=== PATIENT | female | born 1985 | race Two or more races ===

== ENCOUNTER → 2020-08-04 12:45 | Outpatient (BNVA) | payer OTHER, SELFPAY | PROVIDERS: PCP Hospitalist; Referring Provider Hospitalist; Visit Provider Nurse Practitioner | DX: K21.9 Gastro-esophageal reflux disease without esophagitis (principal); R06.81 Apnea, not elsewhere classified; K59.04 Chronic idiopathic constipation; Z79.899 Other long term (current) drug therapy | CPT/HCPCS: 99212 ==

== ENCOUNTER 2020-08-06 10:33 | Outpatient (REF) | payer OTHER, SELFPAY ==
--- NOTE | 2020-08-06 | US_ITS ---
EXAMINATION: US PELVIS COMPLETE CLINICAL INFORMATION: Transabdominal pelvic pain. Previous hysterectomy and right oophorectomy. COMPARISON: None TECHNIQUE: Transabdominal and transvaginal imaging of pelvis is performed. FINDINGS: The uterus is surgically absent. The right ovary is not visualized likely from previous oophorectomy. The left ovary measures 3.2 x 1.6 x 1.5 cm and volume 4.0 mL. There are 2 anechoic cysts in the left ovary. They measure 0.90 x 0.84 x 0.90 cm and 0.85 x 0.60 x 0.83 cm. There is no free fluid in the cul-de-sac. US/US transvaginal IMPRESSION: 1. Two simple cysts left ovary. 2. The right ovary and uterus have been surgically removed.
--- NOTE | 2020-08-06 | US_ITS ---
EXAMINATION: US PELVIS COMPLETE CLINICAL INFORMATION: Transabdominal pelvic pain. Previous hysterectomy and right oophorectomy. COMPARISON: None TECHNIQUE: Transabdominal and transvaginal imaging of pelvis is performed. FINDINGS: The uterus is surgically absent. The right ovary is not visualized likely from previous oophorectomy. The left ovary measures 3.2 x 1.6 x 1.5 cm and volume 4.0 mL. There are 2 anechoic cysts in the left ovary. They measure 0.90 x 0.84 x 0.90 cm and 0.85 x 0.60 x 0.83 cm. There is no free fluid in the cul-de-sac. US/US pelvic complete IMPRESSION: 1. Two simple cysts left ovary. 2. The right ovary and uterus have been surgically removed.
== END 2020-08-06 10:34 | disposition home or self-care (01) ==
LOC: HO.US 10:33
PROVIDERS: Visit Provider Obstetrics & Gynecology
DX: R10.2 Pelvic and perineal pain (principal); N83.292 Other ovarian cyst, left side; D49.59 Neoplasm of unspecified behavior of other genitourinary organ
CPT/HCPCS: 76830; 76856

== ENCOUNTER 2020-08-16 13:44 | Emergency (ER) | payer OTHER, SELFPAY ==
[2020-08-16 14:56] VITALS: BP 126/79; PULSE 75; RESP 18; TEMP 36.9; O2SAT 100; BMI 23.3
--- NOTE | 2020-08-16 15:13 | ED.URI ---
HPI - URI/Sore Throat General Chief Complaint: Upper Respiratory Symptoms Stated Complaint: FLU SYMPTONS Time Seen by Provider: 08/16/20 15:11 Source: patient Mode of arrival: ambulatory Limitations: no limitations History of Present Illness HPI Narrative: States she has had runny nose and congestion for 1 day her boyfriend tested positive for COVID-19 she is anxious regarding this. Denies any chest pain shortness of breath no fever. Here for COVID-19 testing. MD elicited complaint: rhinorrhea Severity: mild Treatments prior to arrival: none Related Data Home Medications Medication Instructions Recorded Confirmed bisacodyl 5 mg tablet,delayed 10 mg PO BEDTIME 08/01/20 08/01/20 release linaclotide 290 mcg capsule 290 mcg PO QAM 08/01/20 08/01/20 omeprazole 40 mg capsule,delayed 40 mg PO DAILY 08/01/20 08/01/20 release Allergies Allergy/AdvReac Type Severity Reaction Status Date / Time No Known Allergies Allergy Verified 08/04/20 12:46 [No Known Allergies*] Review of Systems Review of Systems: Constitutional: No Weight loss, No Fever, No Chills, No Night Sweats, No Fatigue, No Malaise ENT/Mouth: No Hearing loss, No Ear Pain, + Nasal Congestion, No Sinus Pain, No Hoarseness, No sore throat, + Rhinorrhea, No Swallowing Difficulty Eyes: No Eye Pain, No Swelling, No Redness, No Foreign Body, No Discharge, No Vision Changes Cardiovascular: No Chest Pain, No SOB, No Dyspnea on Exertion, No Orthopnea, No Edema, No Palpitations Respiratory: No Cough, No Sputum, No Wheezing, No Smoke Exposure, No Dyspnea Gastrointestinal: No Nausea, No Vomiting, No Diarrhea, No Constipation, No abdominal Pain Genitourinary: no irregular bleeding, No Dysuria, No Urinary Frequency, No Hematuria, No Urinary Incontinence, No Urgency, No Flank Pain, No Urinary Flow Changes, No Hesitancy Musculoskeletal: No joint pain, No Myalgias, No Joint Swelling Skin: No Skin Lesions, No rash Neuro: No Weakness, No Numbness, No Paresthesias, No Loss of Consciousness, No Dizziness, No Headache Psych: No Social Issues Heme/Lymph: No Bruising, No Bleeding,No Lymphadenopathy Endocrine: No Polyuria, No Polydipsia, No Temperature Intolerance Yes all other systems are reviewed and are negative PMFSH Past Medical History Attestation statement: The following information was validated with the patient. Surgical History H/O section H/O hernia repair H/O hysterectomy with oophorectomy Hx of esophagogastroduodenoscopy Family History Family History (Updated 08/04/20 @ 12:55 by RACHEL Villalba) Father Kidney disease Hypertension Mother CVD (cardiovascular disease) Paternal Grandmother Stomach cancer Social History Social History (Updated 08/04/20 @ 12:57 by RACHEL Villalba) Alcohol intake: current Alcohol intake frequency: does not drink Smoking Status: Current every day smoker Tobacco Type: Cigarette Cigarettes Per Day: 5 Advance Directives: No Advance Directives Information Provided: Yes Physical Exam Vital Signs: Vital Signs: Last Vital Signs Temp 98.4 F 08/16/20 14:56 Pulse 75 08/16/20 14:56 Resp 18 08/16/20 14:56 BP 126/79 08/16/20 14:56 Pulse Ox 100 08/16/20 14:56 Body Mass Index 23.3 Reviewed Const: General: cooperative and healthy appearing; No acute distress or intoxicated appearing Nutritional Appearance: average body habitus Orientation/consciousness: patient oriented x3 HENMT: Head: Yes normal to inspection Ears: hearing grossly normal bilaterally Eyes: General: appearance normal, both eyes and all related structures Visual Wilder: normal visual wilder by confrontation Neck: Neck: Yes normal visual inspection, No positive Brudzinski's sign, No positive Kernig's sign and No tender Thyroid: Thyroid normal Chest: Chest palpation & inspection: normal inspection of the chest Resp: Effort & Inspection: normal respiratory effort Cardio: Jugular venous distension: no JVD GI: Inspection: Yes normal to inspection Percussion: Yes normal to percussion Auscultation: normal bowel sounds : General: Yes no CVA tenderness Back/Spine/Pelvis: Back: no CVA tenderness Skin: General skin exam: no rashes or lesions noted Neuro: General: patient oriented x3 Extrem: General: Yes normal to inspection Discharge Plan Discharge Clinical Impression: Upper respiratory infection Patient Disposition: Home, Self-Care Instructions: Upper Respiratory Infection (ED) Additional Instructions: Based on your symptoms and history we have sent a COVID-19. Although your RESULT IS PENDING at this time. RESULTS should return within 72 hours. At this time you will be contacted with either NEGATIVE OR POSITIVE results. -Please wait until we contact you for your results. At this time you will be okay for discharge. Please plan for self quarantine for up to 14 days. Do not expose yourself to others. You may not go to work. If testing does come back negative you may return to activities as long as you are no longer having any symptoms for at least 3 days. Please continue to follow cold instructions and wash your hands frequently. You may take Tylenol as directed on the bottle for pain or fever. Patient seen in the emergency department on 03/28/2020 and should be excused from work until negative test results AND until 72 hours without any symptoms AND at least 10 days have passed since symptoms first appeared or since last exposure to COVID-19 positive patient CDC Guidelines for home isolation: - Stay away from others - WEAR A MASK if you are sick AND STAY HOME - Cover your mouth and nose with a tissue when you cough or sneeze. Dispose of tissues in a lined trash can and wash your hands immediately with soap and water for at least 20 seconds. If soap and water are not available, clean hands with alcohol-based hand weight yardage checker that contains at least 60% alcohol. - Clean your hands often with soap and water for at least 20 seconds - Avoid touching your eyes, nose and mouth with unwashed hands - Do not share dishes, drinking glasses, cups, eating utensils, towels, or bedding with other people in your home. After using these items, wash them thoroughly with soap and water or put in the editorial specialist. - Clean high-touch surfaces in your isolation area ( sick room and bathroom) every day; let a caregiver clean and disinfect high-touch surfaces in other areas of the home. Clean the area or item with soap and water or another detergent if it is dirty. Then, use a household disinfectant. - Limit contact with pets and animals: If you must care for a pet, wash your hands before and after interacting with them Prescriptions: No Action bisacodyl [Dulcolax (bisacodyl)] 5 mg tablet,delayed release (DR/EC) 10 mg PO BEDTIME RF: 0 Linzess 290 mcg capsule 290 mcg PO QAM RF: 0 omeprazole 40 mg capsule,delayed release(DR/EC) 40 mg PO DAILY RF: 0 Referrals: Nazia Newton MD [Primary Care Provider] - 1 week (Phone visit)
== END 2020-08-16 15:52 | disposition home or self-care (01) ==
PROVIDERS: Nurse Practitioner Primary Care; Emergency Provider Emergency Medicine; PCP Internal Medicine
DX: J06.9 Acute upper respiratory infection, unspecified (principal); Z20.828 Contact with and (suspected) exposure to other viral communicable diseases; F17.210 Nicotine dependence, cigarettes, uncomplicated; Z71.6 Tobacco abuse counseling
CPT/HCPCS: 99283; U0003

== ENCOUNTER → 2020-08-19 09:12 | Outpatient (BNVA) | payer OTHER, SELFPAY | PROVIDERS: PCP Internal Medicine; Referring Provider Internal Medicine; Visit Provider Advanced Practice Midwife | DX: Z76.89 Persons encountering health services in other specified circumstances (principal) ==

== ENCOUNTER 2020-08-30 10:24 | Emergency (ER) | payer OTHER, SELFPAY ==
--- NOTE | 2020-08-30 10:32 | ED.DENTAL ---
HPI - Dental/Oral General Chief complaint: Dental/Oral Stated complaint: FACIAL PAIN Time Seen by Provider: 08/30/20 10:32 Source: patient Mode of arrival: ambulatory Limitations: no limitations History of Present Illness HPI Narrative: 35 y/o female with history of dental caries and hx abscess in the past who is presenting with acute onset of left lower dental pain and facial swelling that started yesterday. She states she recently had a cleaning and has a known cracked tooth in that area. She denies fevers, difficulty breathing or difficulty swallowing. Related Data Home Medications Medication Instructions Recorded Confirmed bisacodyl 5 mg tablet,delayed 10 mg PO BEDTIME 08/01/20 08/01/20 release linaclotide 290 mcg capsule 290 mcg PO QAM 08/01/20 08/01/20 omeprazole 40 mg capsule,delayed 40 mg PO DAILY 08/01/20 08/01/20 release Previous Rx's Medication Instructions Recorded clindamycin HCl 300 mg PO Q6H #28 cap 08/30/20 hydrocodone-acetaminophen [[place]] 1 tab PO Q4-6H PRN #12 tab 08/30/20 ibuprofen 600 mg PO Q8H PRN #20 tab 08/30/20 Allergies Allergy/AdvReac Type Severity Reaction Status Date / Time No Known Allergies Allergy Verified 08/19/20 09:05 [No Known Allergies*] Review of Systems Review of Systems: Constitutional: No Fever, No Chills ENT/Mouth: No sore throat, No Rhinorrhea, No Swallowing Difficulty, +dental pain, +facial swelling Cardiovascular: No Chest Pain, No SOB Respiratory: No Cough, No Sputu Gastrointestinal: No Nausea, No Vomiting, No Diarrhea, No abdominal Pain Musculoskeletal: No joint pain, No Myalgias Neuro: + Headache Psych: + Anxiety/Panic, No Depression Heme/Lymph: + Lymphadenopathy PMFSH Past Medical History Medical History Anxiety Asthma Atopic dermatitis Bipolar 1 disorder Depression GERD (gastroesophageal reflux disease) Surgical History H/O section H/O hernia repair H/O hysterectomy with oophorectomy Hx of esophagogastroduodenoscopy Family History Family History Father Kidney disease Hypertension Mother CVD (cardiovascular disease) Paternal Grandmother Stomach cancer Social History Social History (Updated 08/19/20 @ 09:16 by Citlali Alas) Alcohol intake: current Alcohol intake frequency: does not drink Smoking Status: Current every day smoker Tobacco Type: Cigarette Cigarettes Per Day: 5 Advance Directives: No Advance Directives Information Provided: No Gender identity: female Physical Exam Vital Signs: Vital Signs: Last Vital Signs Temp 97.3 F 08/30/20 10:38 Pulse 86 08/30/20 10:38 Resp 17 08/30/20 10:38 BP 130/86 08/30/20 10:38 Pulse Ox 99 08/30/20 10:38 Body Mass Index 26.4 Appearance: Alert. Oriented X3. Apppears to be in pain, holding left side of her jaw HEENT: moderate left sided facial swelling, palpable dental abscess at 2nd molar position, tooth #18 with gingival tenderness, no pus able to be expressed, #18 tooth is cracked with brown discoloration. uvula midline, handling own secretions, tongue nomral. submandibular LAD, moderate. CVS: Normal heart rate and rhythm. Pulses normal. Respiratory: No respiratory distress. Lungs CTAB. Skin: Skin warm and dry. Normal skin color. Normal skin turgor. No rashes. Course Course Course Narrative: 35 y/o female with left lower dental pain since yesterday after recent cleaning - exam consistent with abscess. Dr. Cisneros attempted to perform dental block and offered drainage however patient did not tolerate due to pain. She would like to be treated with antibiotics and pain medications until she can be seen by her dentist on Tuesday. Her airway is intact, low suspicion for Oliverio's angina at this time. She was given pain meds and oral abx here with plan to prescribe both to cover her for the weekend. She was instructed to come back to the ER if her symptoms worsen. MDM - Dental/Oral Differential Diagnosis Differential diagnosis: Likely gingival abscess, dental caries, toothache, dental abscess and fracture of tooth Critical Care Time Critical Care Time Critical Care Time: No Discharge Plan Discharge Clinical Impression: Dental abscess Patient Disposition: Home, Self-Care Instructions: Dental Abscess (ED) Additional Instructions: Your exam is concerning for dental abscess. Unfortunately you did not tolerate an attempt at drainage while in the ER today. Take the prescribed antibiotics to treat the infection. Follow up with your dentist PARVIZ, 1st thing Tuesday morning. If you develop increased swelling, pain, difficulty breathing or swallowing call 911 or come back to the ER for further evalution. Prescriptions: New ibuprofen 600 mg tablet 600 mg PO Q8H PRN (Reason: pain) Qty: 20 RF: 0 hydrocodone-acetaminophen [[place]] 5-325 mg tablet 1 tab PO Q4-6H PRN (Reason: pain) Qty: 12 RF: 0 clindamycin HCl 300 mg capsule 300 mg PO Q6H Qty: 28 RF: 0 No Action bisacodyl [Dulcolax (bisacodyl)] 5 mg tablet,delayed release (DR/EC) 10 mg PO BEDTIME RF: 0 Linzess 290 mcg capsule 290 mcg PO QAM RF: 0 omeprazole 40 mg capsule,delayed release(DR/EC) 40 mg PO DAILY RF: 0 Discharge Date/Time: 08/30/20 11:47 Print Language: Sinhala
[2020-08-30 10:38] VITALS: BP 130/86; PULSE 86; RESP 17; TEMP 36.3; O2SAT 99; BMI 26.4
[2020-08-30] MEDS: Lidocaine HCl 2 % MPF 5 ML VIAL INFILTRATI (11:05)
[2020-08-30] MEDS: oxyCODONE HCl Immed Release 5 MG TABLET PO (11:06)
[2020-08-30] MEDS: Acetaminophen 325 MG TABLET 975 MG PO (11:06)
[2020-08-30] MEDS: Ibuprofen 600 MG TABLET PO (11:06)
[2020-08-30] MEDS: Penicillin V Potassium 250 MG TABLET 500 MG PO (11:07)
== END 2020-08-30 11:47 | disposition home or self-care (01) ==
LOC: HO.ED 10:54
PROVIDERS: Emergency Provider Internal Medicine; PCP Internal Medicine
DX: K04.7 Periapical abscess without sinus (principal)
CPT/HCPCS: 99283

== ENCOUNTER 2020-11-07 11:35 | Outpatient (REF) | payer OTHER, SELFPAY | END 2020-11-07 11:36 | disposition home or self-care (01) | LOC: HO.LAB 11:35 | PROVIDERS: PCP Internal Medicine; Visit Provider Advanced Practice Midwife | DX: N30.90 Cystitis, unspecified without hematuria (principal); N83.202 Unspecified ovarian cyst, left side; Z90.710 Acquired absence of both cervix and uterus | CPT/HCPCS: 81003; 87086; 87088; 87186; 99212 ==

== ENCOUNTER 2020-11-08 07:56 | Outpatient (REF) | payer OTHER, SELFPAY ==
[2020-11-08 08:43] LABS: MANUAL DIFF FLAG NO
[2020-11-08 08:47] LABS: Basophils Percent Auto 0.4 % (0-2); Eosinophils Absolute Auto 0.1 X10*3/uL (0.0-0.4); Hematocrit 45.6 % (37-47); Hemoglobin 14.7 g/dl (12.0-16.0); Imm Gran Abs Auto 0.03 X10*3/uL (0.00-0.03); Imm Gran Pct Auto 0.4 % (0.0-0.4); Lymphocytes Absolute Auto 2.8 X10*3/uL (1.2-4.9); Lymphocytes Percent Auto 39.6 % (20-40); Mean Corpuscular HGB Conc 32.2 g/dl (31.0-35.0); Mean Corpuscular Hemoglobin 28.6 pg (27.0-33.0); Mean Corpuscular Volume 88.7 fL (80-98); Mean Platelet Volume 11.2 fL (9.4-12.3); Monocytes Absolute Auto 0.4 X10*3/uL (0.1-1.2); Neutrophils Absolute Auto 3.7 X10*3/uL (2.0-8.3); Neutrophils Percent Auto 52.6 % (45-73); Platelet Count 291 X10*3/uL (160-400); Red Blood Count 5.14 X10*6/uL (4.20-5.50); Red Cell Distribution Width 14.1 % (11.0-16.0); White Blood Count 7.1 X10*3/uL (4.8-10.8)
[2020-11-08 09:04] LABS: Anion Gap 11 (12-20); Blood Urea Nitrogen 17 mg/dL (9-16); Calcium 9.6 mg/dL (8.4-10.2); Carbon Dioxide 28 mmol/L (22-29); Chloride 103 mmol/L (96-108); Cholesterol 190 mg/dL; Estimated Glomerular Filt Rate > 60; Glucose Fasting 105 mg/dL (60-99); HDL Cholesterol 31 mg/dL; LDL Cholesterol Calculated 111 mg/dl; Potassium 4.6 mmol/L (3.3-5.1); Sodium 137 mmol/L (135-145); Triglycerides 240 mg/dL
== END 2020-11-08 07:57 | disposition home or self-care (01) ==
LOC: HO.LAB 07:56
PROVIDERS: PCP Internal Medicine; Visit Provider Nurse Practitioner Family
DX: K58.9 Irritable bowel syndrome, unspecified (principal)
CPT/HCPCS: 36415; 80048; 80061; 85025

== ENCOUNTER 2020-11-09 13:37 | Emergency (ER) | payer OTHER, SELFPAY ==
[2020-11-09 13:39] VITALS: BP 134/93; PULSE 73; RESP 18; TEMP 36.7; O2SAT 98; BMI 30.9
[2020-11-09 16:54] LABS: MANUAL DIFF FLAG NO
[2020-11-09 16:57] LABS: Basophils Percent Auto 0.3 % (0-2); Eosinophils Absolute Auto 0.1 X10*3/uL (0.0-0.4); Eosinophils Percent Auto 1.7 % (0-4); Imm Gran Abs Auto 0.02 X10*3/uL (0.00-0.03); Imm Gran Pct Auto 0.3 % (0.0-0.4); Lymphocytes Absolute Auto 2.7 X10*3/uL (1.2-4.9); Lymphocytes Percent Auto 34.6 % (20-40); Mean Corpuscular HGB Conc 31.8 g/dl (31.0-35.0); Mean Corpuscular Hemoglobin 28.1 pg (27.0-33.0); Mean Corpuscular Volume 88.4 fL (80-98); Mean Platelet Volume 11.2 fL (9.4-12.3); Monocytes Absolute Auto 0.4 X10*3/uL (0.1-1.2); Neutrophils Absolute Auto 4.5 X10*3/uL (2.0-8.3); Neutrophils Percent Auto 58.1 % (45-73); Platelet Count 281 X10*3/uL (160-400); Red Blood Count 4.98 X10*6/uL (4.20-5.50); Red Cell Distribution Width 14.1 % (11.0-16.0); White Blood Count 7.7 X10*3/uL (4.8-10.8)
--- NOTE | 2020-11-09 16:58 | ED.DIZZY ---
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 Mode of arrival: ambulatory Related Data Home Medications Medication Instructions Recorded Confirmed bisacodyl 5 mg tablet,delayed 10 mg PO BEDTIME 08/01/20 11/07/20 release linaclotide 290 mcg capsule 290 mcg PO QAM 08/01/20 11/07/20 omeprazole 40 mg capsule,delayed 40 mg PO DAILY 08/01/20 11/07/20 release Previous Rx's Medication Instructions Recorded clindamycin HCl 300 mg PO Q6H #28 cap 08/30/20 hydrocodone-acetaminophen [[place]] 1 tab PO Q4-6H PRN #12 tab 08/30/20 ibuprofen 600 mg PO Q8H PRN #20 tab 08/30/20 dicyclomine 20 mg tablet 20 mg PO BID 10 Days #20 tab 11/06/20 rifaximin 200 mg tablet 200 mg PO TID 7 Days #21 tab 11/06/20 nitrofurantoin 100 mg PO BID 7 Days #14 cap 11/07/20 monohydrate/macrocrystals 100 mg capsule Allergies Allergy/AdvReac Type Severity Reaction Status Date / Time No Known Allergies Allergy Verified 11/07/20 11:49 [No Known Allergies*] [facility] Past Medical History Medical History Anxiety Asthma Atopic dermatitis Bipolar 1 disorder Depression GERD (gastroesophageal reflux disease) IBS (irritable bowel syndrome) Surgical History (Updated 11/07/20 @ 11:57 by Marianela Cash) H/O section H/O hernia repair H/O hysterectomy with oophorectomy Hx of esophagogastroduodenoscopy Family History Family History Father Kidney disease Hypertension Mother CVD (cardiovascular disease) Paternal Grandmother Stomach cancer Social History Social History Alcohol intake: current Alcohol intake frequency: does not drink Smoking Status: Current every day smoker Tobacco Type: Cigarette Cigarettes Per Day: 5 Advance Directives: No Advance Directives Information Provided: No Gender identity: female Physical Exam Vital Signs: Vital Signs: Last Vital Signs Temp 98.1 F 11/09/20 13:39 Pulse 73 11/09/20 13:39 Resp 18 11/09/20 13:39 BP 134/93 H 11/09/20 13:39 Pulse Ox 98 11/09/20 13:39 Body Mass Index 30.9 MDM - Dizziness Lab Data Result diagrams: 11/09/20 16:33 11/09/20 16:33 Labs: Lab Results 11/09/20 11/09/20 Range/Units 16:33 16:33 WBC 7.7 (4.8-10.8) X10*3/uL RBC 4.98 (4.20-5.50) X10*6/uL Hgb 14.0 (12.0-16.0) g/dl Hct 44.0 (37-47) % MCV 88.4 (80-98) fL MCH 28.1 (27.0-33.0) pg MCHC 31.8 (31.0-35.0) g/dl RDW 14.1 (11.0-16.0) % Plt Count 281 (160-400) X10*3/uL MPV 11.2 (9.4-12.3) fL Immature Gran % (Auto) 0.3 (0.0-0.4) % Neut % (Auto) 58.1 (45-73) % Lymph % (Auto) 34.6 (20-40) % [place] % (Auto) 5.0 (2-11) % Eos % (Auto) 1.7 (0-4) % Baso % (Auto) 0.3 (0-2) % Lymph # (Auto) 2.7 (1.2-4.9) X10*3/uL [place] # (Auto) 0.4 (0.1-1.2) X10*3/uL Eos # (Auto) 0.1 (0.0-0.4) X10*3/uL Baso # (Auto) 0.0 (0.0-0.2) X10*3/uL Abs Immat Gran (auto) 0.02 (0.00-0.03) X10*3/uL Absolute Neuts (auto) 4.5 (2.0-8.3) X10*3/uL Absolute Nucleated RBC 0.000 (0.0-0.012) X10*3/uL Nucleated RBC % (auto) 0.0 (0.0-0.2) /100WBC Hold Blue Top SEE NOTE Discharge Plan Discharge Prescriptions: No Action ibuprofen 600 mg tablet 600 mg PO Q8H PRN (Reason: pain) Qty: 20 RF: 0 hydrocodone-acetaminophen [[place]] 5-325 mg tablet 1 tab PO Q4-6H PRN (Reason: pain) Qty: 12 RF: 0 clindamycin HCl 300 mg capsule 300 mg PO Q6H Qty: 28 RF: 0 rifaximin 200 mg tablet 200 mg PO TID 7 Days Qty: 21 RF: 0 dicyclomine 20 mg tablet 20 mg PO BID 10 Days Qty: 20 RF: 0 bisacodyl [Dulcolax (bisacodyl)] 5 mg tablet,delayed release (DR/EC) 10 mg PO BEDTIME RF: 0 Linzess 290 mcg capsule 290 mcg PO QAM RF: 0 omeprazole 40 mg capsule,delayed release(DR/EC) 40 mg PO DAILY RF: 0 nitrofurantoin monohyd/m-cryst [Macrobid] 100 mg capsule 100 mg PO BID 7 Days Qty: 14 RF: 0
--- NOTE | 2020-11-09 17:10 | ED_ITS ---
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 Patient been complaining of diffuse pain nausea, vomiting 1 or 2 times a day. No fever no chills no significant flank pain no relation of pain with food last temp patient saw pediatrician was in 07/22 when she was prescribed with Manuelito HATFIELD elicited complaint: abdominal pain Pertinent past history: gastritis Onset (ago): day(s) (5) Pain Consistency: intermittent Location: diffuse Severity: mild Quality: cramping Related Data Home Medications Medication Instructions Recorded Confirmed bisacodyl 5 mg tablet,delayed 10 mg PO BEDTIME 08/01/20 11/07/20 release linaclotide 290 mcg capsule 290 mcg PO QAM 08/01/20 11/07/20 omeprazole 40 mg capsule,delayed 40 mg PO DAILY 08/01/20 11/07/20 release Previous Rx's Medication Instructions Recorded clindamycin HCl 300 mg PO Q6H #28 cap 08/30/20 hydrocodone-acetaminophen [[place]] 1 tab PO Q4-6H PRN #12 tab 08/30/20 ibuprofen 600 mg PO Q8H PRN #20 tab 08/30/20 dicyclomine 20 mg tablet 20 mg PO BID 10 Days #20 tab 11/06/20 rifaximin 200 mg tablet 200 mg PO TID 7 Days #21 tab 11/06/20 nitrofurantoin 100 mg PO BID 7 Days #14 cap 11/07/20 monohydrate/macrocrystals 100 mg capsule levofloxacin 500 mg PO DAILY 5 Days #5 tab 11/09/20 ondansetron 4 mg PO Q6-8H PRN #7 tab 11/09/20 Allergies Allergy/AdvReac Type Severity Reaction Status Date / Time No Known Allergies Allergy Verified 11/07/20 11:49 [No Known Allergies*] Review of Systems Review of Systems Constitutional : No Weight loss, No Fever, No Chills ENT/Mouth : No sore throat, No Rhinorrhea Eyes: No Eye Pain, No Swelling Cardiovascular : No Chest Pain, no palpitations Respiratory : No Cough, No Sputum, no shortness of breath Gastrointestinal : + Nausea, + Vomiting, No Diarrhea, + abdominal Pain, no black stools Genitourinary : No Dysuria, No Urinary Frequency Musculoskeletal : No joint pain, No Myalgias, No Joint Swelling Skin : No Skin Lesions, No rash Neuro : No Weakness, No Numbness, No Dizziness, No Headache Psych : No Anxiety/Panic, No Depression Heme/Lymph: No Bruising, No Lymphadenopathy Endocrine : No Polyuria, No Polydipsia All other systems reviewed and are negative Physical Exam Vital Signs: Vital Signs: Last Vital Signs Temp 98.6 F 11/09/20 17:20 Pulse 63 11/09/20 17:20 Resp 18 11/09/20 17:20 BP 128/80 11/09/20 17:20 Pulse Ox 100 11/09/20 17:20 Body Mass Index 30.9 Const: General: healthy appearing, comfortable and no acute distress Orientation/consciousness: patient oriented x3 HENMT: Head: Yes normocephalic Eyes: General: appearance normal, both eyes and all related structures Neck: Neck: Yes normal visual inspection Chest: Chest palpation & inspection: normal inspection of the chest Resp: Effort & Inspection: normal respiratory effort Cardio: Palpation: normal PMI Rate: regular rate Rhythm: regular rhythm Heart sounds: S1 normal heart sound present and S2 normal heart sound present GI: Inspection: Yes normal to inspection Palpation (GI): Soft to palpation and nontender : General: Yes no CVA tenderness Back/Spine/Pelvis: Back: no CVA tenderness Thoracic/Lumbar Spine: thoracic and lumbar spine normal to inspection Skin: General skin exam: no rashes or lesions noted Neuro: General: patient oriented x3 and no focal motor deficits Extrem: General: Yes normal to inspection, Yes no calf tenderness and No pedal edema MDM - Abdominal Pain MDM Narrative Medical decision making narrative: Patient IBS with chronic abdominal pain with recent UTI urine culture showed E coli which was intermediate sensitive to Macrobid will change to Levaquin advised to follow with pediatrician Differential Diagnosis Differential diagnosis: Likely abdominal pain Medical Records Attestation: I reviewed the patient's medical records. Lab Data Attestation: I reviewed the patient's lab results. Result diagrams: 11/09/20 16:33 11/09/20 16:33 Labs: Lab Results 11/09/20 11/09/20 11/09/20 Range/Units 16:33 16:33 16:33 WBC 7.7 (4.8-10.8) X10*3/uL RBC 4.98 (4.20-5.50) X10*6/uL Hgb 14.0 (12.0-16.0) g/dl Hct 44.0 (37-47) % MCV 88.4 (80-98) fL MCH 28.1 (27.0-33.0) pg MCHC 31.8 (31.0-35.0) g/dl RDW 14.1 (11.0-16.0) % Plt Count 281 (160-400) X10*3/uL MPV 11.2 (9.4-12.3) fL Immature Gran % (Auto) 0.3 (0.0-0.4) % Neut % (Auto) 58.1 (45-73) % Lymph % (Auto) 34.6 (20-40) % [place] % (Auto) 5.0 (2-11) % Eos % (Auto) 1.7 (0-4) % Baso % (Auto) 0.3 (0-2) % Lymph # (Auto) 2.7 (1.2-4.9) X10*3/uL [place] # (Auto) 0.4 (0.1-1.2) X10*3/uL Eos # (Auto) 0.1 (0.0-0.4) X10*3/uL Baso # (Auto) 0.0 (0.0-0.2) X10*3/uL Abs Immat Gran (auto) 0.02 (0.00-0.03) X10*3/uL Absolute Neuts (auto) 4.5 (2.0-8.3) X10*3/uL Absolute Nucleated RBC 0.000 (0.0-0.012) X10*3/uL Nucleated RBC % (auto) 0.0 (0.0-0.2) /100WBC Hold Blue Top SEE NOTE Sodium 140 (135-145) mmol/L Potassium 4.1 (3.3-5.1) mmol/L Chloride 107 (96-108) mmol/L Carbon Dioxide 23 (22-29) mmol/L Anion Gap 14 (12-20) BUN 18 H (9-16) mg/dL Creatinine 0.80 (0.5-1.4) mg/dL Estim Creat Clear Calc 103.4 Estimated GFR > 60 Random Glucose 102 (60-115) mg/dL Calcium 9.2 (8.4-10.2) mg/dL Total Bilirubin 0.3 (0.0-1.0) mg/dL Direct Bilirubin 0.2 (0.0-0.5) mg/dL AST 19 (5-31) U/L ALT 19 (0-31) U/L Alkaline Phosphatase 42 (39-117) U/L Total Protein 6.9 (6.5-8.0) g/dL Albumin 4.1 (3.5-5.0) g/dL Lipase 17 (8-78) U/L Discharge Plan Discharge Clinical Impression: UTI (urinary tract infection) IBS (irritable bowel syndrome) Qualifiers: Irritable bowel syndrome type: without diarrhea Qualified Code(s): K58.9 - Irritable bowel syndrome without diarrhea Patient Disposition: Home, Self-Care Instructions: Irritable Bowel Syndrome (ED), Urinary Tract Infection in Women (ED) Additional Instructions: Drink plenty of fluids take medication as prescribed. Follow-up with your PCP/pediatrician Stop Macrobid which was prescribed by your PCP Audra muchos l?quidos y tome los medicamentos seg?n lo prescrito. Seguimiento con silva PCP / gastroenter?logo top Macrobid que fue recetado por silva PCP Prescriptions: New levofloxacin 500 mg tablet 500 mg PO DAILY 5 Days Qty: 5 RF: 0 ondansetron 4 mg tablet,disintegrating 4 mg PO Q6-8H PRN (Reason: nausea and vomiting) Qty: 7 RF: 0 No Action ibuprofen 600 mg tablet 600 mg PO Q8H PRN (Reason: pain) Qty: 20 RF: 0 hydrocodone-acetaminophen [[place]] 5-325 mg tablet 1 tab PO Q4-6H PRN (Reason: pain) Qty: 12 RF: 0 clindamycin HCl 300 mg capsule 300 mg PO Q6H Qty: 28 RF: 0 rifaximin 200 mg tablet 200 mg PO TID 7 Days Qty: 21 RF: 0 dicyclomine 20 mg tablet 20 mg PO BID 10 Days Qty: 20 RF: 0 bisacodyl [Dulcolax (bisacodyl)] 5 mg tablet,delayed release (DR/EC) 10 mg PO BEDTIME RF: 0 Linzess 290 mcg capsule 290 mcg PO QAM RF: 0 omeprazole 40 mg capsule,delayed release(DR/EC) 40 mg PO DAILY RF: 0 nitrofurantoin monohyd/m-cryst [Macrobid] 100 mg capsule 100 mg PO BID 7 Days Qty: 14 RF: 0 Interventions: ED Discharge Assessment Last Done: 11/09/20 17:41 Discharge Date/Time: 11/09/20 17:42 [facility] Past Medical History Medical History Anxiety Asthma Atopic dermatitis Bipolar 1 disorder Depression GERD (gastroesophageal reflux disease) IBS (irritable bowel syndrome) Surgical History H/O section H/O hernia repair H/O hysterectomy with oophorectomy Hx of esophagogastroduodenoscopy Family History Family History Father Kidney disease Hypertension Mother CVD (cardiovascular disease) Paternal Grandmother Stomach cancer Social History Social History Alcohol intake: former Smoking Status: Current every day smoker Tobacco Type: Cigarette Cigarettes Per Day: 5 Smoked in Last 30 Days: Yes Use of substances other than those prescribed or required for medical reasons: Yes Substance Use Type: Marijuana Substance Use Frequency: Socially Last Used Substance: Days (ago) Advance Directives: No Advance Directives Information Provided: No Gender identity: female
[2020-11-09 17:19] LABS: Alanine Aminotransferase 19 U/L (0-31); Albumin Level 4.1 g/dL (3.5-5.0); Alkaline Phosphatase 42 U/L (39-117); Anion Gap 14 (12-20); Aspartate Amino Transferase 19 U/L (5-31); Bilirubin Direct 0.2 mg/dL (0.0-0.5); Bilirubin Total 0.3 mg/dL (0.0-1.0); Blood Urea Nitrogen 18 mg/dL (9-16); Calcium 9.2 mg/dL (8.4-10.2); Carbon Dioxide 23 mmol/L (22-29); Chloride 107 mmol/L (96-108); Creatinine Clr Calc Pharmacy 103.4; Estimated Glomerular Filt Rate > 60; Glucose Random 102 mg/dL (60-115); Lipase 17 U/L (8-78); Potassium 4.1 mmol/L (3.3-5.1); Sodium 140 mmol/L (135-145); Total Protein 6.9 g/dL (6.5-8.0)
[2020-11-09 17:20] VITALS: BP 128/80; PULSE 63; RESP 18; TEMP 37; O2SAT 100
[2020-11-09] MEDS: Dicyclomine HCl 10 MG CAPSULE 20 MG PO (17:32)
[2020-11-09] MEDS: levoFLOXacin 500 MG TABLET PO (17:33)
--- NOTE | 2020-11-09 17:42 | MHC.HEMONC ---
Patient discharged, Interpeter used. Patient stated she understood instrucitons.
== END 2020-11-09 17:42 | disposition home or self-care (01) ==
PROVIDERS: Emergency Provider Internal Medicine; PCP Internal Medicine
DX: N39.0 Urinary tract infection, site not specified (principal); K58.0 Irritable bowel syndrome with diarrhea; F17.210 Nicotine dependence, cigarettes, uncomplicated
CPT/HCPCS: 36415; 80048; 80076; 83690; 85025; 99283; 99284

== ENCOUNTER → 2020-11-13 13:26 | Outpatient (BNVA) | payer OTHER, SELFPAY | PROVIDERS: PCP Internal Medicine; Visit Provider Nurse Practitioner ==

== ENCOUNTER 2020-11-17 13:27 | Outpatient (REF) | payer OTHER, SELFPAY | END 2020-11-17 13:28 | disposition home or self-care (01) | LOC: HO.LAB 13:27 | PROVIDERS: Visit Provider Internal Medicine | DX: Z20.822 Contact with and (suspected) exposure to COVID-19 (principal) | CPT/HCPCS: 36415; C9803; U0003; U0005 ==

== ENCOUNTER 2020-11-23 10:27 | Emergency (ER) | payer OTHER, SELFPAY ==
--- NOTE | ~2020-11-23 | US_ITS ---
EXAMINATION: US PELVIS COMPLETE WITH DOPPLER CLINICAL INFORMATION: Left-sided pain COMPARISON: CT abdomen pelvis 11/23/2020; pelvic ultrasound 08/06/2020 TECHNIQUE: Transabdominal imaging was performed. Additional endovaginal study performed to further evaluate the left ovary. Study performed with grayscale, color and spectral Doppler. FINDINGS: PELVIC ULTRASOUND WITH DOPPLER Status post hysterectomy and right oophorectomy. The left ovary measures 4.2 x 2.9 x 3.0 cm, 19.1 mL (prior 3.2 x 1.6 x 1.5 cm, 4.0 mL). A simple left ovarian follicle measures 1.6 x 1.4 x 1.5 cm. A complex avascular and heterogeneous, presumed hemorrhagic cyst measures 2.6 x 1.9 x 2.3 cm. Trace fluid is seen adjacent to the left ovary. No significant free fluid is seen. PELVIC DOPPLER: Normal color and spectral Doppler flow is demonstrated in the left ovary with arterial and venous waveforms identified. US/US pelvic ovarian doppler IMPRESSION: 1. Hysterectomy and right oophorectomy. 2. The left ovary is enlarged compared to prior and contains a simple follicle as well as a presumed hemorrhagic cyst. Color and spectral Doppler flow is seen in the left ovary without sonographic signs of torsion at this time.
--- NOTE | ~2020-11-23 | US_ITS ---
EXAMINATION: US PELVIS COMPLETE WITH DOPPLER CLINICAL INFORMATION: Left-sided pain COMPARISON: CT abdomen pelvis 11/23/2020; pelvic ultrasound 08/06/2020 TECHNIQUE: Transabdominal imaging was performed. Additional endovaginal study performed to further evaluate the left ovary. Study performed with grayscale, color and spectral Doppler. FINDINGS: PELVIC ULTRASOUND WITH DOPPLER Status post hysterectomy and right oophorectomy. The left ovary measures 4.2 x 2.9 x 3.0 cm, 19.1 mL (prior 3.2 x 1.6 x 1.5 cm, 4.0 mL). A simple left ovarian follicle measures 1.6 x 1.4 x 1.5 cm. A complex avascular and heterogeneous, presumed hemorrhagic cyst measures 2.6 x 1.9 x 2.3 cm. Trace fluid is seen adjacent to the left ovary. No significant free fluid is seen. PELVIC DOPPLER: Normal color and spectral Doppler flow is demonstrated in the left ovary with arterial and venous waveforms identified. US/US pelvic complete IMPRESSION: 1. Hysterectomy and right oophorectomy. 2. The left ovary is enlarged compared to prior and contains a simple follicle as well as a presumed hemorrhagic cyst. Color and spectral Doppler flow is seen in the left ovary without sonographic signs of torsion at this time.
--- NOTE | ~2020-11-23 | CT_ITS ---
EXAMINATION: CT ABDOMEN AND PELVIS WITHOUT CONTRAST CLINICAL INFORMATION: Left lower quadrant pain. History of irritable bowel syndrome. COMPARISON: Previous CT of the abdomen and pelvis April 2020 and pelvic ultrasound August 2020 TECHNIQUE: Multidetector volumetric imaging was performed from the superior aspect of the liver through the pubic symphysis. Sagittal and coronal reformatted images were obtained on the technologist's workstation. This CT examination was performed using dose optimization techniques as appropriate, variously including the following: *Automated exposure control *Adjustment of mA and/or kV according to patient size (this includes techniques or standardized protocols for targeted exams where dose is matched to indication/reason for exam; i.e. extremities or head) *Use of iterative reconstruction technique DLP: 592 mGy-cm FINDINGS: LUNG BASES: The visualized lung bases are unremarkable. LIVER, GALLBLADDER, AND BILIARY TREE: The liver is normal in size, shape, and attenuation. No focal hepatic lesion or biliary ductal dilatation is present. The gallbladder is unremarkable with no evidence of radiopaque gallstones, gallbladder wall thickening, or obvious pericholecystic inflammatory changes. PANCREAS: Unremarkable. SPLEEN: Unremarkable. ADRENAL GLANDS: Unremarkable. KIDNEYS AND URETERS: The kidneys are normal in size, shape, and attenuation. No hydronephrosis, hydroureter, or calculi seen. No perinephric stranding. BLADDER: Unremarkable. GASTROINTESTINAL TRACT: The small and large bowel are unremarkable. The appendix is unremarkable. ABDOMINAL WALL: No significant hernia is appreciated. LYMPH NODES: Normal. VASCULAR: Unremarkable. PELVIC VISCERA: The uterus has been removed. There is a 2.7 x 3.2 x 4 cm left ovarian cyst. This is new from previous exams. OSSEOUS STRUCTURES: Unremarkable. CT/CT abdomen pelvis wo con IMPRESSION: 2.7 x 3 x 4 cm left ovarian cyst from previous exams. Otherwise unremarkable exam.
--- NOTE | ~2020-11-23 | US_ITS ---
EXAMINATION: US PELVIS COMPLETE WITH DOPPLER CLINICAL INFORMATION: Left-sided pain COMPARISON: CT abdomen pelvis 11/23/2020; pelvic ultrasound 08/06/2020 TECHNIQUE: Transabdominal imaging was performed. Additional endovaginal study performed to further evaluate the left ovary. Study performed with grayscale, color and spectral Doppler. FINDINGS: PELVIC ULTRASOUND WITH DOPPLER Status post hysterectomy and right oophorectomy. The left ovary measures 4.2 x 2.9 x 3.0 cm, 19.1 mL (prior 3.2 x 1.6 x 1.5 cm, 4.0 mL). A simple left ovarian follicle measures 1.6 x 1.4 x 1.5 cm. A complex avascular and heterogeneous, presumed hemorrhagic cyst measures 2.6 x 1.9 x 2.3 cm. Trace fluid is seen adjacent to the left ovary. No significant free fluid is seen. PELVIC DOPPLER: Normal color and spectral Doppler flow is demonstrated in the left ovary with arterial and venous waveforms identified. US/US transvaginal IMPRESSION: 1. Hysterectomy and right oophorectomy. 2. The left ovary is enlarged compared to prior and contains a simple follicle as well as a presumed hemorrhagic cyst. Color and spectral Doppler flow is seen in the left ovary without sonographic signs of torsion at this time.
[2020-11-23 10:41] VITALS: BP 144/90; BP 148/88; PULSE 98; RESP 20; TEMP 36.8; O2SAT 100; O2SAT 98; BMI 26.4
--- NOTE | 2020-11-23 13:13 | ED.ABDPAIN ---
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 Mode of arrival: ambulatory Limitations: no limitations History of Present Illness HPI narrative: 35 yo female with hx of ovarian cyst, IBS - here with LLQ pain x 3 days seen yesterday in the ED dx with IBS MD elicited complaint: abdominal pain Pertinent past history: other (IBS and ovarian cysts) Onset (ago): day(s) (3) Pain Consistency: constant Location: LLQ Severity: moderate Quality: stabbing Radiation: none Migration to: no migration Exacerbating factors: movement Relieving factors: nothing Context: history of similar episodes Associated symptoms: nausea Related Data Home Medications Medication Instructions Recorded Confirmed omeprazole 40 mg capsule,delayed 40 mg PO DAILY 08/01/20 11/17/20 release Previous Rx's Medication Instructions Recorded hydrocodone-acetaminophen [[place]] 1 tab PO Q4-6H PRN #12 tab 08/30/20 ibuprofen 600 mg PO Q8H PRN #20 tab 08/30/20 dicyclomine 20 mg tablet 20 mg PO BID 10 Days #20 tab 11/06/20 nitrofurantoin 100 mg PO BID 7 Days #14 cap 11/07/20 monohydrate/macrocrystals 100 mg capsule ondansetron 4 mg PO Q6-8H PRN #7 tab 11/09/20 bisacodyl 5 mg tablet,delayed 10 mg PO BEDTIME 30 Days #60 tab 11/13/20 release linaclotide 290 mcg capsule 290 mcg PO QAM 30 Days #30 cap 11/13/20 cyclobenzaprine 10 mg PO TID PRN #14 tab 11/23/20 ondansetron 4 mg PO Q8H PRN #20 tab 11/23/20 oxycodone 5 mg PO Q6H PRN #14 tab 11/23/20 Allergies Allergy/AdvReac Type Severity Reaction Status Date / Time No Known Allergies Allergy Verified 11/13/20 13:26 [No Known Allergies*] Review of Systems Review of Systems Constitutional : No Weight loss, No Fever, No Chills ENT/Mouth : No sore throat, No Rhinorrhea Eyes: No Swelling, No Redness Cardiovascular : No Chest Pain, No SOB, NoEdema Respiratory : No Cough, No Sputum, No Wheezing Gastrointestinal : Positive Nausea, no Vomiting, no Diarrhea, positive abdominal Pain, No Hematochezia, No Melena Genitourinary : No Dysuria, No Urinary Frequency, No Hematuria, No Urgency Musculoskeletal : No joint pain, No Myalgias, No Joint Swelling Skin : No Skin Lesions, No rash Neuro : No Weakness, No Numbness, No Dizziness, No Headache Psych : No Anxiety/Panic, No Depression Heme/Lymph: No Bruising, No Lymphadenopathy Endocrine : No Polyuria, No Polydipsia All other systems reviewed and are negative. Physical Exam Vital Signs: Vital Signs: Last Vital Signs Temp 98.5 F 11/23/20 14:24 Pulse 73 11/23/20 14:24 Resp 16 11/23/20 14:24 BP 123/78 11/23/20 14:24 Pulse Ox 100 11/23/20 14:24 Body Mass Index 26.4 Appearance: Alert. Oriented X3. No acute distress. was eating food in waiting room Eyes: Pupils equal, round and reactive to light. ENT: Pharynx normal. Neck: Normal inspection. Neck supple. CVS: Normal heart rate and rhythm. Pulses normal. Respiratory: No respiratory distress. Breath sounds normal. Abdomen: Soft and moderate ttp in LLQ no rebound or guarding Skin: Skin warm and dry. Normal skin color. Normal skin turgor. Extremities: No lower extremity edema. No calf ttp Neuro: Oriented X 3. No motor deficit. No sensory deficit. Course Course Course Narrative: no torsion, still c/o pain, no tachycardia VS stable will give dose of IM morphine prior to DC for pain control, trace fluid present MDM - Abdominal Pain MDM Narrative Medical decision making narrative: 35 yo female with hx of IBS and ovarian cysts - here with LLQ on CT scan found to have ovarian cyst - at this time PO pain medications ordered, UA and pelvic US to r/o torsion, dispo per rseults and findings, was eating in waiting room - she can tolerate PO Discharge Plan Discharge Clinical Impression: Left ovarian cyst Patient Disposition: Home, Self-Care Instructions: Ovarian Cyst (ED) Additional Instructions: return to ED for any worsening symptoms or concerns OGBYN 2 WEEKS REPEAT ULTRASOUND Prescriptions: New ondansetron 4 mg tablet,disintegrating 4 mg PO Q8H PRN (Reason: nausea and vomiting) Qty: 20 RF: 0 oxycodone 5 mg tablet 5 mg PO Q6H PRN (Reason: pain) Qty: 14 RF: 0 cyclobenzaprine 10 mg tablet 10 mg PO TID PRN (Reason: muscle spasm) Qty: 14 RF: 0 No Action ibuprofen 600 mg tablet 600 mg PO Q8H PRN (Reason: pain) Qty: 20 RF: 0 hydrocodone-acetaminophen [[place]] 5-325 mg tablet 1 tab PO Q4-6H PRN (Reason: pain) Qty: 12 RF: 0 ondansetron 4 mg tablet,disintegrating 4 mg PO Q6-8H PRN (Reason: nausea and vomiting) Qty: 7 RF: 0 dicyclomine 20 mg tablet 20 mg PO BID 10 Days Qty: 20 RF: 0 omeprazole 40 mg capsule,delayed release(DR/EC) 40 mg PO DAILY RF: 0 nitrofurantoin monohyd/m-cryst [Macrobid] 100 mg capsule 100 mg PO BID 7 Days Qty: 14 RF: 0 Linzess 290 mcg capsule 290 mcg PO QAM 30 Days Qty: 30 RF: 3 bisacodyl [Dulcolax (bisacodyl)] 5 mg tablet,delayed release (DR/EC) 10 mg PO BEDTIME 30 Days Qty: 60 RF: 3 Print Language: [place]olan [facility] Past Medical History Attestation statement: The following information was validated with the patient. Medical History Anxiety Asthma Atopic dermatitis Bipolar 1 disorder Depression GERD (gastroesophageal reflux disease) IBS (irritable bowel syndrome) Surgical History H/O section H/O hernia repair H/O hysterectomy with oophorectomy Hx of esophagogastroduodenoscopy Family History Family History Father Kidney disease Hypertension Mother CVD (cardiovascular disease) Paternal Grandmother Stomach cancer Social History Social History Alcohol intake: never Smoking Status: Current some day smoker Tobacco Type: Cigarette Cigarettes Per Day: 5 Use of substances other than those prescribed or required for medical reasons: No Substance Use Type: Marijuana Advance Directives: Yes Advance Directives Information Provided: Yes Advance Directives on File: No Gender identity: female
--- NOTE | 2020-11-23 13:15 | PC.NURSE ---
PT EATING DORITOS IN THE WR WITH NO VOMITING NOTED
[2020-11-23 14:24] VITALS: BP 123/78; PULSE 73; RESP 16; TEMP 36.9; O2SAT 100
[2020-11-23] MEDS: HYDROcodone Bit/Acetam 5/325 TABLET 1 TAB PO (14:32)
[2020-11-23 15:00] LABS: Glucose Urine UA NEG (NEG); Leukocyte Esterase Urine NEG (NEG); Nitrite Urine NEG (NEG); Specific Gravity - Urine >= 1.030 (1.005-1.025); Urine Blood NEG (NEG); Urine Ketones NEG (NEG); Urine Protein NEG (NEG-TRACE)
[2020-11-23 15:01] LABS: Color Urine YELLOW
[2020-11-23 15:02] LABS: Appearance Urine HAZY
[2020-11-23 15:24] VITALS: RESP 16
[2020-11-23] MEDS: Morphine Sulfate 4 MG/ML CARTRIDGE 6 MG IM (15:24)
== END 2020-11-23 15:31 | disposition home or self-care (01) ==
PROVIDERS: Emergency Provider Emergency Medicine
DX: N83.202 Unspecified ovarian cyst, left side (principal); R10.32 Left lower quadrant pain; F17.210 Nicotine dependence, cigarettes, uncomplicated; F12.90 Cannabis use, unspecified, uncomplicated; Z71.6 Tobacco abuse counseling
CPT/HCPCS: 74176; 76830; 76856; 81003; 93975; 96372; 99284; J2270

== ENCOUNTER 2020-12-01 11:58 | Outpatient (REF) | payer OTHER, SELFPAY ==
--- NOTE | ~2020-12-01 | US_ITS ---
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 COMPARISON: Targeted right breast ultrasound 05/26/2020, 11/26/2019. TECHNIQUE: Ultrasound right breast is targeted to the subareolar breast. Grayscale imaging and color Doppler are performed without and with harmonics. FINDINGS: The suspected fibroadenoma 6:00 position 2 cm from nipple is increased in size, currently measuring 1.6 x 1.3 x 1.0 cm. Initial dimensions are 1.0 x 0.8 x 0.6 cm on ultrasound 11/26/2019. No other findings. Results are discussed with the patient at time of visit using an scientific software developer. Patient agrees the palpable nodule right breast also feels larger. Ultrasound-guided core sampling is therefore recommended. US/US breast RT limited IMPRESSION: The probable fibroadenoma retroareolar right breast is decreased in size. Current measurement 1.6 cm compared with initial measurement 1.0 cm. ASSESSMENT: BI-RADS 4A: Low suspicion for malignancy RECOMMENDATION: Ultrasound-guided core biopsy right breast mass. This patient's information was entered into a reminder system with a target due date for their next mammogram.
== END 2020-12-01 11:59 | disposition home or self-care (01) ==
LOC: HO.MAMMO 11:58
PROVIDERS: PCP Internal Medicine; Visit Provider Internal Medicine
DX: D24.1 Benign neoplasm of right breast (principal)
CPT/HCPCS: 76642

== ENCOUNTER → 2020-12-02 13:00 | Outpatient (BNVA) | payer OTHER, SELFPAY | PROVIDERS: Visit Provider Obstetrics & Gynecology | DX: N83.299 Other ovarian cyst, unspecified side (principal) | CPT/HCPCS: 99212 ==

== ENCOUNTER → 2020-12-03 08:34 | Outpatient (BNVA) | payer OTHER, SELFPAY | PROVIDERS: PCP Internal Medicine; Visit Provider Surgery | DX: N63.10 Unspecified lump in the right breast, unspecified quadrant (principal) | CPT/HCPCS: 99202 ==

== ENCOUNTER → 2020-12-09 09:50 | Outpatient (BNVA) | payer OTHER, SELFPAY | PROVIDERS: Visit Provider Advanced Practice Midwife ==

== ENCOUNTER 2020-12-10 10:22 | Outpatient (REF) | payer OTHER, SELFPAY ==
--- NOTE | ~2020-12-10 | MM_ITS ---
EXAMINATION: MM DIAGNOSTIC DIGITAL MAMMOGRAPHY, RIGHT CLINICAL INFORMATION: Status post ultrasound-guided core biopsy right breast lesion. DIGITAL POST-PROCEDURE MAMMOGRAPHY: Breast density: The tissue is heterogeneously dense which may obscure small masses. BI-RADS version 5, category C. Full-field imaging of the right breast in craniocaudal and 90 degree mediolateral views performed. There are no new mammographic findings demonstrated. The postprocedure 2-view direct digital mammogram reveals satisfactory positioning of the biopsy clip. The patient tolerated the procedure well and, after assuring adequate hemostasis, was discharged in good condition after reviewing postbiopsy breast care instructions. Final pathology results are pending. MM/MM diagnostic mammo unilat RT IMPRESSION: 1. No immediate complication from ultrasound-guided percutaneous biopsy right breast. 2. Ultrasound was used to localize and guide marker clip placement. 3. The 2-view direct digital postprocedure mammogram reveals satisfactory positioning of the biopsy clip. 4. Final pathology results are pending. A separate report with final recommendations will be issued once these results are made available.
--- NOTE | ~2020-12-10 | US_ITS ---
PROCEDURE: US GUIDED BREAST BIOPSY, RIGHT CLINICAL INFORMATION: Solid retroareolar mass COMPARISON: December 01, 2020 and May 26, 2020 and November 26, 2019 PROCEDURAL DETAILS: The details of the procedure, as well as the risks, benefits, and alternatives to the procedure were explained to the patient in detail and all of her questions were answered, after which written informed consent was obtained. Site and side were confirmed. Prior to the procedure, sonography revealed a hypoechoic mass retroareolar region. A time-out was performed, the lesion intended for biopsy was targeted, and the skin of the right breast was then prepped and draped in the usual sterile fashion. Using sonographic guidance, sterile technique, and 1% lidocaine without epinephrine for local anesthesia, multiple automated core biopsies were obtained through the targeted area with a 14G spring loaded Achieve core biopsy device. There was real-time confirmation of appropriate needle passage. Sampling was documented. At the completion of tissue sampling, a single butterfly-shaped metallic clip was deposited at the biopsy site. There was no evidence of immediate complication. SPECIMEN: An appropriate sample was obtained. DIGITAL POST-PROCEDURE MAMMOGRAPHY: Breast density: The tissue is heterogeneously dense which may obscure small masses. BI-RADS version 5, category C. There are no new mammographic findings demonstrated. The postprocedure 2-view direct digital mammogram reveals satisfactory positioning of the biopsy clip. The patient tolerated the procedure well and, after assuring adequate hemostasis, was discharged in good condition after reviewing postbiopsy breast care instructions. Final pathology results are pending. US/US breast ndl core biopsy RT IMPRESSION: 1. No immediate complication from ultrasound-guided percutaneous biopsy right breast. 2. Ultrasound was used to localize and guide marker clip placement. 3. The 2-view direct digital postprocedure mammogram reveals satisfactory positioning of the biopsy clip. 4. Final pathology results are pending. A separate report with final recommendations will be issued once these results are made available.
== END 2020-12-10 10:23 | disposition home or self-care (01) ==
LOC: HO.MAMMO 10:22
PROVIDERS: Visit Provider Surgery
DX: N63.15 Unspecified lump in the right breast, overlapping quadrants (principal)
CPT/HCPCS: 19083; 77065; 88305

== ENCOUNTER → 2020-12-15 10:28 | Outpatient (BNVA) | payer OTHER, SELFPAY | PROVIDERS: Visit Provider Surgery | DX: N63.10 Unspecified lump in the right breast, unspecified quadrant (principal) | CPT/HCPCS: 99212 ==

== ENCOUNTER 2020-12-19 08:35 | Outpatient (REF) | payer OTHER, SELFPAY ==
--- NOTE | ~2020-12-19 | XR_ITS ---
EXAMINATION: LUMBAR SPINE X-RAY AND ABDOMEN X-RAY CLINICAL INFORMATION: Back pain. History of chronic constipation. COMPARISON: Previous lumbar spine x-ray June 2020 TECHNIQUE: 3 views of the lumbar spine and supine and upright views of the abdomen and pelvis FINDINGS: Lumbar spine: Bone alignment is normal. No fracture or dislocation is seen. Disc spaces are normal. Abdomen x-ray: There is stool throughout the colon. There are no dilated loops of bowel to suggest obstruction. There is no evidence of free air. No calcifications are seen. Bony structures are unremarkable. XR/XR lumbar spine 2-3V IMPRESSION: Lumbar spine: Unremarkable exam ABDOMEN: Stool throughout the colon. No evidence of obstruction.
--- NOTE | ~2020-12-19 | XR_ITS ---
EXAMINATION: LUMBAR SPINE X-RAY AND ABDOMEN X-RAY CLINICAL INFORMATION: Back pain. History of chronic constipation. COMPARISON: Previous lumbar spine x-ray June 2020 TECHNIQUE: 3 views of the lumbar spine and supine and upright views of the abdomen and pelvis FINDINGS: Lumbar spine: Bone alignment is normal. No fracture or dislocation is seen. Disc spaces are normal. Abdomen x-ray: There is stool throughout the colon. There are no dilated loops of bowel to suggest obstruction. There is no evidence of free air. No calcifications are seen. Bony structures are unremarkable. XR/XR abdomen w decubitus IMPRESSION: Lumbar spine: Unremarkable exam ABDOMEN: Stool throughout the colon. No evidence of obstruction.
[2020-12-19 09:10] LABS: MANUAL DIFF FLAG NO
[2020-12-19 09:15] LABS: Basophils Percent Auto 0.3 % (0-2); Eosinophils Absolute Auto 0.1 X10*3/uL (0.0-0.4); Eosinophils Percent Auto 1.2 % (0-4); Hematocrit 44.1 % (37-47); Imm Gran Abs Auto 0.04 X10*3/uL (0.00-0.03); Imm Gran Pct Auto 0.5 % (0.0-0.4); Lymphocytes Absolute Auto 2.9 X10*3/uL (1.2-4.9); Lymphocytes Percent Auto 37.4 % (20-40); Mean Corpuscular HGB Conc 31.7 g/dl (31.0-35.0); Mean Corpuscular Hemoglobin 27.6 pg (27.0-33.0); Mean Platelet Volume 10.5 fL (9.4-12.3); Monocytes Absolute Auto 0.4 X10*3/uL (0.1-1.2); Monocytes Percent Auto 5.4 % (2-11); Neutrophils Absolute Auto 4.2 X10*3/uL (2.0-8.3); Neutrophils Percent Auto 55.2 % (45-73); Platelet Count 302 X10*3/uL (160-400); Red Blood Count 5.07 X10*6/uL (4.20-5.50); Red Cell Distribution Width 14.2 % (11.0-16.0); White Blood Count 7.6 X10*3/uL (4.8-10.8)
[2020-12-19 09:47] LABS: Alanine Aminotransferase 29 U/L (0-31); Albumin Level 4.2 g/dL (3.5-5.0); Alkaline Phosphatase 50 U/L (39-117); Anion Gap 10 (12-20); Aspartate Amino Transferase 17 U/L (5-31); Bilirubin Total 0.7 mg/dL (0.0-1.0); Blood Urea Nitrogen 18 mg/dL (9-16); Calcium 9.4 mg/dL (8.4-10.2); Carbon Dioxide 28 mmol/L (22-29); Chloride 105 mmol/L (96-108); Cholesterol 214 mg/dL; Estimated Glomerular Filt Rate > 60; Glucose Fasting 97 mg/dL (60-99); HDL Cholesterol 40 mg/dL; LDL Cholesterol Calculated 136 mg/dl; Potassium 4.4 mmol/L (3.3-5.1); Sodium 139 mmol/L (135-145); Total Protein 7.1 g/dL (6.5-8.0); Triglycerides 193 mg/dL
== END 2020-12-19 08:36 | disposition home or self-care (01) ==
LOC: HO.LAB 08:35
PROVIDERS: Absent Provider Nurse Practitioner; PCP Internal Medicine; Visit Provider Nurse Practitioner Family
DX: M54.5 Low back pain (principal); K59.04 Chronic idiopathic constipation
CPT/HCPCS: 36415; 72100; 74021; 80053; 80061; 85025

== ENCOUNTER 2020-12-22 11:17 | Outpatient (REF) | payer OTHER, SELFPAY | END 2020-12-22 11:18 | disposition home or self-care (01) | LOC: HO.LNP 11:17 | PROVIDERS: Visit Provider Nurse Practitioner | DX: R10.13 Epigastric pain (principal); K59.04 Chronic idiopathic constipation; K21.9 Gastro-esophageal reflux disease without esophagitis; R06.81 Apnea, not elsewhere classified | CPT/HCPCS: 87338 ==

== ENCOUNTER 2021-01-29 18:12 | Emergency (ER) | payer OTHER, SELFPAY ==
[2021-01-29 19:10] VITALS: BP 132/95; PULSE 75; RESP 18; O2SAT 96; BMI 28.6
[2021-01-29 19:24] VITALS: TEMP 36.9
[2021-01-29 20:00] VITALS: BP 132/95; PULSE 75; RESP 18; TEMP 36.9; O2SAT 96
--- NOTE | 2021-01-29 20:51 | ED_ITS ---
HPI - General Adult General Chief complaint: General Medical Stated complaint: headache/neck pain Time Seen by Provider: 01/29/21 20:51 Source: patient Mode of arrival: ambulatory Limitations: no limitations History of Present Illness HPI narrative: Patient history of IBS complaining of pain in upper back for last 5 days got worse in last 2 days no history of trauma no injuries no cough no shortness of breath no nausea no vomiting feels anxious with multiple complaints Onset (ago): day(s) (5) Related Data Previous Rx's Medication Instructions Recorded cyclobenzaprine 10 mg tablet 10 mg PO TID PRN 30 Days #30 tab 12/01/20 ibuprofen 600 mg tablet 600 mg PO Q8H PRN 30 Days #90 tab 12/16/20 linaclotide 145 mcg capsule 145 mcg PO QAM 30 Days #30 cap 01/02/21 cyclobenzaprine 10 mg PO Q8H #20 tab 01/29/21 tramadol 50 mg PO Q6H PRN #20 tab 01/29/21 Allergies Allergy/AdvReac Type Severity Reaction Status Date / Time No Known Allergies Allergy Verified 01/29/21 19:17 [No Known Allergies*] Review of Systems Review of Systems: Constitutional : No Weight loss, No Fever, No Chills ENT/Mouth : No sore throat, No Rhinorrhea Eyes: No Eye Pain, No Swelling Cardiovascular : No Chest Pain, no palpitations Respiratory : No Cough, No Sputum, no shortness of breath Gastrointestinal : no Nausea, No Vomiting, No Diarrhea, No abdominal Pain, no black stools Genitourinary : No Dysuria, No Urinary Frequency Musculoskeletal : No joint pain, No Myalgias, No Joint Swelling Skin : No Skin Lesions, No rash Neuro : No Weakness, No Numbness, No Dizziness, No Headache Psych : No Anxiety/Panic, No Depression Heme/Lymph: No Bruising, No Lymphadenopathy Endocrine : No Polyuria, No Polydipsia All other systems reviewed and are negative [facility] Past Medical History Medical History Anxiety Asthma Atopic dermatitis Bipolar 1 disorder Breast mass, right Depression GERD (gastroesophageal reflux disease) IBS (irritable bowel syndrome) Left ovarian cyst Lumbar pain Surgical History H/O section H/O hernia repair H/O hysterectomy with oophorectomy Hx of esophagogastroduodenoscopy Family History Family History Father Kidney disease Hypertension Family history of breast cancer Mother CVD (cardiovascular disease) Paternal Grandmother Stomach cancer Social History Social History Alcohol intake: never Smoking Status: Never smoker Tobacco Type: Cigarette Cigarettes Per Day: 5 Use of substances other than those prescribed or required for medical reasons: No Substance Use Type: Marijuana Advance Directives: No Advance Directives Information Provided: Yes Gender identity: female Physical Exam Vital Signs: Vital Signs: Last Vital Signs Temp 98.5 F 01/29/21 20:00 Pulse 75 01/29/21 20:00 Resp 18 01/29/21 20:00 BP 132/95 H 01/29/21 20:00 Pulse Ox 96 01/29/21 20:00 Body Mass Index 28.6 Appearance: Alert. Oriented X3. No acute distress. Eyes: PERRLA, No Nystagmus ENT: Pharynx normal. Oral Mucosa moist Neck: Normal inspection. Neck supple. Diffuse muscular tenderness in her upper back area CVS: Normal heart rate and rhythm. Pulses normal. Respiratory: No respiratory distress. Equal air entry bilateral, no wheezing/rales/rhonchi Abdomen: Soft and nontender. Bowel sounds are present, no mass palpable, Skin: Skin warm and dry. Normal skin color. Normal skin turgor. Extremities: No lower extremity edema. No calf tenderness Neuro: Oriented X 3. No motor deficit. No sensory deficit.No cerebellar signs , cranial nerves II-XII intact Back/Spine/Pelvis: Back/spine/pelvis image: 1. Diffuse muscular tenderness Medical Decision Making MDM Narrative Medical decision making narrative: Patient's symptoms likely from fibromyalgia will discharge patient home on tramadol and Flexeril Discharge Plan Discharge Clinical Impression: Fibromyalgia Patient Disposition: Home, Self-Care Instructions: Fibromyalgia (ED) Additional Instructions: Take medication as prescribed and follow with PCP if not better Prescriptions: New cyclobenzaprine 10 mg tablet 10 mg PO Q8H Qty: 20 RF: 0 tramadol 50 mg tablet 50 mg PO Q6H PRN (Reason: pain) Qty: 20 RF: 0 No Action Linzess 145 mcg capsule 145 mcg PO QAM 30 Days Qty: 30 RF: 3 ibuprofen 600 mg tablet 600 mg PO Q8H PRN (Reason: pain) 30 Days Qty: 90 RF: 2 cyclobenzaprine 10 mg tablet 10 mg PO TID PRN (Reason: muscle spasm) 30 Days Qty: 30 RF: 0 Interventions: ED Discharge Assessment Last Done: 01/29/21 21:34 Discharge Date/Time: 01/29/21 21:35
[2021-01-29] MEDS: traMADoL HCL 50 MG TABLET PO (21:16)
[2021-01-29] MEDS: Cyclobenzaprine HCl 10 MG TABLET PO (21:16)
== END 2021-01-29 21:35 | disposition home or self-care (01) ==
PROVIDERS: Emergency Provider Internal Medicine; PCP Internal Medicine
DX: M79.7 Fibromyalgia (principal); F17.210 Nicotine dependence, cigarettes, uncomplicated
CPT/HCPCS: 99283; 99284

== ENCOUNTER → 2021-02-17 13:41 | Outpatient (BNVA) | payer OTHER, SELFPAY | PROVIDERS: PCP Internal Medicine; Referring Provider Internal Medicine; Visit Provider Nurse Practitioner | DX: N83.299 Other ovarian cyst, unspecified side (principal); N39.0 Urinary tract infection, site not specified; K59.04 Chronic idiopathic constipation; K21.9 Gastro-esophageal reflux disease without esophagitis; R06.81 Apnea, not elsewhere classified | CPT/HCPCS: 99212 ==

== ENCOUNTER 2021-03-23 14:21 | Outpatient (REF) | payer OTHER, SELFPAY ==
--- NOTE | ~2021-03-23 | US_ITS ---
EXAMINATION: PELVIC ULTRASOUND CLINICAL INFORMATION: Follow-up ovarian cyst. The uterus and right ovary is within removed. COMPARISON: Previous pelvic ultrasound and CT of the abdomen and pelvis November 2020 TECHNIQUE: Transabdominal and transvaginal pelvic ultrasound was performed. Transvaginal exam was performed for better visualization of the left ovary. FINDINGS: The left ovary is normal in size and measures 3 x 2.2 x 1.9 cm. There is a 1.4 x 0.7 x 1 cm slightly complex cyst with slightly thickened wall and internal echoes. It is uncertain whether this represents a new small complex cyst or represents involution of the previously identified 2.6 x 1.9 x 2.3 cm complex cyst seen November 2020 There are several small left ovarian simple cysts or follicles. There is no fluid in the pelvis. US/US pelvic complete IMPRESSION: Normal size left ovary. Small 1.4 x 0.7 x 1 cm slightly complex left ovarian cyst and additional simple cysts or follicles. The 2.6 x 1.9 x 2.3 cm complex left ovarian cyst on November 2020 exam is no longer seen.
--- NOTE | ~2021-03-23 | US_ITS ---
EXAMINATION: PELVIC ULTRASOUND CLINICAL INFORMATION: Follow-up ovarian cyst. The uterus and right ovary is within removed. COMPARISON: Previous pelvic ultrasound and CT of the abdomen and pelvis November 2020 TECHNIQUE: Transabdominal and transvaginal pelvic ultrasound was performed. Transvaginal exam was performed for better visualization of the left ovary. FINDINGS: The left ovary is normal in size and measures 3 x 2.2 x 1.9 cm. There is a 1.4 x 0.7 x 1 cm slightly complex cyst with slightly thickened wall and internal echoes. It is uncertain whether this represents a new small complex cyst or represents involution of the previously identified 2.6 x 1.9 x 2.3 cm complex cyst seen November 2020 There are several small left ovarian simple cysts or follicles. There is no fluid in the pelvis. US/US transvaginal IMPRESSION: Normal size left ovary. Small 1.4 x 0.7 x 1 cm slightly complex left ovarian cyst and additional simple cysts or follicles. The 2.6 x 1.9 x 2.3 cm complex left ovarian cyst on November 2020 exam is no longer seen.
== END 2021-03-23 14:22 | disposition home or self-care (01) ==
LOC: HO.US 14:21
PROVIDERS: Visit Provider Obstetrics & Gynecology
DX: N83.299 Other ovarian cyst, unspecified side (principal)
CPT/HCPCS: 76830; 76856

== ENCOUNTER → 2021-03-30 14:02 | Outpatient (BNVA) | payer OTHER, SELFPAY | PROVIDERS: Visit Provider Obstetrics & Gynecology ==

== ENCOUNTER 2021-04-23 18:13 | Emergency (ER) | payer OTHER, SELFPAY ==
--- NOTE | ~2021-04-23 | XR_ITS ---
EXAMINATION: XR CHEST CLINICAL INFORMATION: Chest pain COMPARISON: Chest radiograph 08/07/2015 TECHNIQUE: Frontal view of the chest was obtained. FINDINGS: No significant abnormality is noted involving the heart, lungs, mediastinum, bony thorax or soft tissues. XR/XR chest 1V IMPRESSION: Unremarkable examination.
[2021-04-23 18:20] VITALS: BP 142/88; PULSE 81; O2SAT 99
--- NOTE | 2021-04-23 18:21 | PC.NURSE ---
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
[2021-04-23 18:26] VITALS: BP 142/88; PULSE 69; RESP 18; TEMP 36.3; O2SAT 100; BMI 29.0
--- NOTE | 2021-04-23 18:31 | ECG_ITS ---
Test Reason : CHEST PAIN Blood Pressure : / mmHG Vent. Rate : 067 BPM Atrial Rate : 067 BPM P-R Int : 136 ms QRS Dur : 084 ms QT Int : 404 ms P-R-T Axes : 034 048 033 degrees QTc Int : 426 ms Normal sinus rhythm Normal ECG No previous ECGs available Referred By: Generic ED Physician Electronically Signed By:SERGE VELOZ MD
[2021-04-23 19:01] LABS: Basophils Percent Auto 0.1 % (0-2); Eosinophils Absolute Auto 0.1 X10*3/uL (0.0-0.4); Eosinophils Percent Auto 0.8 % (0-4); Hematocrit 42.1 % (37-47); Hemoglobin 14.1 g/dl (12.0-16.0); Imm Gran Abs Auto 0.01 X10*3/uL (0.00-0.03); Imm Gran Pct Auto 0.1 % (0.0-0.4); Lymphocytes Absolute Auto 2.7 X10*3/uL (1.2-4.9); Lymphocytes Percent Auto 34.3 % (20-40); MANUAL DIFF FLAG NO; Mean Corpuscular HGB Conc 33.5 g/dl (31.0-35.0); Mean Corpuscular Hemoglobin 28.5 pg (27.0-33.0); Mean Corpuscular Volume 85.2 fL (80-98); Mean Platelet Volume 10.6 fL (9.4-12.3); Monocytes Absolute Auto 0.4 X10*3/uL (0.1-1.2); Monocytes Percent Auto 4.7 % (2-11); Neutrophils Absolute Auto 4.7 X10*3/uL (2.0-8.3); Platelet Count 278 X10*3/uL (160-400); Red Blood Count 4.94 X10*6/uL (4.20-5.50); Red Cell Distribution Width 14.1 % (11.0-16.0); White Blood Count 7.8 X10*3/uL (4.8-10.8)
[2021-04-23 19:24] LABS: Anion Gap 13 (12-20); Blood Urea Nitrogen 13 mg/dL (9-16); Calcium 9.3 mg/dL (8.4-10.2); Carbon Dioxide 22 mmol/L (22-29); Chloride 106 mmol/L (96-108); Creatinine Clr Calc Pharmacy 100.6; Estimated Glomerular Filt Rate > 60; Glucose Random 91 mg/dL (60-115); Potassium 4.2 mmol/L (3.3-5.1); Sodium 137 mmol/L (135-145)
[2021-04-23 19:32] LABS: Troponin-I High Sensitivity < 3.5 ng/L (<3.5-17.0)
[2021-04-23 22:00] VITALS: BP 120/79; PULSE 76; RESP 18; O2SAT 99
--- NOTE | 2021-04-23 22:15 | ED.CHESTPAIN ---
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 Mode of arrival: ambulatory Limitations: no limitations History of Present Illness MD complaint: chest pain (palpitations due to back spasms) Onset (ago): hour(s) (started around 3pm) Prior episodes: Yes Onset: during rest Pain location: substernal Pain radiation: none Severity: mild Quality: tightness Relieving factors: nothing Exacerbating factors: other (back spasms) Context: other (felt the pain when her back was having spasms) Associated symptoms: palpitations Treatment prior to arrival: other (tried motrin for pain) Related Data Previous Rx's Medication Instructions Recorded bisacodyl 5 mg tablet,delayed 10 mg PO BEDTIME 30 Days #60 tab 02/17/21 release linaclotide 145 mcg capsule 145 mcg PO QAM 30 Days #30 cap 02/17/21 omeprazole 20 mg capsule,delayed 20 mg PO BID 30 Days #60 cap 02/17/21 release cyclobenzaprine 10 mg tablet 10 mg PO BEDTIME PRN 90 Days #90 02/18/21 tab cyclobenzaprine 10 mg PO TID PRN #14 tab 04/23/21 ibuprofen 600 mg tablet 600 mg PO Q8H PRN 30 Days #90 tab 04/23/21 lidocaine 1 patch TOPICAL DAILY PRN #10 ea 04/23/21 Allergies Allergy/AdvReac Type Severity Reaction Status Date / Time No Known Allergies Allergy Verified 04/23/21 18:26 [No Known Allergies*] Review of Systems Review of Systems: Constitutional : No Weight loss, No Fever, No Chills, ENT/Mouth : No Hearing loss, No Ear Pain, No Nasal Congestion, No Sinus Pain, No Hoarseness, No sore throat, No Rhinorrhea, No Swallowing Difficulty Cardiovascular : pos Chest Pain, No SOB, pos palpitations Respiratory : No Cough, No Dyspnea Gastrointestinal : No Nausea, No Vomiting, No Diarrhea, No abdominal Pain, No Hematochezia, No Melena Genitourinary : No Dysuria, No Urinary Frequency, No Hematuria, No Urinary Incontinence, Musculoskeletal : positive back pain Skin : No Skin Lesions, No rash Neuro : No Weakness, No Numbness, No Paresthesias, no loss of bowel or bladder incontinence, no saddle anesthesia All other systems reviewed and are negative PMFSH Past Medical History Attestation statement: The following information was validated with the patient. Medical History Anxiety Asthma Atopic dermatitis Bipolar 1 disorder Breast mass, right Depression GERD (gastroesophageal reflux disease) IBS (irritable bowel syndrome) Left ovarian cyst Lumbar pain Surgical History H/O section H/O hernia repair H/O hysterectomy with oophorectomy Hx of esophagogastroduodenoscopy Family History Family History Father Kidney disease Hypertension Family history of breast cancer Mother CVD (cardiovascular disease) Paternal Grandmother Stomach cancer Social History Social History Alcohol intake: never Cigarettes Per Day: 20 Substance Use Type: Marijuana Advance Directives: No Advance Directives Information Provided: No Patient : No Gender identity: female Physical Exam Vital Signs: Vital Signs: Last Vital Signs Temp 97.4 F 04/23/21 18:26 Pulse 76 04/23/21 22:00 Resp 18 04/23/21 22:00 BP 120/79 04/23/21 22:00 Pulse Ox 99 04/23/21 22:00 Oxygen Flow Rate 2 04/23/21 18:26 Body Mass Index 29.0 Appearance: Alert. Oriented X3. No acute distress. Eyes: Pupils equal, round and reactive to light. ENT: Pharynx normal. Neck: Normal inspection. Neck supple. CVS: Normal heart rate and rhythm. Pulses normal. Respiratory: No respiratory distress. Breath sounds normal. Abdomen: Soft and non-tender. Back: left lower lumbar ttp no CVA ttp Skin: Skin warm and dry. Normal skin color. Normal skin turgor. Extremities: No lower extremity edema. No calf ttp Neuro: Oriented X 3. No motor deficit. No sensory deficit. MDM - Chest Pain MDM Narrative Medical decision making narrative: 36 yo female with hx of IBS, GERD, chronic back pain here with back spasms since 3pm at rest that caused palpitations and some chest tightness seems atypical in nature had negative trop at 4 hour jack she is PERC negative negative workup with neg troponin and nonischemic EKG - has low back pain no urinary symptoms no b/b incontinence, no saddle anesthesia typical for her chronic back pain - start on MRs and lidocaine patches Lab Data Result diagrams: 04/23/21 18:51 04/23/21 18:51 Labs: Lab Results 04/23/21 04/23/21 04/23/21 Range/Units 18:51 18:51 18:51 WBC 7.8 (4.8-10.8) X10*3/uL RBC 4.94 (4.20-5.50) X10*6/uL Hgb 14.1 (12.0-16.0) g/dl Hct 42.1 (37-47) % MCV 85.2 (80-98) fL MCH 28.5 (27.0-33.0) pg MCHC 33.5 (31.0-35.0) g/dl RDW 14.1 (11.0-16.0) % Plt Count 278 (160-400) X10*3/uL MPV 10.6 (9.4-12.3) fL Immature Gran % (Auto) 0.1 (0.0-0.4) % Neut % (Auto) 60.0 (45-73) % Lymph % (Auto) 34.3 (20-40) % Villalba % (Auto) 4.7 (2-11) % Eos % (Auto) 0.8 (0-4) % Baso % (Auto) 0.1 (0-2) % Lymph # (Auto) 2.7 (1.2-4.9) X10*3/uL Villalba # (Auto) 0.4 (0.1-1.2) X10*3/uL Eos # (Auto) 0.1 (0.0-0.4) X10*3/uL Baso # (Auto) 0.0 (0.0-0.2) X10*3/uL Abs Immat Gran (auto) 0.01 (0.00-0.03) X10*3/uL Absolute Neuts (auto) 4.7 (2.0-8.3) X10*3/uL Absolute Nucleated RBC 0.000 (0.0-0.012) X10*3/uL Nucleated RBC % (auto) 0.0 (0.0-0.2) /100WBC Sodium 137 (135-145) mmol/L Potassium 4.2 (3.3-5.1) mmol/L Chloride 106 (96-108) mmol/L Carbon Dioxide 22 (22-29) mmol/L Anion Gap 13 (12-20) BUN 13 (9-16) mg/dL Creatinine 0.79 (0.5-1.4) mg/dL Estim Creat Clear Calc 100.6 Estimated GFR > 60 Random Glucose 91 (60-115) mg/dL Calcium 9.3 (8.4-10.2) mg/dL Troponin I High Sens < 3.5 (<3.5-17.0) ng/L ECG Data ECG #1: Attestation: I personally reviewed and interpreted this ECG as follows: ECG interpretation date: 04/23/21 ECG interpretation time: 22:15 Interpretation: Rate: 67 Rhythm: NSR [place]: normal Normal P waves. Normal MANISH. Normal QRS complex. ST T wave : normal no MARCELO qTC: normal prior studies: no acute ischemia The study has been interpreted contemporaneously by me. . Discharge Plan Discharge Clinical Impression: Atypical chest pain Low back pain Qualifiers: Chronicity: acute Back pain laterality: left Sciatica presence: without sciatica Qualified Code(s): M54.5 - Low back pain Patient Disposition: Home, Self-Care Instructions: Chest Pain (ED), Acute Low Back Pain (ED) Additional Instructions: return to ED for any worsening symptoms or concerns Prescriptions: New cyclobenzaprine 10 mg tablet 10 mg PO TID PRN (Reason: muscle spasm) Qty: 14 RF: 0 lidocaine 4 % adhesive patch,medicated 1 patch topical DAILY PRN (Reason: pain) Qty: 10 RF: 0 No Action ibuprofen 600 mg tablet 600 mg PO Q8H PRN (Reason: pain) 30 Days Qty: 90 RF: 2 cyclobenzaprine 10 mg tablet 10 mg PO BEDTIME PRN (Reason: muscle spasm) 90 Days Qty: 90 RF: 0 bisacodyl [Dulcolax (bisacodyl)] 5 mg tablet,delayed release (DR/EC) 10 mg PO BEDTIME 30 Days Qty: 60 RF: 6 Linzess 145 mcg capsule 145 mcg PO QAM 30 Days Qty: 30 RF: 3 omeprazole 20 mg capsule,delayed release(DR/EC) 20 mg PO BID 30 Days Qty: 60 RF: 6 Referrals: Physician,Unknown [Primary Care Provider] - 2 days Print Language: Pashto
[2021-04-23] MEDS: diazePAM 5 MG TABLET PO (22:43)
[2021-04-23] MEDS: Lidocaine 4 % Patch ADH..PATCH 1 PATCH TRANSDERMA (22:43)
[2021-04-23 23:23] LABS: Glucose Urine UA NEG (NEG); Leukocyte Esterase Urine NEG (NEG); Nitrite Urine NEG (NEG); Urine Blood NEG (NEG); Urine Ketones NEG (NEG); Urine Protein NEG (NEG-TRACE)
[2021-04-23 23:26] LABS: Appearance Urine CLEAR; Color Urine YELLOW
== END 2021-04-23 23:26 | disposition home or self-care (01) ==
PROVIDERS: Emergency Provider Emergency Medicine
DX: R07.89 Other chest pain (principal); M54.5 Low back pain; F17.210 Nicotine dependence, cigarettes, uncomplicated; F12.90 Cannabis use, unspecified, uncomplicated
CPT/HCPCS: 36415; 71045; 80048; 81003; 84484; 85025; 93005; 99284

== ENCOUNTER 2021-07-24 15:27 | Outpatient (REF) | payer OTHER, SELFPAY ==
--- NOTE | ~2021-07-24 | US_ITS ---
EXAMINATION: US PELVIS CLINICAL INFORMATION: Ovarian cyst for follow-up. COMPARISON: Pelvic ultrasound done on 03/23/2021. TECHNIQUE: Ultrasound of the pelvis is performed using transabdominal transducer along with Doppler. FINDINGS: Uterus: Surgically absent. Adnexa: The right ovary is also surgically absent. Left ovary measures 3.6 x 2.4 x 2.9 cm. Volume of 7.9). Previously measured 3.0 x 2.2 x 1.9 cm on the study dated 03/23/2021. Superimposed enlarged follicle/cyst is identified within the left ovary measuring 2.6 x 1.9 x 2.7 cm, new since prior study dated 03/23/2021. Previously documented 1.4 x 0.7 x 1.0 cm presumed hemorrhagic follicle is no longer visualized. No evidence of any free fluid. US/US pelvic and transvaginal IMPRESSION: 1. Surgically absent uterus and right ovary. 2. Compared to prior study dated 03/23/2021, interval development of a simple-appearing cyst/enlarged follicle is noted within the left ovary currently measures 2.7 cm at its maximum dimension. Previously documented 1.4 cm maximum dimension presumed hemorrhagic follicle is no longer reproduced.
== END 2021-07-24 15:28 | disposition home or self-care (01) ==
LOC: HO.US 15:27
PROVIDERS: PCP Internal Medicine; Visit Provider Obstetrics & Gynecology
DX: N83.299 Other ovarian cyst, unspecified side (principal)
CPT/HCPCS: 76830; 76856

== ENCOUNTER → 2021-08-06 13:41 | Outpatient (BNVA) | payer OTHER, SELFPAY | PROVIDERS: PCP Internal Medicine; Visit Provider Obstetrics & Gynecology ==

== ENCOUNTER 2021-08-20 10:13 | Emergency (ER) | payer OTHER, SELFPAY ==
[2021-08-20 10:27] VITALS: BP 125/80; PULSE 86; RESP 18; TEMP 36.6; O2SAT 100; BMI 26.6
[2021-08-20 12:15] LABS: MANUAL DIFF FLAG NO
[2021-08-20 12:18] LABS: Basophils Percent Auto 0.3 % (0-2); Eosinophils Absolute Auto 0.1 X10*3/uL (0.0-0.4); Eosinophils Percent Auto 0.6 % (0-4); Hematocrit 47.1 % (37.0-47.0); Hemoglobin 15.1 g/dl (12.0-16.0); Imm Gran Abs Auto 0.03 X10*3/uL (0.00-0.03); Imm Gran Pct Auto 0.3 % (0.0-0.4); Lymphocytes Absolute Auto 2.8 X10*3/uL (1.2-4.9); Lymphocytes Percent Auto 29.2 % (20-40); Mean Corpuscular HGB Conc 32.1 g/dl (31.0-35.0); Mean Corpuscular Hemoglobin 28.3 pg (27.0-33.0); Mean Corpuscular Volume 88.2 fL (80.0-98.0); Mean Platelet Volume 10.9 fL (9.4-12.3); Monocytes Absolute Auto 0.4 X10*3/uL (0.1-1.2); Monocytes Percent Auto 4.4 % (2-11); Neutrophils Absolute Auto 6.3 x10*3/uL (2.0-8.3); Neutrophils Percent Auto 65.2 % (45-73); Platelet Count 308 X10*3/uL (160-400); Red Blood Count 5.34 X10*6/uL (4.20-5.50); Red Cell Distribution Width 14.7 % (11.0-16.0); White Blood Count 9.6 X10*3/uL (4.8-10.8)
--- NOTE | 2021-08-20 12:32 | ED.ABDPAIN ---
HPI - Abdominal Pain General Chief Complaint: Abdominal Pain Stated Complaint: ABD PAIN Time Seen by Provider: 08/20/21 12:32 Source: patient Mode of arrival: ambulatory Limitations: no limitations History of Present Illness HPI narrative: 36-year-old female with past medical history of bipolar disorder, left ovarian cyst, lumbar pain, IBS,CIC, GERD is here today for complaining of left lower quadrant pain. Patient reports that the pain started 2 days ago. She has been followed by Gastroenterology and her last appointment was in January. Patient has not follow up since. She has been using Linzess to help her move her bowels as well as omeprazole. Patient ran out of both of the medications. Reports to have a bowel movement this morning. Patient reports that the pain is intermittent. With no radiation. , patient does complain of left lower lumbar pain that is also nonradiating. Patient denies any nausea or vomiting denies any diarrhea, melena, hematochezia, unintentional weight loss or ribbon like stools. Patient reports that when she does take Linzess and omeprazole she is doing well. Patient recently has been seen by doctors early for improved left ovarian cyst that was shown on ultrasound end of July. Patient denies any other GI concerning symptoms. Patient denies any cardiac or respiratory symptoms. MD elicited complaint: abdominal pain Pertinent past history: constipation and other (GERD) Onset (ago): day(s) Pain Consistency: intermittent Location: LLQ Severity: mild Quality: cramping Radiation: none Migration to: no migration Exacerbating factors: bowel movement Related Data Previous Rx's Medication Instructions Recorded linaclotide 145 mcg capsule 145 mcg PO QAM 30 Days #30 cap 02/17/21 (Linzess) omeprazole 20 mg capsule,delayed 20 mg PO BID 30 Days #60 cap 02/17/21 release tramadol 50 mg tablet 50 mg PO DAILY PRN 30 Days #30 tab 07/10/21 linaclotide 145 mcg capsule 145 mcg PO DAILY #30 cap 08/20/21 (Linzess) omeprazole 20 mg capsule,delayed 20 mg PO DAILY #30 cap 08/20/21 release Allergies Allergy/AdvReac Type Severity Reaction Status Date / Time No Known Allergies Allergy Verified 08/20/21 10:27 [No Known Allergies*] Review of Systems Review of Systems Constitutional : No Weight loss, No Fever, No Chills, No Night Sweats, No Fatigue, No Malaise ENT/Mouth : No Hearing loss, No Ear Pain, No Nasal Congestion, No Sinus Pain, No Hoarseness, No sore throat, No Rhinorrhea, No Swallowing Difficulty Eyes: No Eye Pain, No Swelling, No Redness, No Foreign Body, No Discharge, No Vision Changes Cardiovascular : No Chest Pain, No SOB, No Dyspnea on Exertion, No Orthopnea, No Edema, No Palpitations Respiratory : No Cough, No Sputum, No Wheezing, No Smoke Exposure, No Dyspnea Gastrointestinal : No Nausea, No Vomiting, No Diarrhea, Constipation, left lower quadrant abdominal Pain, No Hematochezia, No Melena Genitourinary : no irregular bleeding, No Dysuria, No Urinary Frequency, No Hematuria, No Urinary Incontinence, No Urgency, No Flank Pain, No Urinary Flow Changes, No Hesitancy Musculoskeletal : No joint pain, Myalgias, left lumbar paraspinal muscle pain, No Joint Swelling Skin : No Skin Lesions, No rash Neuro : No Weakness, No Numbness, No Paresthesias, No Loss of Consciousness, No Dizziness, No Headache Psych : No Anxiety/Panic, No Depression, No SI/HI/AH/VH, No Social Issues, Yes all other systems are reviewed and are negative Physical Exam Vital Signs: Vital Signs: Last Vital Signs Temp 97.9 F 08/20/21 10:27 Pulse 86 08/20/21 10:27 Resp 18 08/20/21 10:27 BP 125/80 08/20/21 10:27 Pulse Ox 100 08/20/21 10:27 Body Mass Index 26.6 Const: General: healthy appearing, no acute distress and well developed Nutritional Appearance: well nourished Orientation/consciousness: patient oriented x3 HENMT: Head: Yes normal to inspection, Yes normocephalic and Yes atraumatic Face and sinus: Yes normal facial exam Mouth: Normal oral and palatal mucosa present Throat: Yes posterior oropharynx normal, Yes tonsils normal and Yes uvula midline Eyes: General: appearance normal, both eyes and all related structures Neck: Neck: Yes normal visual inspection, Yes full ROM and Yes trachea midline Thyroid: Thyroid normal Resp: Effort & Inspection: normal respiratory effort, able to speak in complete sentences, no tracheal deviation and symmetric chest movement Auscultation: clear to auscultation bilaterally Cardio: Jugular venous distension: no JVD Rate: regular rate Rhythm: regular rhythm Heart sounds: S1 normal heart sound present, S2 normal heart sound present, no gallops and no murmurs GI: Inspection: Yes normal to inspection and No distended Palpation (GI): Soft to palpation, not firm, nontender and No hepatosplenomegaly present Auscultation: normal bowel sounds : General: Yes no CVA tenderness Back/Spine/Pelvis: Back: no CVA tenderness Skin: General skin exam: elasticity normal, turgor normal and dry skin Neuro: General: patient oriented x3 Psych: Appearance: grossly normal Mental Status: mental status grossly normal Speech and movement: Normal speech and movement present Affect: normal affect Attitude: cooperative Thought process: Normal thought process present Thought content: Normal thought content present Insight: Good insight present (Psych) Judgement: Good judgement present (Psych) Course Course Course Narrative: 36-year-old female with past medical history of bipolar, left ovarian cyst, lumbar pain, UTI, IBS,CIC, GERD is here today for complaining of left lower quadrant pain. Patient reports that the pain started 2 days ago and is intermittent. Patient denies any nausea or vomiting. Seen 2 weeks ago by OBGYN for reassessment of her left ovarian cysts that improved as noted by her last ultrasound. Patient has been followed by Gastroenterology for chronic idiopathic constipation, IBS and GERD. Patient has ran out of her medications couple months ago. She is on Linzess and omeprazole. Most likely her pain is related to constipation, gas trapping or bowel spasms. Pain is intermittent and does not radiate. Patient also reports of left lumbar paraspinal muscle pain that does not radiate. Patient denies any urinary symptoms. Denies any cardiac or respiratory symptoms. Patient will be given omeprazole. Blood work include CBC, CMP. Will check her urine to make sure she does not have a UTI. Patient does have a history of UTIs in the past. Reevaluation(s) Reevaluation #1: All blood work is back and is negative for any acute findings. Patient received omeprazole. I will send her home with script for Linzess and omeprazole and she can follow-up with her wire twister. MDM - Abdominal Pain Lab Data Result diagrams: 08/20/21 11:59 08/20/21 11:59 Labs: Lab Results 11/18/21 11/18/21 11/18/21 Range/Units 11:59 11:59 12:30 WBC 9.6 (4.8-10.8) X10*3/uL RBC 5.34 (4.20-5.50) X10*6/uL Hgb 15.1 (12.0-16.0) g/dl Hct 47.1 H (37.0-47.0) % MCV 88.2 (80.0-98.0) fL MCH 28.3 (27.0-33.0) pg MCHC 32.1 (31.0-35.0) g/dl RDW 14.7 (11.0-16.0) % Plt Count 308 (160-400) X10*3/uL MPV 10.9 (9.4-12.3) fL Immature Gran % (Auto) 0.3 (0.0-0.4) % Neut % (Auto) 65.2 (45-73) % Lymph % (Auto) 29.2 (20-40) % [place] % (Auto) 4.4 (2-11) % Eos % (Auto) 0.6 (0-4) % Baso % (Auto) 0.3 (0-2) % Lymph # (Auto) 2.8 (1.2-4.9) X10*3/uL [place] # (Auto) 0.4 (0.1-1.2) X10*3/uL Eos # (Auto) 0.1 (0.0-0.4) X10*3/uL Baso # (Auto) 0.0 (0.0-0.2) X10*3/uL Abs Immat Gran (auto) 0.03 (0.00-0.03) X10*3/uL Absolute Neuts (auto) 6.3 (2.0-8.3) x10*3/uL Absolute Nucleated RBC 0.000 (0.0-0.012) X10*3/uL Nucleated RBC % (auto) 0.0 (0.0-0.2) /100WBC Sodium 143 (135-145) mmol/L Potassium 4.0 (3.3-5.1) mmol/L Chloride 108 (96-108) mmol/L Carbon Dioxide 25 (22-29) mmol/L Anion Gap 14 (12-20) BUN 18 H (9-16) mg/dL Creatinine 0.85 (0.5-1.4) mg/dL Estim Creat Clear Calc 89.8 Estimated GFR > 60 Random Glucose 78 (60-115) mg/dL Calcium 9.9 D (8.4-10.2) mg/dL Total Bilirubin 0.6 (0.0-1.0) mg/dL AST 15 (5-31) U/L ALT 14 (0-31) U/L Alkaline Phosphatase 50 (39-117) U/L Total Protein 7.8 (6.5-8.0) g/dL Albumin 4.6 (3.5-5.0) g/dL Urine Color YELLOW Urine Appearance HAZY Urine pH 6.0 (5.0-8.0) Ur Specific [place] >= 1.030 H (1.005-1.025) Urine Protein NEG (NEG-TRACE) MG/DL Urine Glucose (UA) NEG (NEG) MG/DL Urine Ketones NEG (NEG) MG/DL Urine Blood TRACE (NEG) Urine Nitrite NEG (NEG) Ur Leukocyte Esterase NEG (NEG) Urine RBC 0-2 (0) /HPF Urine WBC 0-2 (0-4) /HPF Ur Squamous Epith Cells 2+ /LPF Urine Bacteria TRACE /LPF Urine Mucus 2+ /LPF Discharge Plan Discharge Clinical Impression: Chronic idiopathic constipation, Lumbar pain Patient Disposition: Home, Self-Care Instructions: Irritable Bowel Syndrome (ED), Gastroesophageal Reflux Disease (ED) Additional Instructions: You were seen here today for left lower quadrant pain. You have not taking Linzess or omeprazole for couple of months. Please follow-up with your wire twister as soon as you can get appointment with them. You will be given script for Linzess and omeprazole for 30 days supply. Prescriptions: New Linzess 145 mcg capsule 145 mcg PO DAILY Qty: 30 RF: 0 omeprazole 20 mg capsule,delayed release(DR/EC) 20 mg PO DAILY Qty: 30 RF: 0 No Action tramadol 50 mg tablet 50 mg PO DAILY PRN (Reason: pain) 30 Days Qty: 30 RF: 0 Linzess 145 mcg capsule 145 mcg PO QAM 30 Days Qty: 30 RF: 3 omeprazole 20 mg capsule,delayed release(DR/EC) 20 mg PO BID 30 Days Qty: 60 RF: 6 Referrals: Rhonda Shaikh ANP-C [Nurse Practitioner] - None Nazia Newton MD [Primary Care Provider] - 1 week Stand Alone Forms: Work/School Release Interventions: ED Discharge Assessment Last Done: 08/20/21 14:11 Discharge Date/Time: 08/20/21 14:29 [facility] Past Medical History Medical History Anxiety Asthma Atopic dermatitis Bipolar 1 disorder Breast mass, right Depression GERD (gastroesophageal reflux disease) IBS (irritable bowel syndrome) Left ovarian cyst Lumbar pain Surgical History H/O section H/O hernia repair H/O hysterectomy with oophorectomy Hx of esophagogastroduodenoscopy Family History Family History Father Kidney disease Hypertension Family history of breast cancer Mother CVD (cardiovascular disease) Paternal Grandmother Stomach cancer Social History Social History Housing: Apartment Alcohol intake: never Patient Tobacco Use Status: Current everyday Tobacco user Tobacco use type: Cigarette Cigarettes Per Day: 20 e-Cigarette/Vaping Use: Never Used Second Hand Smoke Exposure: No Substance Use Type: Marijuana Advance Directives: No Advance Directives Information Provided: No service: No Current occupational status: employed Gender identity: Female
[2021-08-20 12:40] LABS: Appearance Urine HAZY; Color Urine YELLOW; Glucose Urine UA NEG (NEG); Leukocyte Esterase Urine NEG (NEG); Nitrite Urine NEG (NEG); Specific Gravity - Urine >= 1.030 (1.005-1.025); UACC Culture Trigger NO; Urine Blood TRACE (NEG); Urine Ketones NEG (NEG); Urine Protein NEG (NEG-TRACE)
[2021-08-20 12:57] LABS: Alanine Aminotransferase 14 U/L (0-31); Albumin Level 4.6 g/dL (3.5-5.0); Alkaline Phosphatase 50 U/L (39-117); Anion Gap 14 (12-20); Aspartate Amino Transferase 15 U/L (5-31); Bilirubin Total 0.6 mg/dL (0.0-1.0); Blood Urea Nitrogen 18 mg/dL (9-16); Calcium 9.9 mg/dL (8.4-10.2); Carbon Dioxide 25 mmol/L (22-29); Chloride 108 mmol/L (96-108); Creatinine Clr Calc Pharmacy 89.8; Estimated Glomerular Filt Rate > 60; Glucose Random 78 mg/dL (60-115); Sodium 143 mmol/L (135-145); Total Protein 7.8 g/dL (6.5-8.0)
[2021-08-20] MEDS: Omeprazole 20 MG CAPSULE.DR PO (13:44)
[2021-08-20 13:47] LABS: Bacteria Urine TRACE /LPF; Mucus Urine 2+ /LPF; RBC Urine 0-2 /HPF (0); Squamous Epithelial Cell Urine 2+ /LPF; WBC Urine 0-2 /HPF (0-4)
== END 2021-08-20 14:29 | disposition home or self-care (01) ==
PROVIDERS: Emergency Provider Emergency Medicine Emergency Medical Services; PCP Internal Medicine
DX: K59.04 Chronic idiopathic constipation (principal); M54.50 Low back pain, unspecified; Z87.440 Personal history of urinary (tract) infections
CPT/HCPCS: 36415; 80053; 81001; 85025; 99283

== ENCOUNTER 2021-12-02 11:09 | Emergency (ER) | payer OTHER, SELFPAY ==
--- NOTE | ~2021-12-02 | XR_ITS ---
EXAMINATION: XR HAND, RIGHT CLINICAL INFORMATION: Head injury COMPARISON: None TECHNIQUE: PA, lateral, and oblique views of the right hand. FINDINGS: There is no visible acute fracture, dislocation or subluxation seen. An old ulnar side process fracture is noted. There is minimal increased distance between the scaphoid lunate bone. Rest the visualized hand is unremarkable. There is mild dorsal soft tissue swelling along the metacarpophalangeal joints. XR/XR hand RT 2V IMPRESSION: No acute fracture seen. There is old ulnar side process fracture. There is moderate dorsal hand soft tissue swelling along the metacarpophalangeal joints. No visible acute fracture at the metacarpophalangeal joints.
--- NOTE | ~2021-12-02 | US_ITS ---
EXAMINATION: US VENOUS WITH DOPPLER UPPER EXTREMITY, RIGHT CLINICAL INFORMATION: Right arm and hand swelling COMPARISON: None TECHNIQUE: Ultrasound of the upper extremity is performed using compression sonography and color and pulse Doppler flow with assessment of augmentation of flow. There is also imaging and Doppler assessment of the jugular and subclavian veins. Spectral analysis with color-flow imaging is performed. FINDINGS: Respiratory variation, normal compression, and augmented flow are noted throughout the upper extremity including the axillary, brachial, cubital, and radial and ulnar veins. There is normal flow in the internal jugular and subclavian veins. There is no visible deep or superficial thrombophlebitis. US/US venous duplex UE RT IMPRESSION: No acute DVT demonstrated in the right upper extremity.
[2021-12-02 11:56] VITALS: BP 133/85; PULSE 110; RESP 16; TEMP 35.8; O2SAT 98; BMI 27.3
[2021-12-02] MEDS: Ibuprofen 800 MG TABLET PO (13:15)
[2021-12-02] MEDS: oxyCODONE HCl Immed Release 5 MG TABLET PO (13:16)
[2021-12-02 14:00] VITALS: BP 148/89; PULSE 78; RESP 18; TEMP 36.7; O2SAT 100
--- NOTE | 2021-12-02 14:31 | ED_ITS ---
HPI - Extremity Injury (Upper) General Chief Complaint: Extremity Injury, Upper Stated Complaint: Hand Inj Time Seen by Provider: 12/02/21 12:41 Source: patient Mode of arrival: ambulatory Limitations: language barrier (Cuban-speaking) History of Present Illness HPI narrative: 36-year-old female with a past medical history of bipolar 1 disorder, IBS, GERD with apnea who is Cuban-speaking presenting to the ED with complaints of right finger/hand/wrist pain and swelling with limited range of motion after she sustained an injury while at work yesterday around 1 in the afternoon. 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 She reports she last went and bought a wrist Velcro sprint and placed it on her wrist although it did not provide any symptomatic relief and since then she has been having worsening pain and swelling. She denies any fevers, chills, paresthesias, chest pain or shortness of breath, recent travel or sick contacts, history of IV drug use or any other symptoms complaints or concerns at this time. MD complaint: injury to: right, wrist, hand and finger Onset (ago): day(s) (Since yesterday) Other Extremity Injury: right: fingers, hand and wrist Other injuries: none Place: work Severity: severe Severity scale (1-10): >10 Relieving factors: none Exacerbating factors: movement of extremity and other (And palpation or trying to close the fist) Context: other (See above) Associated symptoms: heard/felt popping sensation Treatments prior to arrival: splint Related Data Previous Rx's Medication Instructions Recorded linaclotide 145 mcg capsule 145 mcg PO QAM 30 Days #30 cap 02/17/21 (Linzess) omeprazole 20 mg capsule,delayed 20 mg PO BID 30 Days #60 cap 02/17/21 release tramadol 50 mg tablet 50 mg PO DAILY PRN 30 Days #30 tab 07/10/21 linaclotide 145 mcg capsule 145 mcg PO DAILY #30 cap 08/20/21 (Linzess) omeprazole 20 mg capsule,delayed 20 mg PO DAILY #30 cap 08/20/21 release ibuprofen 600 mg tablet 600 mg PO Q8H PRN 30 Days #90 tab 10/26/21 acetaminophen 500 mg tablet 1,000 mg PO QID PRN #14 tab 12/02/21 (Tylenol Extra Strength) cyclobenzaprine 10 mg tablet 10 mg PO Q8H PRN #14 tab 12/02/21 ibuprofen 800 mg tablet 800 mg PO Q8H PRN #14 tab 12/02/21 Allergies Allergy/AdvReac Type Severity Reaction Status Date / Time No Known Allergies Allergy Verified 08/20/21 10:27 [No Known Allergies*] Review of Systems Review of Systems: Constitutional : No Weight loss, No Fever, No Chills, No Night Sweats, No Fatigue, No Malaise ENT/Mouth : No Hearing loss, No Ear Pain, No Nasal Congestion, No Sinus Pain, No Hoarseness, No sore throat, No Rhinorrhea, No Swallowing Difficulty Eyes: No Eye Pain, No Swelling, No Redness, No Foreign Body, No Discharge, No Vision Changes Cardiovascular : No Chest Pain, No SOB, No Dyspnea on Exertion, No Orthopnea, No Edema, No Palpitations Respiratory : No Cough, No Sputum, No Wheezing, No Smoke Exposure, No Dyspnea Gastrointestinal : No Nausea, No Vomiting, No Diarrhea, No Constipation, No abdominal Pain, No Hematochezia, No Melena Genitourinary : no irregular bleeding, No Dysuria, No Urinary Frequency, No Hematuria, No Urinary Incontinence, No Urgency, No Flank Pain, No Urinary Flow Changes, No Hesitancy Musculoskeletal : + right finger/hand/wrist joint pain/swelling, No Myalgias Skin : No Skin Lesions, No rash Neuro : No Weakness, No Numbness, No Paresthesias, No Loss of Consciousness, No Dizziness, No Headache Psych : No Anxiety/Panic, No Depression, No SI/HI/AH/VH, No Social Issues, Heme/Lymph: No Bruising, No Bleeding,No Lymphadenopathy Endocrine : No Polyuria, No Polydipsia, No Temperature Intolerance Yes all other systems are reviewed and are negative COUNT INCLUDES THE [facility] Past Medical History Attestation statement: The following information was validated with the patient. Medical History Anxiety Asthma Atopic dermatitis Bipolar 1 disorder Breast mass, right Depression GERD (gastroesophageal reflux disease) IBS (irritable bowel syndrome) Left ovarian cyst Lumbar pain Surgical History H/O section H/O hernia repair H/O hysterectomy with oophorectomy Hx of esophagogastroduodenoscopy Family History Family History Father Kidney disease Hypertension Family history of breast cancer Mother CVD (cardiovascular disease) Paternal Grandmother Stomach cancer Social History Social History Housing: Apartment Alcohol intake: never Patient Tobacco Use Status: Current everyday Tobacco user Tobacco use type: Cigarette Cigarettes Per Day: 20 e-Cigarette/Vaping Use: Never Used Second Hand Smoke Exposure: No Substance Use Type: Marijuana Advance Directives: No Advance Directives Information Provided: No service: No Current occupational status: employed Gender identity: Female Physical Exam Vital Signs: Vital Signs: Last Vital Signs Temp 96.5 F L 12/02/21 11:56 Pulse 110 H 12/02/21 11:56 Resp 16 12/02/21 11:56 BP 133/85 12/02/21 11:56 Pulse Ox 98 12/02/21 11:56 BMI result Body Mass Index 27.3 vital signs have been reviewed as normal and appeared to be correct. Blood pressure normal. Heart rate 110. Respiration rate normal. Temperature normal. Oxygen saturation normal. Appearance: Alert. Oriented X3. No acute distress. Head: Normal external exam. Normocephalic. Atraumatic. Eyes: PERRLA. EOMI. Conjunctiva and sclera normal. Eyelids normal. ENT: Pharynx normal. Uvula midline. Moist mucous membranes. Normal voice. No trismus noted. No drooling noted. No muffled voice noted. Neck: Normal inspection. Neck supple. FROM. No adenopathy. No meningeal signs. No neck mass noted. CVS: Normal heart rate and rhythm. Heart sound normal. Pulses normal throughout. No murmurs/rales/gallops. Respiratory: No respiratory distress. Painless inspiration. Breath sounds normal. No wheezes/rales/rhonchi noted. Chest nontender. No crepitus is noted. No signs of trauma noted. No accessory muscle usage noted or decreased air movement noted. No signs of trauma. Back: Full range of motion noted. Nontender. No signs of trauma. Patient neuro intact bilaterally and distally on all 4 extremities. Patient's reflexes intact bilaterally and distally on all 4 extremities. No rashes/lesion/induration/fluctuance or signs of infection noted. Skin: Skin warm and dry. Normal skin color. Normal skin turgor. No rashes/lesions/lacerations noted. Extremities: To the right finger/hand and wrist it is cooler than the other hand and the forearm. And she does have a delayed capillary refill although it is present. There is no cyanosis noted to the fingers. Although with passive range of motion patient has severe pain and she cannot completely close her hand and to make a fist. There are 2 superficial abrasions noted on the 2nd and 4th metacarpals although no obvious erythema/streaking/induration or fluctuance although she does have moderate soft tissue swelling. She is noted to have pulses. There is no obvious ligamentous or tendon injury noted although patient is in too much pain to completely examine. Otherwise all other Extremities exhibit normal range of motion and nontender. Neuro: Oriented X 3. No motor deficit. No sensory deficit. Reflexes normal. Normal steady gait. No focal neuro deficits noted. CN's II-XII intact bilaterally? Vascular: + radial pulses/+ 2 distal pedal pulses/+2 dorsalis pedis b/l. Normal cap refill. No cyanosis noted to upper extremity nails and lower extremity toes nails. Course Course Course Narrative: 13pm - 36-year-old female with a past medical history of bipolar 1 disorder, IBS, GE RD with apnea who is Cuban-speaking presenting to the ED with complaints of right finger/hand/wrist pain and swelling with limited range of motion after she sustained an injury while at work yesterday around 1 in the afternoon. 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 She reports she last went and bought a wrist Velcro sprint and placed it on her wrist although it did not provide any symptomatic relief and since then she has been having worsening pain and swelling. Plan: Xray of right hand and an ultrasound of right upper extremity to evaluate for possible DVT. Reevaluation(s) Reevaluation #1: - x-ray negative for any fractures or any other acute processes an ultrasound for DVT negative. - therefore I consulted with Dr. Nam and he recommended getting a Vascular Consult although vascular did not believe that it was an arterial occlusion and they recommended a hand surgeon - therefore Dr. Miguel the orthopedic hand surgeon came and evaluated the patient and she was able to perform active range of motion on her own and she has some mild intermittent paresthesias although Dr. Miguel reports that she does not believe she needs any surgery and she does not need any additional labs or imaging and she does not believe this is compartment syndrome due to the compartments are very soft and she does not believe this is tenosynovitis therefore at this time will DC home with symptomatic treatment instructions return if any new or worsening symptoms to follow up with primary care provider and work connection. Patient understands agrees with this plan. Time: 16:31 [facility] - Extremity Injury (Upper) Medical Records Attestation: I reviewed the patient's medical records. Imaging Data Right hand x-ray: Attestation: I personally reviewed and interpreted this imaging study as follows: Radiologist's impression: FINDINGS: There is no visible acute fracture, dislocation or subluxation seen. An old ulnar side process fracture is noted. There is minimal increased distance between the scaphoid lunate bone. Rest the visualized hand is unremarkable. There is mild dorsal soft tissue swelling along the metacarpophalangeal joints. XR/XR hand RT 2V IMPRESSION: No acute fracture seen. There is old ulnar side process fracture. ? There is moderate dorsal hand soft tissue swelling along the metacarpophalangeal joints. No visible acute fracture at the metacarpophalangeal joints. Duplex ultrasound of right upper extremity: Attestation: I personally reviewed and interpreted this imaging study as follows: Radiologist's impression: FINDINGS: Respiratory variation, normal compression, and augmented flow are noted throughout the upper extremity including the axillary, brachial, cubital, and radial and ulnar veins. There is normal flow in the internal jugular and subclavian veins. There is no visible deep or superficial thrombophlebitis. US/US venous duplex UE RT IMPRESSION: No acute DVT demonstrated in the right upper extremity. Critical Care Time Critical Care Time Critical Care Time: Yes Total Critical Care Time: 60 Attestation: I personally attest to this time spent taking care of the patient Discharge Plan Discharge Clinical Impression: Strain of hand, right, Work related injury Patient Disposition: Home, Self-Care Instructions: Wrist Injury (ED) Prescriptions: New ibuprofen 800 mg tablet 800 mg PO Q8H PRN (Reason: pain) Qty: 14 0RF acetaminophen [Tylenol Extra Strength] 500 mg tablet 1,000 mg PO QID PRN (Reason: fever or pain) Qty: 14 0RF cyclobenzaprine 10 mg tablet 10 mg PO Q8H PRN (Reason: Muscle spasm) Qty: 14 0RF No Action tramadol 50 mg tablet 50 mg PO DAILY PRN (Reason: pain) 30 Days Qty: 30 0RF ibuprofen 600 mg tablet 600 mg PO Q8H PRN (Reason: pain) 30 Days Qty: 90 0RF Linzess 145 mcg capsule 145 mcg PO DAILY Qty: 30 0RF omeprazole 20 mg capsule,delayed release(DR/EC) 20 mg PO DAILY Qty: 30 0RF Linzess 145 mcg capsule 145 mcg PO QAM 30 Days Qty: 30 3RF omeprazole 20 mg capsule,delayed release(DR/EC) 20 mg PO BID 30 Days Qty: 60 6RF Referrals: Nazia Newton MD [Primary Care Provider] - 2 days Stand Alone Forms: Work/School Release Print Language: Cuban
[2021-12-02] MEDS: ondansetron HCL 4 MG/2 ML VIAL IVPUSH (15:24)
[2021-12-02] MEDS: Morphine Sulfate 4 MG/ML CARTRIDGE IVPUSH (15:24)
[2021-12-02] MEDS: 0.9 % Sodium Chloride 1,000 ML 999 ML IVCONT (15:25)
--- NOTE | 2021-12-03 14:47 | P.CONOP_ITS ---
History of Present Illness HPI Consult date: 12/02/21 Chief complaint: Hand Inj Narrative: The patient is a 36-year-old woman who reportedly struck the dorsum of her hand at the metacarpal level. I was asked to come see the patient as she is in the emergency department and she is holding her hand in a position of MCP and PIP flexion unable to move her hand at all because of extreme pain. I was told that when they try to get her to move her fingers she screamed because of pain. FORMERLY [facility] Past Medical History Medical History Anxiety Asthma Atopic dermatitis Bipolar 1 disorder Breast mass, right Depression GERD (gastroesophageal reflux disease) IBS (irritable bowel syndrome) Left ovarian cyst Lumbar pain Family History Family History Father Kidney disease Hypertension Family history of breast cancer Mother CVD (cardiovascular disease) Paternal Grandmother Stomach cancer Surgical History Surgical History H/O section H/O hernia repair H/O hysterectomy with oophorectomy Hx of esophagogastroduodenoscopy Social History Social History Housing: Apartment Alcohol intake: never Patient Tobacco Use Status: Current everyday Tobacco user Tobacco use type: Cigarette Cigarettes Per Day: 20 e-Cigarette/Vaping Use: Never Used Second Hand Smoke Exposure: No Substance Use Type: Marijuana Advance Directives: No Advance Directives Information Provided: No service: No Current occupational status: employed Gender identity: Female Meds Allergies Allergy/AdvReac Type Severity Reaction Status Date / Time No Known Allergies Allergy Verified 08/20/21 10:27 [No Known Allergies*] Physical Exam Vital Signs: Vital Signs: Last Vital Signs Temp 98.1 F 12/02/21 14:00 Pulse 78 12/02/21 14:00 Resp 18 12/02/21 14:00 BP 148/89 H 12/02/21 14:00 Pulse Ox 100 12/02/21 14:00 BMI result Body Mass Index 27.3 Const: General: cooperative and healthy appearing Orientation/consciousness: oriented to person and oriented to place HENMT: Head: Yes normocephalic and Yes atraumatic Eyes: EOM: EOMs intact bilaterally Resp: Effort & Inspection: normal respiratory effort and able to speak in complete sentences Cardio: Jugular venous distension: no JVD Skin: General skin exam: turgor normal Rashes: no rashes Neuro: General: oriented to person and oriented to place Extrem: Other: Evaluation of right Upper Extremity: Neuro: She reported numbness initially to the middle ring and small fingers, and later to the index finger. Vascular: All fingers were pink, and she had good cap refill brisk to all digits. The fingers of the right hand were perhaps a little cooler than the fingers of the left hand. ROM: Initially she was holding her hand with her thumb in adduction, her MCP joints flexed to about 70 degrees in her PIP joints flexed to about 30 degrees. She was saying that she could not move her hand. Skin: No lacerations or deep abrasions. General: No eccymosis. No erythema or evidence of infection. With encouragement I was able to get her to fully and actively extend all of her digits. At this point I can see that there was not significant swelling the palmar aspect of the hand or the fingers. The Palm was soft, and not particularly tender. Certainly no evidence of deep space infection of the hand. The volar aspect of the fingers did not appear to be tender to palpation. There was no pain with passive or active extension of all of the digits. Then with encouragement I had her bring all of her fingers close to a fist. I then had her repeat full active extension of all digits and then bring it back to a fist several times. She was able to do this without significant difficulty. She was somewhat tender to palpation over the dorsal aspect of of the metacarpals 2 through 5. Mild swelling. No lacerations. No palmar ecchymosis, or other ecchymosis Radiographs: Three views of the right hand were reviewed by me and did not appear to show any fractures or dislocations other than an old ulnar styloid fracture. There are no foreign bodies. Psych: Appearance: grossly normal Attitude: cooperative Results Labs Labs: All other labs normal. Assessment and Plan (1) Right hand pain: Status: Acute Plan Assessment and plan: 1. Right hand pain Likely secondary to contusion of the dorsal aspect of the right hand at the metacarpal level. No evidence of fracture. I do not know why the patient was holding her hand in a fixed position as noted above, or why she screamed with extreme pain when others tried to get her to move her fingers. She does not have evidence of a deep space hand infection She does not have evidence of compartment syndrome She does not have evidence of flexor tenosynovitis of any digit She does not have evidence of ischemia of any digits No fractures seen on radiographs and no palmar or other ecchymosis Again, with encouragement, I was able to get her to demonstrate full active extension and flexion of her digits and she was able to do so repeatedly without significant discomfort I do not see any operative indications. At the time she was seen by me I did not feel that she needed any kind of arterial studies. I recommended not giving her narcotics for pain. This was all related to the PA and physician caring for this patient. Procedures Date of Service Date of Service: 12/02/21
== END 2021-12-02 17:10 | disposition home or self-care (01) ==
PROVIDERS: Physician Assistant Medical; Emergency Provider Emergency Medicine; PCP Internal Medicine
DX: S66.911A Strain of unspecified muscle, fascia and tendon at wrist and hand level, right hand, initial encounter (principal); X50.1XXA Overexertion from prolonged static or awkward postures, initial encounter; M79.641 Pain in right hand; Y93.89 Activity, other specified; Y92.59 Other trade areas as the place of occurrence of the external cause; Y99.0 Civilian activity done for income or pay
CPT/HCPCS: 73120; 93971; 96361; 96374; 96375; 99283; 99291; J2270; J2405

== ENCOUNTER 2021-12-23 09:46 | Outpatient (REF) | payer OTHER, SELFPAY ==
--- NOTE | ~2021-12-23 | MM_ITS ---
EXAMINATION: MM DIAGNOSTIC DIGITAL BREAST TOMOSYNTHESIS, BILATERAL TARGETED BREAST ULTRASOUND, RIGHT CLINICAL INFORMATION: Right breast pain and palpable lump. The lifetime risk of breast cancer based on the Tyrer-Cuzick Model is 11.4%. COMPARISON: Mammography: 12/10/2020 and studies dating back to 2015. TECHNIQUE: Digital breast tomosynthesis is performed in both the craniocaudal and mediolateral oblique views along with computer-aided detection (CAD). Synthesized 2D images are generated from the tomosynthesis. Targeted right breast ultrasound. FINDINGS: The breasts are heterogeneously dense, which may obscure small masses (ACR BI-RADS breast composition Category c). There are no new significant masses, abnormal calcifications, or other abnormalities. There is again noted to be a stable approximately 1.7 x 1.5 cm circumscribed density anterior aspect of the right breast which has been biopsied previously with benign pathology. Targeted right breast ultrasound in region of patient's pain at the 7 to 2 o'clock position did not demonstrate any abnormal cystic or solid masses. No region of abnormal distal sound shadowing appreciated. Within the retroareolar region there is again noted to be a 1.9 x 2.1 x 1.0 cm well-circumscribed heterogeneous and hypoechoic mass with internal vascularity which is wider than it is tall. A metallic clip is seen directly adjacent to the wall of the lesion from previous biopsy. Results are discussed with the patient at time of visit. MM/MM tomosynthesis diagnostic BI IMPRESSION: There are no significant changes from prior study. Benign retroareolar right breast lesion. ASSESSMENT: BI-RADS 2: Benign. RECOMMENDATION: Clinical followup.
--- NOTE | ~2021-12-23 | US_ITS ---
EXAMINATION: US DIAGNOSTIC ULTRASOUND BREAST, RIGHT CLINICAL INFORMATION: Right breast pain. COMPARISON: Mammography of same day as well as studies dating back to September 14, 2016. TECHNIQUE: Ultrasound of the breast is performed with real-time ching scale imaging and color Doppler. FINDINGS: Targeted right breast ultrasound in region of patient's pain at the 7 to 2:00 position did not demonstrate any abnormal cystic or solid masses. No region of abnormal distal sound shadowing appreciated. Within the retroareolar region there is again noted to be a 1.9 x 2.1 x 1.0 cm well-circumscribed heterogeneous and hypoechoic mass with internal vascularity which is wider than it is tall. A metallic clip is seen directly adjacent to the wall of the lesion from previous biopsy. Results are discussed with the patient at time of visit. US/US breast RT limited IMPRESSION: There are no significant changes from prior study. Benign Retroareolar right breast lesion. ASSESSMENT: BI-RADS 2: Benign RECOMMENDATION: Clinical follow-up
== END 2021-12-23 09:47 | disposition home or self-care (01) ==
LOC: HO.MAMMO 09:46
PROVIDERS: PCP Internal Medicine; Visit Provider Internal Medicine
DX: D24.9 Benign neoplasm of unspecified breast (principal)
CPT/HCPCS: 76642; 77062; 77066

== ENCOUNTER 2022-01-04 08:45 | Outpatient (REF) | payer OTHER, SELFPAY ==
[2022-01-04 09:13] LABS: MANUAL DIFF FLAG NO
[2022-01-04 09:29] LABS: Basophils Percent Auto 0.3 % (0-2); Eosinophils Absolute Auto 0.1 X10*3/uL (0.0-0.4); Eosinophils Percent Auto 0.7 % (0-4); Hematocrit 42.9 % (37.0-47.0); Hemoglobin 13.9 g/dl (12.0-16.0); Imm Gran Abs Auto 0.04 X10*3/uL (0.00-0.03); Imm Gran Pct Auto 0.6 % (0.0-0.4); Lymphocytes Percent Auto 28.6 % (20-40); Mean Corpuscular HGB Conc 32.4 g/dl (31.0-35.0); Mean Corpuscular Hemoglobin 28.5 pg (27.0-33.0); Mean Corpuscular Volume 88.1 fL (80.0-98.0); Mean Platelet Volume 10.6 fL (9.4-12.3); Monocytes Absolute Auto 0.4 X10*3/uL (0.1-1.2); Monocytes Percent Auto 5.8 % (2-11); Neutrophils Absolute Auto 4.6 x10*3/uL (2.0-8.3); Platelet Count 278 X10*3/uL (160-400); Red Blood Count 4.87 X10*6/uL (4.20-5.50); Red Cell Distribution Width 14.8 % (11.0-16.0); White Blood Count 7.1 X10*3/uL (4.8-10.8)
[2022-01-04 09:54] LABS: Alanine Aminotransferase 27 U/L (0-31); Albumin Level 4.1 g/dL (3.5-5.0); Alkaline Phosphatase 45 U/L (39-117); Anion Gap 10 (12-20); Aspartate Amino Transferase 21 U/L (5-31); Bilirubin Total 0.5 mg/dL (0.0-1.0); Blood Urea Nitrogen 16 mg/dL (9-16); Calcium 9.8 mg/dL (8.4-10.2); Carbon Dioxide 25 mmol/L (22-29); Chloride 105 mmol/L (96-108); Cholesterol 204 mg/dL; Estimated Glomerular Filt Rate > 60; Glucose Fasting 95 mg/dL (60-99); HDL Cholesterol 41 mg/dL; LDL Cholesterol Calculated 136 mg/dl; Potassium 4.8 mmol/L (3.3-5.1); Sodium 135 mmol/L (135-145); Triglycerides 138 mg/dL
[2022-01-04 10:16] LABS: Thyroid Stimulating Hormone 1.67 uIU/mL (0.32-4.0); Vitamin D 25-OH Total 14.8 ng/mL (>30)
== END 2022-01-04 08:46 | disposition home or self-care (01) ==
LOC: HO.LAB 08:45
PROVIDERS: PCP Internal Medicine; Visit Provider Internal Medicine
DX: D24.1 Benign neoplasm of right breast (principal); Z00.00 Encounter for general adult medical examination without abnormal findings; D64.9 Anemia, unspecified; E66.3 Overweight; E55.9 Vitamin D deficiency, unspecified
CPT/HCPCS: 36415; 80053; 80061; 82306; 84443; 85025; 99212

== ENCOUNTER 2022-02-16 09:06 | Day surgery (SDC) | payer OTHER, SELFPAY ==
--- NOTE | 2022-02-15 11:35 | HO.ANESPROP2 ---
Documented by User: Charito Rivers NP 02/15/22 11:37 HPI - Anesthesia Eval Consult details Narrative: 37yo F for Right Breast Fibroadenoma Mass Excision PMFSH Active Problems Active Problems: All Active Problems (Updated 02/10/22 @ 12:48 by Paulina Lua, RN) GERD with apnea (Acute) Chronic idiopathic constipation (Acute) Left ovarian cyst (Acute) Urinary tract infection (Acute) Epigastric abdominal pain (Acute) Complex ovarian cyst (Acute) Blood in urine (Acute) Right hand pain (Acute) Physical exam (Acute) Breast pain, right (Acute) Fibroadenoma (Acute) Bipolar 1 disorder (Acute) Left ovarian cyst (Acute) Breast mass, right (Acute) Lumbar pain (Acute) IBS (irritable bowel syndrome) (Acute) Past Medical History Medical History (Updated 02/10/22 @ 12:48 by Paulina Lua, RN) Anxiety Asthma Atopic dermatitis Bipolar 1 disorder Breast mass, right Breast pain, right Depression Fibroadenoma GERD (gastroesophageal reflux disease) IBS (irritable bowel syndrome) Left ovarian cyst Lumbar pain PONV (postoperative nausea and vomiting) Family History Family History Father Kidney disease Hypertension Family history of breast cancer Mother CVD (cardiovascular disease) Paternal Grandmother Stomach cancer Surgical History Surgical History (Updated 02/10/22 @ 12:48 by Paulina Lua, RN) H/O section H/O hysterectomy with oophorectomy History of umbilical hernia repair Hx of esophagogastroduodenoscopy Social History Social History Housing: Apartment Alcohol intake: never Patient Tobacco Use Status: Current everyday Tobacco user Tobacco use type: Cigarette Cigarettes Per Day: 20 e-Cigarette/Vaping Use: Never Used Second Hand Smoke Exposure: No Substance Use Type: Marijuana Are you DNR?: No Advance Directives: No Advance Directives Information Provided: Yes Recently lost weight without trying: No Nutrition Risks: No Nutritional Risk Patient : No service: No Current occupational status: employed Gender identity: Female Meds Allergies Allergy/AdvReac Type Severity Reaction Status Date / Time No Known Allergies Allergy Verified 02/10/22 12:49 [No Known Allergies*] Exam Exam Date and Time: February 15, 2022 1135 Pertinent Lab Results Pertinent Lab Results: Laboratory Tests 01/04/22 01/04/22 09:11 09:11 WBC 7.1 Hgb 13.9 Hct 42.9 Plt Count 278 Sodium 135 Potassium 4.8 Chloride 105 Carbon Dioxide 25 BUN 16 Creatinine 0.72 Narrative Narrative: EKG 04/2021 Vent. Rate : 067 BPM ? ? Atrial Rate : 067 BPM ?? P-R Int : 136 ms? QRS Dur : 084 ms ? ? QT Int : 404 ms ? ? ? P-R-T Axes : 034 048 033 degrees ?? QTc Int : 426 ms ? Normal sinus rhythm Normal ECG No previous ECGs available Assessment and Plan Assessment Anesthesia Assessment: Chart Reviewed Documented by User: Layton Ha MD 02/16/22 12:16 [facility] Past Medical History Medical History (Updated 02/10/22 @ 12:48 by Paulina Lua, RN) Anxiety Asthma Atopic dermatitis Bipolar 1 disorder Breast mass, right Breast pain, right Depression Fibroadenoma GERD (gastroesophageal reflux disease) IBS (irritable bowel syndrome) Left ovarian cyst Lumbar pain PONV (postoperative nausea and vomiting) Family History Family History Father Kidney disease Hypertension Family history of breast cancer Mother CVD (cardiovascular disease) Paternal Grandmother Stomach cancer Family history of problems with anesthesia: No Surgical History Surgical History (Updated 02/10/22 @ 12:48 by Paulina Lua, RN) H/O section H/O hysterectomy with oophorectomy History of umbilical hernia repair Hx of esophagogastroduodenoscopy History of Problems with Anesthesia: No Social History Social History Housing: Apartment Alcohol intake: never Patient Tobacco Use Status: Current everyday Tobacco user Tobacco use type: Cigarette Cigarettes Per Day: 20 e-Cigarette/Vaping Use: Never Used Second Hand Smoke Exposure: No Substance Use Type: Marijuana Are you DNR?: No Advance Directives: No Advance Directives Information Provided: Yes Recently lost weight without trying: No Nutrition Risks: No Nutritional Risk Patient : No service: No Current occupational status: employed Gender identity: Female Meds Allergies Allergy/AdvReac Type Severity Reaction Status Date / Time No Known Allergies Allergy Verified 02/10/22 12:49 [No Known Allergies*] Exam Airway Mallampati Class: II TM Dist: >3cm Neck ROM: Full Loose/Missing/Broken Teeth: Yes (many missing, cracked, crroked, poor dentition, none loose as per patient) Heart: [id number] Lungs: cta b/l Assessment and Plan Assessment Anesthesia Assessment: Anesthesia Plan Discussed Final Anesthetic Review Family History of Problems with Anesthesia: No History of Problems with Anesthesia: No NPO: Yes ASA Class: II Final Preanesthetic Review: No Changes in Pt Med Stat, Meds/Allgs Chart Reviewed, Consent Obtained/Reviewed and Anes Risks/Benef Reviewed Patient Risk: Intermediate Procedure Risk: Intermediate Assessment/Block/Sedation in SS: Assess/Block/Sedation-SS Anesthetic Plan Anesthetic Plan: GA and Agree w/ Assess. and Plan Disposition: Standard PACU
[2022-02-16] VITALS (9 sets, daily range): BP systolic 125–145; BP diastolic 79–94; PULSE 60–87; RESP 16–18; TEMP 36.6–36.8; O2SAT 96–100; BMI 27.8
[2022-02-16] MEDS: Lactated Ringers 1,000 ML 100 ML IVCONT (10:15)
[2022-02-16] MEDS: Scopolamine 1.5 MG PATCH.TD.3 TRANSDERMA (10:15)
--- NOTE | 2022-02-16 12:26 | P.HPSUR_ITS ---
Pre-Procedural Eval Section A Date of Service: 02/16/22 Section B Chief Complaint: neoplasm of breast Details of Present Illness: vague mass , right breast, retroareolar; US biopsy shows fibroadenoma Relevant Family History (Specify if Yes): No Relevant Social History: None Present Medications: see Short Stay Collaborative assessment Medical History: Significant History (GERD, IBS) History of Previous Operations: No relevant previous surgery Allergies: Allergies Allergy/AdvReac Type Severity Reaction Status Date / Time No Known Allergies Allergy Verified 02/10/22 12:49 [No Known Allergies*] Review of Systems Sugical H&P ROS: Negative: Constitution, Cardiovascular, Respiratory, Neurological, Psychiatric, Hem-Onc, Allergic/Immunologic, Gastrointestinal, Genitourinary, Musculoskeletal, Integumentary, Endocrine and Eyes/E ars/Nose/Throat Exam Surgical H&P Exam: Normal: HEENT, Normal: Heart, Normal: Lungs, Normal: Extremities, Normal: Abdomen, Normal: Skin and Normal: Neurological Exam Comment: right breast, vague retroareolar mass Plan I have reviewed the history and physical and performed a pertinent physical examination on my patient. No changes have occurred unless specified.
--- NOTE | 2022-02-16 13:03 | W.PM.OPN ---
Documented by User: Rodrick Hassan MD 02/16/22 13:10 Operative Note Operative Note Date of Service: 02/16/22 Narrative: Preop diagnosis: fibroadenoma, right breast Postop diagnosis: Fibroadenoma right breast Procedure: Excision of fibroadenoma, right breast Surgeon: Rodrick Hassan MD city carrier assistant: JENNIFER Vasquez The patient is a 37 year female with a fibroadenoma in the right breast. This had been biopsied before. She complained of pain on this breast around the area of the fibroadenoma and wanted this excised. Understood the technique of excision under anesthesia. She was aware of the risks, benefits, and alternatives She was brought to the operating room. She was placed supine under general anesthesia via laryngeal mask airway. The right breast was prepped and draped in the usual sterile fashion. a surgical time-out was done. The patient received cefazolin 2 g IV preoperatively The fibroadenoma seemed to be palpable as a vague mass in the retroareolar area a little inferiorly. This corresponded to the images on the mammogram studies. I made a perianal or incision inferiorly using a blade 15 after infiltration lidocaine 1%. this was carried down with electrocautery through the full-thickness of the skin and subcutaneous fat. I then proceeded to use the curved Adams to dissect sharply around the palpable mass. I used an Allis clamp to retract this vague mass. I continued to circumferentially dissect around the mass posteriorly until were able to completed delivered this. This was sent as a specimen. I palpated the cavity and there were no other palpable masses I then used electrocautery for hemostasis. I irrigated the excision site. Once hemostasis was ensured, I reapposed the divided breast tissue with Dexon 3-0 interrupted sutures. Skin closure was achieved with Dexon 4-0 subcuticular running stitch. The area was infiltrated with Marcaine 0.5% for postop analgesia. Dressings were applied. The procedure was completed. The patient tolerated the procedure well. There were no complication noted. Initial and final counts of sponges and instruments were correct. Estimated blood loss was about 25 cc. The patient was extubated without difficulty transferred to the recovery room with stable vital signs.
--- NOTE | 2022-02-16 13:49 | HO.POSTANES ---
Post Anesthesia Evaluation Post Anesthesia Evaluation Vital Signs: Vital Signs Temp Pulse Resp BP Pulse Ox 02/16/22 13:15 97.8 F 87 16 125/79 100 02/16/22 09:44 98.2 F 83 18 145/94 H 96 Anesthesia: General Mental Status: Awake Pain Control: Satisfactory Nausea/Vomiting: None Hydration: Adequate Anesthesia-Related Issues: No Anes. Related Issues
[2022-02-16] MEDS: oxyCODONE HCl Immed Release 5 MG TABLET 10 MG PO (14:30)
== END 2022-02-16 15:12 | disposition home or self-care (01) ==
PROVIDERS: PCP Internal Medicine; Visit Provider Surgery
PROC: (CPT 19120; principal; 2022-02-16 11:50)
DX: D24.1 Benign neoplasm of right breast (principal); N64.4 Mastodynia; L20.9 Atopic dermatitis, unspecified; F31.9 Bipolar disorder, unspecified; F41.1 Generalized anxiety disorder; J45.909 Unspecified asthma, uncomplicated; K21.9 Gastro-esophageal reflux disease without esophagitis; Z79.1 Long term (current) use of non-steroidal anti-inflammatories (NSAID); Z79.899 Other long term (current) drug therapy; Z98.890 Other specified postprocedural states; F17.210 Nicotine dependence, cigarettes, uncomplicated
CPT/HCPCS: 19120; 88305; J0690; J1100; J1885; J2250; J2405; J3010

== ENCOUNTER → 2022-02-24 11:00 | Outpatient (BNVA) | payer OTHER, SELFPAY | PROVIDERS: PCP Internal Medicine; Referring Provider Internal Medicine; Visit Provider Surgery | DX: D24.9 Benign neoplasm of unspecified breast (principal) | CPT/HCPCS: 99212 ==

== ENCOUNTER → 2022-06-11 10:45 | Outpatient (BNVA) | payer OTHER, SELFPAY | PROVIDERS: PCP Internal Medicine; Visit Provider Nurse Practitioner | DX: K21.9 Gastro-esophageal reflux disease without esophagitis (principal); R06.81 Apnea, not elsewhere classified; K59.04 Chronic idiopathic constipation; R10.13 Epigastric pain | CPT/HCPCS: 99212 ==

== ENCOUNTER 2022-08-21 10:43 | Emergency (ER) | payer OTHER, SELFPAY ==
--- NOTE | ~2022-08-21 | XR_ITS ---
EXAMINATION: XR CHEST CLINICAL INFORMATION: Chest pain, shortness of breath, anxiety. COMPARISON: 04/23/2021 chest radiograph. TECHNIQUE: 2 views of the chest were obtained. FINDINGS: No significant abnormality is noted involving the heart, lungs, mediastinum, bony thorax or soft tissues. XR/XR chest 2V IMPRESSION: No acute cardiopulmonary process.
[2022-08-21 10:48] VITALS: BP 170/90; PULSE 134; O2SAT 100
[2022-08-21 10:55] VITALS: BP 148/89; PULSE 134; RESP 24; O2SAT 100; BMI 30.4
--- NOTE | 2022-08-21 11:01 | ECG_ITS ---
Test Reason : HI HEART RATE Blood Pressure : / mmHG Vent. Rate : 129 BPM Atrial Rate : 129 BPM P-R Int : 136 ms QRS Dur : 086 ms QT Int : 386 ms P-R-T Axes : 054 034 046 degrees QTc Int : 565 ms Sinus tachycardia Nonspecific T wave abnormality Anterior leads Inferior leads Abnormal ECG When compared with ECG of 23-APR-2021 18:39, Vent. rate has increased BY 62 BPM T wave amplitude has decreased in Anterior leads Referred By: Generic ED Physician Electronically Signed By:NOHELIA PARRISH MD
[2022-08-21 11:32] VITALS: BP 136/85; PULSE 126; RESP 24; O2SAT 100
[2022-08-21] MEDS: LORazepam 1 MG TABLET 2 MG PO (11:40)
--- NOTE | 2022-08-21 11:45 | PC.NURSE ---
pt is hyperventilating, educated on how to control her breaking but pt's keeps saying she can't do it. pt states that her boyfriend left the house on Tuesday and has not contacted or come back to the house.
[2022-08-21 11:50] LABS: MANUAL DIFF FLAG NO
[2022-08-21 12:09] LABS: Basophils Percent Auto 0.2 % (0-2); Eosinophils Absolute Auto 0.1 X10*3/uL (0.0-0.4); Eosinophils Percent Auto 0.4 % (0-4); Hematocrit 44.8 % (37.0-47.0); Hemoglobin 14.8 g/dl (12.0-16.0); Imm Gran Pct Auto 0.6 % (0.0-0.4); Lymphocytes Absolute Auto 1.8 X10*3/uL (1.2-4.9); Lymphocytes Percent Auto 10.7 % (20-40); Mean Corpuscular Hemoglobin 27.3 pg (27.0-33.0); Mean Corpuscular Volume 82.7 fL (80.0-98.0); Mean Platelet Volume 10.6 fL (9.4-12.3); Monocytes Absolute Auto 0.7 X10*3/uL (0.1-1.2); Monocytes Percent Auto 4.3 % (2-11); Neutrophils Absolute Auto 14.2 x10*3/uL (2.0-8.3); Neutrophils Percent Auto 83.8 % (45-73); Platelet Count 390 X10*3/uL (160-400); Red Blood Count 5.42 X10*6/uL (4.20-5.50); Red Cell Distribution Width 14.3 % (11.0-16.0); White Blood Count 16.9 X10*3/uL (4.8-10.8)
[2022-08-21 12:15] VITALS: PULSE 100
[2022-08-21 12:17] LABS: Alanine Aminotransferase 14 U/L (0-31); Alkaline Phosphatase 56 U/L (39-117); Aspartate Amino Transferase 15 U/L (5-31); Bilirubin Total 1.1 mg/dL (0.0-1.0); Blood Urea Nitrogen 9 mg/dL (9-16); Calcium 10.7 mg/dL (8.4-10.2); Creatinine Clr Calc Pharmacy 95.8; Estimated Glomerular Filt Rate > 60; Glucose Random 106 mg/dL (60-115); Magnesium 1.7 mg/dL (1.6-2.6); Total Protein 8.4 g/dL (6.5-8.0)
[2022-08-21 12:19] LABS: HCG Quantitative < 2 mIU/mL; Troponin-I High Sensitivity < 3.5 ng/L (<3.5-17.0)
[2022-08-21 12:26] LABS: Anion Gap 24 (12-20); Carbon Dioxide 13 mmol/L (22-29); Chloride 105 mmol/L (96-108); Potassium 3.6 mmol/L (3.3-5.1); Sodium 138 mmol/L (135-145)
--- NOTE | 2022-08-21 13:35 | ED_ITS ---
HPI - Anxiety General Chief Complaint: Dyspnea Stated Complaint: anxiety Time Seen by Provider: 08/21/22 11:07 Source: patient and EMS Mode of arrival: EMS Limitations: language barrier (Northern Irish-speaking) History of Present Illness HPI narrative: 37yoF c PMHx of bipolar 1 disorder, IBS, GERD with apnea who is Northern Irish-speaking presenting to the ED c c/o increased anxiety/panic attack that started prior to arrival. She reports that she was at home and all of a sudden she developed chest pain/shortness of breath and tingling and pain to her entire body and felt like she cannot move her body. She did report that her boyfriend while she was at work left the apartment on Tuesday and she has not heard from him. She reports she did not argue with him. She reports that this is not related to the break-up. She denies any fevers, dizziness, change in vision, nausea or vomiting, dyspnea on exertion, orthopnea, palpitations, abdominal pain, back pain, coughing, lower extremity edema, calf tenderness, dysuria, hematuria, abnormal vaginal discharge, black or bloody stools, recent travel or sick contacts or any other symptoms complaints or concerns at this time. 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) Symptoms: dyspnea, chest pain, extremity numbness/tingling, sense of impending doom and muscle cramps Severity: severe Quality: constant and worsening Place: home History of similar episodes: Yes Provoking factors: other (see above ) Relieving factors: nothing Exacerbating factors: nothing Associated symptoms: chest pain, shortness of breath and headaches Related Data Previous Rx's Medication Instructions Recorded tramadol 50 mg tablet 50 mg PO DAILY PRN pain 30 days 12/21/21 #30 tabs cholecalciferol (vitamin D3) 50 50 mcg PO DAILY 90 days #90 caps 01/12/22 mcg (2,000 unit) capsule ibuprofen 800 mg tablet 800 mg PO Q8H PRN pain 30 days #90 02/13/22 tabs famotidine 40 mg tablet (Pepcid) 40 mg PO BEDTIME #90 tabs 06/11/22 linaclotide 145 mcg capsule 145 mcg PO QAM #90 caps 06/11/22 (Linzess) omeprazole 40 mg capsule,delayed 40 mg PO DAILY 30 days #90 caps 06/11/22 release hydroxyzine HCl 50 mg tablet 50 mg PO Q8H PRN anxiety/panic 08/21/22 attacks #20 tabs Allergies Allergy/AdvReac Type Severity Reaction Status Date / Time No Known Allergies Allergy Verified 06/11/22 10:58 [No Known Allergies*] Review of Systems Review of Systems: Constitutional : No Weight loss, No Fever, No Chills, No Night Sweats, No Fatigue, No Malaise ENT/Mouth : No Hearing loss, No Ear Pain, No Nasal Congestion, No Sinus Pain, No Hoarseness, No sore throat, No Rhinorrhea, No Swallowing Difficulty Eyes: No Eye Pain, No Swelling, No Redness, No Foreign Body, No Discharge, No Vision Changes Cardiovascular : + Chest Pain, + SOB, No Dyspnea on Exertion, No Orthopnea, No Edema, No Palpitations Respiratory : No Cough, No Sputum, No Wheezing, No Smoke Exposure, No Dyspnea Gastrointestinal : No Nausea, No Vomiting, No Diarrhea, No Constipation, No abdominal Pain, No Hematochezia, No Melena Genitourinary : no irregular bleeding, No Dysuria, No Urinary Frequency, No Hematuria, No Urinary Incontinence, No Urgency, No Flank Pain, No Urinary Flow Changes, No Hesitancy Musculoskeletal : No joint pain, No Myalgias, No Joint Swelling Skin : No Skin Lesions, No rash Neuro : No Weakness, No Numbness, No Paresthesias, No Loss of Consciousness, No Dizziness, + Headache Psych : + Anxiety/Panic, No Depression, No SI/HI/AH/VH, No Social Issues, Heme/Lymph: No Bruising, No Bleeding,No Lymphadenopathy Endocrine : No Polyuria, No Polydipsia, No Temperature Intolerance Yes all other systems are reviewed and are negative [facility] Past Medical History Attestation statement: The following information was validated with the patient. Source: old records reviewed and nursing notes reviewed Medical History Anxiety Asthma Atopic dermatitis Bipolar 1 disorder Breast mass, right Breast pain, right Depression Fibroadenoma GERD (gastroesophageal reflux disease) IBS (irritable bowel syndrome) Left ovarian cyst Lumbar pain PONV (postoperative nausea and vomiting) Surgical History H/O section H/O hysterectomy with oophorectomy History of excision of mass History of umbilical hernia repair Hx of esophagogastroduodenoscopy Family History Family History Father Kidney disease Hypertension Family history of breast cancer Mother CVD (cardiovascular disease) Paternal Grandmother Stomach cancer Social History Social History Housing: Apartment Alcohol intake: never Patient Tobacco Use Status: Current everyday Tobacco user Tobacco use type: Cigarette Cigarettes Per Day: 20 Smoked in Last 30 Days: Yes e-Cigarette/Vaping Use: Never Used Second Hand Smoke Exposure: No Use of substances other than those prescribed or required for medical reasons: No Substance Use Type: Marijuana Advance Directives: No service: No Current occupational status: employed Gender identity: Female Physical Exam Vital Signs: Vital Signs: Last Vital Signs Temp 98.3 F 08/21/22 14:00 Pulse 104 H 08/21/22 14:00 Resp 18 08/21/22 14:00 BP 138/82 08/21/22 14:00 Pulse Ox 99 08/21/22 14:00 O2 Del Method 08/21/22 11:32 BMI result Body Mass Index 30.4 vital signs have been reviewed as normal and appeared to be correct. Blood pressure 148/89. Heart rate 134. Respiration rate 24l. Temperature normal. O xygen saturation normal. Appearance: Alert. Oriented X3. Patient very anxious hyperventilating and crying on exam. Otherwise no other acute distress. Head: Normal external exam. Normocephalic. Atraumatic. No Lord signs noted. No raccoon eyes noted Eyes: PERRLA. EOMI. Conjunctiva and sclera normal. Eyelids normal. ENT: EAC normal. TM's Normal. Pharynx normal. Uvula midline. Moist mucous membranes. No trismus noted. No drooling noted. No muffled voice noted. Neck: Normal inspection. Neck supple. FROM. No adenopathy. Thyroid Normal. No meningeal signs. No neck mass noted. CVS: Normal heart rate and rhythm. Heart sound normal. No murmurs noted. Pulses normal throughout. Respiratory: No respiratory distress. Painless inspiration. Breath sounds normal. No wheezes/rales/rhonchi noted. Chest nontender. No accessory muscle usage noted or decreased air movement noted. Abdomen: Soft and nontender. Bowel sounds normal in all 4 quadrants. No distention noted. No organomegaly noted. No visible injury noted. Back: No CVA tenderness. Full range of motion noted. Skin: Skin warm and dry. Normal skin color. Normal skin turgor. No rashes/lesions/lacerations noted. Extremities: No lower extremity edema. Extremities exhibit normal range of motion. Extremities nontender. Neuro: Oriented X 3. No motor deficit. No sensory deficit. Reflexes normal. CN's II-XII intact bilaterally? Psych: Appearance grossly normal, well-kept, mental status normal, speech and movement normal, speech clear, patient appears very sad and anxious along with depressed. Is cooperative. Normal thought process. Normal thought content. Normal good insight. Judgment good. Course Course Course Narrative: 11:20am - 37yoF c PMHx of bipolar 1 disorder, IBS, GERD with apnea who is Northern Irish- speaking presenting to the ED c c/o increased anxiety/panic attack that started prior to arrival. She reports that she was at home and all of a sudden she developed chest pain/shortness of breath and tingling and pain to her entire body and felt like she cannot move her body. She did report that her boyfriend while she was at work left the apartment on Tuesday and she has not heard from him. She reports she did not argue with him. She reports that this is not related to the break-up. Patient denies any SI/HI/auditory visualizations thoughts of self-injury. Reports that she sees a therapist although is not on anxiety medication and wants to be on anxiety medication. Plan: Labs, EKG, chest x-ray provide 2 mg of p.o. Ativan and re-evaluate. Reevaluation(s) Reevaluation #1: Labs reviewed - leukocytosis of 16,000. - carbon dioxide 13 - calcium 10.7 - total bilirubin 1.1 - total protein 8.4. Otherwise all other labs are within normal limits - chest x-ray within normal limits no acute processes noted. - EKG is sinus tachycardia with ventricular rate of 129 with a normal [place] interval normal QRS duration and nonspecific ST abnormalities no acute ischemic change are noted. - therefore at this time patient is placed in Physician observation because the patient needs more time to be evaluated by crisis will continue to monitor at this time. Time: 13:51 Reevaluation #2: Patient was evaluate by the care team and she continues to deny any SI/HI/auditory visualizations thoughts of self-injury. Care team will refer the patient for RV CC to see if she can see a psych provider. Otherwise at this time will DC home with p.r.n. of anxiety/panic attacks and instructions return if any new or worsening symptoms follow up with primary care provider. Patient understands agrees with this plan. Time: 14:50 Medications Administered Discontinued Medications Generic Name Dose Route Start Last Admin Trade Name Freq PRN Reason Stop Dose Admin Cyclobenzaprine HCl 10 mg 08/21/22 13:48 08/21/22 13:58 Cyclobenzaprine Hcl 10 Mg Tablet PO 08/21/22 13:49 10 mg ONCE ONE Administration Ibuprofen 800 mg 08/21/22 13:48 08/21/22 13:58 Ibuprofen 800 Mg Tablet PO 08/21/22 13:49 800 mg ONCE ONE Administration Lorazepam 2 mg 08/21/22 11:30 08/21/22 11:40 Lorazepam 1 Mg Tablet PO 08/21/22 11:31 2 mg ONCE ONE Administration MDM - Anxiety Medical Records Attestation: I reviewed the patient's medical records. Lab Data Attestation: I reviewed the patient's lab results. Result diagrams: 08/21/22 11:46 08/21/22 11:46 Labs: Lab Results 08/21/22 08/21/22 08/21/22 Range/Units 11:46 11:46 11:46 WBC 16.9 H (4.8-10.8) X10*3/uL RBC 5.42 (4.20-5.50) X10*6/uL Hgb 14.8 (12.0-16.0) g/dl Hct 44.8 (37.0-47.0) % MCV 82.7 (80.0-98.0) fL MCH 27.3 (27.0-33.0) pg MCHC 33.0 (31.0-35.0) g/dl RDW 14.3 (11.0-16.0) % Plt Count 390 D (160-400) X10*3/uL MPV 10.6 (9.4-12.3) fL Immature Gran % (Auto) 0.6 H (0.0-0.4) % Neut % (Auto) 83.8 H (45-73) % Lymph % (Auto) 10.7 L (20-40) % [place] % (Auto) 4.3 (2-11) % Eos % (Auto) 0.4 (0-4) % Baso % (Auto) 0.2 (0-2) % Lymph # (Auto) 1.8 (1.2-4.9) X10*3/uL [place] # (Auto) 0.7 (0.1-1.2) X10*3/uL Eos # (Auto) 0.1 (0.0-0.4) X10*3/uL Baso # (Auto) 0.0 (0.0-0.2) X10*3/uL Abs Immat Gran (auto) 0.10 H (0.00-0.03) X10*3/uL Absolute Neuts (auto) 14.2 H (2.0-8.3) x10*3/uL Absolute Nucleated RBC 0.000 (0.0-0.012) X10*3/uL Nucleated RBC % (auto) 0.0 (0.0-0.2) /100WBC Sodium 138 (135-145) mmol/L Potassium 3.6 D (3.3-5.1) mmol/L Chloride 105 (96-108) mmol/L Carbon Dioxide 13 L (22-29) mmol/L Anion Gap 24 H (12-20) BUN 9 (9-16) mg/dL Creatinine 0.84 (0.5-1.4) mg/dL Estim Creat Clear Calc 95.8 Estimated GFR > 60 Random Glucose 106 (60-115) mg/dL Calcium 10.7 H D (8.4-10.2) mg/dL Magnesium 1.7 (1.6-2.6) mg/dL Total Bilirubin 1.1 H (0.0-1.0) mg/dL AST 15 (5-31) U/L ALT 14 (0-31) U/L Alkaline Phosphatase 56 (39-117) U/L Troponin I High Sens < 3.5 (<3.5-17.0) ng/L Total Protein 8.4 H (6.5-8.0) g/dL Albumin 5.0 (3.5-5.0) g/dL Beta HCG, Quant mIU/mL 08/21/22 Range/Units 11:46 WBC (4.8-10.8) X10*3/uL RBC (4.20-5.50) X10*6/uL Hgb (12.0-16.0) g/dl Hct (37.0-47.0) % MCV (80.0-98.0) fL MCH (27.0-33.0) pg MCHC (31.0-35.0) g/dl RDW (11.0-16.0) % Plt Count (160-400) X10*3/uL MPV (9.4-12.3) fL Immature Gran % (Auto) (0.0-0.4) % Neut % (Auto) (45-73) % Lymph % (Auto) (20-40) % [place] % (Auto) (2-11) % Eos % (Auto) (0-4) % Baso % (Auto) (0-2) % Lymph # (Auto) (1.2-4.9) X10*3/uL [place] # (Auto) (0.1-1.2) X10*3/uL Eos # (Auto) (0.0-0.4) X10*3/uL Baso # (Auto) (0.0-0.2) X10*3/uL Abs Immat Gran (auto) (0.00-0.03) X10*3/uL Absolute Neuts (auto) (2.0-8.3) x10*3/uL Absolute Nucleated RBC (0.0-0.012) X10*3/uL Nucleated RBC % (auto) (0.0-0.2) /100WBC Sodium (135-145) mmol/L Potassium (3.3-5.1) mmol/L Chloride (96-108) mmol/L Carbon Dioxide (22-29) mmol/L Anion Gap (12-20) BUN (9-16) mg/dL Creatinine (0.5-1.4) mg/dL Estim Creat Clear Calc Estimated GFR Random Glucose (60-115) mg/dL Calcium (8.4-10.2) mg/dL Magnesium (1.6-2.6) mg/dL Total Bilirubin (0.0-1.0) mg/dL AST (5-31) U/L ALT (0-31) U/L Alkaline Phosphatase (39-117) U/L Troponin I High Sens (<3.5-17.0) ng/L Total Protein (6.5-8.0) g/dL Albumin (3.5-5.0) g/dL Beta HCG, Quant < 2 mIU/mL Imaging Data Chest x-ray: Attestation: I personally reviewed and interpreted this imaging study as follows: Radiologist's impression: FINDINGS: No significant abnormality is noted involving the heart, lungs, mediastinum, bony thorax or soft tissues. XR/XR chest 2V IMPRESSION: No acute cardiopulmonary process. Discharge Plan Discharge Clinical Impression: Anxiety, Panic attack Patient Disposition: Home, Self-Care Instructions: Panic Disorder (ED), Anxiety (ED) Prescriptions: New hydroxyzine HCl 50 mg tablet 50 mg PO Q8H PRN (Reason: anxiety/panic attacks) Qty: 20 0RF No Action cholecalciferol (vitamin D3) 50 mcg (2,000 unit) capsule 50 mcg PO DAILY 90 Days Qty: 90 1RF ibuprofen 800 mg tablet 800 mg PO Q8H PRN (Reason: pain) 30 Days Qty: 90 1RF tramadol 50 mg tablet 50 mg PO DAILY PRN (Reason: pain) 30 Days Qty: 30 0RF omeprazole 40 mg capsule,delayed release(DR/EC) 40 mg PO DAILY 30 Days Qty: 90 1RF famotidine [Pepcid] 40 mg tablet 40 mg PO BEDTIME Qty: 90 1RF Linzess 145 mcg capsule 145 mcg PO QAM Qty: 90 1RF Referrals: Rufus Naidu MD [Primary Care Provider] - 1 day Stand Alone Forms: Work/School Release Print Language: [place] Irish
[2022-08-21] MEDS: Cyclobenzaprine HCl 10 MG TABLET PO (13:58)
[2022-08-21] MEDS: Ibuprofen 800 MG TABLET PO (13:58)
[2022-08-21 14:00] VITALS: BP 138/82; PULSE 104; RESP 18; TEMP 36.8; O2SAT 99
--- NOTE | 2022-08-21 14:02 | PC.NURSE ---
pt sleeping, woke to verbal stimulus, c/o neck pain 10/10, pt medicated for pain per order, vss, will continue to monitor
--- NOTE | 2022-08-21 14:41 | MHC.CARE ---
CARE Team met with Pt secondary to a consult placed for anxiety/depression. Pt reports experiencing anxiety attacks, that come out of nowhere. Pt reports she works with a therapist at [facility]. Pt states she feels like she needs medication to help mange the symptoms. Pt would like to meet with a psychiatrist at [facility]. Plan for Pt be discharged with a PRN medication for anxiety attacks. CARE Team will follow up with [facility] regarding being put on the list to see a psychiatrist.
== END 2022-08-21 15:14 | disposition home or self-care (01) ==
PROVIDERS: Physician Assistant Medical; Emergency Provider Emergency Medicine Emergency Medical Services; PCP Internal Medicine
DX: F41.0 Panic disorder [episodic paroxysmal anxiety] (principal); F41.9 Anxiety disorder, unspecified; F17.210 Nicotine dependence, cigarettes, uncomplicated; F12.90 Cannabis use, unspecified, uncomplicated; Z79.899 Other long term (current) drug therapy
CPT/HCPCS: 36415; 71046; 80053; 83735; 84484; 84702; 85025; 93005; 99284

== ENCOUNTER 2022-10-27 09:50 | Outpatient (REF) | payer OTHER, SELFPAY ==
[2022-10-27 09:59] LABS: MANUAL DIFF FLAG NO
[2022-10-27 10:34] LABS: Basophils Percent Auto 0.3 % (0-2); Eosinophils Absolute Auto 0.1 X10*3/uL (0.0-0.4); Eosinophils Percent Auto 0.9 % (0-4); Hematocrit 46.5 % (37.0-47.0); Hemoglobin 14.9 g/dl (12.0-16.0); Imm Gran Abs Auto 0.04 X10*3/uL (0.00-0.03); Imm Gran Pct Auto 0.5 % (0.0-0.4); Lymphocytes Absolute Auto 1.8 X10*3/uL (1.2-4.9); Lymphocytes Percent Auto 20.3 % (20-40); Mean Corpuscular Hemoglobin 27.8 pg (27.0-33.0); Mean Corpuscular Volume 86.8 fL (80.0-98.0); Mean Platelet Volume 10.8 fL (9.4-12.3); Monocytes Absolute Auto 0.6 X10*3/uL (0.1-1.2); Monocytes Percent Auto 7.2 % (2-11); Neutrophils Absolute Auto 6.2 x10*3/uL (2.0-8.3); Neutrophils Percent Auto 70.8 % (45-73); Platelet Count 294 X10*3/uL (160-400); Red Blood Count 5.36 X10*6/uL (4.20-5.50); Red Cell Distribution Width 14.3 % (11.0-16.0); White Blood Count 8.7 X10*3/uL (4.8-10.8)
[2022-10-27 11:27] LABS: Vitamin D 25-OH Total 12.3 ng/mL (>30)
[2022-10-27 11:32] LABS: Alanine Aminotransferase 15 U/L (0-31); Albumin Level 4.3 g/dL (3.5-5.0); Alkaline Phosphatase 51 U/L (39-117); Anion Gap 14 (12-20); Aspartate Amino Transferase 17 U/L (5-31); Blood Urea Nitrogen 17 mg/dL (9-16); Calcium 9.6 mg/dL (8.4-10.2); Carbon Dioxide 25 mmol/L (22-29); Chloride 106 mmol/L (96-108); Estimated Glomerular Filt Rate > 60; Potassium 4.1 mmol/L (3.3-5.1); Sodium 141 mmol/L (135-145); Total Protein 7.4 g/dL (6.5-8.0)
[2022-10-27 11:48] LABS: Glucose Random 58 mg/dL (60-115)
== END 2022-10-27 09:51 | disposition home or self-care (01) ==
LOC: HO.LAB 09:50
PROVIDERS: PCP Internal Medicine; Visit Provider Internal Medicine
DX: R10.13 Epigastric pain (principal); E55.9 Vitamin D deficiency, unspecified
CPT/HCPCS: 36415; 80053; 82306; 85025

== ENCOUNTER → 2022-10-28 12:56 | Outpatient (BNVA) | payer OTHER, SELFPAY | PROVIDERS: PCP Internal Medicine; Visit Provider Nurse Practitioner | DX: K21.9 Gastro-esophageal reflux disease without esophagitis (principal); K59.04 Chronic idiopathic constipation; R06.81 Apnea, not elsewhere classified; R11.2 Nausea with vomiting, unspecified | CPT/HCPCS: 99212 ==

== ENCOUNTER 2022-11-17 08:43 | Outpatient (REF) | payer OTHER, SELFPAY ==
--- NOTE | ~2022-11-17 | US_ITS ---
EXAMINATION: US ABDOMEN COMPLETE CLINICAL INFORMATION: Gastroesophageal reflux disease without esophagitis. COMPARISON: X-ray abdomen 12/19/2020. CT abdomen and pelvis 11/23/2020. Renal ultrasound 10/16/2014. Ultrasound abdomen 02/17/2013. TECHNIQUE: Real-time imaging of the abdominal viscera. FINDINGS: PANCREAS: Normal. ABDOMINAL AORTA: The proximal, mid, and distal segments are normal in caliber. INFERIOR VENA CAVA: Visualized portions are normal. LIVER: The liver is normal in size. The liver contour is normal. There is diffuse increased liver parenchymal echogenicity, consistent with hepatic steatosis. No focal hepatic lesion. There is no intrahepatic biliary duct dilatation seen. GALLBLADDER: The gallbladder is physiologically distended without evidence of stones, sludge, polyps, wall thickening or pericholecystic fluid. COMMON BILE DUCT: Normal in caliber measuring 0.2 cm in diameter. RIGHT KIDNEY: No hydronephrosis. No renal calculi or focal parenchymal lesions. The kidney measures 11.6 cm in maximum dimension. LEFT KIDNEY: No hydronephrosis. No renal calculi or focal parenchymal lesions. The kidney measures 10.4 cm in maximum dimension. SPLEEN: Normal. The spleen measures 6.9 cm in maximum dimension. FREE FLUID: None. US/US abdomen complete IMPRESSION: Hepatic steatosis.
== END 2022-11-17 08:44 | disposition home or self-care (01) ==
LOC: HO.US 08:43
PROVIDERS: PCP Internal Medicine; Visit Provider Nurse Practitioner
DX: K59.04 Chronic idiopathic constipation (principal); R11.2 Nausea with vomiting, unspecified; K21.9 Gastro-esophageal reflux disease without esophagitis; R06.81 Apnea, not elsewhere classified
CPT/HCPCS: 76700

== ENCOUNTER → 2022-12-15 08:40 | Outpatient (BNVA) | payer OTHER, SELFPAY | PROVIDERS: PCP Internal Medicine; Visit Provider Nurse Practitioner | DX: K59.04 Chronic idiopathic constipation (principal); K21.9 Gastro-esophageal reflux disease without esophagitis; R06.81 Apnea, not elsewhere classified; R11.2 Nausea with vomiting, unspecified | CPT/HCPCS: 99212 ==

== ENCOUNTER → 2023-02-04 14:36 | Outpatient (BNVA) | payer OTHER, SELFPAY | PROVIDERS: PCP Internal Medicine; Visit Provider Nurse Practitioner Family | DX: M54.16 Radiculopathy, lumbar region (principal); M47.816 Spondylosis without myelopathy or radiculopathy, lumbar region; M62.838 Other muscle spasm | CPT/HCPCS: 99202 ==

== ENCOUNTER 2023-05-12 12:15 | Outpatient (REF) | payer OTHER, SELFPAY ==
[2023-05-13 02:58] LABS: Syphilis Screen Nonreactive (Nonreactive)
[2023-05-13 03:19] LABS: HBsAGNum1 0.32 S/CO (0.00-0.99); HIV AB/AG Nonreactive (Nonreactive); HIV Num 1 0.05 S/CO (0.00-0.99); Hepatitis B Surface Antigen Negative (Negative); ~HepC Num1 0.05 S/CO (0.00-0.79); ~Hepatitis C Antibody Nonreactive (Nonreactive)
[2023-05-13 05:24] LABS: CT PCR NOT DETECTED (Not Detect.); NG PCR NOT DETECTED (Not Detect.)
[2023-05-13 11:47] LABS: BV Int Neg Control Negative (Negative); BV Int Pos Control Positive (Positive)
== END 2023-05-12 12:16 | disposition home or self-care (01) ==
LOC: HO.LAB 12:15
PROVIDERS: PCP Internal Medicine; Visit Provider Advanced Practice Midwife
DX: Z11.3 Encounter for screening for infections with a predominantly sexual mode of transmission (principal); Z11.4 Encounter for screening for human immunodeficiency virus [HIV]; R10.2 Pelvic and perineal pain; R30.0 Dysuria
CPT/HCPCS: 0353U; 36415; 81003; 86780; 86803; 87086; 87088; 87186; 87340; 87389; 87480; 87510; 87660; 99202

== ENCOUNTER 2023-05-12 12:15 | Outpatient (AMB) | payer OTHER, SELFPAY ==
[2023-05-12 12:46] VITALS: BP 118/89; BMI 29.3
--- NOTE | 2023-05-12 12:46 | MHC.OFFVIS ---
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 Intake Note: pain in remaining left ovary, urinating brownish color, would like STD check, bumps in vaginal area Bi Data Architect Required: Yes Bi Data Architect Language: Serbian Information Interpreted: non-clinical & clinical Java Web Architect: Java Web Architect Present (Joana) Allergies No Known Allergies [No Known Allergies*] Allergy (Verified 05/12/23 12:53) Medication List - Last Reconciled 05/12/23 by Sintia Nixon CNM bisacodyl (Dulcolax (bisacodyl)) 10 mg (2 x 5 mg) PO BEDTIME 30 days cholecalciferol (vitamin D3) 50 mcg PO DAILY 90 days clonazepam mg PO famotidine (Pepcid) 40 mg PO BEDTIME fluoxetine 10 mg PO DAILY hydroxyzine HCl 50 mg PO Q8H PRN linaclotide (Linzess) 72 mcg PO QAM methocarbamol 500 mg PO TID 30 days metoclopramide HCl (Reglan) 10 mg PO .tidac nabumetone 750 mg PO BID pantoprazole 40 mg PO DAILY 90 days tramadol 50 mg PO DAILY PRN 30 days Is last menstrual period known: No Post menopausal: No 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 She has been here before but it has been a while. She states she had her uterus and right ovary removed in [place] having to do with heavy bleeding but also there was a question about preventing cancer but she was 26 years old and had just had 3 babies as well. She has pain in her left side that she says is there all the time and does not come and go and she was seen in the past for a left ovarian cyst that resolved. She says she urinates brown and sometimes it hurts and she try to get an appointment with her PCC but the was an appointment till August. She is sexually active with her boyfriend and she would like full STI testing. She also had a a mass in her right breast that was removed last year but she says she does not know the follow-up and she was not given of an appointment for follow-up. She complains of pain in both breasts. [facility] Medical History Anxiety Asthma Atopic dermatitis Bipolar 1 disorder Breast mass, right Breast pain, right Depression Fibroadenoma GERD (gastroesophageal reflux disease) IBS (irritable bowel syndrome) Left ovarian cyst Lumbar pain PONV (postoperative nausea and vomiting) Surgical History H/O section H/O hysterectomy with oophorectomy History of excision of mass History of umbilical hernia repair Hx of esophagogastroduodenoscopy Family History (Updated 05/12/23 @ 12:55 by RACHEL Mike) Father Kidney disease Hypertension Family history of breast cancer Mother CVD (cardiovascular disease) Paternal Grandmother Stomach cancer Paternal Aunt Breast cancer Social History (Updated 05/12/23 @ 12:56 by RACHEL Mike) Housing: Apartment Alcohol intake: never Patient Tobacco Use Status: Current everyday Tobacco user Tobacco use type: Cigarette Cigarettes Per Day: 10 e-Cigarette/Vaping Use: Never Used Second Hand Smoke Exposure: No Substance Use Type: Marijuana service: No Current occupational status: employed Gender identity: Female Cognitive needs: No Hearing needs: No Vision needs: No Female Reproductive History Menstrual Age of Menarche: 15 control method: permanent sterilization Total pregnancies: 3 Full term: 3 Number of Living Children: 3 Ab spontaneous: 3 Date of Mammogram: 12/23/21 Physical Exam Vital Signs: Last Vital Signs BP 118/89 05/12/23 12:46 BMI result Body Mass Index 29.3 Const General: healthy appearing, comfortable, no acute distress, well developed and alert Nutritional Appearance: average body habitus Orientation/consciousness: patient oriented x3 Limitations: no limitations HEENT Head: Yes normocephalic Neck Neck: Yes normal visual inspection Thyroid: Thyroid normal Chest Other: Barely visible scar from excision of mass on right breast no masses felt on either breast. Chest palpation & inspection: normal inspection of the chest Breast/axilla inspection: normal inspection of the breasts and normal inspection of the axillae Breast/axilla palpation: normal palpation of the breasts and normal palpation of the axillae Resp Effort & Inspection: normal respiratory effort GI Inspection: Yes normal to inspection, No Abdominal wall edema and No distended Palpation (GI): Soft to palpation and nontender Other: Scar tissue from hysterectomy noted No cervix visible but vaginal cuff from hysterectomy seen. No abnormal discharge. Tone with Kegel unable to palpate any mass on left side.. External Female Exam: normal external appearance and normal appearance of the urethra Speculum Exam - Vagina: normal appearance of the vagina and normal vaginal discharge Bimanual Exam- Adnexa, other: normal adnexae, no masses, normal and No adnexal tenderness Neuro General: patient oriented x3 Results AMB Urinalysis, Automated UA Leukoctes 2 Luis Miguel/uL Last Edit by Frank Velarde [facility] on 05/12/23 13:14 UA Nitrite Negative Last Edit by Frank Velarde [facility] on 05/12/23 13:14 UA Urobilinogen 0 mg/dL Last Edit by Frank Velarde [facility] on 05/12/23 13:14 UA Protein 0 mg/dL Last Edit by Frank Velarde [facility] on 05/12/23 13:14 UA pH 5 Last Edit by Frank Velarde [facility] on 05/12/23 13:14 UA Blood 0.5 Parviz/uL Last Edit by rFank Velarde [facility] on 05/12/23 13:14 UA Specific [place] 1.030 Last Edit by Frank Velarde [facility] on 05/12/23 13:14 UA Ketone Negative Last Edit by Frank Velarde [facility] on 05/12/23 13:14 UA Bilirubin 0 mg/dL Last Edit by Frank Velarde [facility] on 05/12/23 13:14 UA Glucose 0 mg/dL Last Edit by Frank Velarde [facility] on 05/12/23 13:14 Assessment & Plan Assessment & Plan (1) Dysuria: Code(s): R30.0 - Dysuria (2) Screen for sexually transmitted diseases: Code(s): Z11.3 - Encounter for screening for infections with a predominantly sexual mode of transmission (3) Breast pain: Code(s): N64.4 - Mastodynia (4) Pelvic pain: Comment: Left. sided patient only has left ovary had a cyst there previously Code(s): R10.2 - Pelvic and perineal pain Plan -----Discussed in this visit the following: healthy balanced diet, regular and consistent exercise, getting recommended health screens, doing the best she can for her particular health concerns, kegel exercises, pap smear screening and followup recommendations, mammography screening and SBE, normal changes in cycles in her life stage--- . Since she is having the breast pain on both sides and she can not discern a pattern to it I am ordering a mammogram to check on that. As regards the pain on the left side I will order a pelvic ultrasound and we will have a follow-up visit after that. I did discuss with her that there is normal cycling that happens in a menstrual cycle and even if she only has 1 ovary occasionally she is ovulating and her body goes through cycles even if she can not perceive it with a period. For this reason it may be harder to discern when her breasts are tender and when she has post ovulatory discomfort. But we will rule out any pathology with an ultrasound. Pap smear was done is her history is very unclear as to whether not there was any suspicion of any cancerous finding when she had her hysterectomy. STI testing ordered as requested and we will see her after the ultrasound for follow-up. I did let her know that usually urinary concerns are dealt with by primary care providers but as she is here we will send the urinalysis for culture. Orders: Orders Bacterial Vaginosis Panel Today R10.2 - Pelvic and perineal pain, Z01.419 - Encounter for gynecological examination (general) (routine) without abnormal findings CT NG by PCR Today R10.2 - Pelvic and perineal pain, Z01.419 - Encounter for gynecological examination (general) (routine) without abnormal findings Urine Culture Today R30.0 - Dysuria Hepatitis B Surface Antigen Today R30.0 - Dysuria, Z11.3 - Encounter for screening for infections with a predominantly sexual mode of transmission Hepatitis C Antibody Today R30.0 - Dysuria, Z11.3 - Encounter for screening for infections with a predominantly sexual mode of transmission HIV Ab/Ag Today R30.0 - Dysuria, Z11.3 - Encounter for screening for infections with a predominantly sexual mode of transmission Syphilis Screen Today R30.0 - Dysuria, Z11.3 - Encounter for screening for infections with a predominantly sexual mode of transmission MM tomosynthesis diagnostic BI Today N64.4 - Mastodynia US pelvic and transvaginal Today R10.2 - Pelvic and perineal pain AMB Urinalysis Automated Today R10.32 - Left lower quadrant pain Pap Smear Today Z01.419 - Encounter for gynecological examination (general) (routine) without abnormal findings Quality Reporting (2019) Adult ([facility] 138/11/24/68) Smoking risk assessment performed?: Yes Patient Tobacco Use Status: Current everyday Tobacco user Coding Level of Care Code New Pt Prev Care 18-39yr(32860 Diagnoses Dysuria R30.0 Screen for sexually transmitted diseases Z11.3 Breast pain N64.4 Pelvic pain R10.2
== END 2023-05-12 13:51 | disposition home or self-care (01) ==
LOC: HO.HWS 12:15
PROVIDERS: PCP Internal Medicine; Visit Provider Advanced Practice Midwife
DX: Z01.411 Encounter for gynecological examination (general) (routine) with abnormal findings (principal); R30.0 Dysuria; Z11.3 Encounter for screening for infections with a predominantly sexual mode of transmission; N64.4 Mastodynia; R10.2 Pelvic and perineal pain; R10.32 Left lower quadrant pain
CPT/HCPCS: 99204; 99385

== ENCOUNTER 2023-05-12 13:31 | Outpatient (REF) | payer OTHER, SELFPAY ==
[2023-05-17 05:09] LABS: HPV mRNA E6/E7 rflx Not Detected (Not Detected)
== END 2023-05-12 13:32 | disposition home or self-care (01) ==
LOC: HO.LNP 13:31
PROVIDERS: Visit Provider Advanced Practice Midwife
DX: Z01.419 Encounter for gynecological examination (general) (routine) without abnormal findings (principal); Z11.51 Encounter for screening for human papillomavirus (HPV)
CPT/HCPCS: 87624; 88142

== ENCOUNTER 2023-07-07 11:14 | Outpatient (REF) | payer OTHER, SELFPAY | END 2023-07-07 11:15 | disposition home or self-care (01) | LOC: HO.MAMMO 11:14 | PROVIDERS: PCP Internal Medicine; Visit Provider Advanced Practice Midwife | DX: N64.4 Mastodynia (principal) | CPT/HCPCS: 76642; 77062; 77066 ==

== ENCOUNTER → 2023-07-07 11:30 | Outpatient (BNV) | payer OTHER, SELFPAY | PROVIDERS: PCP Internal Medicine; Visit Provider Radiology Diagnostic Radiology | DX: R92.333 Mammographic heterogeneous density, bilateral breasts (principal); R92.311 Mammographic fatty tissue density, right breast; R92.322 Mammographic fibroglandular density, left breast | CPT/HCPCS: 76642; 77062; 77066 ==

== ENCOUNTER 2023-08-16 16:49 | Emergency (ER) | payer OTHER, SELFPAY ==
--- NOTE | ~2023-08-16 | CT_ITS ---
EXAMINATION: CT ABDOMEN AND PELVIS WITHOUT CONTRAST CLINICAL INFORMATION: Left-sided flank pain COMPARISON: CT abdomen pelvis 11/23/2020 TECHNIQUE: Multidetector volumetric imaging was performed from the superior aspect of the liver through the pubic symphysis. Sagittal and coronal reformatted images were obtained on the technologist's workstation. This CT examination was performed using dose optimization techniques as appropriate, variously including the following: *Automated exposure control *Adjustment of mA and/or kV according to patient size (this includes techniques or standardized protocols for targeted exams where dose is matched to indication/reason for exam; i.e. extremities or head) *Use of iterative reconstruction technique DLP: 600 mGy-cm FINDINGS: LUNG BASES: The visualized lung bases are unremarkable. LIVER, GALLBLADDER, AND BILIARY TREE: The liver is normal in size, shape, and attenuation. No focal hepatic lesion or biliary ductal dilatation is present. The gallbladder is unremarkable with no evidence of radiopaque gallstones, gallbladder wall thickening, or obvious pericholecystic inflammatory changes. PANCREAS: Unremarkable. SPLEEN: Unremarkable. ADRENAL GLANDS: Unremarkable. KIDNEYS AND URETERS: The kidneys are normal in size, shape, and attenuation. No hydronephrosis, hydroureter, or calculi seen. No perinephric stranding. BLADDER: Unremarkable. GASTROINTESTINAL TRACT: The small and large bowel are unremarkable. The appendix is unremarkable. ABDOMINAL WALL: No significant hernia is appreciated. A tiny periumbilical hernia seen containing only fat. LYMPH NODES: No retroperitoneal lymphadenopathy VASCULAR: Unremarkable. PELVIC VISCERA: 2 cysts are present in the left ovary measuring 1.7 and 2.7 cm. In 2020, 2 cysts were present as well measuring 3.0 cm and 1.4 cm. No free intraperitoneal fluid is seen. The uterus is not present. OSSEOUS STRUCTURES: Unremarkable. CT/CT abdomen pelvis wo IV con IMPRESSION: 1. A cause for the patient's left-sided flank pain has not been found. 2. No renal calculi are seen. 3. There are 2 benign-appearing cysts present in the left ovary. No imaging follow-up is recommended 4. Other incidental findings as described. Fleischner guidelines were followed.
--- NOTE | 2023-08-16 17:28 | ED.GENADULT ---
HPI - General Adult General Chief complaint: Back Pain/Injury Stated complaint: Back pain/L leg pain Time Seen by Provider: 08/16/23 19:14 Related Data Home Medications ?Medication ?Instructions ?Recorded ?Confirmed amoxicillin 500 mg capsule 500 mg PO TID 01/24/24 Previous Rx's ?Medication ?Instructions ?Recorded bisacodyl 5 mg tablet,delayed 10 mg (2 x 5 mg) PO BEDTIME 30 01/24/24 release (Dulcolax (bisacodyl)) days #60 tabs cholecalciferol (vitamin D3) 50 50 mcg PO DAILY 90 days #90 caps 01/24/24 mcg (2,000 unit) capsule famotidine 40 mg tablet (Pepcid) 40 mg PO BEDTIME #90 tabs 01/24/24 fluoxetine 10 mg capsule 10 mg PO DAILY depressive disorder 01/24/24 90 days #90 caps hydrochlorothiazide 12.5 mg tablet 12.5 mg PO DAILY 90 days #90 tabs 01/24/24 ibuprofen 800 mg tablet 800 mg PO Q8H PRN pain 30 days #90 01/24/24 tabs linaclotide 72 mcg capsule 72 mcg PO QAM #30 caps 01/24/24 (Linzess) methocarbamol 500 mg tablet 500 mg PO TID muscle spasms 30 01/24/24 days #90 tabs pantoprazole 40 mg tablet,delayed 40 mg PO DAILY 90 days #90 tabs 01/24/24 release cefdinir 300 mg capsule 300 mg PO BID 7 days #14 caps 04/04/24 tramadol 50 mg tablet 50 mg PO DAILY PRN pain 30 days 04/05/24 #20 tabs Allergies Allergy/AdvReac Type Severity Reaction Status Date / Time No Known Allergies Allergy Verified 04/04/24 16:05 [No Known Allergies*] [facility] Past Medical History Medical History PONV (postoperative nausea and vomiting) Breast pain, right Fibroadenoma Left ovarian cyst Breast mass, right Lumbar pain IBS (irritable bowel syndrome) Atopic dermatitis Bipolar 1 disorder GERD (gastroesophageal reflux disease) Anxiety Depression Asthma Surgical History History of excision of mass History of umbilical hernia repair H/O hysterectomy with oophorectomy H/O section Hx of esophagogastroduodenoscopy Family History Family History Father Kidney disease Hypertension Family history of breast cancer Mother CVD (cardiovascular disease) Paternal Grandmother Stomach cancer Paternal Aunt Breast cancer Social History Social History Housing: Apartment Alcohol intake: former Comment: pt previously medicated with oxycodone Patient Tobacco Use Status: Current everyday Tobacco user Tobacco use type: Cigarette Cigarette Packs Per Day: 1 Cigarettes Per Day: 20 Smoked in Last 30 Days: Yes e-Cigarette/Vaping Use: Never Used Second Hand Smoke Exposure: No Use of substances other than those prescribed or required for medical reasons: Yes Substance Use Type: Marijuana Advance Directives: No Advance Directives Information Provided: No service: No Current occupational status: employed Gender identity: Female Cognitive needs: No Hearing needs: No Vision needs: No Physical Exam ED Vital Signs: BMI result Body Mass Index 27.5 Course Course Course Narrative: This is an RME: Additional HPI, ROS, PE not included below will be deferred to primary provider. 38 yo f presenting with low back pain radiating to the left leg x 5 days. Associated with n/v, dysuria, and fever/chills. Plan - UA Medications Administered Discontinued Medications Generic Name Dose Route Start Last Admin Trade Name Freq PRN Reason Stop Dose Admin Hydromorphone HCl 0.5 mg 08/17/23 00:04 08/17/23 00:21 Hydromorphone Hcl 0.5 Mg/0.5 Ml Syringe IVPUSH 08/17/23 00:05 0.5 mg ONCE ONE Administration Protocol Sodium Chloride 1,000 mls @ 999 mls/hr 08/16/23 20:30 08/16/23 22:43 Ns IV 08/16/23 21:30 Infused .Q1H1M DEE Infusion Ketorolac Tromethamine 15 mg 08/16/23 20:21 08/16/23 20:43 Ketorolac Tromethamine 15 Mg/Ml Vial IVPUSH 08/16/23 20:22 15 mg ONCE ONE Administration Ondansetron HCl 4 mg 08/16/23 20:26 08/16/23 20:43 Ondansetron Hcl 4 Mg/2 Ml Vial IVPUSH 08/16/23 20:27 4 mg ONCE ONE Administration Medical Decision Making Lab Data 08/16/23 20:53 08/16/23 20:53 Labs: Lab Results 08/16/23 08/16/23 Range/Units 19:01 20:53 WBC 8.9 (4.8-10.8) X10*3/uL RBC 4.52 (4.20-5.50) X10*6/uL Hgb 12.6 (12.0-16.0) g/dl Hct 38.8 (37.0-47.0) % MCV 85.8 (80.0-98.0) fL MCH 27.9 (27.0-33.0) pg MCHC 32.5 (31.0-35.0) g/dl RDW 14.2 (11.0-16.0) % Plt Count 280 (160-400) X10*3/uL MPV 10.2 (9.4-12.3) fL Immature Gran % (Auto) 0.2 (0.0-0.4) % Neut % (Auto) 49.7 (45-73) % Lymph % (Auto) 41.1 H (20-40) % [place] % (Auto) 6.4 (2-11) % Eos % (Auto) 2.1 (0-4) % Baso % (Auto) 0.5 (0-2) % Lymph # (Auto) 3.7 (1.2-4.9) X10*3/uL [place] # (Auto) 0.6 (0.1-1.2) X10*3/uL Eos # (Auto) 0.2 (0.0-0.4) X10*3/uL Baso # (Auto) 0.0 (0.0-0.2) X10*3/uL Abs Immat Gran (auto) 0.02 (0.00-0.03) X10*3/uL Absolute Neuts (auto) 4.4 (2.0-8.3) x10*3/uL Absolute Nucleated RBC 0.000 (0.0-0.012) X10*3/uL Nucleated RBC % (auto) 0.0 (0.0-0.2) /100WBC Sodium 141 (135-145) mmol/L Potassium 3.8 (3.3-5.1) mmol/L Chloride 110 H (96-108) mmol/L Carbon Dioxide 24 (22-29) mmol/L Anion Gap 11 L (12-20) BUN 17 H (9-16) mg/dL Creatinine 0.72 (0.5-1.4) mg/dL Estim Creat Clear Calc 105.4 Estimated GFR > 60 Random Glucose 93 (60-115) mg/dL Calcium 8.6 D (8.4-10.2) mg/dL Urine Color Yellow Urine Appearance Clear Urine pH 5.5 (5.0-9.0) Ur Specific [place] >= 1.030 H (1.005-1.025) Urine Protein Negative (Neg-Trace) mg/dL Urine Glucose (UA) Negative (Negative) mg/dL Urine Ketones Trace (Negative) mg/dL Urine Blood Negative (Negative) Urine Nitrite Negative (Negative) Ur Leukocyte Esterase Small (1+) H (Negative) Urine RBC 6-10 H (0-2) /HPF Urine WBC >50 H (0-5) /HPF Ur Squamous Epith Cells 3-5 (0-2) /HPF Urine Bacteria None Seen (None Seen) Hyaline Casts 0-2 (0-2) /LPF Urine Test NEGATIVE (NEGATIVE) Discharge Plan Discharge Clinical Impression: Sciatic leg pain, UTI (urinary tract infection) Patient Disposition: Home, Self-Care Instructions: Urinary Tract Infection in Women (DC), Sciatica (ED) Prescriptions: No Action tramadol 50 mg tablet 50 mg PO DAILY PRN (Reason: pain) 30 Days Qty: 20 0RF cefdinir 300 mg capsule 300 mg PO BID 7 Days Qty: 14 0RF amoxicillin 500 mg capsule 500 mg PO TID hydrochlorothiazide 12.5 mg tablet 12.5 mg PO DAILY 90 Days Qty: 90 1RF bisacodyl [Dulcolax (bisacodyl)] 5 mg tablet,delayed release (DR/EC) 10 mg PO BEDTIME 30 Days Qty: 60 3RF cholecalciferol (vitamin D3) 50 mcg (2,000 unit) capsule 50 mcg PO DAILY 90 Days Qty: 90 1RF famotidine [Pepcid] 40 mg tablet 40 mg PO BEDTIME Qty: 90 1RF fluoxetine 10 mg capsule 10 mg PO DAILY 90 Days Qty: 90 0RF ibuprofen 800 mg tablet 800 mg PO Q8H PRN (Reason: pain) 30 Days Qty: 90 1RF Linzess 72 mcg capsule 72 mcg PO QAM Qty: 30 3RF methocarbamol 500 mg tablet 500 mg PO TID 30 Days Qty: 90 0RF pantoprazole 40 mg tablet,delayed release (DR/EC) 40 mg PO DAILY 90 Days Qty: 90 1RF Referrals: Physician,Marybel J [Primary Care Provider] - 08/19/23 Interventions: ED Discharge Assessment Last Done: 08/17/23 00:38 Discharge Date/Time: 08/17/23 00:40 Print Language: Bulgarian
[2023-08-16 17:29] VITALS: BP 150/95; PULSE 79; RESP 20; TEMP 36.4; O2SAT 99; BMI 27.5
--- NOTE | 2023-08-16 18:44 | PC.NURSE ---
Pt states she has developed left lower back pain 3 days ago. Pt now c/o pain/burning with urination. Urine specimen collected. Orders to follow.
[2023-08-16 19:09] LABS: Appearance Urine Clear; Color Urine Yellow; Glucose Urine UA Negative (Negative); Leukocyte Esterase Urine Small (1+) (Negative); Nitrite Urine Negative (Negative); PH 5.5 (5.0-9.0); Specific Gravity - Urine >= 1.030 (1.005-1.025); UMIC TRIGGER UACC YES; Urine Blood Negative (Negative); Urine Ketones Trace mg/dL (Negative); Urine Protein Negative (Neg-Trace)
[2023-08-16 19:37] LABS: Bacteria Urine None Seen (None Seen); Hyaline Casts Urine 0-2 /LPF (0-2); UACC Culture Trigger YES; WBC Urine >50 /HPF (0-5)
[2023-08-16 20:28] LABS: UPreg QC Valid YES; Urine Pregnancy NEGATIVE (NEGATIVE)
--- NOTE | 2023-08-16 20:28 | ED_ITS ---
HPI - General Adult General Chief complaint: Back Pain/Injury Stated complaint: Back pain/L leg pain Time Seen by Provider: 08/16/23 19:14 History of Present Illness HPI narrative: patient is a 38-year-old female presents today with having left-sided back pain rating down to the legs. There is no bowel urinary incontinence. There is no fever no chills. Patient complaining of mild pain on urination. No coughing or congestion or upper respiratory symptoms. No diaphoresis. Patient is from home. No chest pain or shortness of breath. No nausea no vomiting. no bowel urinary incontinence. No focal weakness. Related Data Home Medications Medication Instructions Recorded Confirmed clonazepam 0.5 mg tablet mg PO 10/28/22 05/12/23 fluoxetine 10 mg capsule 10 mg PO DAILY depressive disorder 10/28/22 05/12/23 Previous Rx's Medication Instructions Recorded hydroxyzine HCl 50 mg tablet 50 mg PO Q8H PRN anxiety/panic 08/21/22 attacks #20 tabs cholecalciferol (vitamin D3) 50 50 mcg PO DAILY 90 days #90 caps 10/27/22 mcg (2,000 unit) capsule linaclotide 72 mcg capsule 72 mcg PO QAM #30 caps 10/28/22 (Linzess) bisacodyl 5 mg tablet,delayed 10 mg (2 x 5 mg) PO BEDTIME 30 12/15/22 release (Dulcolax (bisacodyl)) days #60 tabs famotidine 40 mg tablet (Pepcid) 40 mg PO BEDTIME #90 tabs 12/15/22 metoclopramide HCl 10 mg tablet 10 mg PO .tidac #90 tabs 12/15/22 (Reglan) pantoprazole 40 mg tablet,delayed 40 mg PO DAILY 90 days #90 tabs 12/15/22 release tramadol 50 mg tablet 50 mg PO DAILY PRN pain 30 days 01/18/23 #30 tabs methocarbamol 500 mg tablet 500 mg PO TID muscle spasms 30 02/04/23 days #90 tabs nabumetone 750 mg tablet 750 mg PO BID pain #60 tabs 02/04/23 sulfamethoxazole 800 1 tab PO Q12H #6 tabs 05/16/23 mg-trimethoprim 160 mg tablet cephalexin 500 mg capsule 500 mg PO TID 7 days #21 caps 08/17/23 cyclobenzaprine 10 mg tablet 10 mg PO TID PRN pain #14 tabs 08/17/23 Allergies Allergy/AdvReac Type Severity Reaction Status Date / Time No Known Allergies Allergy Verified 05/12/23 12:53 [No Known Allergies*] Review of Systems 2 Review of Systems: Positive back pain rating down to the leg Yes all other systems are reviewed and are negative PMFSH Past Medical History Attestation statement: The following information was validated with the patient. Medical History PONV (postoperative nausea and vomiting) Breast pain, right Fibroadenoma Left ovarian cyst Breast mass, right Lumbar pain IBS (irritable bowel syndrome) Atopic dermatitis Bipolar 1 disorder GERD (gastroesophageal reflux disease) Anxiety Depression Asthma Surgical History History of excision of mass History of umbilical hernia repair H/O hysterectomy with oophorectomy H/O section Hx of esophagogastroduodenoscopy Family History Family History Father Kidney disease Hypertension Family history of breast cancer Mother CVD (cardiovascular disease) Paternal Grandmother Stomach cancer Paternal Aunt Breast cancer Social History Social History Housing: Apartment Alcohol intake: former Patient Tobacco Use Status: Current everyday Tobacco user Tobacco use type: Cigarette Cigarettes Per Day: 10 Smoked in Last 30 Days: Yes e-Cigarette/Vaping Use: Never Used Second Hand Smoke Exposure: No Use of substances other than those prescribed or required for medical reasons: No Substance Use Type: Marijuana Advance Directives: No Advance Directives Information Provided: No Patient : No service: No Current occupational status: employed Gender identity: Female Cognitive needs: No Hearing needs: No Vision needs: No Physical Exam ED Vital Signs: Vital Signs - 24 hr 08/16/23 17:29 Temperature 97.6 F Pulse Rate 79 Respiratory Rate 20 Blood Pressure 150/95 H Pulse Oximetry 99 Oxygen Delivery Method Room Air BMI result Body Mass Index 27.5 Appearance: Alert. Oriented X3. No acute distress. Eyes: Pupils equal, round and reactive to light. ENT: Pharynx normal. Neck: Normal inspection. Neck supple. No lymph nodes noted. No crepitus CVS: Normal heart rate and rhythm. Pulses normal. Normal S1 and S2 Respiratory: No respiratory distress. Breath sounds normal. No Wheezing. No rales Abdomen: Soft and nontender. No rigidity. No distention. good BS x4 Skin: Skin warm and dry. Normal skin color. Normal skin turgor. Extremities: No lower extremity edema. Neurovascular intact to all extremities. No Lacerations. No Rash Neuro: Oriented X 3. No motor deficit. No sensory deficit. Moving all extermities. No slurred speech . Distal sensation intact. Ambulates with normal gait. Reflex 2+ at patella. Medications Administered Discontinued Medications Generic Name Dose Route Start Last Admin Trade Name Freq PRN Reason Stop Dose Admin Sodium Chloride 1,000 mls @ 999 mls/hr 08/16/23 20:30 08/16/23 22:43 Ns IV 08/16/23 21:30 Infused .Q1H1M DEE Infusion Ketorolac Tromethamine 15 mg 08/16/23 20:21 08/16/23 20:43 Ketorolac Tromethamine 15 Mg/Ml Vial IVPUSH 08/16/23 20:22 15 mg ONCE ONE Administration Ondansetron HCl 4 mg 08/16/23 20:26 08/16/23 20:43 Ondansetron Hcl 4 Mg/2 Ml Vial IVPUSH 08/16/23 20:27 4 mg ONCE ONE Administration Medical Decision Making Medical Decision Making [facility] Narrative: Patient white count is normal. Urine showed small amount of leukocyte Estrace with greater than 50 white cells. Question UTI. My interpretation of patient'sCT scan of the abdomen pelvis was negative for any acute evidence of obstruction abscess perforation stones. No abdominal aortic aneurysm. I reviewed radiology's reading. Pain more likely secondary to sciatica. There is no evidence for cauda equina syndrome. There is no bowel or urine incontinence. There is no focal weakness. Will discharge patient home on additional muscle relaxant. Will give patient a course of Keflex for UTI. In stable condition with discharge home Differential Diagnosis Differential Diagnoses: The differential diagnosis associated with the presentation includes UTI, sciatica, cauda Kye syndrome, abdominal pathology Admission/Observation Consideration of admission/observation: Escalation of care including admission/observation considered Lab Data [facility] Lab Attestation statement: I reviewed the patient's lab results. 08/16/23 20:53 08/16/23 20:53 Labs: Lab Results 08/16/23 08/16/23 Range/Units 19:01 20:53 WBC 8.9 (4.8-10.8) X10*3/uL RBC 4.52 (4.20-5.50) X10*6/uL Hgb 12.6 (12.0-16.0) g/dl Hct 38.8 (37.0-47.0) % MCV 85.8 (80.0-98.0) fL MCH 27.9 (27.0-33.0) pg MCHC 32.5 (31.0-35.0) g/dl RDW 14.2 (11.0-16.0) % Plt Count 280 (160-400) X10*3/uL MPV 10.2 (9.4-12.3) fL Immature Gran % (Auto) 0.2 (0.0-0.4) % Neut % (Auto) 49.7 (45-73) % Lymph % (Auto) 41.1 H (20-40) % Cochran % (Auto) 6.4 (2-11) % Eos % (Auto) 2.1 (0-4) % Baso % (Auto) 0.5 (0-2) % Lymph # (Auto) 3.7 (1.2-4.9) X10*3/uL Cochran # (Auto) 0.6 (0.1-1.2) X10*3/uL Eos # (Auto) 0.2 (0.0-0.4) X10*3/uL Baso # (Auto) 0.0 (0.0-0.2) X10*3/uL Abs Immat Gran (auto) 0.02 (0.00-0.03) X10*3/uL Absolute Neuts (auto) 4.4 (2.0-8.3) x10*3/uL Absolute Nucleated RBC 0.000 (0.0-0.012) X10*3/uL Nucleated RBC % (auto) 0.0 (0.0-0.2) /100WBC Sodium 141 (135-145) mmol/L Potassium 3.8 (3.3-5.1) mmol/L Chloride 110 H (96-108) mmol/L Carbon Dioxide 24 (22-29) mmol/L Anion Gap 11 L (12-20) BUN 17 H (9-16) mg/dL Creatinine 0.72 (0.5-1.4) mg/dL Estim Creat Clear Calc 105.4 Estimated GFR > 60 Random Glucose 93 (60-115) mg/dL Calcium 8.6 D (8.4-10.2) mg/dL Urine Color Yellow Urine Appearance Clear Urine pH 5.5 (5.0-9.0) Ur Specific [place] >= 1.030 H (1.005-1.025) Urine Protein Negative (Neg-Trace) mg/dL Urine Glucose (UA) Negative (Negative) mg/dL Urine Ketones Trace (Negative) mg/dL Urine Blood Negative (Negative) Urine Nitrite Negative (Negative) Ur Leukocyte Esterase Small (1+) H (Negative) Urine RBC 6-10 H (0-2) /HPF Urine WBC >50 H (0-5) /HPF Ur Squamous Epith Cells 3-5 (0-2) /HPF Urine Bacteria None Seen (None Seen) Hyaline Casts 0-2 (0-2) /LPF Urine Test NEGATIVE (NEGATIVE) Independent Interpretation I performed an independent interpretation of an: CT Scan Interpretation: grossly negative Radiology Impression Discussion of test interpretation with radiology: I have reviewed the radiologist's reading. Prescription Management I considered prescription management with: Antiviral no need for antiviral Chronic Conditions history of back pain Discharge Plan Discharge Clinical Impression: Sciatic leg pain, UTI (urinary tract infection) Patient Disposition: Home, Self-Care Instructions: Urinary Tract Infection in Women (DC), Sciatica (ED) Prescriptions: New cephalexin 500 mg capsule 500 mg PO TID 7 Days Qty: 21 0RF cyclobenzaprine 10 mg tablet 10 mg PO TID PRN (Reason: pain) Qty: 14 0RF No Action cholecalciferol (vitamin D3) 50 mcg (2,000 unit) capsule 50 mcg PO DAILY 90 Days Qty: 90 1RF sulfamethoxazole-trimethoprim 800-160 mg tablet 1 tab PO Q12H Qty: 6 0RF hydroxyzine HCl 50 mg tablet 50 mg PO Q8H PRN (Reason: anxiety/panic attacks) Qty: 20 0RF tramadol 50 mg tablet 50 mg PO DAILY PRN (Reason: pain) 30 Days Qty: 30 0RF fluoxetine 10 mg capsule 10 mg PO DAILY clonazepam 0.5 mg tablet PO Linzess 72 mcg capsule 72 mcg PO QAM Qty: 30 3RF bisacodyl [Dulcolax (bisacodyl)] 5 mg tablet,delayed release (DR/EC) 10 mg PO BEDTIME 30 Days Qty: 60 3RF pantoprazole 40 mg tablet,delayed release (DR/EC) 40 mg PO DAILY 90 Days Qty: 90 1RF famotidine [Pepcid] 40 mg tablet 40 mg PO BEDTIME Qty: 90 1RF metoclopramide HCl [Reglan] 10 mg tablet 10 mg PO .tidac Qty: 90 3RF nabumetone 750 mg tablet 750 mg PO BID Qty: 60 0RF Rx Instructions: Take it with food and full glass of water. methocarbamol 500 mg tablet 500 mg PO TID 30 Days Qty: 90 0RF Referrals: Physician,Marybel J [Primary Care Provider] - 08/19/23 Print Language: Sami
[2023-08-16] MEDS: Ketorolac Tromethamine 15 MG/ML VIAL IVPUSH (20:43)
[2023-08-16] MEDS: ondansetron HCL 4 MG/2 ML VIAL IVPUSH (20:43)
[2023-08-16] MEDS: 0.9 % Sodium Chloride 1,000 ML 999 ML IV (20:43)
[2023-08-16 20:58] LABS: MANUAL DIFF FLAG NO
[2023-08-16 20:59] LABS: Basophils Percent Auto 0.5 % (0-2); Eosinophils Absolute Auto 0.2 X10*3/uL (0.0-0.4); Eosinophils Percent Auto 2.1 % (0-4); Hematocrit 38.8 % (37.0-47.0); Hemoglobin 12.6 g/dl (12.0-16.0); Imm Gran Abs Auto 0.02 X10*3/uL (0.00-0.03); Imm Gran Pct Auto 0.2 % (0.0-0.4); Lymphocytes Absolute Auto 3.7 X10*3/uL (1.2-4.9); Lymphocytes Percent Auto 41.1 % (20-40); Mean Corpuscular HGB Conc 32.5 g/dl (31.0-35.0); Mean Corpuscular Hemoglobin 27.9 pg (27.0-33.0); Mean Corpuscular Volume 85.8 fL (80.0-98.0); Mean Platelet Volume 10.2 fL (9.4-12.3); Monocytes Absolute Auto 0.6 X10*3/uL (0.1-1.2); Monocytes Percent Auto 6.4 % (2-11); Neutrophils Absolute Auto 4.4 x10*3/uL (2.0-8.3); Neutrophils Percent Auto 49.7 % (45-73); Platelet Count 280 X10*3/uL (160-400); Red Blood Count 4.52 X10*6/uL (4.20-5.50); Red Cell Distribution Width 14.2 % (11.0-16.0); White Blood Count 8.9 X10*3/uL (4.8-10.8)
[2023-08-16 21:11] LABS: Anion Gap 11 (12-20); Blood Urea Nitrogen 17 mg/dL (9-16); Calcium 8.6 mg/dL (8.4-10.2); Carbon Dioxide 24 mmol/L (22-29); Chloride 110 mmol/L (96-108); Creatinine Clr Calc Pharmacy 105.4; Estimated Glomerular Filt Rate > 60; Glucose Random 93 mg/dL (60-115); Potassium 3.8 mmol/L (3.3-5.1); Sodium 141 mmol/L (135-145)
[2023-08-17] VITALS: BP 151/95; PULSE 80; RESP 16; O2SAT 100
[2023-08-17] MEDS: HYDROmorphone HCl 0.5 MG/0.5 ML SYRINGE IVPUSH (00:21)
--- NOTE | 2023-08-17 00:37 | PC.NURSE ---
medicated for pain management upon discharge, Reviewed discharge instruction with pt, pt verbalized understanding. No sob or chest pain, pt getting filler picker by , Notified LIBORIO Lee.
== END 2023-08-17 00:40 | disposition home or self-care (01) ==
PROVIDERS: Physician Assistant; Emergency Provider Emergency Medicine Emergency Medical Services
DX: M54.32 Sciatica, left side (principal); N39.0 Urinary tract infection, site not specified; R10.9 Unspecified abdominal pain; F17.210 Nicotine dependence, cigarettes, uncomplicated
CPT/HCPCS: 36415; 74176; 80048; 81001; 81025; 85025; 87086; 96361; 96374; 96375; 99284; J1170; J1885; J2405

== ENCOUNTER 2023-11-30 16:00 | Outpatient (REF) | payer OTHER, SELFPAY ==
--- NOTE | ~2023-11-30 | US_ITS ---
EXAMINATION: US PELVIS CLINICAL INFORMATION: Pelvic and perineal pain COMPARISON: Previous pelvic ultrasound July 2021 TECHNIQUE: Ultrasound of the pelvis is performed using both transabdominal and transvaginal transducers along with Doppler. Transvaginal imaging is performed due to inadequate visualization transabdominally. FINDINGS: The uterus and right ovary have been removed. The left ovary measures 4.7 x 3.5 x 2.8 cm. There is a 2.6 x 2.2 x 2.3 cm complex left ovarian cyst with internal septations and reticulation. No fluid in the pelvis. US/US pelvic and transvaginal IMPRESSION: 2.6 x 2.2 x 2.3 cm complex left ovarian cyst. Short-term follow-up pelvic ultrasound in 10-12 weeks following several menstrual cycles recommended.
== END 2023-11-30 16:01 | disposition home or self-care (01) ==
LOC: HO.US 16:00
PROVIDERS: Visit Provider Advanced Practice Midwife
DX: R10.2 Pelvic and perineal pain (principal)
CPT/HCPCS: 76830; 76856

== ENCOUNTER 2023-12-23 13:46 | Outpatient (AMB) | payer OTHER, SELFPAY ==
[2023-12-23 13:47] VITALS: BP 136/90; BMI 29.9
--- NOTE | 2023-12-23 13:47 | A.OFFVIS_ITS ---
Intake Vital Signs 12/23/23 13:47 Height 5 ft 4 in Weight 174 lb BMI 29.9 BP 136/90 H Intake Visit Reasons: US follow up Concrete Bucket Loader Required: Yes Concrete Bucket Loader Language: Manager Trainee Name: Gaviota RAMOS Information Interpreted: non-clinical & clinical Accompanied by: Self / Same As Patient Allergies No Known Allergies [No Known Allergies*] Allergy (Verified 12/23/23 13:51) Medication List - Last Reconciled 12/23/23 by Sintia Nixon CNM bisacodyl (Dulcolax (bisacodyl)) 10 mg (2 x 5 mg) PO BEDTIME 30 days cholecalciferol (vitamin D3) 50 mcg PO DAILY 90 days clonazepam mg PO cyclobenzaprine 10 mg PO TID PRN famotidine (Pepcid) 40 mg PO BEDTIME fluoxetine 10 mg PO DAILY hydroxyzine HCl 50 mg PO Q8H PRN linaclotide (Linzess) 72 mcg PO QAM methocarbamol 500 mg PO TID 30 days metoclopramide HCl (Reglan) 10 mg PO .tidac nabumetone 750 mg PO BID pantoprazole 40 mg PO DAILY 90 days tramadol 50 mg PO DAILY PRN 30 days HPI US follow up HPI Details Patient is here for follow-up visit to review her ultrasound she was seen at a visit last May 2023 and because she had some pain a follow-up ultrasound was ordered to assess she thought she was having pain in her single ovary that was left. She for got about it and did not get the ultrasound done until November and the results her in the results reviewed section of this note. I noted with her that she does have high blood pressure today and has had high blood pressure previous visits she says that she knows and she does get some headaches sometimes. She has not on any medication for it. She says her last appointment with Dr. Gibbs was about a year ago and she needs 1 but nobody is called her for an appointment I am asking her to check at the front end application developer to see if she can discuss getting a sooner appointment with Dr. Gibbs and discussed some things that can affect blood pressure such as salt intake or stress. She said she was given a referral for therapist but has not gotten an appointment for yet but she is going to call to schedule that because she does think she is under stress and has a lot of things on her mind. As far as the ultrasound it the radiologist recommended 6-12 weeks follow-up and so I am ordering an ultrasound in that time window and she and I will have a tele visit after or of in-person visit what ever suits her to review the results afterward if there are continued complex cyst then she will be referred to see Dr. Clark.. [facility] Medical History PONV (postoperative nausea and vomiting) Breast pain, right Fibroadenoma Left ovarian cyst Breast mass, right Lumbar pain IBS (irritable bowel syndrome) Atopic dermatitis Bipolar 1 disorder GERD (gastroesophageal reflux disease) Anxiety Depression Asthma Surgical History History of excision of mass History of umbilical hernia repair H/O hysterectomy with oophorectomy H/O section Hx of esophagogastroduodenoscopy Family History Father Kidney disease Hypertension Family history of breast cancer Mother CVD (cardiovascular disease) Paternal Grandmother Stomach cancer Paternal Aunt Breast cancer Social History Housing: Apartment Alcohol intake: former Comment: pt previously medicated with oxycodone Patient Tobacco Use Status: Current everyday Tobacco user Tobacco use type: Cigarette Cigarettes Per Day: 10 e-Cigarette/Vaping Use: Never Used Second Hand Smoke Exposure: No Substance Use Type: Marijuana service: No Current occupational status: employed Gender identity: Female Cognitive needs: No Hearing needs: No Vision needs: No Female Reproductive History Menstrual Age of Menarche: 15 Physical Exam Vital Signs: Last Vital Signs BP 136/90 H 12/23/23 13:47 BMI result Body Mass Index 29.9 Results Reviewed Results Reviewed: [address] [address] Ultrasound Report Signed Patient: Marianela Zhong MR#: [id number] : 1985 Acct:[id number] Age/Sex: 38 / F ADM Date: 11/30/23 Loc: . Attending Dr: Sintia Nixon CNM Ordering Physician: Sintia Nixon CNM Date of Service: 11/30/23 Procedure(s): US pelvic and transvaginal Accession Number(s): [id number] cc: Sintia Nixon CNM~ EXAMINATION: US PELVIS CLINICAL INFORMATION: Pelvic and perineal pain COMPARISON: Previous pelvic ultrasound July 2021 TECHNIQUE: Ultrasound of the pelvis is performed using both transabdominal and transvaginal transducers along with Doppler. Transvaginal imaging is performed due to inadequate visualization transabdominally. FINDINGS: The uterus and right ovary have been removed. The left ovary measures 4.7 x 3.5 x 2.8 cm. There is a 2.6 x 2.2 x 2.3 cm complex left ovarian cyst with internal septations and reticulation. No fluid in the pelvis. US/US pelvic and transvaginal IMPRESSION: 2.6 x 2.2 x 2.3 cm complex left ovarian cyst. Short-term follow-up pelvic ultrasound in 10-12 weeks following several menstrual cycles recommended. Dictated By: Dipika Andrade MD Signed By: <Electronically signed by Dipika Andrade MD in OV> 11/30/23 1702 DD/ 1622 TD/TT: Bag Tester: ERROL Assessment & Plan Assessment & Plan (1) Pelvic pain: Comment: Left. sided patient only has left ovary had a cyst there previously Code(s): R10.2 - Pelvic and perineal pain (2) Cervical cancer screening: Comment: 05/12/2023 Pap is negative with negative HPV. Code(s): Z12.4 - Encounter for screening for malignant neoplasm of cervix (3) Complex ovarian cyst: Code(s): N83.299 - Other ovarian cyst, unspecified side Plan Patient is here for follow-up visit to review her ultrasound she was seen at a visit last May 2023 and because she had some pain a follow-up ultrasound was ordered to assess she thought she was having pain in her single ovary that was left. She for got about it and did not get the ultrasound done until November and the results her in the results reviewed section of this note. I noted with her that she does have high blood pressure today and has had high blood pressure previous visits she says that she knows and she does get some headaches sometimes. She has not on any medication for it. She says her last appointment with Dr. Gibbs was about a year ago and she needs 1 but nobody is called her for an appointment I am asking her to check at the front end application developer to see if she can discuss getting a sooner appointment with Dr. Gibbs and discussed some things that can affect blood pressure such as salt intake or stress. She said she was given a referral for therapist but has not gotten an appointment for yet but she is going to call to schedule that because she does think she is under stress and has a lot of things on her mind. As far as the ultrasound it the radiologist recommended 6-12 weeks follow-up and so I am ordering an ultrasound in that time window and she and I will have a tele visit after or of in-person visit what ever suits her to review the results afterward if there are continued complex cyst then she will be referred to see Dr. Clark.. Quality Reporting (2019) Adult ([facility] 138/11/24/68) Smoking risk assessment performed?: Yes Patient Tobacco Use Status: Current everyday Tobacco user Coding Level of Care Code Est Pt Level 3 (62303) Diagnoses Pelvic pain R10.2 Cervical cancer screening Z12.4 Complex ovarian cyst N83.299
== END 2023-12-23 14:39 | disposition home or self-care (01) ==
LOC: HO.HWSM 13:46
PROVIDERS: Visit Provider Advanced Practice Midwife
DX: R10.2 Pelvic and perineal pain (principal); Z12.4 Encounter for screening for malignant neoplasm of cervix; N83.299 Other ovarian cyst, unspecified side
CPT/HCPCS: 99213

== ENCOUNTER → 2023-12-23 13:46 | Outpatient (BNVA) | payer OTHER, SELFPAY | PROVIDERS: Visit Provider Advanced Practice Midwife | DX: R10.2 Pelvic and perineal pain (principal); N83.299 Other ovarian cyst, unspecified side; Z12.4 Encounter for screening for malignant neoplasm of cervix | CPT/HCPCS: 99212 ==

== ENCOUNTER 2024-01-24 14:19 | Outpatient (AMB) | payer OTHER, SELFPAY ==
[2024-01-24 14:20] VITALS: BP 140/102; PULSE 71; O2SAT 99; BMI 30.6
--- NOTE | 2024-01-24 14:20 | MHC.PC.OV ---
Vital Signs 01/24/24 14:20 Height 5 ft 4 in Weight 178 lb BMI 30.6 BP 140/102 H Blood Pressure Location Lt brachial Position Sitting Pulse 71 Pulse Source Pulse Oximeter Pulse Oximetry (%) 99 Oxygen Delivery Method Room Air Intake Visit Reasons: pe Intake Note: Patient is here today for a physical. Utilization Coordinator Required: No Accompanied by: Self / Same As Patient Allergies No Known Allergies [No Known Allergies*] Allergy (Verified 01/24/24 14:20) Tobacco use date assessed: 01/24/24 Dental Screening Dental Screen Date: 01/24/24 Did you have a dental visit in the last 12 months?: Yes Did you have a dental problem in the last 6 months where you did not have access to dental care?: No Was dental information given to patient?: Patient has dentist HPI HPI Comments History of Present Illness Details This is a 39-year-old female with bipolar depression that comes for her physical exam. She ran out of fluoxetine and I will restart her. No suicidal thoughts. No need for Pap smear due to hysterectomy for benign reasons. Denies any chest pain or shortness of breath. Complains of chronic low back pain relieved by tramadol. No fever, bowel or bladder incontinence. [facility] Medical History (Updated 01/24/24 @ 17:53 by Nazia Antonio MD) PONV (postoperative nausea and vomiting) Breast pain, right Fibroadenoma Left ovarian cyst Breast mass, right Lumbar pain IBS (irritable bowel syndrome) Atopic dermatitis Bipolar 1 disorder GERD (gastroesophageal reflux disease) Anxiety Depression Asthma Surgical History History of excision of mass History of umbilical hernia repair H/O hysterectomy with oophorectomy H/O section Hx of esophagogastroduodenoscopy Family History Father Kidney disease Hypertension Family history of breast cancer Mother CVD (cardiovascular disease) Paternal Grandmother Stomach cancer Paternal Aunt Breast cancer Social History (Updated 01/24/24 @ 15:10 by Nazia Antonio MD) Housing: Apartment Alcohol intake: former Comment: pt previously medicated with oxycodone Patient Tobacco Use Status: Current everyday Tobacco user Tobacco use type: Cigarette Cigarette Packs Per Day: 1 Cigarettes Per Day: 20 e-Cigarette/Vaping Use: Never Used Second Hand Smoke Exposure: No Substance Use Type: Marijuana service: No Current occupational status: employed Gender identity: Female Cognitive needs: No Hearing needs: No Vision needs: No Female Reproductive History Menstrual Age of Menarche: 15 Questionnaire PHQ-9 Over the last 2 weeks, how often have you been bothered by any of the following problems? 1. Little interest or pleasure in doing things: nearly every day 2. Feeling down, depressed, or hopeless: nearly every day 3. Trouble falling or staying asleep, or sleeping too much: nearly every day 4. Feeling tired or having little energy: nearly every day 5. Poor appetite or overeating: nearly every day 6. Feeling bad about yourself - or that you are a failure or have let yourself or your family down: nearly every day 7. Trouble concentrating on things, such as reading the newspaper or watching television: nearly every day 8. Moving or speaking so slowly that other people could have noticed. Or the opposite - being so fidgety or restless that you have been moving around a lot more than usual: nearly every day 9. Thoughts that you would be better off or of hurting yourself in some way: not at all Total score: 24 Depression Screening Interpretation: Positive (no suicidal thoughts) Depression Screening Follow-up: Existing condition and New Medication prescribed Depression Screening Done: Yes 70636 - PHQ-9 Billing: Yes Source: Developed by Drs. Tico Scherer, Lesley Rizzo, Garcia Forman and colleagues, with an educational amena from [employer]. Thrive Questionnaire Date Thrive assessed: 01/24/24 I am a: Patient What is your living situation today?: I have a steady place to live Within the past 12 months, did the food you bought not last and you didn't have the money to get more?: Never true Within the past 12 months, did you worry whether your food would run out before you got money to buy more?: Never true Do you have trouble paying for medicines?: No Do you have trouble getting transportation to medical appointments?: No Do you have trouble paying your heating and electricity bill?: No Do you have trouble taking care of your child, family member or friend?: No Do you have trouble with day-to-day activities such as bathing, preparing meals, shopping, managing finances, etc.?: No Are you currently unemployed and looking for a job?: No Are you interested in more education?: No Please select the resources that you would like help with: None Currently or been in a relationship where the following occur: no concerns reported THRIVE Score: 0 AUDIT C Alcohol Use Questionnaire (AUDIT-C) 1. How often do you have a drink containing alcohol?: Never 3. How often do you have six or more drinks on one occasion?: Never Total Score: 0 Score Reviewed/Action Taken: No REIK-7 AMB Questionnaire ERIK-7 Date ERIK - 7 assessed: 01/24/24 Feeling nervous, anxious, or on edge: 3 = Nearly every day Not being able to stop or control worryin = Nearly every day Worrying too much about different things: 3 = Nearly every day Trouble relaxin = Nearly every day Being so restless that it is hard to sit still: 3 = Nearly every day Becoming easily annoyed or irritable: 0 = Not at all Feeling afraid as if something awful might happen: 0 = Not at all Total ERIK-7 score (0-4 normal; 5-9 mild; 10-14 moderate; 15-21 severe): 15 Source: Developed by Drs. Tico Scherer, Lesley Rizzo, Garcia Forman and colleagues, with an educational amena from [employer]. ERIK-7 Assessment Billing ERIK-7 Assessment Tool: ERIK-7 Assessment 53726 Review of Systems Const All systems reviewed & are unremarkable except as noted in HPI and below Eyes Reports no additional complaints, Denies change in vision and Denies other visual disturbances Card Denies chest pain at rest, Denies chest pain with activity, Denies edema, Denies irregular heart rhythm, Denies claudication, Denies dyspnea, Denies dyspnea on exertion, Denies orthopnea, Denies paroxysmal nocturnal dyspnea and Denies slow heart rate Resp Denies cough, Denies dyspnea and Denies dyspnea on exertion GI Denies abdominal pain, Denies change in bowel habits, Denies excessive flatus, Denies nausea and Denies vomiting Denies urinary incontinence, Denies urinary hesitancy and Denies urinary urgency Psych Reports abnormal sleep pattern, Reports anxiety and Reports depression Physical exam (Primary Care) Vital Signs: Last Vital Signs Pulse 71 01/24/24 14:20 BP 140/102 H 01/24/24 14:20 Pulse Ox 99 01/24/24 14:20 Oxygen Delivery Method Room Air 01/24/24 14:20 BMI result Body Mass Index 30.6 Tobacco/Smoking Status: Tobacco use Status Tobacco use date assessed 01/24/24 01/24/24 14:21 Patient Tobacco Use Status Current everyday Tobacco 01/24/24 15:10 Tobacco use type Cigarette 01/24/24 15:10 e-Cigarette/Vaping Use Never Used 01/24/24 15:10 PHQ-9: PHQ-9 Score PHQ-9: Total score 24 01/24/24 15:08 Depression Screening Interpretation: Positive (no suicidal thoughts) Depression Screening Follow-up: Existing condition and New Medication prescribed Thrive Assessment: Date of Thrive Assessment Date Thrive assessed 01/24/24 01/24/24 14:21 Currently or been in a relationship where the following occur: no concerns reported Const Orientation/consciousness: patient oriented x3 HENNM Head: Yes normal to inspection, Yes normocephalic and Yes atraumatic Ears: external ears normal Eyes General: appearance normal, both eyes and all related structures Eyelids: Yes eyelids normal Conjunctivae: conjunctivae normal Neck Neck: Yes normal visual inspection and Yes supple Resp Effort & Inspection: normal respiratory effort Auscultation: clear to auscultation bilaterally Cardio Jugular venous distension: no JVD Rate: regular rate Rhythm: regular rhythm Heart sounds: S1 normal heart sound present and S2 normal heart sound present GI Inspection: Yes normal to inspection Palpation (GI): Soft to palpation and nontender Auscultation: normal bowel sounds Skin General skin exam: no rashes or lesions noted Neuro General: patient oriented x3 and no focal motor deficits Extrem General: Yes full ROM Psych Appearance: grossly normal Assessment and Plan Assessment & Plan (1) Physical exam: Code(s): Z00.00 - Encounter for general adult medical examination without abnormal findings Plan: Repeat in a year. (2) Bipolar depression: Code(s): F31.9 - Bipolar disorder, unspecified Plan: Restart fluoxetine. Orders: Orders Vitamin D 25-OH Total Today E55.9 - Vitamin D deficiency, unspecified Lipid Panel Today Z00.00 - Encounter for general adult medical examination without abnormal findings Comprehensive [place]. Panel Fast Today Z00.00 - Encounter for general adult medical examination without abnormal findings Referrals Ophthalmology Referral H53.8 - Other visual disturbances Medications: New hydrochlorothiazide 12.5 mg PO DAILY 90 tabs 1RF 90 days I10 - Essential (primary) hypertension Changed From fluoxetine 10 mg PO DAILY depressive disorder To fluoxetine 10 mg PO DAILY 90 caps 0RF depressive disorder 90 days Refilled bisacodyl (Dulcolax (bisacodyl)) 10 mg (2 x 5 mg) PO BEDTIME 60 tabs 3RF 30 days K59.04 - Chronic idiopathic constipation ibuprofen 800 mg PO Q8H PRN 90 tabs 1RF pain 30 days methocarbamol 500 mg PO TID 90 tabs 0RF muscle spasms 30 days M47.816 - Spondylosis without myelopathy or radiculopathy, lumbar region, M54.16 - Radiculopathy, lumbar region, M62.838 - Other muscle spasm pantoprazole 40 mg PO DAILY 90 tabs 1RF 90 days cholecalciferol (vitamin D3) 50 mcg PO DAILY 90 caps 1RF 90 days famotidine (Pepcid) 40 mg PO BEDTIME 90 tabs 1RF linaclotide (Linzess) 72 mcg PO QAM 30 caps 3RF K59.04 - Chronic idiopathic constipation tramadol 50 mg PO DAILY PRN 20 tabs 0RF pain 30 days Discontinued hydroxyzine HCl Discontinued Reason: Patient Completed Course 50 mg PO Q8H PRN 20 tabs 0RF anxiety/panic attacks cyclobenzaprine Discontinued Reason: Patient Completed Course 10 mg PO TID PRN 14 tabs 0RF pain metoclopramide HCl (Reglan) Discontinued Reason: Patient Completed Course 10 mg PO .tidac 90 tabs 3RF K59.04 - Chronic idiopathic constipation, R11.2 - Nausea with vomiting, unspecified Coding Level of Care Code Est Pt Prev Care 18-39y(87894) Diagnoses Physical exam Z00.00 Bipolar depression F31.9 Additional Codes ERIK-7 Assessment Billing - ERIK-7 Assessment Tool: ERIK-7 Assessment 59755 ([id number]) Time Spent (min) 35
== END 2024-01-24 15:22 | disposition home or self-care (01) ==
PROVIDERS: Visit Provider Internal Medicine
DX: Z00.00 Encounter for general adult medical examination without abnormal findings (principal); F31.9 Bipolar disorder, unspecified; F17.210 Nicotine dependence, cigarettes, uncomplicated
CPT/HCPCS: 96127; 99395

== ENCOUNTER 2024-04-04 15:52 | Emergency (ER) | payer OTHER, SELFPAY ==
--- NOTE | ~2024-04-04 | CT_ITS ---
EXAMINATION: CT ABDOMEN AND PELVIS WITHOUT CONTRAST CLINICAL INFORMATION: Left lower quadrant abdominal pain COMPARISON: CT of 08/16/2023 and pelvic ultrasound of 11/30/2023 TECHNIQUE: Multidetector volumetric imaging was performed from the superior aspect of the liver through the pubic symphysis. Sagittal and coronal reformatted images were obtained on the technologist's workstation. This CT examination was performed using dose optimization techniques as appropriate, variously including the following: *Automated exposure control *Adjustment of mA and/or kV according to patient size (this includes techniques or standardized protocols for targeted exams where dose is matched to indication/reason for exam; i.e. extremities or head) *Use of iterative reconstruction technique DLP: 557 mGy-cm FINDINGS: LUNG BASES: The visualized lung bases are unremarkable. LIVER, GALLBLADDER, AND BILIARY TREE: The liver is normal in size, shape, and attenuation. No focal hepatic lesion or biliary ductal dilatation is present. The gallbladder is unremarkable with no evidence of radiopaque gallstones, gallbladder wall thickening, or obvious pericholecystic inflammatory changes. PANCREAS: Unremarkable. SPLEEN: Unremarkable. ADRENAL GLANDS: Unremarkable. KIDNEYS AND URETERS: The kidneys are normal in size, shape, and attenuation. No hydronephrosis, hydroureter, or calculi seen. No perinephric stranding. BLADDER: Unremarkable. GASTROINTESTINAL TRACT: The small and large bowel are unremarkable. The appendix is unremarkable. ABDOMINAL WALL: No significant hernia is appreciated. LYMPH NODES: Normal. VASCULAR: Unremarkable. PELVIC VISCERA: The uterus is surgically absent. There is thickening of the vaginal wall, up to 14 mm, and air is again evident within the thickened vagina. Infiltration of pelvic fat is noted at the superior aspect of the vagina, extending into the left pelvis adjacent to the left broad ligament and ovary. Perhaps related to prior hysterectomy. There is a bilobed left adnexal 3.7 x 3 cm cystic lesion, not significantly changed. OSSEOUS STRUCTURES: Unremarkable. CT/CT abdomen pelvis wo IV con IMPRESSION: 1. Prior hysterectomy with thickened air-containing vagina and infiltration adjacent to the vaginal apex extending into the left adnexa. Given the presence of air-filled thickened vagina, rectovaginal fistula is to be considered. Other processes including endometriosis, pelvic inflammatory disease should also be considered. Gynecologic follow-up and management are recommended Fleischner guidelines were followed.
[2024-04-04 16:03] VITALS: BP 133/87; PULSE 80; RESP 18; TEMP 36.7; O2SAT 100; BMI 31.0
--- NOTE | 2024-04-04 16:05 | ED.GENADULT ---
HPI - General Adult General Chief complaint: Abdominal Pain Stated complaint: L side abd pain + vomiting Time Seen by Provider: 04/04/24 17:07 History of Present Illness ED Provider: Dr. Dobson HPI narrative: 39 y/o F patient; PMH GERD, chronic idiopathic constipation, bipolar disorder, HTN; presents from home with report of LLQ abdominal pain associated with nausea without vomiting and diarrhea for the last 5 days. The patient states that she last had a small bowel movement this morning. Otherwise denies: fever or chills, chest pain, SOB, cough/congestion, known sick contacts. Patient took a laxative one yesterday and one the day before. Patient is followed by GI for GERD and chronic idiopathic constipation - last seen in office 12/15/2022. Related Data Home Medications ?Medication ?Instructions ?Recorded ?Confirmed amoxicillin 500 mg capsule 500 mg PO TID 01/24/24 Previous Rx's ?Medication ?Instructions ?Recorded bisacodyl 5 mg tablet,delayed 10 mg (2 x 5 mg) PO BEDTIME 30 01/24/24 release (Dulcolax (bisacodyl)) days #60 tabs cholecalciferol (vitamin D3) 50 50 mcg PO DAILY 90 days #90 caps 01/24/24 mcg (2,000 unit) capsule famotidine 40 mg tablet (Pepcid) 40 mg PO BEDTIME #90 tabs 01/24/24 fluoxetine 10 mg capsule 10 mg PO DAILY depressive disorder 01/24/24 90 days #90 caps hydrochlorothiazide 12.5 mg tablet 12.5 mg PO DAILY 90 days #90 tabs 01/24/24 ibuprofen 800 mg tablet 800 mg PO Q8H PRN pain 30 days #90 01/24/24 tabs linaclotide 72 mcg capsule 72 mcg PO QAM #30 caps 01/24/24 (Linzess) methocarbamol 500 mg tablet 500 mg PO TID muscle spasms 30 01/24/24 days #90 tabs pantoprazole 40 mg tablet,delayed 40 mg PO DAILY 90 days #90 tabs 01/24/24 release tramadol 50 mg tablet 50 mg PO DAILY PRN pain 30 days 01/24/24 #20 tabs cefdinir 300 mg capsule 300 mg PO BID 7 days #14 caps 04/04/24 Allergies Allergy/AdvReac Type Severity Reaction Status Date / Time No Known Allergies Allergy Verified 04/04/24 16:05 [No Known Allergies*] Review of Systems Review of Systems: Yes all other systems are reviewed and are negative Neurologic: Denies Sensory deficit (Neuro) [facility] Past Medical History Attestation statement: The following information was validated with the patient. Source: old records reviewed Medical History PONV (postoperative nausea and vomiting) Breast pain, right Fibroadenoma Left ovarian cyst Breast mass, right Lumbar pain IBS (irritable bowel syndrome) Atopic dermatitis Bipolar 1 disorder GERD (gastroesophageal reflux disease) Anxiety Depression Asthma Surgical History History of excision of mass History of umbilical hernia repair H/O hysterectomy with oophorectomy H/O section Hx of esophagogastroduodenoscopy Family History Family History Father Kidney disease Hypertension Family history of breast cancer Mother CVD (cardiovascular disease) Paternal Grandmother Stomach cancer Paternal Aunt Breast cancer Social History Social History Housing: Apartment Alcohol intake: former Comment: pt previously medicated with oxycodone Patient Tobacco Use Status: Current everyday Tobacco user Tobacco use type: Cigarette Cigarette Packs Per Day: 1 Cigarettes Per Day: 20 Smoked in Last 30 Days: Yes e-Cigarette/Vaping Use: Never Used Second Hand Smoke Exposure: No Use of substances other than those prescribed or required for medical reasons: Yes Substance Use Type: Marijuana Advance Directives: No Advance Directives Information Provided: No service: No Current occupational status: employed Gender identity: Female Cognitive needs: No Hearing needs: No Vision needs: No Physical Exam ED Vital Signs: Vital Signs - 24 hr 04/04/24 16:03 04/04/24 19:37 Temperature 98.0 F 98.1 F Pulse Rate 80 73 Respiratory Rate 18 14 Blood Pressure 133/87 142/81 H Pulse Oximetry 100 100 Oxygen Delivery Method Room Air Room Air BMI result Body Mass Index 31.0 Patient is afebrile and hemodynamically stable. Const General: cooperative Orientation/consciousness: patient oriented x3 HENMT Head: Yes normal to inspection and Yes atraumatic Eyes General: appearance normal, both eyes and all related structures Pupils: Equal, round and reactive pupils present EOM: EOMs intact bilaterally Neck Neck: Yes normal visual inspection, Yes full ROM, Yes supple and No tender Chest Chest palpation & inspection: normal inspection of the chest and normal palpation of entire chest wall Resp Effort & Inspection: normal respiratory effort, able to speak in complete sentences, no cough and no respiratory distress Auscultation: clear to auscultation bilaterally Cardio Rate: regular rate Rhythm: regular rhythm Peripheral pulses: Peripheral pulses 2+ throughout GI Other: LLQ tenderness to palpation Inspection: Yes normal to inspection, No Abdominal wall edema and No distended Palpation (GI): Soft to palpation, not firm, no guarding and not rigid General: Yes no CVA tenderness Back/Spine/Pelvis Back: no CVA tenderness Neuro General: patient oriented x3 Cranial nerves: Yes Equal, round and reactive pupils present Motor exam (neuro): 5/5 motor strength present throughout Sensory Exam: No Sensory deficit (Neuro) Course Course Course Narrative: This is an RME done by JENNIFER Espinal: Additional HPI, ROS, PE not included below will be deferred to primary provider. 39 yo f hx bipolar, htn, ovarian cyst, presents w/ llq abd pain x 4 days worsening. Reprots severe pain. Having a hard time keeping down food due to pain Reevaluation(s) Reevaluation #1: Patient is afebrile and hemodynamically stable. Reviewed triage orders including triage ordered CT Abdomen/Pelvis and abdominal labs. UA with evidence of infection. Patient does deny dysuria, hematuria, frequency, or burning. Provided Ceftriaxone 1g IV. Laboratory studies reviewed. No leukocytosis. Beta negative. Remainder of labs unremarkable. Provided toradol for pain control. Reevaluation #2: CT with thickened air containing vagina and infiltration adjacent to the vaginal apex extending into the left adnexa. Rectovaginal fistula to be considered likely. Discussed with gynecology at [facility] and patient was accepted for transfer by Dr. Rachel. Plan: Transfer to [facility] Condition: Stable Reevaluation #3: Patient initially agreeable to transfer but then elected to leave AMA. Will send rx for antibiotic. The following discussion was had with the patient: This patient has elected to leave against medical advice. In my opinion, the patient has capacity to leave AMA. The patient is clinically sober, free from distracting injury, appears to have intact insight and judgment and reason, and in my opinion has capacity to make decisions. I explained to the patient that her symptoms may represent active infection and the patient verbalized understanding of my concerns. I had a discussion with the patient about their workup and results, and that they may have a rectovaginal fistula. I informed the patient that the next step in diagnosis and treatment would be gynecology evaluation at [facility], and they verbalized understanding of this as well. I explained the risks of leaving without further workup or treatment, which included reasonably foreseeable complications such as , serious injury, permanent disability, and sepsis. I also offered alternatives to departing AMA such as assigning the patient a different provider or an alternate workup pathway. The patient is refusing any further care and is leaving against medical advice. I am unable to convince the patient to stay. I have asked them to return as soon as possible to complete their evaluation, and also explained that they were welcome to return to the ER for further evaluation whenever they choose. I have asked the patient to follow up with their primary doctor as soon as possible. I have answered all their questions. Plan: AMA discharge Condition: Stable Medications Administered Discontinued Medications Generic Name Dose Route Start Last Admin Trade Name Freq PRN Reason Stop Dose Admin Ketorolac Tromethamine 30 mg 04/04/24 19:27 04/04/24 19:43 Ketorolac Tromethamine 30 Mg/Ml Vial IM 04/04/24 19:28 30 mg ONCE ONE Administration Medical Decision Making Lab Data 04/04/24 16:43 04/04/24 16:43 Labs: Lab Results 04/04/24 Range/Units 16:43 WBC 9.4 (4.8-10.8) X10*3/uL RBC 4.98 (4.20-5.50) X10*6/uL Hgb 14.2 (12.0-16.0) g/dl Hct 43.6 (37.0-47.0) % MCV 87.6 (80.0-98.0) fL MCH 28.5 (27.0-33.0) pg MCHC 32.6 (31.0-35.0) g/dl RDW 14.6 (11.0-16.0) % Plt Count 310 (160-400) X10*3/uL MPV 10.5 (9.4-12.3) fL Immature Gran % (Auto) 0.2 (0.0-0.4) % Neut % (Auto) 56.5 (45-73) % Lymph % (Auto) 34.9 (20-40) % [place] % (Auto) 7.0 (2-11) % Eos % (Auto) 1.1 (0-4) % Baso % (Auto) 0.3 (0-2) % Lymph # (Auto) 3.3 (1.2-4.9) X10*3/uL [place] # (Auto) 0.7 (0.1-1.2) X10*3/uL Eos # (Auto) 0.1 (0.0-0.4) X10*3/uL Baso # (Auto) 0.0 (0.0-0.2) X10*3/uL Abs Immat Gran (auto) 0.02 (0.00-0.03) X10*3/uL Absolute Neuts (auto) 5.3 (2.0-8.3) x10*3/uL Absolute Nucleated RBC 0.000 (0.0-0.012) X10*3/uL Nucleated RBC % (auto) 0.0 (0.0-0.2) /100WBC Sodium 142 (135-145) mmol/L Potassium 4.4 (3.3-5.1) mmol/L Chloride 110 H (96-108) mmol/L Carbon Dioxide 26 (22-29) mmol/L Anion Gap 10 L (12-20) BUN 16 (9-16) mg/dL Creatinine 0.71 (0.5-1.4) mg/dL Estim Creat Clear Calc 112.3 Estimated GFR > 60 Random Glucose 89 (60-115) mg/dL Calcium 9.5 D (8.4-10.2) mg/dL Magnesium 2.2 (1.6-2.6) mg/dL Total Bilirubin 0.3 (0.0-1.0) mg/dL AST 16 (5-31) U/L ALT 19 (0-31) U/L Alkaline Phosphatase 50 (39-117) U/L Total Protein 6.9 (6.5-8.0) g/dL Albumin 3.9 (3.5-5.0) g/dL Lipase 44 (8-78) U/L Beta HCG, Quant < 2 mIU/mL Urine Color Yellow Urine Appearance Hazy Urine pH 6.0 (5.0-9.0) Ur Specific [place] 1.025 (1.005-1.025) Urine Protein Negative (Neg-Trace) mg/dL Urine Glucose (UA) Negative (Negative) mg/dL Urine Ketones Negative (Negative) mg/dL Urine Blood Trace (Negative) Urine Nitrite Positive H (Negative) Ur Leukocyte Esterase Small (1+) H (Negative) Urine RBC 3-5 H (0-2) /HPF Urine WBC 21-50 H (0-5) /HPF Ur Squamous Epith Cells 0-2 (0-2) /HPF Urine Bacteria 4+ (None Seen) Hyaline Casts 0-2 (0-2) /LPF Discharge Plan Discharge Clinical Impression: Left lower quadrant abdominal pain, Recto-vaginal fistula Patient Disposition: Left Against Medical Advice Instructions: Vesicovaginal Fistula Repair (DC) Additional Instructions: As we discussed, you were seen today for left sided abdominal pain. You were found to have concern for a recto-vaginal fistula. It was recommended that you transfer to [facility] to speak with a gynecology but you declined. You were also found to have a urinary tract infection - you should take the antibiotic which has been sent to your pharmacy twice a day for the next 7 days. Follow up with your PCP within the next 24 hours. Return to the emergency department at anytime. Prescriptions: New cefdinir 300 mg capsule 300 mg PO BID 7 Days Qty: 14 0RF No Action amoxicillin 500 mg capsule 500 mg PO TID hydrochlorothiazide 12.5 mg tablet 12.5 mg PO DAILY 90 Days Qty: 90 1RF bisacodyl [Dulcolax (bisacodyl)] 5 mg tablet,delayed release (DR/EC) 10 mg PO BEDTIME 30 Days Qty: 60 3RF cholecalciferol (vitamin D3) 50 mcg (2,000 unit) capsule 50 mcg PO DAILY 90 Days Qty: 90 1RF famotidine [Pepcid] 40 mg tablet 40 mg PO BEDTIME Qty: 90 1RF fluoxetine 10 mg capsule 10 mg PO DAILY 90 Days Qty: 90 0RF ibuprofen 800 mg tablet 800 mg PO Q8H PRN (Reason: pain) 30 Days Qty: 90 1RF Linzess 72 mcg capsule 72 mcg PO QAM Qty: 30 3RF methocarbamol 500 mg tablet 500 mg PO TID 30 Days Qty: 90 0RF pantoprazole 40 mg tablet,delayed release (DR/EC) 40 mg PO DAILY 90 Days Qty: 90 1RF tramadol 50 mg tablet 50 mg PO DAILY PRN (Reason: pain) 30 Days Qty: 20 0RF Print Language: French
[2024-04-04 16:48] LABS: MANUAL DIFF FLAG NO
[2024-04-04 16:50] LABS: Basophils Percent Auto 0.3 % (0-2); Eosinophils Absolute Auto 0.1 X10*3/uL (0.0-0.4); Eosinophils Percent Auto 1.1 % (0-4); Hematocrit 43.6 % (37.0-47.0); Hemoglobin 14.2 g/dl (12.0-16.0); Imm Gran Abs Auto 0.02 X10*3/uL (0.00-0.03); Imm Gran Pct Auto 0.2 % (0.0-0.4); Lymphocytes Absolute Auto 3.3 X10*3/uL (1.2-4.9); Lymphocytes Percent Auto 34.9 % (20-40); Mean Corpuscular HGB Conc 32.6 g/dl (31.0-35.0); Mean Corpuscular Hemoglobin 28.5 pg (27.0-33.0); Mean Corpuscular Volume 87.6 fL (80.0-98.0); Mean Platelet Volume 10.5 fL (9.4-12.3); Monocytes Absolute Auto 0.7 X10*3/uL (0.1-1.2); Neutrophils Absolute Auto 5.3 x10*3/uL (2.0-8.3); Neutrophils Percent Auto 56.5 % (45-73); Platelet Count 310 X10*3/uL (160-400); Red Blood Count 4.98 X10*6/uL (4.20-5.50); Red Cell Distribution Width 14.6 % (11.0-16.0); White Blood Count 9.4 X10*3/uL (4.8-10.8)
[2024-04-04 17:01] LABS: Appearance Urine Hazy; Color Urine Yellow; Glucose Urine UA Negative (Negative); Leukocyte Esterase Urine Small (1+) (Negative); Nitrite Urine Positive (Negative); Specific Gravity - Urine 1.025 (1.005-1.025); UMIC TRIGGER UACC YES; Urine Blood Trace (Negative); Urine Ketones Negative (Negative); Urine Protein Negative (Neg-Trace)
[2024-04-04 17:08] LABS: Bacteria Urine 4+ (None Seen); Hyaline Casts Urine 0-2 /LPF (0-2); Squamous Epithelial Cell Urine 0-2 /HPF (0-2); UACC Culture Trigger YES; WBC Urine 21-50 /HPF (0-5)
[2024-04-04 17:17] LABS: Alanine Aminotransferase 19 U/L (0-31); Albumin Level 3.9 g/dL (3.5-5.0); Alkaline Phosphatase 50 U/L (39-117); Anion Gap 10 (12-20); Aspartate Amino Transferase 16 U/L (5-31); Bilirubin Total 0.3 mg/dL (0.0-1.0); Blood Urea Nitrogen 16 mg/dL (9-16); Calcium 9.5 mg/dL (8.4-10.2); Carbon Dioxide 26 mmol/L (22-29); Chloride 110 mmol/L (96-108); Creatinine Clr Calc Pharmacy 112.3; Estimated Glomerular Filt Rate > 60; Glucose Random 89 mg/dL (60-115); HCG Quantitative < 2 mIU/mL; Lipase 44 U/L (8-78); Magnesium 2.2 mg/dL (1.6-2.6); Potassium 4.4 mmol/L (3.3-5.1); Sodium 142 mmol/L (135-145); Total Protein 6.9 g/dL (6.5-8.0)
[2024-04-04 19:37] VITALS: BP 142/81; PULSE 73; RESP 14; TEMP 36.7; O2SAT 100
[2024-04-04] MEDS: Ketorolac Tromethamine 30 MG/ML VIAL IM (19:43)
--- NOTE | 2024-04-04 19:55 | PC.NURSE ---
Assumed care of pt. Pt sitting on stretcher, no acute distress noted. Pt c/o LLQ abdominal pain, medicated per orders. Pending MD discussion with pt on CT findings for dispo.
[2024-04-04] MEDS: cefTRIAXone sodium 1 GM in 0.9 % Sodium Chloride 50 ML IV (20:51)
[2024-04-04 21:36] VITALS: BP 142/81; PULSE 73; RESP 14; TEMP 36.7; O2SAT 100
== END 2024-04-04 21:37 | disposition left against medical advice (07) ==
PROVIDERS: Physician Assistant; Emergency Provider Emergency Medicine; PCP Internal Medicine
DX: N82.3 Fistula of vagina to large intestine (principal); R10.32 Left lower quadrant pain; R11.0 Nausea; R19.7 Diarrhea, unspecified; Z53.29 Procedure and treatment not carried out because of patient's decision for other reasons
CPT/HCPCS: 36415; 74176; 80053; 81001; 81003; 83690; 83735; 84702; 85025; 87086; 87088; 87186; 96365; 96372; 99284; 99285; J0696; J1885

== ENCOUNTER 2024-04-17 10:50 | Outpatient (AMB) | payer OTHER, SELFPAY ==
--- NOTE | 2024-04-17 11:21 | A.OFFVIS_ITS ---
Vital Signs 04/17/24 11:22 Height 5 ft 4 in Weight 178 lb 9.191 oz BMI 30.6 BP 120/74 Intake Visit Reasons: ER follow up Laminating Press Operator Required: Yes Laminating Press Operator Language: Medical Insurance Clerk Services: Laminating Press Operator Present (in person) Laminating Press Operator Name: Gaviota RAMOS Information Interpreted: non-clinical & clinical Ranch Helper: Ranch Helper Present (Gaviota RAMOS) Accompanied by: Self / Same As Patient Allergies No Known Allergies [No Known Allergies*] Allergy (Verified 04/17/24 11:27) Is last menstrual period known: No (hysterectomy) HPI Comments Details: Presenting as a ER follow-up. The patient went to [facility] emergency room on 04/04 for left lower quadrant pain HCT scan showed the following: PELVIC VISCERA: The uterus is surgically absent. There is thickening of the vaginal wall, up to 14 mm, and air is again evident within the thickened vagina. Infiltration of pelvic fat is noted at the superior aspect of the vagina, extending into the left pelvis adjacent to the left broad ligament and ovary. Perhaps related to prior hysterectomy. There is a bilobed left adnexal 3.7 x 3 cm cystic lesion, not significantly changed. OSSEOUS STRUCTURES: Unremarkable. CT/CT abdomen pelvis wo IV con IMPRESSION: 1. Prior hysterectomy with thickened air-containing vagina and infiltration adjacent to the vaginal apex extending into the left adnexa. Given the presence of air-filled thickened vagina, rectovaginal fistula is to be considered. Other processes including endometriosis, pelvic inflammatory disease should also be considered. Gynecologic follow-up and management are recommended This was followed by [facility] emergency room visit on 04/06 where an ultrasound of the pelvis was done and showed left 2 complex cystic lesions replacing the left ovary the largest of 2 measuring 2.8 x 2.6 cm and contains solid and cystic component with microvascular flow in the lesion the smaller of the 2 lesions measuring 2.6 x 2.6 cm with multiloculated avascular cystic structure Pelvic ultrasound done in 11/26 showed the following: The uterus and right ovary have been removed. The left ovary measures 4.7 x 3.5 x 2.8 cm. There is a 2.6 x 2.2 x 2.3 cm complex left ovarian cyst with internal septations and reticulation. No fluid in the pelvis. [facility] Medical History PONV (postoperative nausea and vomiting) Breast pain, right Fibroadenoma Left ovarian cyst Breast mass, right Lumbar pain IBS (irritable bowel syndrome) Atopic dermatitis Bipolar 1 disorder GERD (gastroesophageal reflux disease) Anxiety Depression Asthma Surgical History History of excision of mass History of umbilical hernia repair H/O hysterectomy with oophorectomy H/O section Hx of esophagogastroduodenoscopy Family History Father Kidney disease Hypertension Family history of breast cancer Mother CVD (cardiovascular disease) Paternal Grandmother Stomach cancer Paternal Aunt Breast cancer Social History Housing: Apartment Alcohol intake: former Comment: pt previously medicated with oxycodone Patient Tobacco Use Status: Current everyday Tobacco user Tobacco use type: Cigarette Cigarette Packs Per Day: 1 Cigarettes Per Day: 20 e-Cigarette/Vaping Use: Never Used Second Hand Smoke Exposure: No Substance Use Type: Marijuana service: No Current occupational status: employed Gender identity: Female Cognitive needs: No Hearing needs: No Vision needs: No Female Reproductive History Menstrual Age of Menarche: 15 Review of Systems Const All systems reviewed & are unremarkable except as noted in HPI and below Card Reports as per HPI and Reports no additional complaints Resp Reports as per HPI and Reports no additional complaints GI Reports as per HPI and Reports no additional complaints Reports as per HPI Physical Exam Vital Signs: Last Vital Signs BP 120/74 04/17/24 11:22 BMI result Body Mass Index 30.6 Const General: cooperative, healthy appearing and comfortable General: Yes bladder normal to palpation External Female Exam: No lesion Speculum Exam - Vagina: normal appearance of the vagina, normal vaginal discharge and not erythematous Speculum Exam - Cervix: Cervix absent Bimanual exam- vagina & uterus: bladder normal to palpation and uterus absent Bimanual Exam- Adnexa, other: Other (No masses detected) Quality Reporting (2019) Adult ([facility] 138/2/) Smoking risk assessment performed?: Yes Patient Tobacco Use Status: Current everyday Tobacco user Assessment & Plan Assessment & Plan (1) Complex cyst of left ovary: Comment: Persistent since 11/26 and with solid areas Code(s): N83.292 - Other ovarian cyst, left side Category: Medical Plan: Discussed with the patient the persistent complex ovarian cyst solid component by Ultrasound. The differential diagnosis discussed with the patient includes the following but not limited to: benign and malignant gynecological and non- gynecological. Will order CA 125, CEA, inhibin, LDH , AFP and CA 19-9 and refer to [facility] for further manage The patient verbalized understanding and agreed with the plan. Instructed the patient to call our office back in case a referral appointment is not scheduled, missed or canceled so that we will assist on rescheduling another appointment, the patient verbalized understanding agreed with the plan. Appointment scheduled at [facility] with Dr. Villalobos on 04/23, the patient is OA (2) Abnormal CT scan: Comment: Of the vagina with possible rectovaginal fistula Code(s): R93.89 - Abnormal findings on diagnostic imaging of other specified body structures Category: Medical Plan: Discussed with the patient the finding on CT scan showing gas in the vaginal wall, possible rectovaginal fistula endometriosis . Will defer management to Gyne Onc Orders: Orders Lactate Dehydrogenase Today N83.292 - Other ovarian cyst, left side, N83.299 - Other ovarian cyst, unspecified side Inhibin B Today N83.292 - Other ovarian cyst, left side Alpha Fetoprotein Today N83.292 - Other ovarian cyst, left side, N83.299 - Other ovarian cyst, unspecified side Inhibin A Today N83.292 - Other ovarian cyst, left side Referrals Gynecologic Oncology Referral N83.292 - Other ovarian cyst, left side, R93.89 - Abnormal findings on diagnostic imaging of other specified body structures Coding Level of Care Code Est Pt Level 3 (17442) Diagnoses Complex cyst of left ovary N83.[address] scan R93.89
[2024-04-17 11:22] VITALS: BP 120/74; BMI 30.6
== END 2024-04-17 15:38 | disposition home or self-care (01) ==
PROVIDERS: PCP Internal Medicine; Visit Provider Obstetrics & Gynecology
DX: N83.292 Other ovarian cyst, left side (principal); R93.89 Abnormal findings on diagnostic imaging of other specified body structures
CPT/HCPCS: 99213

== ENCOUNTER → 2024-04-17 10:50 | Outpatient (BNVA) | payer OTHER, SELFPAY | PROVIDERS: PCP Internal Medicine; Visit Provider Obstetrics & Gynecology | DX: N83.292 Other ovarian cyst, left side (principal); R93.89 Abnormal findings on diagnostic imaging of other specified body structures | CPT/HCPCS: 99212 ==

== ENCOUNTER 2024-04-18 09:11 | Outpatient (REF) | payer OTHER, SELFPAY ==
[2024-04-18 11:09] LABS: Alanine Aminotransferase 17 U/L (0-31); Albumin Level 4.1 g/dL (3.5-5.0); Alkaline Phosphatase 47 U/L (39-117); Anion Gap 11 (12-20); Aspartate Amino Transferase 14 U/L (5-31); Bilirubin Total 0.3 mg/dL (0.0-1.0); Blood Urea Nitrogen 17 mg/dL (9-16); Calcium 9.7 mg/dL (8.4-10.2); Carbon Dioxide 25 mmol/L (22-29); Chloride 107 mmol/L (96-108); Cholesterol 175 mg/dL (<200); Estimated Glomerular Filt Rate > 60; Glucose Fasting 94 mg/dL (60-99); HDL Cholesterol 35 mg/dL (>40); LDL Cholesterol Calculated 97 mg/dL (<100); Lactate Dehydrogenase 135 U/L (122-220); Potassium 4.3 mmol/L (3.3-5.1); Sodium 139 mmol/L (135-145); Total Protein 7.3 g/dL (6.5-8.0); Triglycerides 216 mg/dL (<150); Vitamin D 25-OH Total 21.3 ng/mL (>30)
[2024-04-20 12:48] LABS: Alpha Fetoprotein 2.5 ng/mL
[2024-04-27 18:43] LABS: Inhibin B <10 pg/mL
== END 2024-04-18 09:12 | disposition home or self-care (01) ==
LOC: HO.LAB 09:11
PROVIDERS: Absent Provider Internal Medicine; PCP Internal Medicine; Visit Provider Obstetrics & Gynecology
DX: Z00.00 Encounter for general adult medical examination without abnormal findings (principal); N83.292 Other ovarian cyst, left side; E55.9 Vitamin D deficiency, unspecified
CPT/HCPCS: 36415; 80053; 80061; 82105; 82306; 83520; 83615; 86336

== ENCOUNTER 2024-04-24 15:55 | Outpatient (REF) | payer OTHER, SELFPAY ==
[2024-04-26 08:43] LABS: CA-125 6 U/mL (<35)
[2024-04-27 10:50] LABS: Carbohydrate Antigen 19-9 13 U/mL (<34)
== END 2024-04-24 15:56 | disposition home or self-care (01) ==
LOC: HO.LAB 15:55
PROVIDERS: PCP Internal Medicine; Visit Provider Obstetrics & Gynecology
DX: N83.299 Other ovarian cyst, unspecified side (principal)
CPT/HCPCS: 36415; 82378; 86301; 86304

== ENCOUNTER 2024-06-28 17:23 | Emergency (ER) | payer OTHER, SELFPAY ==
--- NOTE | ~2024-06-28 | CT_ITS ---
EXAMINATION: CT ABDOMEN AND PELVIS WITH CONTRAST CLINICAL INFORMATION: Abdominal pain. COMPARISON: April 04, 2024 TECHNIQUE: Multidetector volumetric images were obtained from the superior aspect of the liver through the pubic symphysis following administration 85 mL of Omnipaque 350 intravenous contrast. Sagittal and coronal reformatted images were obtained on the technologist's workstation. Oral contrast: No This CT examination was performed using dose optimization techniques as appropriate, variously including the following: *Automated exposure control *Adjustment of mA and/or kV according to patient size (this includes techniques or standardized protocols for targeted exams where dose is matched to indication/reason for exam; i.e. extremities or head) *Use of iterative reconstruction technique DLP: 697 mGy-cm FINDINGS: LUNG BASES: The visualized lung bases are unremarkable. LIVER, GALLBLADDER, AND BILIARY TREE: The liver is normal in size, shape, and attenuation. No focal hepatic lesion or biliary ductal dilatation is present. The gallbladder is unremarkable with no evidence of radiopaque gallstones, gallbladder wall thickening, or obvious pericholecystic inflammatory changes. PANCREAS: Unremarkable. SPLEEN: Unremarkable. ADRENAL GLANDS: Unremarkable. KIDNEYS AND URETERS: The kidneys are normal in size, shape, and attenuation. No hydronephrosis, hydroureter, or calculi seen. No perinephric stranding. BLADDER: Unremarkable. GASTROINTESTINAL TRACT: The small and large bowel are unremarkable. The appendix is visualized and is within normal limits. ABDOMINAL WALL: No significant hernia is appreciated. LYMPH NODES: Normal. VASCULAR: Unremarkable. PELVIC VISCERA: Unremarkable. OSSEOUS STRUCTURES: Unremarkable. CT/CT abdomen pelvis w IV con IMPRESSION: No significant abnormality. Fleischner guidelines were followed. Electronically signed by: Eulogio Gonzales MD 06/29/2024 12:54 AM EDT
[2024-06-28 17:55] VITALS: BP 131/81; PULSE 85; RESP 16; TEMP 36.4; O2SAT 98; BMI 28.6
--- NOTE | 2024-06-28 18:04 | ED_ITS ---
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 Clark where she had possible rectovaginal fistula seen as well and he referred her to [facility] OBGYN oncology she states she has never been to [facility] and no one has seen her there. She comes in with 1 month of worsening L sided pain no fevers but nausea. She is having BMs, she is able to eat. Note shows she did follow up with Dr. Villalobos at [facility] had MRI ovarian cyst was hemorrhagic cyst and no rectovaginal fistula noted on MRI but area was adhesions from prior surgery. MD complaint: abdominal pain Onset (ago): month(s) (1+) Location: abdomen Radiation: non-radiation Severity: moderate Quality: aching Pain Consistency: constant Relieving factors: none Exacerbating factors: none Associated symptoms: nausea/vomiting Treatments prior to arrival: none Related Data Previous Rx's ?Medication ?Instructions ?Recorded bisacodyl 5 mg tablet,delayed 10 mg (2 x 5 mg) PO BEDTIME 30 01/24/24 release (Dulcolax (bisacodyl)) days #60 tabs famotidine 40 mg tablet (Pepcid) 40 mg PO BEDTIME #90 tabs 01/24/24 hydrochlorothiazide 12.5 mg tablet 12.5 mg PO DAILY 90 days #90 tabs 01/24/24 linaclotide 72 mcg capsule 72 mcg PO QAM #30 caps 01/24/24 (Linzess) methocarbamol 500 mg tablet 500 mg PO TID muscle spasms 30 01/24/24 days #90 tabs pantoprazole 40 mg tablet,delayed 40 mg PO DAILY 90 days #90 tabs 01/24/24 release cholecalciferol (vitamin D3) 50 50 mcg PO DAILY 90 days #90 caps 04/21/24 mcg (2,000 unit) capsule fluoxetine 10 mg capsule 10 mg PO DAILY depressive disorder 04/21/24 90 days #90 caps tramadol 50 mg tablet 50 mg PO DAILY PRN pain 30 days 05/22/24 #20 tabs ibuprofen 800 mg tablet 800 mg PO Q8H PRN pain 30 days #90 06/10/24 tabs sumatriptan succinate 25 mg tablet 25 mg PO Q2-4H PRN migraine 06/24/24 headache 30 days #9 tabs ondansetron 4 mg disintegrating 4 mg PO Q8H PRN nausea and 06/29/24 tablet vomiting #20 tabs Allergies Allergy/AdvReac Type Severity Reaction Status Date / Time No Known Allergies Allergy Verified 06/28/24 18:02 [No Known Allergies*] Review of Systems 2 Review of Systems: Constitutional : No Weight loss, No Fever, No Chills ENT/Mouth : No sore throat, No Rhinorrhea Eyes: No Swelling, No Redness Cardiovascular : No Chest Pain, No SOB, NoEdema Respiratory : No Cough, No Sputum, No Wheezing Gastrointestinal : Positive Nausea, no Vomiting, no Diarrhea, positive abdominal Pain, No Hematochezia, No Melena Genitourinary : No Dysuria, No Urinary Frequency, No Hematuria, No Urgency Musculoskeletal : No joint pain, No Myalgias, No Joint Swelling Skin : No Skin Lesions, No rash Neuro : No Weakness, No Numbness, No Dizziness, No Headache All other systems reviewed and are negative. [facility] Past Medical History Attestation statement: The following information was validated with the patient. Source: old records reviewed Medical History PONV (postoperative nausea and vomiting) Breast pain, right Fibroadenoma Left ovarian cyst Breast mass, right Lumbar pain IBS (irritable bowel syndrome) Atopic dermatitis Bipolar 1 disorder GERD (gastroesophageal reflux disease) Anxiety Depression Asthma Surgical History History of excision of mass History of umbilical hernia repair H/O hysterectomy with oophorectomy H/O section Hx of esophagogastroduodenoscopy Family History Family History Father Kidney disease Hypertension Family history of breast cancer Mother CVD (cardiovascular disease) Paternal Grandmother Stomach cancer Paternal Aunt Breast cancer Social History Social History Housing: Apartment Alcohol intake: former Comment: pt previously medicated with oxycodone Patient Tobacco Use Status: Current everyday Tobacco user Tobacco use type: Cigarette Cigarette Packs Per Day: 1 Cigarettes Per Day: 20 Smoked in Last 30 Days: Yes e-Cigarette/Vaping Use: Never Used Second Hand Smoke Exposure: No Use of substances other than those prescribed or required for medical reasons: No Substance Use Type: Marijuana Advance Directives: No Advance Directives Information Provided: No Do you have a plan to hurt others: No Plan Patient : No service: No Current occupational status: employed Gender identity: Female Cognitive needs: No Hearing needs: No Vision needs: No Physical Exam ED Vital Signs: Vital Signs - 24 hr 06/28/24 17:55 06/28/24 21:20 06/28/24 21:43 Temperature 97.5 F 97.3 F 97.2 F Pulse Rate 85 80 76 Respiratory Rate 16 16 17 Blood Pressure 131/81 139/91 H 156/91 H Pulse Oximetry 98 100 97 Oxygen Delivery Method Room Air Room Air Room Air 06/29/24 01:08 06/29/24 01:16 Temperature 97.0 F 97.0 F Pulse Rate 72 72 Respiratory Rate 16 16 Blood Pressure 119/78 119/78 Pulse Oximetry 97 97 Oxygen Delivery Method Room Air Room Air BMI result Body Mass Index 28.6 Appearance: Alert. Oriented X3. No acute distress. Eyes: Pupils equal, round and reactive to light. ENT: Pharynx normal. Neck: Normal inspection. Neck supple. CVS: Normal heart rate and rhythm. Pulses normal. Respiratory: No respiratory distress. Breath sounds normal. Abdomen: Soft and mild LLQ pain no rebound Skin: Skin warm and dry. Normal skin color. Normal skin turgor. Extremities: No lower extremity edema. No calf ttp Neuro: Oriented X 3. No motor deficit. No sensory deficit. Course Course Course Narrative: RME: done by Severo. 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 Positive CVA flags and positive left lower quadrant tenderness on palpation. Labs UA ordered. Repeat CT scan ordered. Patient states she had hysterectomy. Reevaluation(s) Reevaluation #1: signed out to Dr. Rodriguez pending CT scan Medications Administered Discontinued Medications Generic Name Dose Route Start Last Admin Trade Name Deloris PRN Reason Stop Dose Admin Iohexol 85 ml 06/28/24 22:13 06/28/24 22:13 Iohexol 350 Mg/Ml 100 Ml Infus..Btl IV 06/28/24 22:14 85 ml ONCE ONE Administration Morphine Sulfate 4 mg 06/28/24 22:24 06/28/24 22:31 Morphine Sulfate 4 Mg/Ml Cartridge IVPUSH 06/28/24 22:25 4 mg ONCE ONE Administration Protocol Ondansetron HCl 4 mg 06/28/24 22:24 06/28/24 22:31 Ondansetron Hcl 4 Mg/2 Ml Vial IVPUSH 06/28/24 22:25 4 mg ONCE ONE Administration Medical Decision Making Medical Decision Making MDM Narrative: 39 yo female with PMH of GERD, anxiety, HTN, idiopathic constipation, ovarian cyst on L side here with recurrent pain x 1 month on L side but no vomiting or diarrhea and no fevers at this time she also reports she is having regular BMs will obtain basic labs, UA, CT scan for renal colic, mass, diverticulitis. IV morphine for pain Differential Diagnosis Differential Diagnoses: The differential diagnosis associated with the presentation includes colitis, constipation, cyst, diverticulitis Admission/Observation Consideration of admission/observation: Escalation of care including admission/observation considered no acute findings stable for DC likely chronic pain Lab Data [facility] Lab Attestation statement: I reviewed the patient's lab results. 06/28/24 18:20 06/28/24 18:20 Labs: Lab Results 06/28/24 Range/Units 18:20 WBC 8.7 (4.8-10.8) X10*3/uL RBC 5.26 (4.20-5.50) X10*6/uL Hgb 14.8 (12.0-16.0) g/dl Hct 44.9 (37.0-47.0) % MCV 85.4 (80.0-98.0) fL MCH 28.1 (27.0-33.0) pg MCHC 33.0 (31.0-35.0) g/dl RDW 14.6 (11.0-16.0) % Plt Count 303 (160-400) X10*3/uL MPV 10.3 (9.4-12.3) fL Immature Gran % (Auto) 0.6 H (0.0-0.4) % Neut % (Auto) 53.7 (45-73) % Lymph % (Auto) 38.1 (20-40) % [place] % (Auto) 6.4 (2-11) % Eos % (Auto) 0.9 (0-4) % Baso % (Auto) 0.3 (0-2) % Lymph # (Auto) 3.3 (1.2-4.9) X10*3/uL [place] # (Auto) 0.6 (0.1-1.2) X10*3/uL Eos # (Auto) 0.1 (0.0-0.4) X10*3/uL Baso # (Auto) 0.0 (0.0-0.2) X10*3/uL Abs Immat Gran (auto) 0.05 H (0.00-0.03) X10*3/uL Absolute Neuts (auto) 4.7 (2.0-8.3) x10*3/uL Absolute Nucleated RBC 0.000 (0.0-0.012) X10*3/uL Nucleated RBC % (auto) 0.0 (0.0-0.2) /100WBC Sodium 139 (135-145) mmol/L Potassium 4.1 (3.3-5.1) mmol/L Chloride 106 (96-108) mmol/L Carbon Dioxide 27 (22-29) mmol/L Anion Gap 10 L (12-20) BUN 13 (9-16) mg/dL Creatinine 0.77 (0.5-1.4) mg/dL Estim Creat Clear Calc 107.0 Estimated GFR > 60 Random Glucose 88 (60-115) mg/dL Calcium 9.8 (8.4-10.2) mg/dL Total Bilirubin 0.7 (0.0-1.0) mg/dL AST 20 (5-31) U/L ALT 26 (0-31) U/L Alkaline Phosphatase 51 (39-117) U/L Total Protein 7.5 (6.5-8.0) g/dL Albumin 4.3 (3.5-5.0) g/dL Lipase 28 (8-78) U/L Beta HCG, Quant < 2 mIU/mL Urine Color Yellow Urine Appearance Clear Urine pH 5.5 (5.0-9.0) Ur Specific [place] >= 1.030 H (1.005-1.025) Urine Protein Negative (Neg-Trace) mg/dL Urine Glucose (UA) Negative (Negative) mg/dL Urine Ketones Negative (Negative) mg/dL Urine Blood Trace H (Negative) Urine Nitrite Negative (Negative) Ur Leukocyte Esterase Trace H (Negative) Urine RBC 0-2 (0-2) /HPF Urine WBC 0-5 (0-5) /HPF Ur Squamous Epith Cells 11-20 (0-2) /HPF Urine Bacteria 1+ (None Seen) Hyaline Casts 0-2 (0-2) /LPF Urine Test NEGATIVE (NEGATIVE) Independent Interpretation I performed an independent interpretation of an: CT Scan (no acute findings) Radiology Impression Discussion of test interpretation with radiology: I have reviewed the radiologist's reading. External Record Review External record reviewed: Inpatient record and Outpatient record Prescription Management I considered prescription management with: Other Discharge Plan Discharge Clinical Impression: Abdominal pain Qualifiers: Abdominal location: left lower quadrant Qualified Code(s): R10.32 - Left lower quadrant pain Patient Disposition: Home, Self-Care Instructions: Abdominal Pain (ED) Additional Instructions: follow up with your doctor return for any worsening symptoms or concerns CT scan and labs reassuring Prescriptions: New ondansetron 4 mg tablet,disintegrating 4 mg PO Q8H PRN (Reason: nausea and vomiting) Qty: 20 0RF No Action fluoxetine 10 mg capsule 10 mg PO DAILY 90 Days Qty: 90 0RF cholecalciferol (vitamin D3) 50 mcg (2,000 unit) capsule 50 mcg PO DAILY 90 Days Qty: 90 1RF tramadol 50 mg tablet 50 mg PO DAILY PRN (Reason: pain) 30 Days Qty: 20 0RF ibuprofen 800 mg tablet 800 mg PO Q8H PRN (Reason: pain) 30 Days Qty: 90 1RF sumatriptan succinate 25 mg tablet 25 mg PO Q2-4H PRN (Reason: migraine headache) 30 Days Qty: 9 0RF Rx Instructions: do not exceed 8 doses per 24 hrs hydrochlorothiazide 12.5 mg tablet 12.5 mg PO DAILY 90 Days Qty: 90 1RF bisacodyl [Dulcolax (bisacodyl)] 5 mg tablet,delayed release (DR/EC) 10 mg PO BEDTIME 30 Days Qty: 60 3RF famotidine [Pepcid] 40 mg tablet 40 mg PO BEDTIME Qty: 90 1RF Linzess 72 mcg capsule 72 mcg PO QAM Qty: 30 3RF methocarbamol 500 mg tablet 500 mg PO TID 30 Days Qty: 90 0RF pantoprazole 40 mg tablet,delayed release (DR/EC) 40 mg PO DAILY 90 Days Qty: 90 1RF Interventions: ED Discharge Assessment Last Done: 06/29/24 01:16 Discharge Date/Time: 06/29/24 01:17 Print Language: Vietnamese
[2024-06-28 18:31] LABS: MANUAL DIFF FLAG NO
[2024-06-28 18:35] LABS: Appearance Urine Clear; Color Urine Yellow; Glucose Urine UA Negative (Negative); Leukocyte Esterase Urine Trace (Negative); Nitrite Urine Negative (Negative); PH 5.5 (5.0-9.0); Specific Gravity - Urine >= 1.030 (1.005-1.025); UMIC TRIGGER UACC YES; Urine Blood Trace (Negative); Urine Ketones Negative (Negative); Urine Pregnancy NEGATIVE (NEGATIVE); Urine Protein Negative (Neg-Trace)
[2024-06-28 18:36] LABS: UPreg QC Valid YES
[2024-06-28 18:37] LABS: Basophils Percent Auto 0.3 % (0-2); Eosinophils Absolute Auto 0.1 X10*3/uL (0.0-0.4); Eosinophils Percent Auto 0.9 % (0-4); Hematocrit 44.9 % (37.0-47.0); Hemoglobin 14.8 g/dl (12.0-16.0); Imm Gran Abs Auto 0.05 X10*3/uL (0.00-0.03); Imm Gran Pct Auto 0.6 % (0.0-0.4); Lymphocytes Absolute Auto 3.3 X10*3/uL (1.2-4.9); Lymphocytes Percent Auto 38.1 % (20-40); Mean Corpuscular Hemoglobin 28.1 pg (27.0-33.0); Mean Corpuscular Volume 85.4 fL (80.0-98.0); Mean Platelet Volume 10.3 fL (9.4-12.3); Monocytes Absolute Auto 0.6 X10*3/uL (0.1-1.2); Monocytes Percent Auto 6.4 % (2-11); Neutrophils Absolute Auto 4.7 x10*3/uL (2.0-8.3); Neutrophils Percent Auto 53.7 % (45-73); Platelet Count 303 X10*3/uL (160-400); Red Blood Count 5.26 X10*6/uL (4.20-5.50); Red Cell Distribution Width 14.6 % (11.0-16.0); White Blood Count 8.7 X10*3/uL (4.8-10.8)
[2024-06-28 18:41] LABS: Bacteria Urine 1+ (None Seen); Hyaline Casts Urine 0-2 /LPF (0-2); RBC Urine 0-2 /HPF (0-2); WBC Urine 0-5 /HPF (0-5)
[2024-06-28 18:55] LABS: Alanine Aminotransferase 26 U/L (0-31); Albumin Level 4.3 g/dL (3.5-5.0); Alkaline Phosphatase 51 U/L (39-117); Anion Gap 10 (12-20); Aspartate Amino Transferase 20 U/L (5-31); Bilirubin Total 0.7 mg/dL (0.0-1.0); Blood Urea Nitrogen 13 mg/dL (9-16); Calcium 9.8 mg/dL (8.4-10.2); Carbon Dioxide 27 mmol/L (22-29); Chloride 106 mmol/L (96-108); Estimated Glomerular Filt Rate > 60; Glucose Random 88 mg/dL (60-115); Lipase 28 U/L (8-78); Potassium 4.1 mmol/L (3.3-5.1); Sodium 139 mmol/L (135-145); Total Protein 7.5 g/dL (6.5-8.0)
[2024-06-28 18:56] LABS: HCG Quantitative < 2 mIU/mL
[2024-06-28 21:20] VITALS: BP 139/91; PULSE 80; RESP 16; TEMP 36.3; O2SAT 100
--- NOTE | 2024-06-28 21:29 | PC.NURSE ---
pt from lobby, assume care of pt at this time
--- OUTSIDE RECORDS SUMMARY | 2024-06-28 21:31 | XMS_ITS | Continuity of Care Document ---
Author Organization [facility] BILINGUAL OFFICE ASSISTANT Oncolog y Address [address] [place] [id number] Care Team Providers Care Pharmacy Technician Program Director Name Role Phone Not on Staff, PCP Primary Care Physician Unavail able Encounter [facility] Date(s): 04/17/24 - 05/17/24 [facility] BILINGUAL OFFICE ASSISTANT Oncology [address] [place] [id number] Allergies, Adverse Reactions, Alerts No Known Allergies Medications MiraLax oral powder for reconstitution = 17 Gm, By Mouth, Daily, dissolve in water before taking, # 255 Gm, 1 Refills, Acute 07/24/24 0:00:00 EDT, 04/23/24 15:40:00 EDT, REC Powder, [id number], Partial fill upon patient request ifthe prescription is for a schedule II opioid drug.,... Start Date: 04/23/24 Stop Date: 07/24/24 Status: Ordered Problem List Condition Confirmation Course Effective Dates Status Health Status Informant Anxiety Confirmed Active Asthma Confirmed Active Constipated Confirmed Active Depression Confirmed Active History of hysterectomy Confirmed Active Hypercholesterolemia Confirmed Active HTN (hypertension) Confirmed Active Adnexal mass Confirmed Active Migraines Confirmed Active Obese class I Confirmed Active Fatty liver Confirmed Active Social History Social History Type Response Smoking Status 5-9 cigarettes (betw een 1/4 to 1/2 pack)/day in last 30 days entered on: 04/23/24 Sex Female Patient Care team information Care Team Personnel Name: Not on Staff, PCP Position: S Physician (General Medicine) Member Role: PCP Care Team Related Persons Name: JOAN SIMMONS MOTHER IN LAW
--- OUTSIDE RECORDS SUMMARY | 2024-06-28 21:31 | XMS_ITS | Continuity of Care Document ---
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 Role Phone Not on Staff, PCP Primary Care Physician Unavail able Encounter [facility] [place] Date(s): 04/06/24 - 04/07/[address] [address]- Encounter Diagnosis Urinary tract infection(Final) - 04/06/24 Flank pain(Final) - 04/06/24 Discharge Disposition: A-D/C Home Attending Physician: Ian Artis DO Admitting Physician: Ian Artis DO Referring Physician: Not on Staff, Referring MD Allergies, Adverse Reactions, Alerts No Known Allergies Medications MorPHINE Inj 2 mg, Injection, IV Push Slowly, Once, STAT, 04/06/24 20:57:00 EDT, Stop date 04/06/24 20:57:00 EDT Start Date: 04/06/24 Stop Date: 04/06/24 Status: Completed Results Radiology Reports * Exam Date Time Procedure Performing Provider Status 04/06/24 5:50 PM US Pelvic Doppler Comp Annette Fisher ; Julián (Verified) Notes: (US Pelvic Doppler Comp) Reason For Exam: Pelvic Pain;Other: RESULT: US Pelvic Doppler Comp US Pelvic Transabdominal, US Pelvic Transvaginal, US Pelvic Doppler Comp Hx of Present Illness: uti; Reason: Other:; Pelvic Pain; Clinical Question(s): TOA; Order Comment: US Pelvic Non-Ob Comp Prep COMPARISON: CT abdomen and pelvis 04/06/2024 TECHNIQUE: Transabdominal and transvaginal pelvic ultrasound with grayscale, color Doppler, and spectral Doppler analysis. FINDINGS: UTERUS: Surgically absent RIGHT OVARY: Surgically absent LEFT OVARY: Size: 3.8 x 3.1 x 3.4 cm, volume 21.1 cc. Normal arterial and venous waveforms. There are two complex cystic lesions replacing the left ovary. The larger of the two measures 2.8 x3.4 x 2.6 cm and contains solid and cystic components. There is microvascular flow to this lesion. The smaller of the two lesions measures 2.6 x 2.6 x 1.5 cm and is a multiloculated avascular cysticstructure. IMPRESSION: Two complex lesions replacing the left ovary. Gynecology oncology consultation is recommended. Can consider pelvic MRI for further characterization if clinically appropriate. An actionable message (Yellow) has been communicated via the [employer] system on 04/06/2024 6:13 PM, Message ID [id number]. I have personally reviewed the images and I agree with this report. WSN: [id number] Ordering Physician: Nghia Martino Dictated By: Thania Lomas DO Dictated Date/Time: 04/06/24 6:13 pm Reviewed By: Kiel Martinez MD Signed By: Kiel Martinez MD Signed Date/Time: 04/06/24 6:18 pm Transcribed By: MISHA Transcribed Date/Time: 04/06/24 6:01 pm * Exam Date Time Procedure Performing Provider Status 04/06/24 5:50 PM US Pelvic Transvaginal Annette Fisher ; Julián (Verified) Notes: (US Pelvic Transvaginal) Reason For Exam: Pelvic Pain;Other: RESULT: US Pelvic Transvaginal US Pelvic Transabdominal, US Pelvic Transvaginal, US Pelvic Doppler Comp Hx of Present Illness: uti; Reason: Other:; Pelvic Pain; Clinical Question(s): TOA; Order Comment: US Pelvic Non-Ob Comp Prep COMPARISON: CT abdomen and pelvis 04/06/2024 TECHNIQUE: Transabdominal and transvaginal pelvic ultrasound with grayscale, color Doppler, and spectral Doppler analysis. FINDINGS: UTERUS: Surgically absent RIGHT OVARY: Surgically absent LEFT OVARY: Size: 3.8 x 3.1 x 3.4 cm, volume 21.1 cc. Normal arterial and venous waveforms. There are two complex cystic lesions replacing the left ovary. The larger of the two measures 2.8 x3.4 x 2.6 cm and contains solid and cystic components. There is microvascular flow to this lesion. The smaller of the two lesions measures 2.6 x 2.6 x 1.5 cm and is a multiloculated avascular cysticstructure. IMPRESSION: Two complex lesions replacing the left ovary. Gynecology oncology consultation is recommended. Can consider pelvic MRI for further characterization if clinically appropriate. An actionable message (Yellow) has been communicated via the [employer] system on 04/06/2024 6:13 PM, Message ID [id number]. I have personally reviewed the images and I agree with this report. WSN: [id number] Ordering Physician: Nghia Martino Dictated By: Thania Lomas DO Dictated Date/Time: 04/06/24 6:13 pm Reviewed By: Kiel Martinez MD Signed By: Kiel Martinez MD Signed Date/Time: 04/06/24 6:18 pm Transcribed By: MISHA Transcribed Date/Time: 04/06/24 6:01 pm * Exam Date Time Procedure Performing Provider Status 04/06/24 5:50 PM US Pelvic Transabdominal Frank Fisher; Auth (Verified) Notes: (US Pelvic Transabdominal) Reason For Exam: Pelvic Pain;Other: RESULT: US Pelvic Transabdominal US Pelvic Transabdominal, US Pelvic Transvaginal, US Pelvic Doppler Comp Hx of Present Illness: uti; Reason: Other:; Pelvic Pain; Clinical Question(s): TOA; Order Comment: US Pelvic Non-Ob Comp Prep COMPARISON: CT abdomen and pelvis 04/06/2024 TECHNIQUE: Transabdominal and transvaginal pelvic ultrasound with grayscale, color Doppler, and spectral Doppler analysis. FINDINGS: UTERUS: Surgically absent RIGHT OVARY: Surgically absent LEFT OVARY: Size: 3.8 x 3.1 x 3.4 cm, volume 21.1 cc. Normal arterial and venous waveforms. There are two complex cystic lesions replacing the left ovary. The larger of the two measures 2.8 x3.4 x 2.6 cm and contains solid and cystic components. There is microvascular flow to this lesion. The smaller of the two lesions measures 2.6 x 2.6 x 1.5 cm and is a multiloculated avascular cysticstructure. IMPRESSION: Two complex lesions replacing the left ovary. Gynecology oncology consultation is recommended. Can consider pelvic MRI for further characterization if clinically appropriate. An actionable message (Yellow) has been communicated via the [employer] system on 04/06/2024 6:13 PM, Message ID [id number]. I have personally reviewed the images and I agree with this report. WSN: [id number] Ordering Physician: Nghia Martino Dictated By: Thania Lomas DO Dictated Date/Time: 04/06/24 6:13 pm Reviewed By: Kiel Martinez MD Signed By: Kiel Martinez MD Signed Date/Time: 04/06/24 6:18 pm Transcribed By: MISHA Transcribed Date/Time: 04/06/24 6:01 pm * Exam Date Time Procedure Performing Provider Status 04/06/24 3:[address] Abd/Pelvis W/ IV Contrast Only Sanch Maurizio brunnera; Auth (Verified) Notes: (CT Abd/Pelvis W/ IV Contrast Only) Reason For Exam: LLQ abdominal pain;Other: RESULT: CT Abd/Pelvis W/ IV Contrast Only CT Abd/Pelvis W/ IV Contrast Only Hx of Present Illness: uti; Reason: Other:; LLQ abdominal pain; Clinical Question(s): Diverticulitis; Order Comment: TECHNIQUE: Spiral CT through the abdomen and pelvis with IV contrast formatted in 3 planes. 100 cc of Omnipaque 300 was administered intravenously. This study was performed without oral contrast. Weight-based protocol using automatic tube modulation was used to optimize exposure parameters. CTDIvol Body: 17.02 mGy, DLP Body: 939 mGy*cm. COMPARISON: None. FINDINGS: 3.4 cm left ovarian cyst. Remainder of the exam is normal. IMPRESSION: Loculated 4 cm left ovarian cystic lesion. Can consider pelvic ultrasound as clinically warranted Otherwise normal exam I have personally reviewed the images and I agree with this report. WSN: [id number] Ordering Physician: Nghia Martino Dictated By: Thania Lomas DO Dictated Date/Time: 04/06/24 3:55 pm Reviewed By: Live Tolbert MD Signed By: Live Tolbert MD Signed Date/Time: 04/06/24 4:00 pm Transcribed By: MISHA Transcribed Date/Time: 04/06/24 3:44 pm Vital Signs Most recent to oldest [Reference Range]: 1 2 3 Height 163 cm (04/06/24 12:49 PM) 163 cm (04/06/24 11:13 AM) Oxygen Saturation [94-100 %] 98 % (04/07/24 12:41 AM) 100 % (04/06/24 11:13 AM) Pulse Rate [55-90 bpm] 92 bpm *H* (04/07/24 12:41 AM) 68 bpm (04/06/24 11:13 AM) Blood Pressure [90-138/55-84 mm Hg] 130/82mm Hg (04/07/24 12:41 AM) 147/96mm Hg *H* (04/06/24 11:13 AM) Respiratory Rate [16-30 br/min] 16 br/min (04/07/24 12:41 AM) 18 br/min (04/06/24 9:07 PM) 18 br/min (04/06/24 11:13 AM) Temperature [96.8-100.4 DegF] 98.6 DegF (04/07/24 12:41 AM) 98.2 DegF (04/06/24 11:13 AM) Mode of Delivery (Oxygen) Room air (04/07/24 12:41 AM) Room air (04/06/24 11:13 AM) Blood pressure sites Arm, left (04/06/24 11:13 AM) Temperature Route Oral (04/07/24 12:41 AM) Oral (04/06/24 11:13 AM) Note * Nghia Martino DO: PERFORM Event Display: Patient Education Leaflets Authored Date: [id number] Urinary Tract Infections in Women ?? [id number] Infecciones urinarias en las mujeres Las infecciones urinarias suelen presentarse a causa de bacterias. Estas bacterias ingresan a las v??as urinarias. Las bacterias pueden venir desde el interior del cuerpo. O pueden desplazarse desde la diana del recto o de la vagina hasta el interior de la uretra. La anatom??a de la roxana hace m??s f??cil la entrada de bacterias de los intestinos en las v??as urinarias. Es la causa m??s com??n de infecciones urinarias. Por eso, estas infecciones son m??s frecuentes en las mujeres que en los hombres. Un s??ntoma com??n de las infecciones urinarias es el dolor en las v??as urinarias o cerca de estas. La mayor??a de las infecciones urinarias se tratan con antibi??ticos. Los antibi??ticos pueden destruir las bacterias. La duraci??n del tratamiento con antibi??ticos depender?? del tipo de infecci??nque tenga. Puede ser de apenas 3??d??as. Si tiene infecciones urinarias frecuentes, podr??a tener que usar jamarcus dosis baja de antibi??ticos israel varios meses. Use los antibi??ticos seg??n las indicaciones. No deje los antibi??ticos hasta que los haya terminado. Si usted joy de usar un antibi??lizabeth antes de tiempo, la infecci??n quiz??s no desaparezca. Tambi??n puede hacerse resistente al antibi??lizabeth. Entonces ser?? mucho m??s dif??cil tratar las bacterias la pr??xima vez. Los t??rminos diferenciados en funci??n del g??mayi se usan para hablar sobre anatom??a y riesgos de la vale. Use esta informaci??n de la forma que mejor se adecue a usted y al proveedor cuando conversen sobre silva atenci??n. Cuidados en el hogar Los cambios de estilo de kaycee descritos a continuaci??n pueden ayudarla a combatir la infecci??n urinaria. Tambi??n puede ayudar a prevenir futuras infecciones urinarias ??? Audra abundante cantidad de l??quido. Por ejemplo, agua, jugos u otras bebidas sin cafe??na. Randolph ayuda a eliminar las bacterias. ??? Vac??e la vejiga. Siempre vac??e la vejiga??cuando tenga ganas de orinar. Orine siempre antes de acostarse. La orina que permanece en la vejiga promueve la infecci??n. Tambi??n trate de orinarantes y despu??s de tener relaciones sexuales. ??? Practique jamarcus buena higiene personal. L??mpiese bryon con un movimiento desde adelante hacia atr??s despu??s de usar el inodoro. Randolph ayuda a evitar que las bacterias entren a la uretra. ??? Utilice condones israel las relaciones sexuales. Randolph ayuda a prevenir las infecciones urinarias provocadas por bacterias transmitidas sexualmente. Adem??s, evite el uso de espermicidas en las relaciones sexuales. Aumentan el riesgo de padecer infecciones urinarias. Elija otra forma de anticoncepci??n. Las mujeres que suelen presentar infecciones urinarias despu??s de tener relaciones sexuales podr??an utilizar un antibi??lizabeth preventivo de dosis baja. Aseg??rese de consultar esta opci??n con el proveedor de atenci??n m??dica. ??? Pruebe suplementos integrales, sridevi las c??psulas de ar??ndanos y la D-manosa. Pueden ayudar a prevenir las infecciones urinarias. ??? Pruebe el estr??jason t??nai vaginal. Puede usarlo para prevenir las infecciones urinarias si morales alcanzado la menopausia. ?? Atenci??n de seguimiento Kaila el seguimiento necesario con el proveedor de atenci??n m??dica seg??n lo indicado. Mayela profesional puede realizar pruebas para asegurarse de que la infecci??n haya desaparecido. Si es necesario, empezar?? un tratamiento adicional. ?? Cu??ndo buscar atenci??n m??dica Llame al proveedor de atenci??n m??dica de inmediato ante cualquiera de los siguientes signos o s??ntomas: ??? Necesidad de orinar con frecuencia ??? Dolor o ardor cuando orina ??? Fiebre de 100.4?F (38?C) o superior, o seg??n le indique el proveedor de atenci??n m??dica ??? Orina de aspecto oscuro, turbio o de color rojizo. Podr??a significar que hay mervin en la orina. ??? La orina huele mal ??? Siente dolor incluso cuando no est?? orinando ??? Cansancio ??? Dolor en la diana del abdomenque est?? debajo del ombligo o en la espalda o el costado, debajo de las costillas ??? N??useas o v??akosua ??? Tiene muchas ganas de orinar, sabra sale muy poca orina ??? Presi??n inc??moda por encima del hueso p??bico ??? Sensaci??n de confusi??n o mucho cansancio (en los adultos mayores) ? [id number] [employer]. All rights reserved. This information is not intended as a substitute for professional medical care. Always follow your healthcare professional's instructions. ?? Patient Care team information Care Team Personnel Name: Not on Staff, PCP Position: S Physician (General Medicine) Member Role: PCP
--- OUTSIDE RECORDS SUMMARY | 2024-06-28 21:31 | XMS_ITS | Continuity of Care Document ---
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 Role Phone Not on Staff, PCP Primary Care Physician Unavail able [place] [facility] [place](s): 05/08/24 - 06/07/24 [facility] [address] [place], [place] [address] Attending Physician: Maty Noel Admitting Physician: Maty Noel Referring Physician: Maty Noel Allergies, Adverse Reactions, Alerts No Known Allergies Medications MiraLax oral powder for reconstitution = 17 Gm, By Mouth, Daily, dissolve in water before taking, # 255 Gm, 1 Refills, Acute 07/24/24 0:00:00 EDT, 04/23/24 15:40:00 EDT, REC Powder, [id number], Partial fill upon patient request ifthe prescription [...]
--- OUTSIDE RECORDS SUMMARY | 2024-06-28 21:31 | XMS_ITS | Continuity of Care Document ---
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 Name Role Phone Not on Staff, PCP Primary Care Physician Unavail able Encounter [facility] [place] Date(s): 05/21/24 - 06/20/24 [facility] [address] [address] Allergies, Adverse Reactions, Alerts No Known Allergies Medications MiraLax oral powder for reconstitution = 17 Gm, By Mouth, Daily, dissolve in water before taking, # 255 Gm, 1 Refills, Acute 07/24/24 0:00:00 EDT, 04/23/24 15:40:00 EDT, REC Powder, [id number], Partial fill upon patient request ifthe prescription [...] Personnel Name: Not on Staff, PCP Position: [facility] Physician (General Medicine) Member Role: PCP Care Team Related Persons Name: JOAN SIMMONS MOTHER IN LAW
--- OUTSIDE RECORDS SUMMARY | 2024-06-28 21:31 | XMS_ITS | Continuity of Care Document ---
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
--- OUTSIDE RECORDS SUMMARY | 2024-06-28 21:31 | XMS_ITS | Continuity of Care Document ---
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
[2024-06-28 21:43] VITALS: BP 156/91; PULSE 76; RESP 17; TEMP 36.2; O2SAT 97
[2024-06-28] MEDS: iohexoL 350 MG/ML 100 ML INFUS..BTL 85 ML IV (22:13)
[2024-06-28] MEDS: Morphine Sulfate 4 MG/ML CARTRIDGE IVPUSH (22:31)
[2024-06-28] MEDS: ondansetron HCL 4 MG/2 ML VIAL IVPUSH (22:31)
[2024-06-29 01:08] VITALS: BP 119/78; PULSE 72; RESP 16; TEMP 36.1; O2SAT 97
[2024-06-29 01:16] VITALS: BP 119/78; PULSE 72; RESP 16; TEMP 36.1; O2SAT 97
== END 2024-06-29 01:17 | disposition home or self-care (01) ==
PROVIDERS: Physician Assistant; Emergency Provider Emergency Medicine; PCP Internal Medicine
DX: R10.32 Left lower quadrant pain (principal); K59.00 Constipation, unspecified; R11.2 Nausea with vomiting, unspecified; Z79.899 Other long term (current) drug therapy
CPT/HCPCS: 36415; 74177; 80053; 81001; 81025; 83690; 84702; 85025; 96374; 96375; 99284; J2270; J2405; Q9967

== ENCOUNTER 2024-09-10 10:20 | Outpatient (REF) | payer OTHER, SELFPAY ==
[2024-09-10 12:00] LABS: MANUAL DIFF FLAG NO
[2024-09-10 12:37] LABS: Basophils Percent Auto 0.2 % (0-2); Eosinophils Absolute Auto 0.1 X10*3/uL (0.0-0.4); Eosinophils Percent Auto 0.8 % (0-4); Hematocrit 46.1 % (37.0-47.0); Hemoglobin 14.8 g/dl (12.0-16.0); Imm Gran Abs Auto 0.03 X10*3/uL (0.00-0.03); Imm Gran Pct Auto 0.3 % (0.0-0.4); Lymphocytes Absolute Auto 2.8 X10*3/uL (1.2-4.9); Lymphocytes Percent Auto 31.5 % (20-40); Mean Corpuscular HGB Conc 32.1 g/dl (31.0-35.0); Mean Corpuscular Hemoglobin 27.4 pg (27.0-33.0); Mean Corpuscular Volume 85.4 fL (80.0-98.0); Mean Platelet Volume 10.9 fL (9.4-12.3); Monocytes Absolute Auto 0.4 X10*3/uL (0.1-1.2); Monocytes Percent Auto 4.9 % (2-11); Neutrophils Absolute Auto 5.5 x10*3/uL (2.0-8.3); Neutrophils Percent Auto 62.3 % (45-73); Platelet Count 303 X10*3/uL (160-400); Red Cell Distribution Width 14.5 % (11.0-16.0); White Blood Count 8.9 X10*3/uL (4.8-10.8)
[2024-09-10 13:15] LABS: Alanine Aminotransferase 29 U/L (0-31); Albumin Level 4.2 g/dL (3.5-5.0); Alkaline Phosphatase 47 U/L (39-117); Anion Gap 8 (12-20); Aspartate Amino Transferase 22 U/L (5-31); Bilirubin Total 0.6 mg/dL (0.0-1.0); Blood Urea Nitrogen 16 mg/dL (9-16); Calcium 9.7 mg/dL (8.4-10.2); Carbon Dioxide 28 mmol/L (22-29); Chloride 105 mmol/L (96-108); Estimated Glomerular Filt Rate > 60; Glucose Random 109 mg/dL (60-115); Potassium 3.7 mmol/L (3.3-5.1); Sodium 137 mmol/L (135-145); Total Protein 7.5 g/dL (6.5-8.0)
[2024-09-11 12:14] LABS: CA-125 8 U/mL (<35)
== END 2024-09-10 10:21 | disposition home or self-care (01) ==
LOC: HO.LAB 10:20
PROVIDERS: PCP Internal Medicine; Visit Provider Internal Medicine
DX: N83.292 Other ovarian cyst, left side (principal); I10 Essential (primary) hypertension; Z23 Encounter for immunization; K59.04 Chronic idiopathic constipation; K21.9 Gastro-esophageal reflux disease without esophagitis; R06.81 Apnea, not elsewhere classified; E55.9 Vitamin D deficiency, unspecified; D64.9 Anemia, unspecified
CPT/HCPCS: 36415; 80053; 85025; 86304; 90471; 90656; 99212

== ENCOUNTER 2024-09-10 10:20 | Outpatient (AMB) | payer OTHER, SELFPAY ==
--- NOTE | 2024-09-10 10:39 | MHC.PC.OV ---
Vital Signs 09/10/24 10:43 Height 5 ft 6 in Weight 180 lb BMI 29.0 BP 122/80 Blood Pressure Location Lt brachial Position Sitting Intake Visit Reasons: f/u on [facility] visit Founder Chairman And Chief Creative Officer Required: No Accompanied by: Self / Same As Patient Allergies No Known Allergies [No Known Allergies*] Allergy (Verified 09/10/24 10:57) Medication List - Last Reconciled 09/10/24 by Nazia Christianson MD bisacodyl (Dulcolax (bisacodyl)) 10 mg (2 x 5 mg) PO BEDTIME 30 days cholecalciferol (vitamin D3) 50 mcg PO DAILY 90 days famotidine (Pepcid) 40 mg PO BEDTIME fluoxetine 10 mg PO DAILY 90 days hydrochlorothiazide 12.5 mg PO DAILY 90 days ibuprofen 800 mg PO Q8H PRN 30 days linaclotide (Linzess) 72 mcg PO QAM methocarbamol 500 mg PO TID 30 days ondansetron 4 mg PO Q8H PRN pantoprazole 40 mg PO DAILY 90 days sumatriptan succinate 25 mg PO Q2-4H PRN 30 days tramadol 50 mg PO DAILY PRN 30 days Tobacco use date assessed: 01/24/24 Dental Screening Dental Screen Date: 01/24/24 HPI HPI Comments History of Present Illness Details The patient is a 39-year-old female presenting with pelvic pain. 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 An MRI performed in May revealed a small cyst in the left ovary. The patient reports ongoing pelvic pain predominantly on the left side, which she indicates as her primary area of discomfort. Previous evaluations at [facility] in May and another in June did not suggest any significant abnormalities or malignancy. There has been some observation of changes in the size of the ovarian cyst, with reports indicating that it is smaller compared to earlier studies. No biopsy has been conducted, and there is a lack of communication regarding definitive cancer diagnosis, which has been a source of stress for the patient. She experiences persistent constipation, which has been present over time and contributes to discomfort, creating suspicion of being linked to the pelvic pain. The patient also has a history of essential hypertension treated with hydrochlorothiazide, which she reports is running low. She denies any recent imaging showing significant abnormalities related to her gastrointestinal tract or prior procedures indicating malignancy. [facility] Medical History (Updated 09/10/24 @ 12:10 by Nazia Christianson MD) PONV (postoperative nausea and vomiting) Breast pain, right Fibroadenoma Left ovarian cyst Breast mass, right Lumbar pain IBS (irritable bowel syndrome) Atopic dermatitis Bipolar 1 disorder GERD (gastroesophageal reflux disease) Anxiety Depression Asthma Surgical History History of excision of mass History of umbilical hernia repair H/O hysterectomy with oophorectomy H/O section Hx of esophagogastroduodenoscopy Family History Father Kidney disease Hypertension Family history of breast cancer Mother CVD (cardiovascular disease) Paternal Grandmother Stomach cancer Paternal Aunt Breast cancer Social History Housing: Apartment Alcohol intake: former Comment: pt previously medicated with oxycodone Patient Tobacco Use Status: Current everyday Tobacco user Tobacco use type: Cigarette Cigarette Packs Per Day: 1 Cigarettes Per Day: 20 e-Cigarette/Vaping Use: Never Used Second Hand Smoke Exposure: No Substance Use Type: Marijuana service: No Current occupational status: employed Gender identity: Female Cognitive needs: No Hearing needs: No Vision needs: No Female Reproductive History Menstrual Age of Menarche: 15 Questionnaire Thrive Questionnaire Date Thrive assessed: 01/24/24 ERIK-7 AMB Questionnaire ERIK-7 Date ERIK - 7 assessed: 01/24/24 Source: Developed by Drs. Tico Scherer, Lesley Rizzo, Garcia Forman and colleagues, with an educational amena from [employer]. Review of Systems Const All systems reviewed & are unremarkable except as noted in HPI and below Card Denies chest pain at rest, Denies chest pain with activity, Denies edema, Denies irregular heart rhythm, Denies claudication, Denies dyspnea, Denies dyspnea on exertion, Denies orthopnea, Denies paroxysmal nocturnal dyspnea and Denies slow heart rate Resp Denies cough, Denies dyspnea and Denies dyspnea on exertion GI Reports abdominal pain, Denies change in bowel habits, Reports constipation, Denies excessive flatus, Denies nausea and Denies vomiting Denies urinary incontinence, Denies urinary hesitancy and Denies urinary urgency Musc Denies atrophy, Denies deformity and Denies limited range of motion Physical exam (Primary Care) Vital Signs: Last Vital Signs BP 122/80 09/10/24 10:43 BMI result Body Mass Index 29.0 Tobacco/Smoking Status: Tobacco use Status Tobacco use date assessed 01/24/24 09/10/24 10:47 Patient Tobacco Use Status Current everyday Tobacco 09/10/24 10:47 Tobacco use type Cigarette 09/10/24 10:47 e-Cigarette/Vaping Use Never Used 09/10/24 10:47 Are you ready to quit: No Tobacco cessation counseling provided: Yes Items discussed: Nicotine replacement and QuitWorks Relapse Prevention: discussed the importance of a supportive environment, discussed extending NRT, discussed negative mood or depression after quitting, weight gain after smoking is common and discussed dietary, exercise and/or lifestyle changes Number of minutes spent counselin CPT code: 28900 - 4-10 Minutes Thrive Assessment: Date of Thrive Assessment Date Thrive assessed 01/24/24 09/10/24 10:47 Resp Effort & Inspection: normal respiratory effort Auscultation: clear to auscultation bilaterally Cardio Jugular venous distension: no JVD Rate: regular rate Rhythm: regular rhythm Heart sounds: S1 normal heart sound present and S2 normal heart sound present GI Inspection: Yes normal to inspection Palpation (GI): Soft to palpation and Tenderness to palpation present (GI) in the LUQ Auscultation: normal bowel sounds Extrem General: Yes full ROM Office Procedures Flu Questionnaire Does the patient have a severe egg allergy?: No Does the patient have severe life threatening allergies?: No Does the patient have a fever or illness today?: No Has the patient ever had Guillain-Browning Syndrome?: No Has the patient ever had any past reaction to a flu shot?: No Immunizations Fluarix Triv 5204-4417 (PF) 45 mcg (15 mcg x 3)/0.5 mL IM syringe Performing Provider: Nazia Christianson MD [facility] [place] [facility] Administered by: RACHEL Gates on 09/10/24 11:17 Dose Route Admin Location Dispensed Lot Number Expiration Date [facility] Field Sales Engineer 0.5 mL IM Left Deltoid 0.5 mL [id number] 04/01/25 [id number] [employer] VIS Given Date VIS Provided VIS Publication Date 09/10/24 Single Vaccine 21 Eligibility Eligibility Date Funding Source Not VFC Eligible 09/10/24 Private Coding Level of Care Code Est Pt Level 4 (74082) Complex EM visit Add On G2211 Diagnoses Complex cyst of left ovary N83.292 Essential hypertension I10 Chronic idiopathic constipation K59.04 GERD with apnea K21.9; R06.81 Hypovitaminosis D E55.9 Additional Codes Vital Signs *Quality* - CPT code: 05334 - 4-10 Minutes ([id number]) Time Spent (min) 25 Assessment & Plan Assessment & Plan (1) Complex cyst of left ovary: Comment: Persistent since 11/26 and with solid areas Code(s): N83.292 - Other ovarian cyst, left side Category: Medical (2) Essential hypertension: Code(s): I10 - Essential (primary) hypertension Category: Medical (3) Chronic idiopathic constipation: Code(s): K59.04 - Chronic idiopathic constipation Category: Medical (4) GERD with apnea: Comment: 2018 EGD INDICATION: The patient is a 33-year-old female who is being scoped due to severe abdominal pain. Her expression of pain is way out of proportion to any of the laboratory or clinical findings so far. This raises the question of Hyperesthetic or Visceral Hyperalgesic type process which can be with anxiety disorder--that is poorly controlled). The patient has an elevated BMI of 36. She clinically can be at risk for WINTER. ANESTHESIA: MAC anesthesia, Dr. Thakur. PROCEDURE DONE: EGD with biopsy. PROCEDURE IN DETAIL: Videoendoscope was introduced without difficulty. It was navigated into the posterior pharynx. There was a lot of soft tissue present. Arytenoid cartilages were lipomatous and floppy. Vocal cords were not well visualized. Scope easily passed into the esophagus. Esophageal mucosa was normal. There was no obvious hiatal hernia visualized at the time of this examination. On entering the stomach, stomach was empty. There were patchy areas of erythema. No submucosal hemorrhagic change is noted. Duodenal bulb and duodenum had slight patchy erythema as well and endoscopically normal villi. Duodenal biopsies were obtained. Gastric biopsies were obtained. IMPRESSION Superficial gastritis. COMMENT: On examination, the patient does have SI joint tenderness particularly on the left. She has some left-sided lower abdominal pain. She also describes some periumbilical discomfort. PLAN: When the patient is re-seen, please document a detailed symptom pattern and dietary history. Please review laboratory testing that has been done on this patient to include any appropriate measures of inflammatory process or stool testing. Exploration of the possibility of underlying sleep apnea should be considered. Dietary changes to be considered. Assessment of use of cannabinoids to be documented as well. Sintia Hernandez MD cc: NAZIA CHRISTIANSON MD 09/11/2018 08:44:48 Report #: [id number] Status: Signed Electronically Signed 09/13/18 @0728 Dict: 09/11/18 @0844 /Trans: 09/11/18 @1216 /ATS //ivnm// //add1// //add2// //add3// REPORTED BY: DIAGNOSIS A. Duodenum, biopsies: Fragments of unremarkable small intestinal mucosa. B. Gastric, random, biopsies: Fragments of unremarkable fundic-type gastric mucosa. The Helicobacter pylori immunohistochemical stain is negative. Code(s): K21.9 - Gastro-esophageal reflux disease without esophagitis; R06.81 - Apnea, not elsewhere classified Category: Medical (5) Hypovitaminosis D: Code(s): E55.9 - Vitamin D deficiency, unspecified Category: Medical Plan I plan to order labs for her due to her ovarian cyst and refer her back to Dr. Eduardo ABRAHAM. She will continue hydrochlorothiazide for her blood pressure and her blood pressure goal should be equal or less than 130/80. Have a high-fiber diet for her constipation. Continue Pepcid for GERD. I discussed the patient's current evaluation of pelvic pain and the lack of significant findings from recent imaging, addressing her concern about the verbal mention of cancer by another physician without biopsy confirmation. I emphasized the importance of continuous follow-up with a histotechnician to monitor the size and symptoms of the ovarian cyst. We discussed ongoing management of her essential hypertension with medication refills for hydrochlorothiazide. I advised continued management for constipation using dietary fiber and powdered laxatives as existing medications appeared helpful. Additionally, we explored options for smoking cessation support, given her current smoking habits and expressed willingness to reduce intake. Orders: Orders Influenza [id number] Immunization Today Z23 - Encounter for immunization CA-125 Today N83.202 - Unspecified ovarian cyst, left side Complete Blood Count Auto Diff Today D64.9 - Anemia, unspecified, N83.202 - Unspecified ovarian cyst, left side Comprehensive Met. Panel Today N83.202 - Unspecified ovarian cyst, left side Referrals KENO ATTENDANT Referral N83.202 - Unspecified ovarian cyst, left side Medications: Refilled cholecalciferol (vitamin D3) 50 mcg PO DAILY 90 days 90 caps 1RF famotidine (Pepcid) 40 mg PO BEDTIME 90 tabs 1RF hydrochlorothiazide 12.5 mg PO DAILY 90 days 90 tabs 1RF I10 - Essential (primary) hypertension fluoxetine 10 mg PO DAILY 90 days 90 caps 0RF depressive disorder Patient Instructions: - Schedule a follow-up appointment with a histotechnician for the left ovarian cyst. - Fill and take hydrochlorothiazide as directed to manage hypertension. - Continue using fiber supplements and prescribed laxatives for constipation. - Consider smoking reduction strategies and call for support if interested in cessation programs.
[2024-09-10 10:43] VITALS: BP 122/80; BMI 29.0
== END 2024-09-10 11:21 | disposition home or self-care (01) ==
PROVIDERS: PCP Internal Medicine; Visit Provider Internal Medicine
DX: N83.292 Other ovarian cyst, left side (principal); I10 Essential (primary) hypertension; K59.04 Chronic idiopathic constipation; K21.9 Gastro-esophageal reflux disease without esophagitis; R06.81 Apnea, not elsewhere classified; E55.9 Vitamin D deficiency, unspecified; Z23 Encounter for immunization

== ENCOUNTER 2024-09-13 10:29 | Outpatient (AMB) | payer OTHER, SELFPAY ==
--- NOTE | 2024-09-13 10:36 | A.OFFVIS_ITS ---
Intake Visit Reasons: ovarian cyst County Agent Required: Yes County Agent Language: Customer Relations Consultant Services: County Agent Present (in person) County Agent Name: Ade RACHEL Information Interpreted: non-clinical & clinical Dental Laboratory Worker: Dental Laboratory Worker Present (Gaviota Oakley RACHEL) Accompanied by: Parent Allergies No Known Allergies [No Known Allergies*] Allergy (Verified 09/13/24 10:38) HPI Comments Details: Presenting for follow-up. The patient had the following history over the last few months. 11/26 pelvic ultrasound showed the left complex ovarian cyst 04/25 CT scan showed the left complex ovarian cyst CA 125, CEA, CA Dania Danitza-9, LDH within normal 04/25 MRI of the pelvis showed the 1 cm left ovarian hemorrhagic cyst. Dr. Vlilalobos, Gyne Onc consult was reassuring, impression is benign no need for further management, recommended to start on control pills 06/28/24 CT scan pelvic viscera was unremarkable The patient developed left lower quadrant pain on 08/15 went to [facility] emergency room was evaluated, no records available was told that she has a left ovarian cyst. Since then the patient is doing well with no complaints no pelvic pain no urinary or GI symptoms no vaginal discharge PFSH Medical History PONV (postoperative nausea and vomiting) Breast pain, right Fibroadenoma Left ovarian cyst Breast mass, right Lumbar pain IBS (irritable bowel syndrome) Atopic dermatitis Bipolar 1 disorder GERD (gastroesophageal reflux disease) Anxiety Depression Asthma Surgical History History of excision of mass History of umbilical hernia repair H/O hysterectomy with oophorectomy H/O section Hx of esophagogastroduodenoscopy Family History Father Kidney disease Hypertension Family history of breast cancer Mother CVD (cardiovascular disease) Paternal Grandmother Stomach cancer Paternal Aunt Breast cancer Social History Housing: Apartment Alcohol intake: former Comment: pt previously medicated with oxycodone Patient Tobacco Use Status: Current everyday Tobacco user Tobacco use type: Cigarette Cigarette Packs Per Day: 1 Cigarettes Per Day: 20 e-Cigarette/Vaping Use: Never Used Second Hand Smoke Exposure: No Substance Use Type: Marijuana service: No Current occupational status: employed Gender identity: Female Cognitive needs: No Hearing needs: No Vision needs: No Female Reproductive History Menstrual Age of Menarche: 15 Review of Systems Const All systems reviewed & are unremarkable except as noted in HPI and below Card Reports as per HPI and Reports no additional complaints Resp Reports as per HPI and Reports no additional complaints GI Reports as per HPI and Reports no additional complaints Reports as per HPI Physical Exam Const General: cooperative, healthy appearing and comfortable General: Yes bladder normal to palpation External Female Exam: No lesion Speculum Exam - Vagina: normal appearance of the vagina, normal vaginal discharge and not erythematous Speculum Exam - Cervix: Cervix absent Bimanual exam- vagina & uterus: bladder normal to palpation and uterus absent Bimanual Exam- Adnexa, other: Other (No masses detected) Quality Reporting (2019) Adult ([facility] 138/11/24/68) Smoking risk assessment performed?: Yes Patient Tobacco Use Status: Current everyday Tobacco user Assessment & Plan Assessment & Plan (1) Left ovarian cyst: Code(s): N83.202 - Unspecified ovarian cyst, left side Category: Medical Plan: BV panel taken. Pelvic ultrasound ordered will get the medical record from 08/15 ER visit at [facility]. Instructions given the patient to schedule a pelvic ultrasound and a follow-up appointment. All questions answered, the patient verbalized understanding Orders: Orders US pelvic and transvaginal Today N83.202 - Unspecified ovarian cyst, left side Bacterial Vaginosis Panel Today N83.202 - Unspecified ovarian cyst, left side Coding Level of Care Code Est Pt Level 3 (37824) Diagnoses Left ovarian cyst N83.202
== END 2024-09-13 11:02 | disposition home or self-care (01) ==
LOC: HO.HWS 10:29
PROVIDERS: PCP Internal Medicine; Visit Provider Obstetrics & Gynecology
DX: N83.202 Unspecified ovarian cyst, left side (principal)
CPT/HCPCS: 99213

== ENCOUNTER 2024-09-13 10:29 | Outpatient (REF) | payer OTHER, SELFPAY ==
--- OUTSIDE RECORDS SUMMARY | 2024-09-13 11:02 | XMS_ITS | Continuity of Care Document ---
Author Organization [facility] Address [address] [place] [address] Phone Care Team Providers Care Vacuum Pan Tender Name Role Phone Polo Gifford MD Unavailable [...] Copied on Encounter Office/outpat ient visit,est, mod [facility], [address], [place], [place], [id number], [place] tel:[phone] [facility] [place] note back to work (chief complaint) Knee pain, leftSinusitis 4 Ирина Cuellar. [facility] [place], [address], [place]. tel:[phone] OFFICE/OUTPAT IENT VISIT [facility], [address], [place], [place], [id number], [place] tel:[phone] [facility] left knee pain (chief complaint) Right knee pain 4 Ирина Cuellar. [facility] [place], [address], [place]. tel:[phone] Family History Family Member Type Diagnosis Age At Onset No Information Payers Payer name Insurance type Covered alliance party ID Authoriza tidaniela(s) [employer] [place] P[place] [id number] Social History Type Description Quantity Date Captured [...] Mental Status Date Cognitive Assessment Orientation - [place] ed to time, place, person, situation. Patient Care Teams Name Effective Dates (start - stop) Status Members No Information
--- OUTSIDE RECORDS SUMMARY | 2024-09-13 11:02 | XMS_ITS | Continuity of Care Document ---
Author Organization [facility] Address [address] [place] [address] [place] [address] Phone Care Team Providers Care Model Maker Scale Name Role Phone Ines Esparza NP Unavailable Unavailable Allergies, Adverse Reactions, Alerts Substance [...] Diagnoses Date Provider Providers Copied on Encounter [facility], [address] [place] [address], [id number], tel:[phone] [facility] Sam No Information 7 Vilma Chacon. [address] [place] [address], [address], . tel:[phone] ESTABLISHED OFFICE/OUTPAT IENT VISIT [facility], [address] [place] [address], [id number], tel:[phone] [facility] Earache (chief complaint) Otitis externa of left ear, unspecified chronicity, unspecified type 6 Janneth HATFIELD Aclon. [address] [place] [address], [address], [place]. tel:[phone] OFFICE/OUTPAT IENT VISIT EST [facility], [address] [place] [address], [id number], tel:[phone] [facility] Earache (chief complaint) Body mass index (BMI) 37.0-37.9, adultEncounter for screening for diabetes mellitusLeft acute otitis mediaFamily history of diabetes mellitus (DM)Encounter for screening, unspecified 6 No Information NEW OFFICE/OUTPAT IENT VISIT [facility], [address] [place] [address], [id number], [place] tel:[phone] [facility] [place] Ear pain (chief complaint) Acute swimmer's ear of left side 5 No Information Family History Family Member Type Diagnosis Age At Onset No Information Payers Payer name Insurance type Covered libertarian ID Authorheathera israel(s) [employer] [facility] CI [id number] Social History Type Description Quantity Date Captured Comments Sex Female Smoking Status No Information Chief Complaint And Reason For Visit No Information Reason For Referral Reason For Referral No Information Plan Of Treatment Date Type Action Status Future Order: Lab Order Comprehe nsive Metabolic Panel ([id number]), Appointment on: , Collected on: , Sent on: Sent Future Order: Lab Order Hemoglob in A1c ([id number]), Appointment on: , Collected on: , Sent on: Sent Future Order: Lab Order Lipid Pa eboni ([id number]), Appointment on: , Collected on: , Sent on: Sent Future Order: Lab Order TSH ([id number]), Appointment on: , Collected on: , Sent on: Sent Future Order: Lab Order CBC With Differential/Platelet ([id number]), Appointment on: , Collected on: , Sent [...] Additional information: Has had otitis externa in [facility]. Ear pain Onset: 4 days ag o. [...] Patient understood a nd made informed decision Warm compresses Take new medication as prescribe d Assessments Type Assessment Date No Information Patient Care Teams Name Effective Dates (start - stop) Status Members No Information
[2024-09-14 13:16] LABS: Bacterial Vaginosis PCR POSITIVE (Negative); Candida Group PCR NOT DETECTED (Not Detect); Candida glab krusei PCR NOT DETECTED (Not Detect); Trichomonas vaginalis PCR NOT DETECTED (Not Detect)
== END 2024-09-13 10:30 | disposition home or self-care (01) ==
LOC: HO.LNP 10:29
PROVIDERS: PCP Internal Medicine; Visit Provider Obstetrics & Gynecology
DX: N83.292 Other ovarian cyst, left side (principal)
CPT/HCPCS: 0352U; 99212; 99459

== ENCOUNTER 2024-09-21 10:21 | Outpatient (REF) | payer OTHER, SELFPAY ==
--- OUTSIDE RECORDS SUMMARY | 2024-09-21 10:42 | XMS_ITS | Continuity of Care Document ---
Author Organization [facility] Address [address] [place] [address] Phone Care Team Providers Care Cook Fish And Chips Name Role Phone Polo Gifford MD Unavailable [...] Encounter Office/outpat ient visit,est, mod [facility], [address], [place], [place], [id number], [place] tel:[phone] [facility] Doctor note back to work (chief complaint) Knee pain, leftSinusitis 4 Ирина Cuellar. [facility] [place], [address], [place]. tel:[phone] OFFICE/OUTPAT IENT VISIT [facility], [address], [place], [place], [id number], [place] tel:[phone] [facility] Care left knee pain (chief complaint) Right knee pain 4 Ирина Cuellar. [facility] [place], [address], [place]. tel:[phone] Family History Family Member Type Diagnosis Age At Onset No Information Payers Payer name Insurance type Covered green party ID Authoriza tidaniela(s) [employer] [place] P[place] [id number] Social History Type Description Quantity Date Captured [...] Mental Status Date Cognitive Assessment Orientation - [place] ed to time, place, person, situation. Patient Care Teams Name Effective Dates (start - stop) Status Members No Information
--- OUTSIDE RECORDS SUMMARY | 2024-09-21 10:42 | XMS_ITS | Continuity of Care Document ---
Author Organization [facility] ic Address [address] [place] [address] [place] [address] Phone Care Team Providers Care Clod Puller Name Role Phone Ines Esparza NP Unavailable [...] Diagnoses Date Provider Providers Copied on Encounter [facility], [address] [place] [address], [id number], tel:[phone] [facility] Asm No Information 7 Vilma Chacon. [address] [place] [address], [address], . tel:[phone] ESTABLISHED OFFICE/OUTPAT IENT VISIT [facility], [address] [place] [address], [id number], tel:[phone] [facility] Earache (chief complaint) Otitis externa of left ear, unspecified chronicity, unspecified type 6 Janneth HATFIELD Alcon. [address] [place] [address], [address], [place]. tel:[phone] OFFICE/OUTPAT IENT VISIT EST [facility], [address] [place] [address], [id number], tel:[phone] [facility] Earache (chief complaint) Body mass index (BMI) 37.0-37.9, adultEncounter for screening for diabetes mellitusLeft acute otitis mediaFamily history of diabetes mellitus (DM)Encounter for screening, unspecified 6 No Information NEW OFFICE/OUTPAT IENT VISIT [facility], [address] [place] [address], [id number], [place] tel:[phone] [facility] [place] Ear pain (chief complaint) Acute swimmer's ear of left side 5 No Information Family History Family Member Type Diagnosis Age At Onset No Information Payers Payer name Insurance type Covered green party ID Authorheathera israel(s) GTCIPA [facility] CI [id number] Social History Type Description Quantity Date Captured Comments Sex Female Smoking Status No Information Chief Complaint And Reason For Visit No Information Reason For Referral Reason For Referral No Information Plan Of Treatment Date Type Action Status Future Order: Lab Order CBC With Differential/Platelet ([id number]), Appointment on: , Collected on: , Sent on: Sent Future Order: Lab Order Hemoglob in A1c ([id number]), Appointment on: , Collected on: , Sent on: Sent Future Order: Lab Order Lipid Pa eboni ([id number]), Appointment on: , Collected on: , Sent on: Sent Future Order: Lab Order TSH ([id number]), Appointment on: , Collected on: , Sent on: Sent Future Order: Lab Order Arden martinive Metabolic Panel ([id number]), Appointment on: , Collected on: , Sent [...] Additional information: Has had otitis externa in [facility]. Ear pain Onset: 4 days ag [...] side Take new medication as prescribe d Patient understood a nd made informed decision Warm compresses Assessments Type Assessment Date No Information Patient Care Teams Name Effective Dates (start - stop) Status Members No Information
== END 2024-09-21 10:22 | disposition home or self-care (01) ==
LOC: HO.US 10:21
PROVIDERS: PCP Internal Medicine; Visit Provider Obstetrics & Gynecology
DX: N83.202 Unspecified ovarian cyst, left side (principal)
CPT/HCPCS: 76830; 76856

== ENCOUNTER 2024-10-15 11:58 | Emergency (ER) | payer OTHER, SELFPAY ==
--- NOTE | ~2024-10-15 | CT_ITS ---
CLINICAL HISTORY: L flank pain Exam: CT abdomen and pelvis without intravenous contrast. Comparison: June 28, 2024. Findings: CT abdomen: Mild hazy density seen within the lung bases without dense infiltrate or pleural effusion. No focal bony lesions. No renal or ureteral calculi. No hydronephrosis or perinephric stranding. Unenhanced liver, spleen, pancreas, gallbladder, and adrenal glands are unremarkable. Moderate amount of ingested contents within the stomach. Fluid-filled loops of nondilated small bowel. Small mesenteric lymph nodes all measure less than 5 mm in short axis. These are increased in number but not size. No free fluid or free air. CT pelvis: No findings of appendicitis. There is a 1 mm calcification in the right lower quadrant which is adjacent to the appendix. However, this is within the gonadal vein and not the appendix. No colonic wall thickening or pericolonic inflammatory stranding. Uterus is surgically absent. There is continued air within the upper vagina. Poorly defined tissue plane between the rectum/anus in the vagina. Impression: 1. No renal or ureteral calculi. 2. Hazy density in the lungs is likely related to atelectasis. 3. No appreciable tissue plane between the distal rectum/anus in the vagina with air within the vagina as seen previously. 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 Possibility of recurrent fistula is not excluded on these images and correlation with physical examination suggested. This document has been electronically signed by: Simone Parker MD on 10/15/2024 22:19:44
[2024-10-15 13:54] VITALS: BP 120/83; PULSE 72; RESP 16; TEMP 36.4; O2SAT 100; BMI 28.3
--- NOTE | 2024-10-15 13:54 | ED_ITS ---
HPI - General Adult General Chief complaint: Abdominal Pain Stated complaint: Left Side Pain Time Seen by Provider: 10/15/24 20:48 Source: patient Mode of arrival: ambulatory Limitations: no limitations History of Present Illness ED Provider: Will Cuenca HPI narrative: 39-year-old female history of IBS, GERD, ovarian cyst hypotension presents to the ED for left-sided abdominal pain some dysuria. Patient denies any vaginal bleed or vaginal discharge. Patient denies any bloody urine. Patient also states diarrhea with nausea. Patient denies any bloody stool Related Data Previous Rx's ?Medication ?Instructions ?Recorded bisacodyl 5 mg tablet,delayed 10 mg (2 x 5 mg) PO BEDTIME 30 01/24/24 release (Dulcolax (bisacodyl)) days #60 tabs linaclotide 72 mcg capsule 72 mcg PO QAM #30 caps 01/24/24 (Linzess) methocarbamol 500 mg tablet 500 mg PO TID muscle spasms 30 01/24/24 days #90 tabs ibuprofen 800 mg tablet 800 mg PO Q8H PRN pain 30 days #90 06/10/24 tabs sumatriptan succinate 25 mg tablet 25 mg PO Q2-4H PRN migraine 06/24/24 headache 30 days #9 tabs ondansetron 4 mg disintegrating 4 mg PO Q8H PRN nausea and 06/29/24 tablet vomiting #20 tabs cholecalciferol (vitamin D3) 50 50 mcg PO DAILY 90 days #90 caps 09/10/24 mcg (2,000 unit) capsule famotidine 40 mg tablet (Pepcid) 40 mg PO BEDTIME #90 tabs 09/10/24 fluoxetine 10 mg capsule 10 mg PO DAILY depressive disorder 09/10/24 90 days #90 caps hydrochlorothiazide 12.5 mg tablet 12.5 mg PO DAILY 90 days #90 tabs 09/10/24 pantoprazole 40 mg tablet,delayed 40 mg PO DAILY 90 days #90 tabs 10/10/24 release tramadol 50 mg tablet 50 mg PO DAILY PRN pain 30 days 10/10/24 #20 tabs cephalexin 500 mg capsule 500 mg PO BID #13 caps 10/15/24 phenazopyridine 200 mg tablet 200 mg PO TID PRN pain #10 tabs 10/15/24 (Pyridium) Allergies Allergy/AdvReac Type Severity Reaction Status Date / Time No Known Allergies Allergy Verified 10/15/24 13:56 [No Known Allergies*] Review of Systems 2 Review of Systems: Abdominal pain, dysuria Yes all other systems are reviewed and are negative [facility] Past Medical History Medical History PONV (postoperative nausea and vomiting) Breast pain, right Fibroadenoma Left ovarian cyst Breast mass, right Lumbar pain IBS (irritable bowel syndrome) Atopic dermatitis Bipolar 1 disorder GERD (gastroesophageal reflux disease) Anxiety Depression Asthma Surgical History History of excision of mass History of umbilical hernia repair H/O hysterectomy with oophorectomy H/O section Hx of esophagogastroduodenoscopy Family History Family History Father Kidney disease Hypertension Family history of breast cancer Mother CVD (cardiovascular disease) Paternal Grandmother Stomach cancer Paternal Aunt Breast cancer Social History Social History Housing: Apartment Alcohol intake: former Comment: pt previously medicated with oxycodone Patient Tobacco Use Status: Current everyday Tobacco user Tobacco use type: Cigarette Cigarette Packs Per Day: 1 Cigarettes Per Day: 20 e-Cigarette/Vaping Use: Never Used Second Hand Smoke Exposure: No Substance Use Type: Marijuana Advance Directives: No Advance Directives Information Provided: Yes Do you have a plan to hurt others: No Plan service: No Current occupational status: employed Gender identity: Female Cognitive needs: No Hearing needs: No Vision needs: No Physical Exam ED Vital Signs: Vital Signs - 24 hr 10/15/24 22:49 Temperature 97.6 F Pulse Rate 72 Respiratory Rate 16 Blood Pressure 120/83 Pulse Oximetry 100 Oxygen Delivery Method Room Air BMI result Body Mass Index 28.3 Const General: cooperative, healthy appearing, comfortable, no acute distress, well developed, alert, awake and Physically active Orientation/consciousness: patient oriented x3 HENMT Head: Yes normal to inspection, Yes No palpable skull fracture present and Yes normocephalic Eyes General: appearance normal, both eyes and all related structures Neck Neck: Yes normal visual inspection, Yes full ROM, Yes no lymphadenopathy, Yes no meningeal signs, Yes trachea midline, Yes supple, No anterior neck swelling and No tender Chest Chest palpation & inspection: normal inspection of the chest and normal palpation of entire chest wall Resp Effort & Inspection: normal respiratory effort and able to speak in complete sentences Auscultation: clear to auscultation bilaterally Cardio Jugular venous distension: no JVD Heart sounds: S1 normal heart sound present and S2 normal heart sound present GI Inspection: Yes normal to inspection Palpation (GI): Soft to palpation, not firm, Tenderness to palpation present (GI) in the LLQ (Mild), no guarding and not rigid General: Yes no CVA tenderness Back/Spine/Pelvis Back: no CVA tenderness and No back tenderness Skin General skin exam: no rashes or lesions noted, elasticity normal and turgor normal Neuro General: patient oriented x3, gait normal, tone normal, moves all extremities, Normal light touch and pain sensation, no meningeal signs, no focal motor deficits, CN's II-XI intact bilaterally and normal sensation to monofilament Extrem General: Yes normal to inspection, Yes full ROM and Yes capillary refill normal Psych Appearance: grossly normal, well kempt and not disheveled Course Course Course Narrative: This is a rapid medical exam performed by Temi Parish NP: Additional HPI, ROS, PE not included below will be deferred to primary provider. Patient is a 39-year-old female with history of chronic idiopathic constipation, ovarian cyst, Bipolar depression, HTN, GERD, IBS presenting with complaint of left sided abdominal pain, nausea, and vomiting since Tuesday. Plan: labs, UA, viral serology Reevaluation(s) Reevaluation #1: I Zandra Stein PA-C have accepted care of the patient and signed out pending CT scan and likely discharge home I have independently reviewed the following tests: CT abdomen and pelvis:mpression: 1. No renal or ureteral calculi. 2. Hazy density in the lungs is likely related to atelectasis. 3. No appreciable tissue plane between the distal rectum/anus in the vagina with air within the vagina as seen previously. 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 Possibility of recurrent fistula is not excluded on these images and correlation with physical examination suggested. This document has been electronically signed by: Simone Parker MD on 10/15/2024 22:19:44 Medications Administered Discontinued Medications Generic Name Dose Route Start Last Admin Trade Name Stanq PRN Reason Stop Dose Admin Hydrocodone Bitart/Acetaminophen 1 tab 10/15/24 20:45 10/15/24 21:53 Hydrocodone Bit/Acetam 5/325 Tablet PO 10/15/24 20:46 1 tab ONCE ONE Administration Cephalexin HCl 500 mg 10/15/24 22:29 10/15/24 22:48 Cephalexin 500 Mg Capsule PO 10/15/24 22:30 500 mg ONCE ONE Administration Ketorolac Tromethamine 30 mg 10/15/24 21:04 10/15/24 21:51 Ketorolac Tromethamine 30 Mg/Ml Vial IM 10/15/24 21:05 30 mg ONCE ONE Administration Ondansetron HCl 4 mg 10/15/24 16:05 10/15/24 16:06 Ondansetron Odt 4 Mg Tab.Rapdis TRANSLINGU 10/15/24 16:06 4 mg ONCE ONE Administration Potassium Chloride 40 meq 10/15/24 20:45 10/15/24 22:00 Potassium Chloride Er 20 Meq Tab.Er.Prt PO 10/15/24 20:46 40 meq ONCE ONE Administration Medical Decision Making Medical Decision Making MDM Narrative: 39-year-old female presents to ED abdominal pain, diarrhea, nausea vomiting, and and mild dysuria. UA shows UTI patient going for dry CT scan. Negative white blood cell 10:00am: Patient was given Toradol for pain. You were small UTI. Abdominal CT scan pending. Case signed out to JENNIFER Arrington. Differential Diagnosis Differential Diagnoses: The differential diagnosis associated with the presentation includes (UTI, kidney stone, colitis) Admission/Observation Consideration of admission/observation: Escalation of care including admission/observation considered Lab Data 10/15/24 14:55 10/15/24 14:55 Labs: Lab Results 10/15/24 10/15/24 10/15/24 Range/Units 14:54 14:55 20:09 WBC 7.5 (4.8-10.8) X10*3/uL RBC 5.04 (4.20-5.50) X10*6/uL Hgb 14.0 (12.0-16.0) g/dl Hct 42.0 (37.0-47.0) % MCV 83.3 (80.0-98.0) fL MCH 27.8 (27.0-33.0) pg MCHC 33.3 (31.0-35.0) g/dl RDW 14.4 (11.0-16.0) % Plt Count 260 (160-400) X10*3/uL MPV 10.2 (9.4-12.3) fL Immature Gran % (Auto) 0.4 (0.0-0.4) % Neut % (Auto) 63.6 (45-73) % Lymph % (Auto) 28.2 (20-40) % [place] % (Auto) 6.4 (2-11) % Eos % (Auto) 1.1 (0-4) % Baso % (Auto) 0.3 (0-2) % Lymph # (Auto) 2.1 (1.2-4.9) X10*3/uL [place] # (Auto) 0.5 (0.1-1.2) X10*3/uL Eos # (Auto) 0.1 (0.0-0.4) X10*3/uL Baso # (Auto) 0.0 (0.0-0.2) X10*3/uL Abs Immat Gran (auto) 0.03 (0.00-0.03) X10*3/uL Absolute Neuts (auto) 4.8 (2.0-8.3) x10*3/uL Absolute Nucleated RBC 0.000 (0.0-0.012) X10*3/uL Nucleated RBC % (auto) 0.0 (0.0-0.2) /100WBC ESR 10 (0-20) MM/HR PT 11.5 (10.9-12.4) SEC INR 1.0 (0.9-1.1) Sodium 139 (135-145) mmol/L Potassium 3.2 L (3.3-5.1) mmol/L Chloride 106 (96-108) mmol/L Carbon Dioxide 28 (22-29) mmol/L Anion Gap 8 L (12-20) BUN 15 (9-16) mg/dL Creatinine 0.75 (0.5-1.4) mg/dL Estim Creat Clear Calc 101.7 Estimated GFR > 60 Random Glucose 83 (60-115) mg/dL Calcium 9.1 D (8.4-10.2) mg/dL Magnesium 2.0 (1.6-2.6) mg/dL Total Bilirubin 0.5 (0.0-1.0) mg/dL AST 31 (5-31) U/L ALT 32 H (0-31) U/L Alkaline Phosphatase 45 (39-117) U/L C-Reactive Protein 2.03 H (< or = 0.50) mg/dL Total Protein 6.8 (6.5-8.0) g/dL Albumin 3.8 (3.5-5.0) g/dL Beta HCG, Quant < 2 mIU/mL Urine Color Dark Yellow Urine Appearance Turbid Urine pH 5.5 (5.0-9.0) Ur Specific [place] >= 1.030 H (1.005-1.025) Urine Protein Trace (Neg-Trace) mg/dL Urine Glucose (UA) Negative (Negative) mg/dL Urine Ketones Trace (Negative) mg/dL Urine Blood Small (1+) H (Negative) Urine Nitrite Positive H (Negative) Ur Leukocyte Esterase Negative (Negative) Urine RBC 3-5 H (0-2) /HPF Urine WBC 0-5 (0-5) /HPF Ur Squamous Epith Cells >20 (0-2) /HPF Urine Bacteria 4+ (None Seen) Hyaline Casts 0-2 (0-2) /LPF Influenza Type A (PCR) NEGATIVE (Negative) Influenza Type B (PCR) NEGATIVE (Negative) RSV RNA Qual (PCR) NEGATIVE (Negative) SARS-CoV-2 RNA (RT-PCR) NEGATIVE (Negative) Independent Historian Clinical information obtained from an independent historian. History obtained from or confirmed by: Other (Patient) Discharge Plan Discharge Clinical Impression: UTI (urinary tract infection) Patient Disposition: Home, Self-Care Instructions: Urinary Tract Infection in Women (ED) Additional Instructions: The CT scan of the abdomen and pelvis was unremarkable. You do not have an acute process going on at this time. You have a urinary tract infection. See home care instructions. Use the cephalexin as directed, this is an antibiotic. You received your 1st dose this evening in the ER. Use the Pyridium as needed for urinary pain, to note it will cause your urine to become fluorescent orange, this will resolve. Follow up with your primary care provider as needed. Prescriptions: New cephalexin 500 mg capsule 500 mg PO BID Qty: 13 0RF phenazopyridine [Pyridium] 200 mg tablet 200 mg PO TID PRN (Reason: pain) Qty: 10 0RF No Action ibuprofen 800 mg tablet 800 mg PO Q8H PRN (Reason: pain) 30 Days Qty: 90 1RF sumatriptan succinate 25 mg tablet 25 mg PO Q2-4H PRN (Reason: migraine headache) 30 Days Qty: 9 0RF Rx Instructions: do not exceed 8 doses per 24 hrs pantoprazole 40 mg tablet,delayed release (DR/EC) 40 mg PO DAILY 90 Days Qty: 90 1RF tramadol 50 mg tablet 50 mg PO DAILY PRN (Reason: pain) 30 Days Qty: 20 0RF ondansetron 4 mg tablet,disintegrating 4 mg PO Q8H PRN (Reason: nausea and vomiting) Qty: 20 0RF bisacodyl [Dulcolax (bisacodyl)] 5 mg tablet,delayed release (DR/EC) 10 mg PO BEDTIME 30 Days Qty: 60 3RF Linzess 72 mcg capsule 72 mcg PO QAM Qty: 30 3RF methocarbamol 500 mg tablet 500 mg PO TID 30 Days Qty: 90 0RF hydrochlorothiazide 12.5 mg tablet 12.5 mg PO DAILY 90 Days Qty: 90 1RF cholecalciferol (vitamin D3) 50 mcg (2,000 unit) capsule 50 mcg PO DAILY 90 Days Qty: 90 1RF famotidine [Pepcid] 40 mg tablet 40 mg PO BEDTIME Qty: 90 1RF fluoxetine 10 mg capsule 10 mg PO DAILY 90 Days Qty: 90 0RF Interventions: ED Discharge Assessment Last Done: 10/15/24 22:49 Discharge Date/Time: 10/15/24 22:49 Print Language: Danish
[2024-10-15 15:00] LABS: MANUAL DIFF FLAG NO
[2024-10-15 15:02] LABS: Basophils Percent Auto 0.3 % (0-2); Eosinophils Absolute Auto 0.1 X10*3/uL (0.0-0.4); Eosinophils Percent Auto 1.1 % (0-4); Imm Gran Abs Auto 0.03 X10*3/uL (0.00-0.03); Imm Gran Pct Auto 0.4 % (0.0-0.4); Lymphocytes Absolute Auto 2.1 X10*3/uL (1.2-4.9); Lymphocytes Percent Auto 28.2 % (20-40); Mean Corpuscular HGB Conc 33.3 g/dl (31.0-35.0); Mean Corpuscular Hemoglobin 27.8 pg (27.0-33.0); Mean Corpuscular Volume 83.3 fL (80.0-98.0); Mean Platelet Volume 10.2 fL (9.4-12.3); Monocytes Absolute Auto 0.5 X10*3/uL (0.1-1.2); Monocytes Percent Auto 6.4 % (2-11); Neutrophils Absolute Auto 4.8 x10*3/uL (2.0-8.3); Neutrophils Percent Auto 63.6 % (45-73); Platelet Count 260 X10*3/uL (160-400); Red Blood Count 5.04 X10*6/uL (4.20-5.50); Red Cell Distribution Width 14.4 % (11.0-16.0); White Blood Count 7.5 X10*3/uL (4.8-10.8)
[2024-10-15 15:08] LABS: Prothrombin Time 11.5 SEC (10.9-12.4)
[2024-10-15 15:39] LABS: Erythrocyte Sedimentation Rate 10 MM/HR (0-20)
[2024-10-15 15:47] LABS: Influenza A PCR NEGATIVE (Negative); Influenza B PCR NEGATIVE (Negative); Resp Syncy Virus RNA Qual PCR NEGATIVE (Negative); SARS COV2 PCR INHOUSE NEGATIVE (Negative)
[2024-10-15 15:52] LABS: Alanine Aminotransferase 32 U/L (0-31); Albumin Level 3.8 g/dL (3.5-5.0); Alkaline Phosphatase 45 U/L (39-117); Anion Gap 8 (12-20); Aspartate Amino Transferase 31 U/L (5-31); Bilirubin Total 0.5 mg/dL (0.0-1.0); Blood Urea Nitrogen 15 mg/dL (9-16); C Reactive Protein 2.03 mg/dL (< or = 0.50); Calcium 9.1 mg/dL (8.4-10.2); Carbon Dioxide 28 mmol/L (22-29); Chloride 106 mmol/L (96-108); Creatinine Clr Calc Pharmacy 101.7; Estimated Glomerular Filt Rate > 60; Glucose Random 83 mg/dL (60-115); Potassium 3.2 mmol/L (3.3-5.1); Sodium 139 mmol/L (135-145); Total Protein 6.8 g/dL (6.5-8.0)
[2024-10-15 16:05] LABS: HCG Quantitative < 2 mIU/mL
[2024-10-15] MEDS: Ondansetron ODT 4 MG TAB.RAPDIS TRANSLINGU (16:06)
[2024-10-15 20:22] LABS: Appearance Urine Turbid; Color Urine Dark Yellow; Glucose Urine UA Negative (Negative); Leukocyte Esterase Urine Negative (Negative); Nitrite Urine Positive (Negative); PH 5.5 (5.0-9.0); Specific Gravity - Urine >= 1.030 (1.005-1.025); UMIC TRIGGER UACC YES; Urine Blood Small (1+) (Negative); Urine Ketones Trace mg/dL (Negative); Urine Protein Trace mg/dL (Neg-Trace)
[2024-10-15 20:46] LABS: Bacteria Urine 4+ (None Seen); Hyaline Casts Urine 0-2 /LPF (0-2); Squamous Epithelial Cell Urine >20 /HPF (0-2); UACC Culture Trigger YES; WBC Urine 0-5 /HPF (0-5)
[2024-10-15] MEDS: Ketorolac Tromethamine 30 MG/ML VIAL IM (21:51)
[2024-10-15] MEDS: HYDROcodone Bit/Acetam 5/325 TABLET 1 TAB PO (21:53)
[2024-10-15] MEDS: Potassium Chloride ER 20 MEQ TAB.ER.PRT 40 MEQ PO (22:00)
[2024-10-15] MEDS: cephALEXin 500 MG CAPSULE PO (22:48)
[2024-10-15 22:49] VITALS: BP 120/83; PULSE 72; RESP 16; TEMP 36.4; O2SAT 100
== END 2024-10-15 22:49 | disposition home or self-care (01) ==
PROVIDERS: Registered Nurse Emergency; Emergency Provider Internal Medicine; PCP Internal Medicine
DX: N39.0 Urinary tract infection, site not specified (principal); F17.210 Nicotine dependence, cigarettes, uncomplicated; Z03.818 Encounter for observation for suspected exposure to other biological agents ruled out; J45.909 Unspecified asthma, uncomplicated
CPT/HCPCS: 0241U; 74176; 80053; 81001; 83735; 84702; 85025; 85610; 85652; 86140; 87086; 87088; 87186; 96372; 99283; 99284; J1885

== ENCOUNTER → 2024-10-15 20:48 | Outpatient (BNV) | payer OTHER, SELFPAY | PROVIDERS: Emergency Provider Internal Medicine; PCP Internal Medicine; Visit Provider Radiology Diagnostic Radiology | DX: R10.9 Unspecified abdominal pain (principal) | CPT/HCPCS: 74176 ==

== ENCOUNTER 2024-10-19 14:04 | Outpatient (AMB) | payer OTHER, SELFPAY ==
--- NOTE | 2024-10-19 14:07 | A.OFFPC_ITS ---
Vital Signs 10/19/24 14:08 Height 5 ft 4 in Weight 178 lb 8 oz BMI 30.6 BP 140/62 H Blood Pressure Location Lt brachial Position Sitting Pulse 83 Pulse Source Pulse Oximeter Temp 97.1 F Temp Source Skin Pulse Oximetry (%) 97 Oxygen Delivery Method Room Air Intake Visit Reasons: [facility] 10/15 LT Pain on her torso Intake Note: Patient is here to follow-up after a visit the emergency department at [facility] on 10/15/24. Requesting for GI referral Closing Supervisor Required: Yes Closing Supervisor Language: Traveler Changer Name: Pasquale ([id number]) Information Interpreted: non-clinical & clinical Vessel Engineer: Not Required per policy Accompanied by: Self / Same As Patient Allergies No Known Allergies [No Known Allergies*] Allergy (Verified 10/19/24 14:08) Tobacco use date assessed: 10/19/24 Dental Screening Dental Screen Date: 10/19/24 Did you have a dental visit in the last 12 months?: Yes Did you have a dental problem in the last 6 months where you did not have access to dental care?: No Was dental information given to patient?: Patient has dentist HPI HPI Comments History of Present Illness Details 39 y/o female patient who presents to e clinic today for EDF. She was admitted at [facility] on 10/15/24 and discharged home the same day due to UTI. She was prescribed Oral Abx and completed the course. Today Pt reports that continues to have left Lower abdominal pain - that has been going on for 3 years now. Pt had CT-scan in the ED that was unremarkable. Pt used to see GI in the past - she would like to schedule a f/u appointment with them. Today denies bladder symptoms. Per chart review; Pt recently had Pelvic MRI 04/06/2024 that showed 2 complex lesions left Ovary. She was evaluated by [facility] 04[facility]23[facility]24. [facility] Medical History PONV (postoperative nausea and vomiting) Breast pain, right Fibroadenoma Left ovarian cyst Breast mass, right Lumbar pain IBS (irritable bowel syndrome) Atopic dermatitis Bipolar 1 disorder GERD (gastroesophageal reflux disease) Anxiety Depression Asthma Surgical History History of excision of mass History of umbilical hernia repair H/O hysterectomy with oophorectomy H/O section Hx of esophagogastroduodenoscopy Family History Father Kidney disease Hypertension Family history of breast cancer Mother CVD (cardiovascular disease) Paternal Grandmother Stomach cancer Paternal Aunt Breast cancer Social History Housing: Apartment Alcohol intake: former Comment: pt previously medicated with oxycodone Patient Tobacco Use Status: Current everyday Tobacco user Tobacco use type: Cigarette Cigarette Packs Per Day: 1 Cigarettes Per Day: 8 e-Cigarette/Vaping Use: Never Used Second Hand Smoke Exposure: Yes Substance Use Type: Marijuana service: No Current occupational status: employed Gender identity: Female Cognitive needs: No Hearing needs: No Vision needs: No Female Reproductive History Menstrual Age of Menarche: 15 Questionnaire PHQ-9 Over the last 2 weeks, how often have you been bothered by any of the following problems? 1. Little interest or pleasure in doing things: not at all 2. Feeling down, depressed, or hopeless: not at all 3. Trouble falling or staying asleep, or sleeping too much: not at all 4. Feeling tired or having little energy: not at all 5. Poor appetite or overeating: not at all 6. Feeling bad about yourself - or that you are a failure or have let yourself or your family down: not at all 7. Trouble concentrating on things, such as reading the newspaper or watching television: not at all 8. Moving or speaking so slowly that other people could have noticed. Or the opposite - being so fidgety or restless that you have been moving around a lot more than usual: not at all 9. Thoughts that you would be better off or of hurting yourself in some way: not at all Total score: 0 Depression Screening Interpretation: Negative Depression Screening Done: Yes Source: Developed by Drs. Tico Scherer, Lesley Rizzo, Garcia Forman and colleagues, with an educational amena from [employer]. Thrive Questionnaire Date Thrive assessed: 10/19/24 I am a: Patient What is your living situation today?: I have a steady place to live Within the past 12 months, did the food you bought not last and you didn't have the money to get more?: Never true Within the past 12 months, did you worry whether your food would run out before you got money to buy more?: Never true Do you have trouble paying for medicines?: No Do you have trouble getting transportation to medical appointments?: No Do you have trouble paying your heating and electricity bill?: No Do you have trouble taking care of your child, family member or friend?: No Do you have trouble with day-to-day activities such as bathing, preparing meals, shopping, managing finances, etc.?: No Are you currently unemployed and looking for a job?: No Are you interested in more education?: No Please select the resources that you would like help with: None Currently or been in a relationship where the following occur: No concerns reported THRIVE Score: 0 AUDIT C Alcohol Use Questionnaire (AUDIT-C) 1. How often do you have a drink containing alcohol?: Never Total Score: 0 ERIK-7 AMB Questionnaire ERIK-7 Date ERIK - 7 assessed: 10/19/24 Feeling nervous, anxious, or on edge: 0 = Not at all Not being able to stop or control worryin = Not at all Worrying too much about different things: 0 = Not at all Trouble relaxin = Not at all Being so restless that it is hard to sit still: 0 = Not at all Becoming easily annoyed or irritable: 0 = Not at all Feeling afraid as if something awful might happen: 0 = Not at all Total ERIK-7 score (0-4 normal; 5-9 mild; 10-14 moderate; 15-21 severe): 0 Source: Developed by Drs. Tico Scherer, Lesley Rizzo, Garcia Forman and colleagues, with an educational amena from [employer]. Review of Systems Const All systems reviewed & are unremarkable except as noted in HPI and below Physical exam (Primary Care) Vital Signs: Last Vital Signs Temp 97.1 F 10/19/24 14:08 Pulse 83 10/19/24 14:08 BP 140/62 H 10/19/24 14:08 Pulse Ox 97 10/19/24 14:08 Oxygen Delivery Method Room Air 10/19/24 14:08 BMI result Body Mass Index 30.6 Tobacco/Smoking Status: Tobacco use Status Tobacco use date assessed 10/19/24 10/19/24 14:19 Patient Tobacco Use Status Current everyday Tobacco 10/19/24 14:19 Tobacco use type Cigarette 10/19/24 14:19 e-Cigarette/Vaping Use Never Used 10/19/24 14:19 PHQ-9: PHQ-9 Score PHQ-9: Total score 0 10/19/24 14:19 Depression Screening Interpretation: Negative Thrive Assessment: Date of Thrive Assessment Date Thrive assessed 10/19/24 10/19/24 14:19 Currently or been in a relationship where the following occur: No concerns reported Const General: cooperative and no acute distress Nutritional Appearance: obese Orientation/consciousness: patient oriented x3 Resp Effort & Inspection: normal respiratory effort and able to speak in complete sentences Auscultation: clear to auscultation bilaterally Cardio Heart sounds: S1 normal heart sound present and S2 normal heart sound present GI Inspection: Yes Abdominal panniculus present and Yes obesity Palpation (GI): Soft to palpation, not firm, Tenderness to palpation present (GI) in the LLQ, no guarding, not rigid and No hepatosplenomegaly present Auscultation: normal bowel sounds Rectal Exam - Female: deferred Neuro General: patient oriented x3, gait normal and moves all extremities Psych Speech and movement: Normal speech and movement present Coding Level of Care Code Est Pt Level 4 (40609) Diagnoses Acute cystitis without hematuria N30.00 Urinary tract infection type: acute cystitis Hematuria presence: without hematuria Time Spent (min) 20 Assessment & Plan Assessment & Plan (1) UTI (urinary tract infection): Code(s): N39.0 - Urinary tract infection, site not specified Qualifiers: Urinary tract infection type: acute cystitis Hematuria presence: withou t hematuria Qualified Code(s): N30.00 - Acute cystitis without hematuria Plan: UTI resolved. Advised Pt to f/u with GI and [facility] regarding her persistent chronic LLQ Abd pain.
[2024-10-19 14:08] VITALS: BP 140/62; PULSE 83; TEMP 36.2; O2SAT 97; BMI 30.6
== END 2024-10-19 15:21 | disposition home or self-care (01) ==
PROVIDERS: PCP Internal Medicine; Visit Provider Nurse Practitioner Family
DX: N30.00 Acute cystitis without hematuria (principal)

== ENCOUNTER → 2024-10-19 14:04 | Outpatient (BNVA) | payer OTHER, SELFPAY | PROVIDERS: PCP Internal Medicine; Visit Provider Nurse Practitioner Family | DX: N30.00 Acute cystitis without hematuria (principal) | CPT/HCPCS: 99212 ==

== ENCOUNTER 2024-11-27 11:20 | Outpatient (AMB) | payer OTHER, SELFPAY ==
--- NOTE | 2024-11-27 11:24 | A.OFFVIS_ITS ---
Vital Signs 11/27/24 11:26 Height 5 ft 4 in Weight 178 lb BMI 30.6 Intake Visit Reasons: Us Follow up Crack Off Person Required: Yes Crack Off Person Language: Faculty Support Coordinator Services: Crack Off Person Present (in person) Crack Off Person Name: Gaviota RAMOS Information Interpreted: non-clinical & clinical Accompanied by: Self / Same As Patient Allergies No Known Allergies [No Known Allergies*] Allergy (Verified 11/27/24 11:27) HPI Comments Details: Presenting for pelvic ultrasound follow-up which was done recently and showed the following: IMPRESSION: The uterus is surgically absent. Right ovary not visualized and per report is surgically absent. 1.1 x 0.9 x 0.8 cm left ovarian cyst appears simple. Pelvic ultrasound of 11/22/2023 demonstrated a 2.6 x 2.2 x 2.3 cm complex left ovarian cyst. The patient is still complaining of left lower quadrant pain radiating to the back with a no associated fever or chills, no nausea or vomiting no vaginal discharge The patient had a urine culture was positive in 10/15/2024, was treat with by her PCP with antibiotics And the patient has had multiple CT scans which were essentially negative BV panel taken in 09/25 were negative PFSH Medical History PONV (postoperative nausea and vomiting) Breast pain, right Fibroadenoma Left ovarian cyst Breast mass, right Lumbar pain IBS (irritable bowel syndrome) Atopic dermatitis Bipolar 1 disorder GERD (gastroesophageal reflux disease) Anxiety Depression Asthma Surgical History History of excision of mass History of umbilical hernia repair H/O hysterectomy with oophorectomy H/O section Hx of esophagogastroduodenoscopy Family History Father Kidney disease Hypertension Family history of breast cancer Mother CVD (cardiovascular disease) Paternal Grandmother Stomach cancer Paternal Aunt Breast cancer Social History Housing: Apartment Alcohol intake: former Comment: pt previously medicated with oxycodone Patient Tobacco Use Status: Current everyday Tobacco user Tobacco use type: Cigarette Cigarette Packs Per Day: 1 Cigarettes Per Day: 8 e-Cigarette/Vaping Use: Never Used Second Hand Smoke Exposure: Yes Substance Use Type: Marijuana service: No Current occupational status: employed Gender identity: Female Cognitive needs: No Hearing needs: No Vision needs: No Female Reproductive History Menstrual Age of Menarche: 15 Review of Systems Const All systems reviewed & are unremarkable except as noted in HPI and below Reports as per HPI and Reports no additional complaints Card Reports as per HPI and Reports no additional complaints Resp Reports as per HPI and Reports no additional complaints GI Reports no additional complaints Reports no additional complaints Physical Exam Vital Signs: BMI result Body Mass Index 30.6 Const General: cooperative, healthy appearing and comfortable General: Yes bladder normal to palpation External Female Exam: No lesion Speculum Exam - Vagina: normal appearance of the vagina, normal vaginal discharge and not erythematous Speculum Exam - Cervix: Cervix absent Bimanual exam- vagina & uterus: bladder normal to palpation and uterus absent Bimanual Exam- Adnexa, other: Other (No masses detected) Quality Reporting (2019) Adult ([facility] ) Smoking risk assessment performed?: Yes Patient Tobacco Use Status: Current everyday Tobacco user Assessment & Plan Assessment & Plan (1) Left ovarian cyst: Code(s): N83.202 - Unspecified ovarian cyst, left side Category: Medical Plan: Discussed with the patient the finding on ultrasound left simple small ovarian cyst, no indication for any further follow-up. All questions answered, the patient verbalized understanding. (2) Pelvic pain: Code(s): R10.2 - Pelvic and perineal pain Category: Medical Plan: Discussed with the patient the results of the workup done including negative BV panel, urine dip showing microscopic hematuria,and pelvic ultrasound showing a small left simple small ovarian cyst. Differential diagnosis of income tax adjuster causes that have not be ruled out yet include but not limited to endometriosis, pelvic adhesions , abdominal wall or other. Recommended for the patient to see her PCP for further workup and will refer to [facility] pelvic pain specialist OBGYN. Meanwhile, instructions were given the patient to go to emergency room or call in case of fever above 100.4, persistence or worsening of her pelvic pain, nausea or vomiting. All questions answered, the patient verbalized understanding. Instructed the patient to call our office back in case a referral appointment is not scheduled, missed or canceled so that we will assist on rescheduling another appointment, the patient verbalized understanding agreed with the plan. (3) Urinary tract infection: Code(s): N39.0 - Urinary tract infection, site not specified Category: Medical Plan: Urine dip was positive for leukocyte and microscopic hematuria, will treat with Macrobid 100 mg p.o. b.i.d. for 5 days and send urine for culture. Instructions given the patient to schedule a 2 week follow-up appointment for repeat urine dip and to call in case of persistence of her symptoms, fever above 100.4, nausea or vomiting. Orders: Orders AMB Urinalysis Dipstick Today R10.2 - Pelvic and perineal pain Medications: New nitrofurantoin monohyd/m-cryst 100 mg (Macrobid) 100 mg PO BID 5 days 10 caps 0RF Coding Level of Care Code Est Pt Level 3 (74298) Diagnoses Left ovarian cyst N83.202 Pelvic pain R10.2 Urinary tract infection N39.0
[2024-11-27 11:26] VITALS: BMI 30.6
--- OUTSIDE RECORDS SUMMARY | 2024-11-27 13:56 | XMS_ITS | Clinical Summary ---
Author Organization [employer] Address [address] [place] [address] Care Team Providers Care Camera Prototyping Engineer Name Role Phone Unavailable Primary Care Provider Unavailabl e Immunizations Name Administration Dates Next Due Moderna Covid-19 Vaccine 6+ Bivalent 12/28/2022 Social History Tobacco Use Types Packs/Day Years Used Date Smoking Tobacco: Never Assessed Comments Unknown Sex and Gender Information Value Date Recorded Sex Assigned at Female 08/02/2022 10:25 AM EDT Legal Sex Female 10:25 AM EDT Gender Identity Female 08/02/2022 10:25 AM EDT Sexual Orientation Choose not to disclose 2021 10:25 AM EDT Plan of Treatment Health Maintenance Due Date Last Done Comments Depression Screening 1987 HIV Screening 1987 SDOH Screening 1987 Alcohol/Substance Use Screening 1999 Tobacco Screening 1999 Family Planning (PISQ) 2002 Hepatitis C Screening 2005 DTaP/Tdap/Td Vaccines (1 - Tdap) 2006 Hepatitis B Vaccines (1 of 3 - 19+ 3-dose series) 2006 Pap Smear 01/09/2008 Cervical Cancer Screening 2017 HPV/Cotest 2017 COVID-19 Vaccine (2023-2 5 season) 2024 12/28/2022, 04/07/2021, 03/13/2021 Influenza Vaccine (#1) 2024 Zoster Vaccines (1 of 2) 2037 RSV Patients and Patients Aged 60 years or older (1 - 1-dose 75+ series) 2062 HIB Vaccines Aged Out No longer eligi ble based on patient's age to complete this topic HPV Vaccines Aged Out No longer eligi ble based on patient's age to complete this topic Hepatitis A Vaccines Aged Out No long er eligible based on patient's age to complete this topic IPV Vaccines Aged Out No longer eligi ble based on patient's age to complete this topic Meningococcal Vaccine Aged Out No saul sandee eligible based on patient's age to complete this topic Pneumococcal Vaccine: Pediatrics (0 to 5 Years) and At-Risk Patients (6 to 49) Years) Aged Out No longer eligible b ased on patient's age to complete this topic RSV under 20 months Aged Out No longe r eligible based on patient's age to complete this topic Rotavirus Vaccines Aged Out No longer eligible based on patient's age to complete this topic Insurance [facility]
--- OUTSIDE RECORDS SUMMARY | 2024-11-27 13:56 | XMS_ITS | Continuity of Care Document ---
Author Organization [facility] Address [address] [place] [address] [place] [address] Phone Care Team Providers Care Manager Software Name Role Phone Ines Esparza NP Unavailable [...] Diagnoses Date Provider Providers Copied on Encounter [facility], [address] [place] [address], [id number], tel:[phone] [facility] Sam No Information 7 Vilma Chacon. [address] [place] [address], [address], . tel:[phone] ESTABLISHED OFFICE/OUTPAT IENT VISIT [facility], [address] [place] [address], [id number], tel:[phone] [facility] Earache (chief complaint) Otitis externa of left ear, unspecified chronicity, unspecified type 6 Janneth HATFIELD Alcon. [address] [place] [address], [address], [place]. tel:[phone] OFFICE/OUTPAT IENT VISIT EST [facility], [address] [place] [address], [id number], tel:[phone] [facility] Earache (chief complaint) Body mass index (BMI) 37.0-37.9, adultEncounter for screening for diabetes mellitusLeft acute otitis mediaFamily history of diabetes mellitus (DM)Encounter for screening, unspecified 6 No Information NEW OFFICE/OUTPAT IENT VISIT [facility], [address] [place] [address], [id number], [place] tel:[phone] [facility] [place] Ear pain (chief complaint) Acute swimmer's ear of left side 5 No Information Family History Family Member Type Diagnosis Age At Onset No Information Payers Payer name Insurance type Covered alliance party ID Authorheathera israel(s) [employer] [facility] CI [id number] Social History Type Description Quantity Date Captured Comments Sex Female Smoking Status No Information Chief Complaint And Reason For Visit No Information Reason For Referral Reason For Referral No Information Plan Of Treatment Date Type Action Status Future Order: Lab Order Hemoglob in A1c ([id number]), Appointment on: , Collected on: , Sent on: Sent Future Order: Lab Order Lipid Pa eboni ([id number]), Appointment on: , Collected on: , Sent on: Sent Future Order: Lab Order TSH ([id number]), Appointment on: , Collected on: , Sent on: Sent Future Order: Lab Order CBC With Differential/Platelet ([id number]), Appointment on: , Collected on: , Sent on: Sent Future Order: Lab Order Arden martinive Metabolic Panel ([id number]), Appointment on: , Collected on: , Sent [...] Additional information: Has had otitis externa in [facility]. Ear pain Onset: 4 days ag [...] type Take new medication as prescribe d Follow exercise program Reviewed medications Avoid Qtips. Nothing into ear. Keep ears [...]
--- OUTSIDE RECORDS SUMMARY | 2024-11-27 13:56 | XMS_ITS | Continuity of Care Document ---
Author Organization [facility] Address [address] [place] [address] Phone Care Team Providers Care Janitor And Cleaner Name Role Phone Polo Gifford MD Unavailable [...] Copied on Encounter Office/outpat ient visit,est, mod [facility], [address], [place], [place], [id number], [place] tel:[phone] [facility] Urgent Care Doctor note back to work (chief complaint) Knee pain, leftSinusitis 4 Ирина Cuellar. [facility] [place], [address], [place]. tel:[phone] OFFICE/OUTPAT IENT VISIT [facility], [address], [place], [place], [id number], [place] tel:[phone] [facility] Urgent Care left knee pain (chief complaint) Right knee pain 4 Ирина Cuellar. [facility] [place], [address], [place]. tel:[phone] Family History Family Member Type Diagnosis Age At Onset No Information Payers Payer name Insurance type Covered republican ID Authoriza tidaniela(s) [place] P[place] [id number] Social History Type Description Quantity Date Captured [...] Mental Status Date Cognitive Assessment Orientation - Page ed to time, place, person, situation. Patient Care Teams Name Effective Dates (start - stop) Status Members No Information
--- OUTSIDE RECORDS SUMMARY | 2024-11-27 13:56 | XMS_ITS | Clinical Summary ---
Author Organization [facility] Address [address] [place] [address] Care Team Providers Care Professor Of Environmental Engineering Name Role Phone Nazia Newton MD Primary Care Provider [phone] Allergies No known active allergies Social History Tobacco Use Types Packs/Day Years Used Date Smoking Tobacco: Every Day Cigarettes Smokeless Tobacco: Never Sex and Gender Information Value Date Recorded Sex Assigned at Not on file Gender Identity Not on file Sexual Orientation Not on file Last Filed Vital Signs Vital Sign Reading Time Taken Comments Blood Pressure 125/89 03/05/2022 1:10 PM EDT Pulse 80 03/05/2022 1:10 PM EDT Temperature 36.4 ??C (97.5 ??F) 03/05/2022 10:23 AM E DT Respiratory Rate 18 03/05/2022 1:10 PM EDT Oxygen Saturation 100% 03/05/2022 1:10 PM EDT Inhaled Oxygen Concentration - - Weight 72.6 kg (160 lb) 03/05/2022 10:23 AM EDT Height 162.6 cm (5' 4 ) 03/05/2022 10:23 AM EDT Body Mass Index 27.46 03/05/2022 10:23 AM EDT Plan of Treatment Health Maintenance Due Date Last Done Comments Hepatitis C Virus Screening 1987 HIV Screening 01/09/2000 DTaP/Tdap/Td Vaccines (1 - Tdap) 2006 Hepatitis B Vaccines (1 of 3 - 19+ 3-dose series) 2006 Pneumococcal Vaccine: Pediat xiomara (0-5 Years) and At-Risk Patients (6 to 49 Years) (1 of 2 - PCV) 2006 Pap Smear (Ages 21-65) 01/09/2008 Influenza Vaccine 05/03/2024 COVID-19 Vaccine ( - 2023-2 5 season) 2024 HPV Vaccines Aged Out No longer eligi ble based on patient's age to complete this topic Care Teams Professor Of Environmental Engineering Relationship Specialty Start Date End Date Nazia Newton MD [address] [place] [address] PCP - General Family Medicine 03/05/22
== END 2024-11-27 11:57 | disposition home or self-care (01) ==
LOC: HO.HWS 11:20
PROVIDERS: PCP Internal Medicine; Visit Provider Obstetrics & Gynecology
DX: N83.202 Unspecified ovarian cyst, left side (principal); R10.2 Pelvic and perineal pain; N39.0 Urinary tract infection, site not specified
CPT/HCPCS: 99213

== ENCOUNTER 2024-11-27 11:20 | Outpatient (REF) | payer OTHER, SELFPAY ==
--- OUTSIDE RECORDS SUMMARY | 2024-11-27 14:38 | XMS_ITS | Clinical Summary ---
Author Organization [employer] Address [address] [place] [address] Care Team Providers Care Flotation Tank Operator Name Role Phone Unavailable Primary Care Provider [...] patient's age to complete this topic Insurance [facility]
--- OUTSIDE RECORDS SUMMARY | 2024-11-27 14:38 | XMS_ITS | Continuity of Care Document ---
Author Organization [facility] ic Address [address] [place] [address] [place] [address] Phone Care Team Providers Care Slat Basket Maker Helper Machine Name Role Phone Ines Esparza NP Unavailable [...] Date Provider Providers Copied on Encounter [facility], [address] [place] [address], [id number], tel:[phone] [facility] Sam No Information 7 Vilma Chacon. [address] [place] [address], [id number], . tel:[phone] ESTABLISHED OFFICE/OUTPAT IENT VISIT [facility], [address] [place] [address], [id number], tel:[phone] [facility] Earache (chief complaint) Otitis externa of left ear, unspecified chronicity, unspecified type 6 Janneth HATFIELD Alcon. [address] [place] [address], [id number], [place]. tel:[phone] OFFICE/OUTPAT IENT VISIT EST [facility], [address] [place] [address], [id number], tel:[phone] [facility] Earache (chief complaint) Body mass index (BMI) 37.0-37.9, adultEncounter for screening for diabetes mellitusLeft acute otitis mediaFamily history of diabetes mellitus (DM)Encounter for screening, unspecified 6 No Information NEW OFFICE/OUTPAT IENT VISIT [facility], [address] [place] [address], [id number], [place] tel:[phone] [facility] [place] Ear pain (chief complaint) Acute swimmer's ear of left side 5 No Information Family History Family Member Type Diagnosis Age At Onset No Information Payers Payer name Insurance type Covered republican ID Authorheathera israel(s) GTCIPA [facility] CI [id number] Social History Type Description Quantity Date Captured Comments Sex Female Smoking Status No Information Chief Complaint And Reason For Visit No Information Reason For Referral Reason For Referral No Information Plan Of Treatment Date Type Action Status Future Order: Lab Order Hemoglob in A1c ([id number]), Appointment on: , Collected on: , Sent on: Sent Future Order: Lab Order Lipid Pa eboni ([id number]), Appointment on: , Collected on: , Sent on: Sent Future Order: Lab Order TSH ([id number]), Appointment on: , Collected on: , Sent on: Sent Future Order: Lab Order CBC With Differential/Platelet ([id number]), Appointment on: , Collected on: , Sent on: Sent Future Order: Lab Order Arden martinive Metabolic Panel ([id number]), Appointment on: , Collected on: , Sent [...] Additional information: Has had otitis externa in [facility]. Ear pain Onset: 4 days ag [...]
--- OUTSIDE RECORDS SUMMARY | 2024-11-27 14:38 | XMS_ITS | Continuity of Care Document ---
Author Organization [facility] Address [address] [place] [address] Phone Care Team Providers Care Tow Motor Driver Name Role Phone Polo Gifford MD Unavailable [...] Copied on Encounter Office/outpat ient visit,est, mod [facility], [address], [place], [place], [id number], [place] tel:[phone] [facility] [place] note back to work (chief complaint) Knee pain, leftSinusitis 4 Ирина Cuellar. [facility] [place], [address], [place]. tel:[phone] OFFICE/OUTPAT IENT VISIT [facility], [address], [place], [place], [id number], [place] tel:[phone] [facility] [place] left knee pain (chief complaint) Right knee pain 4 Ирина Cuellar. [facility] [place], [address], [place]. tel:[phone] Family History Family Member Type Diagnosis Age At Onset No Information Payers Payer name Insurance type Covered constitution party ID Authoriza tidaniela(s) [employer] [place] PPO [id number] Social History Type Description Quantity Date Captured [...] Mental Status Date Cognitive Assessment Orientation - [place] ed to time, place, person, situation. Patient Care Teams Name Effective Dates (start - stop) Status Members No Information
--- OUTSIDE RECORDS SUMMARY | 2024-11-27 14:38 | XMS_ITS | Clinical Summary ---
Author Organization [facility] Address [address] [place] [address] Care Team Providers Care Back Hanger Name Role Phone Nazia Newton MD Primary Care Provider [phone] Allergies No known active allergies Social History [...] age to complete this topic Care Teams Back Hanger Relationship Specialty Start Date End Date Nazia Newton MD [address] [place] [address] PCP - General Family Medicine 03/05/22
== END 2024-11-27 11:21 | disposition home or self-care (01) ==
LOC: HO.LNP 11:20
PROVIDERS: PCP Internal Medicine; Visit Provider Obstetrics & Gynecology
DX: R10.2 Pelvic and perineal pain (principal); N83.202 Unspecified ovarian cyst, left side; N39.0 Urinary tract infection, site not specified
CPT/HCPCS: 87086; 87088; 87186; 99212

== ENCOUNTER 2024-11-30 13:10 | Emergency (ER) | payer OTHER, SELFPAY ==
--- NOTE | ~2024-11-30 | US_ITS ---
. EXAMINATION: Ultrasound renal bilaterally. CLINICAL INFORMATION: Left flank pain. Urinary tract infection. COMPARISON: Correlated to CT dated October 15, 2024.. TECHNIQUE: Real-time ultrasound of the kidneys using grayscale and color Doppler technique. FINDINGS: Right kidney: 11 x 4 x 5 cm. Normal echotexture. Normal renal cortical thickness. No solid or cystic lesion. No hydronephrosis. Normal flow on color Doppler interrogation of the renal hilum. Left kidney: 10 x 5 x 6 cm. Normal echotexture. Normal renal cortical thickness. No solid or cystic lesion. No hydronephrosis. Normal color Doppler interrogation of the renal hilum. US/US renal BI IMPRESSION: Normal renal ultrasound. Electronically signed by: Stef Lagos MD 11/30/2024 03:32 PM TAMMY
[2024-11-30 13:22] VITALS: BP 128/81; PULSE 81; RESP 18; TEMP 36.7; O2SAT 98; BMI 30.4
--- NOTE | 2024-11-30 13:22 | ED_ITS ---
HPI - Back Pain/Injury General Chief Complaint: Abdominal Pain Stated Complaint: back pain Related Data Previous Rx's ?Medication ?Instructions ?Recorded bisacodyl 5 mg tablet,delayed 10 mg (2 x 5 mg) PO BEDTIME 30 01/24/24 release (Dulcolax (bisacodyl)) days #60 tabs linaclotide 72 mcg capsule 72 mcg PO QAM #30 caps 01/24/24 (Linzess) methocarbamol 500 mg tablet 500 mg PO TID muscle spasms 30 01/24/24 days #90 tabs ibuprofen 800 mg tablet 800 mg PO Q8H PRN pain 30 days #90 06/10/24 tabs sumatriptan succinate 25 mg tablet 25 mg PO Q2-4H PRN migraine 06/24/24 headache 30 days #9 tabs ondansetron 4 mg disintegrating 4 mg PO Q8H PRN nausea and 06/29/24 tablet vomiting #20 tabs cholecalciferol (vitamin D3) 50 50 mcg PO DAILY 90 days #90 caps 09/10/24 mcg (2,000 unit) capsule famotidine 40 mg tablet (Pepcid) 40 mg PO BEDTIME #90 tabs 09/10/24 fluoxetine 10 mg capsule 10 mg PO DAILY depressive disorder 09/10/24 90 days #90 caps hydrochlorothiazide 12.5 mg tablet 12.5 mg PO DAILY 90 days #90 tabs 09/10/24 pantoprazole 40 mg tablet,delayed 40 mg PO DAILY 90 days #90 tabs 10/10/24 release tramadol 50 mg tablet 50 mg PO DAILY PRN pain 30 days 10/10/24 #20 tabs cephalexin 500 mg capsule 500 mg PO BID #13 caps 10/15/24 phenazopyridine 200 mg tablet 200 mg PO TID PRN pain #10 tabs 10/15/24 (Pyridium) nitrofurantoin 100 mg PO BID 5 days #10 caps 11/27/24 monohydrate/macrocrystals 100 mg capsule (Macrobid) Allergies Allergy/AdvReac Type Severity Reaction Status Date / Time No Known Allergies Allergy Verified 11/30/24 13:30 [No Known Allergies*] [facility] Past Medical History Medical History PONV (postoperative nausea and vomiting) Breast pain, right Fibroadenoma Left ovarian cyst Breast mass, right Lumbar pain IBS (irritable bowel syndrome) Atopic dermatitis Bipolar 1 disorder GERD (gastroesophageal reflux disease) Anxiety Depression Asthma Surgical History History of excision of mass History of umbilical hernia repair H/O hysterectomy with oophorectomy H/O section Hx of esophagogastroduodenoscopy Family History Family History Father Kidney disease Hypertension Family history of breast cancer Mother CVD (cardiovascular disease) Paternal Grandmother Stomach cancer Paternal Aunt Breast cancer Social History Social History Housing: Apartment Alcohol intake: former Comment: pt previously medicated with oxycodone Patient Tobacco Use Status: Current everyday Tobacco user Tobacco use type: Cigarette Cigarette Packs Per Day: 1 Cigarettes Per Day: 8 e-Cigarette/Vaping Use: Never Used Second Hand Smoke Exposure: Yes Substance Use Type: Marijuana Advance Directives: No Advance Directives Information Provided: No Do you have a plan to hurt others: No Plan service: No Current occupational status: employed Gender identity: Female Cognitive needs: No Hearing needs: No Vision needs: No Physical Exam 2 Vital Signs: Vital Signs: Last Vital Signs Temp 98.1 F 11/30/24 13:22 Pulse 81 11/30/24 13:22 Resp 18 11/30/24 13:22 BP 128/81 11/30/24 13:22 Pulse Ox 98 11/30/24 13:22 O2 Del Method Room Air 11/30/24 13:22 BMI result Body Mass Index 30.4 Course Course Course Narrative: This is a Rapid Medical Exam performed in triage by Ashley Capellan PA-C. Full HPI, ROS and PE to be performed by primary ED provider. 39 yo F w/PMHx HTN, bipolar, fibroadenoma, IBS, left ovarian cyst & UTI on Macrobid presenting to the ED c/o left flank pain radiating to LLE, nausea & BABB. was recently seen in OBGYN office, diagnosed with left ovarian cyst and UTI. Currently on antibiotics PE: nontoxic appearing, ambulating w/steady gait. Plan: labs, UA Medical Decision Making Lab Data 11/30/24 15:13 11/30/24 15:12 Labs: Lab Results 11/30/24 11/30/24 11/30/24 Range/Units 15:12 15:13 15:14 WBC 8.7 (4.8-10.8) X10*3/uL RBC 5.29 (4.20-5.50) X10*6/uL Hgb 14.6 (12.0-16.0) g/dl Hct 44.7 (37.0-47.0) % MCV 84.5 (80.0-98.0) fL MCH 27.6 (27.0-33.0) pg MCHC 32.7 (31.0-35.0) g/dl RDW 14.5 (11.0-16.0) % Plt Count 311 (160-400) X10*3/uL MPV 10.4 (9.4-12.3) fL Immature Gran % (Auto) 0.5 H (0.0-0.4) % Neut % (Auto) 60.4 (45-73) % Lymph % (Auto) 31.5 (20-40) % Rincon % (Auto) 6.2 (2-11) % Eos % (Auto) 1.1 (0-4) % Baso % (Auto) 0.3 (0-2) % Lymph # (Auto) 2.8 (1.2-4.9) X10*3/uL Rincon # (Auto) 0.5 (0.1-1.2) X10*3/uL Eos # (Auto) 0.1 (0.0-0.4) X10*3/uL Baso # (Auto) 0.0 (0.0-0.2) X10*3/uL Abs Immat Gran (auto) 0.04 H (0.00-0.03) X10*3/uL Absolute Neuts (auto) 5.3 (2.0-8.3) x10*3/uL Absolute Nucleated RBC 0.000 (0.0-0.012) X10*3/uL Nucleated RBC % (auto) 0.0 (0.0-0.2) /100WBC Sodium 137 (135-145) mmol/L Potassium 4.0 D (3.3-5.1) mmol/L Chloride 105 (96-108) mmol/L Carbon Dioxide 25 (22-29) mmol/L Anion Gap 11 L (12-20) BUN 19 H (9-16) mg/dL Creatinine 0.70 (0.5-1.4) mg/dL Estim Creat Clear Calc 112.8 Estimated GFR > 60 Random Glucose 86 (60-115) mg/dL Calcium 9.9 D (8.4-10.2) mg/dL Magnesium 2.0 (1.6-2.6) mg/dL Total Bilirubin 0.6 (0.0-1.0) mg/dL Direct Bilirubin 0.2 (0.0-0.5) mg/dL AST 25 (5-31) U/L ALT 32 H (0-31) U/L Alkaline Phosphatase 49 (39-117) U/L Total Protein 7.8 (6.5-8.0) g/dL Albumin 4.1 (3.5-5.0) g/dL Lipase 18 (8-78) U/L Urine Color Yellow Urine Appearance Cloudy Urine pH 5.5 (5.0-9.0) Ur Specific Danube 1.025 (1.005-1.025) Urine Protein Negative (Neg-Trace) mg/dL Urine Glucose (UA) Negative (Negative) mg/dL Urine Ketones Negative (Negative) mg/dL Urine Blood Negative (Negative) Urine Nitrite Negative (Negative) Ur Leukocyte Esterase Negative (Negative) Urine Test NEGATIVE (NEGATIVE) Influenza Type A (PCR) NEGATIVE (Negative) Influenza Type B (PCR) NEGATIVE (Negative) RSV RNA Qual (PCR) NEGATIVE (Negative) SARS-CoV-2 RNA (RT-PCR) NEGATIVE (Negative) Discharge Plan Discharge Clinical Impression: Acute flank pain Patient Disposition: Left W/O Completing Treatment Prescriptions: No Action ibuprofen 800 mg tablet 800 mg PO Q8H PRN (Reason: pain) 30 Days Qty: 90 1RF sumatriptan succinate 25 mg tablet 25 mg PO Q2-4H PRN (Reason: migraine headache) 30 Days Qty: 9 0RF Rx Instructions: do not exceed 8 doses per 24 hrs pantoprazole 40 mg tablet,delayed release (DR/EC) 40 mg PO DAILY 90 Days Qty: 90 1RF tramadol 50 mg tablet 50 mg PO DAILY PRN (Reason: pain) 30 Days Qty: 20 0RF ondansetron 4 mg tablet,disintegrating 4 mg PO Q8H PRN (Reason: nausea and vomiting) Qty: 20 0RF cephalexin 500 mg capsule 500 mg PO BID Qty: 13 0RF phenazopyridine [Pyridium] 200 mg tablet 200 mg PO TID PRN (Reason: pain) Qty: 10 0RF bisacodyl [Dulcolax (bisacodyl)] 5 mg tablet,delayed release (DR/EC) 10 mg PO BEDTIME 30 Days Qty: 60 3RF Linzess 72 mcg capsule 72 mcg PO QAM Qty: 30 3RF methocarbamol 500 mg tablet 500 mg PO TID 30 Days Qty: 90 0RF hydrochlorothiazide 12.5 mg tablet 12.5 mg PO DAILY 90 Days Qty: 90 1RF cholecalciferol (vitamin D3) 50 mcg (2,000 unit) capsule 50 mcg PO DAILY 90 Days Qty: 90 1RF famotidine [Pepcid] 40 mg tablet 40 mg PO BEDTIME Qty: 90 1RF fluoxetine 10 mg capsule 10 mg PO DAILY 90 Days Qty: 90 0RF nitrofurantoin monohyd/m-cryst [Macrobid] 100 mg capsule 100 mg PO BID 5 Days Qty: 10 0RF Discharge Date/Time: 11/30/24 20:17
[2024-11-30 15:26] LABS: MANUAL DIFF FLAG NO
[2024-11-30 15:29] LABS: Basophils Percent Auto 0.3 % (0-2); Eosinophils Absolute Auto 0.1 X10*3/uL (0.0-0.4); Eosinophils Percent Auto 1.1 % (0-4); Hematocrit 44.7 % (37.0-47.0); Hemoglobin 14.6 g/dl (12.0-16.0); Imm Gran Abs Auto 0.04 X10*3/uL (0.00-0.03); Imm Gran Pct Auto 0.5 % (0.0-0.4); Lymphocytes Absolute Auto 2.8 X10*3/uL (1.2-4.9); Lymphocytes Percent Auto 31.5 % (20-40); Mean Corpuscular HGB Conc 32.7 g/dl (31.0-35.0); Mean Corpuscular Hemoglobin 27.6 pg (27.0-33.0); Mean Corpuscular Volume 84.5 fL (80.0-98.0); Mean Platelet Volume 10.4 fL (9.4-12.3); Monocytes Absolute Auto 0.5 X10*3/uL (0.1-1.2); Monocytes Percent Auto 6.2 % (2-11); Neutrophils Absolute Auto 5.3 x10*3/uL (2.0-8.3); Neutrophils Percent Auto 60.4 % (45-73); Platelet Count 311 X10*3/uL (160-400); Red Blood Count 5.29 X10*6/uL (4.20-5.50); Red Cell Distribution Width 14.5 % (11.0-16.0); White Blood Count 8.7 X10*3/uL (4.8-10.8)
[2024-11-30 15:29] LABS: Appearance Urine Cloudy; Color Urine Yellow; Glucose Urine UA Negative (Negative); Leukocyte Esterase Urine Negative (Negative); Nitrite Urine Negative (Negative); PH 5.5 (5.0-9.0); Specific Gravity - Urine 1.025 (1.005-1.025); Urine Blood Negative (Negative); Urine Ketones Negative (Negative); Urine Protein Negative (Neg-Trace)
[2024-11-30 15:30] LABS: UPreg QC Valid YES; Urine Pregnancy NEGATIVE (NEGATIVE)
[2024-11-30 15:50] LABS: Alanine Aminotransferase 32 U/L (0-31); Albumin Level 4.1 g/dL (3.5-5.0); Anion Gap 11 (12-20); Aspartate Amino Transferase 25 U/L (5-31); Bilirubin Direct 0.2 mg/dL (0.0-0.5); Bilirubin Total 0.6 mg/dL (0.0-1.0); Blood Urea Nitrogen 19 mg/dL (9-16); Calcium 9.9 mg/dL (8.4-10.2); Carbon Dioxide 25 mmol/L (22-29); Chloride 105 mmol/L (96-108); Creatinine Clr Calc Pharmacy 112.8; Estimated Glomerular Filt Rate > 60; Glucose Random 86 mg/dL (60-115); Lipase 18 U/L (8-78); Sodium 137 mmol/L (135-145); Total Protein 7.8 g/dL (6.5-8.0)
[2024-11-30 16:05] LABS: Influenza A PCR NEGATIVE (Negative); Influenza B PCR NEGATIVE (Negative); Resp Syncy Virus RNA Qual PCR NEGATIVE (Negative); SARS COV2 PCR INHOUSE NEGATIVE (Negative)
[2024-11-30 16:23] LABS: Alkaline Phosphatase 49 U/L (39-117)
--- NOTE | 2024-11-30 19:52 | PC.NURSE ---
no answer from WR at 194
--- OUTSIDE RECORDS SUMMARY | 2024-11-30 20:04 | XMS_ITS | Continuity of Care Document ---
Author Organization [facility] ic Address [address] [place] [address] [place] [address] Phone Care Team Providers Care Rubber Vulcanizing Machine Operator Name Role Phone Ines Esparza NP Unavailable [...] Diagnoses Date Provider Providers Copied on Encounter [facility], [address] [place] [address], [id number], tel:[phone] [facility] Sam No Information 7 Vilma Chacon. [address] [place] [address], [address], . tel:[phone] ESTABLISHED OFFICE/OUTPAT IENT VISIT [facility], [address] [place] [address], [id number], tel:[phone] [facility] Earache (chief complaint) Otitis externa of left ear, unspecified chronicity, unspecified type 6 Janneth HATFIELD Alcon. [address] [place] [address], [address], [place]. tel:[phone] OFFICE/OUTPAT IENT VISIT EST [facility], [address] [place] [address], [id number], tel:[phone] [facility] Earache (chief complaint) Body mass index (BMI) 37.0-37.9, adultEncounter for screening for diabetes mellitusLeft acute otitis mediaFamily history of diabetes mellitus (DM)Encounter for screening, unspecified 6 No Information NEW OFFICE/OUTPAT IENT VISIT [facility], [address] [place] [address], [id number], [place] tel:[phone] [facility] [place] Ear pain (chief complaint) Acute swimmer's ear of left side 5 No Information Family History Family Member Type Diagnosis Age At Onset No Information Payers Payer name Insurance type Covered constitution party ID Authorheathera israel(s) GTCIPA [facility] CI [id number] Social History Type Description Quantity Date Captured Comments Sex Female Smoking Status No Information Chief Complaint And Reason For Visit No Information Reason For Referral Reason For Referral No Information Plan Of Treatment Date Type Action Status Future Order: Lab Order Comprehe nsive Metabolic Panel ([id number]), Appointment on: , Collected on: , Sent on: Sent Future Order: Lab Order CBC With Differential/Platelet ([id number]), Appointment on: , Collected on: , Sent on: Sent Future Order: Lab Order Hemoglob in A1c ([id number]), Appointment on: , Collected on: , Sent on: Sent Future Order: Lab Order Lipid Pa eboni ([id number]), Appointment on: , Collected on: , Sent [...] Additional information: Has had otitis externa in [facility]. Ear pain Onset: 4 days ag [...]
--- OUTSIDE RECORDS SUMMARY | 2024-11-30 20:04 | XMS_ITS | Clinical Summary ---
Author Organization [facility] Address [address] [place] [address] Care Team Providers Care Senior Net Developer Architect Name Role Phone Nazia Newton MD Primary Care Provider [phone] Allergies No known active allergies Social History [...] age to complete this topic Care Teams Senior Net Developer Architect Relationship Specialty Start Date End Date Nazia Newton MD [address] [place] [address] PCP - General Family Medicine 03/05/22
--- OUTSIDE RECORDS SUMMARY | 2024-11-30 20:04 | XMS_ITS | Clinical Summary ---
Author Organization [employer] Address [address] [facility] [address] [place] [address] Care Team Providers Care Chalk Cutter Name Role Phone Unavailable Primary Care Provider [...] patient's age to complete this topic Insurance [facility]
--- OUTSIDE RECORDS SUMMARY | 2024-11-30 20:04 | XMS_ITS | Continuity of Care Document ---
Author Organization [facility] Address [address] [place] [address] Phone Care Team Providers Care Restaurant Mgr Name Role Phone Polo Gifford MD Unavailable [...] Copied on Encounter Office/outpat ient visit,est, mod [facility], [address], [place], [place], [id number], [place] tel:[phone] [facility] [place] Doctor note back to work (chief complaint) Knee pain, leftSinusitis 4 Ирина Cuellar. [facility] [place], [address], [place]. tel:[phone] OFFICE/OUTPAT IENT VISIT [facility], [address], [place], [place], [id number], [place] tel:[phone] [facility] Ur[place] Care left knee pain (chief complaint) Right knee pain 4 Ирина Cuellar. [facility] [place], [address], [place]. tel:[phone] Family History Family Member Type Diagnosis Age At Onset No Information Payers Payer name Insurance type Covered constitution party ID Authoriza tidaniela(s) [employer] [place] PPO [id number] Social History Type Description Quantity Date Captured [...] Mental Status Date Cognitive Assessment Orientation - [place] ed to time, place, person, situation. Patient Care Teams Name Effective Dates (start - stop) Status Members No Information
== END 2024-11-30 20:17 | disposition left against medical advice (07) ==
LOC: HO.ED 20:02
PROVIDERS: Physician Assistant; Emergency Provider Emergency Medicine; PCP Internal Medicine
DX: R10.2 Pelvic and perineal pain (principal); M54.50 Low back pain, unspecified; F17.210 Nicotine dependence, cigarettes, uncomplicated; Z79.899 Other long term (current) drug therapy
CPT/HCPCS: 0241U; 76775; 80048; 80076; 81003; 81025; 83690; 83735; 85025; 99282; 99284

== ENCOUNTER → 2024-11-30 13:36 | Outpatient (BNV) | payer OTHER, SELFPAY | PROVIDERS: PCP Internal Medicine; Visit Provider Radiology Diagnostic Radiology | DX: R10.9 Unspecified abdominal pain (principal) | CPT/HCPCS: 76775 ==

== ENCOUNTER 2024-12-03 13:16 | Outpatient (REF) | payer OTHER, SELFPAY ==
--- OUTSIDE RECORDS SUMMARY | 2024-12-03 17:05 | XMS_ITS | Clinical Summary ---
Author Organization [employer] Address [address] [facility] 7t [place] [address] Care Team Providers Care Electric Refrigerator Preparer Name Role Phone Unavailable Primary Care Provider [...] patient's age to complete this topic Insurance [facility] ACO
--- OUTSIDE RECORDS SUMMARY | 2024-12-03 17:05 | XMS_ITS | Clinical Summary ---
Author Organization [facility] Address [address] [place] [address] Care Team Providers Care Rotoprinter Name Role Phone Nazia Newton MD Primary Care Provider [phone] Allergies No known active allergies Social History [...] age to complete this topic Care Teams Rotoprinter Relationship Specialty Start Date End Date Nazia Newton MD [address] [place] [address] PCP - General Family Medicine 03/05/22
--- OUTSIDE RECORDS SUMMARY | 2024-12-03 17:05 | XMS_ITS | Continuity of Care Document ---
Author Organization [facility] ic Address [address] [place] [address] [place] [address] Phone Care Team Providers Care Tire Mold Engraver Name Role Phone Ines Esparza NP Unavailable [...] Providers Copied on Encounter [facility], [address] [place] [address], [id number], tel:[phone] [facility] Sam No Information 7 Vilma Chacon. [address] [place] [address], [id number], . tel:[phone] ESTABLISHED OFFICE/OUTPAT IENT VISIT [facility], [address] [place] [address], [id number], tel:[phone] [facility] Earache (chief complaint) Otitis externa of left ear, unspecified chronicity, unspecified type 6 Janneth HATFIELD Alcon. [address] [place] [address], [id number], [place]. tel:[phone] OFFICE/OUTPAT IENT VISIT EST [facility], [address] [place] [address], [id number], tel:[phone] [facility] Earache (chief complaint) Body mass index (BMI) 37.0-37.9, adultEncounter for screening for diabetes mellitusLeft acute otitis mediaFamily history of diabetes mellitus (DM)Encounter for screening, unspecified 6 No Information NEW OFFICE/OUTPAT IENT VISIT [facility], [address] [place] [address], [id number], [place] tel:[phone] [facility] [place] Ear pain (chief complaint) Acute swimmer's ear of left side 5 No Information Family History Family Member Type Diagnosis Age At Onset No Information Payers Payer name Insurance type Covered democrat ID Authorheathera israel(s) GTCIP[employer] [facility] CI [id number] Social History Type Description Quantity Date Captured Comments Sex Female Smoking Status No Information Chief Complaint And Reason For Visit No Information Reason For Referral Reason For Referral No Information Plan Of Treatment Date Type Action Status Future Order: Lab Order Hemoglob in A1c ([id number]), Appointment on: , Collected on: , Sent on: Sent Future Order: Lab Order Lipid Pa eboni ([id number]), Appointment on: , Collected on: , Sent on: Sent Future Order: Lab Order TSH ([id number]), Appointment on: , Collected on: , Sent on: Sent Future Order: Lab Order Comprehe nsive Metabolic Panel ([id number]), Appointment on: , Collected on: , Sent on: Sent Future Order: Lab Order CBC With Differential/Platelet ([id number]), Appointment on: , Collected on: , Sent [...] Additional information: Has had otitis externa in [facility]. Ear pain Onset: 4 days ag [...]
--- OUTSIDE RECORDS SUMMARY | 2024-12-03 17:05 | XMS_ITS | Continuity of Care Document ---
Author Organization [facility] Address [address] [place] [address] Phone Care Team Providers Care Engineering Manager Name Role Phone Polo Gifford MD Unavailable [...] Copied on Encounter Office/outpat ient visit,est, mod [facility], [address], [place], [place], [id number], [place] tel:[phone] [facility] [place] note back to work (chief complaint) Knee pain, leftSinusitis 4 Ирина Cuellar. [facility] [place], [address], [place]. tel:[phone] OFFICE/OUTPAT IENT VISIT [facility], [address], [place], [place], [id number], [place] tel:[phone] [facility] left knee pain (chief complaint) Right knee pain 4 Ирина Cuellar. [facility] [place], [address], [place]. tel:[phone] Family History Family Member Type Diagnosis Age At Onset No Information Payers Payer name Insurance type Covered constitution party ID Authoriza tidaniela(s) [employer] [place] P[place] [id number] Social History Type Description Quantity Date Captured [...] Mental Status Date Cognitive Assessment Orientation - [place] ed to time, place, person, situation. Patient Care Teams Name Effective Dates (start - stop) Status Members No Information
== END 2024-12-03 13:17 | disposition home or self-care (01) ==
LOC: HO.LNP 13:16
PROVIDERS: PCP Internal Medicine; Visit Provider Obstetrics & Gynecology
DX: R31.29 Other microscopic hematuria (principal); N83.202 Unspecified ovarian cyst, left side
CPT/HCPCS: 87086; 99212

== ENCOUNTER 2024-12-03 13:16 | Outpatient (AMB) | payer OTHER, SELFPAY ==
--- NOTE | 2024-12-03 13:49 | A.OFFVIS_ITS ---
Vital Signs 12/03/24 13:52 Height 5 ft 4 in Weight 177 lb BMI 30.4 Intake Visit Reasons: ER follow up Crm Marketing Analyst Required: Yes Crm Marketing Analyst Language: Distance Learning Technician Services: Crm Marketing Analyst Present (in person) Crm Marketing Analyst Name: Gaviota RAMOS Information Interpreted: non-clinical & clinical Cable Tool Driller: Cable Tool Driller Present (Gaviota RAMOS) Accompanied by: Self / Same As Patient Allergies No Known Allergies [No Known Allergies*] Allergy (Verified 11/30/24 13:30) Is last menstrual period known: No (hysterectomy) HPI Comments Details: Presenting for follow-up. The patient went to emergency room on 11/30 for left flank pain and left without being treated. The following workup was done CBC within normal, UA negative with no evidence of microscopic hematuria Renal ultrasound within normal The patient had a urine culture on 11/27 which grew E coli sensitive nitrofurantoin, the patient was treated with nitrofurantoin 100 mg p.o. b.i.d. for 5 days which she completed yesterday. No fever or chills no nausea or vomiting. The patient is complaining of left lower quadrant pain and left flank pain. Pelvic ultrasound in 09/25 showed the following: The uterus is surgically absent. Right ovary not visualized and per report is surgically absent. 1.1 x 0.9 x 0.8 cm left ovarian cyst appears simple. Pelvic ultrasound of 11/22/2023 demonstrated a 2.6 x 2.2 x 2.3 cm complex left ovarian cyst. The patient was refer to [facility] for management of the left complex ovarian cyst, no appointment has been scheduled yet [facility] Medical History PONV (postoperative nausea and vomiting) Breast pain, right Fibroadenoma Left ovarian cyst Breast mass, right Lumbar pain IBS (irritable bowel syndrome) Atopic dermatitis Bipolar 1 disorder GERD (gastroesophageal reflux disease) Anxiety Depression Asthma Surgical History History of excision of mass History of umbilical hernia repair H/O hysterectomy with oophorectomy H/O section Hx of esophagogastroduodenoscopy Family History Father Kidney disease Hypertension Family history of breast cancer Mother CVD (cardiovascular disease) Paternal Grandmother Stomach cancer Paternal Aunt Breast cancer Social History Housing: Apartment Alcohol intake: former Comment: pt previously medicated with oxycodone Patient Tobacco Use Status: Current everyday Tobacco user Tobacco use type: Cigarette Cigarette Packs Per Day: 1 Cigarettes Per Day: 8 e-Cigarette/Vaping Use: Never Used Second Hand Smoke Exposure: Yes Substance Use Type: Marijuana service: No Current occupational status: employed Gender identity: Female Cognitive needs: No Hearing needs: No Vision needs: No Female Reproductive History Menstrual Age of Menarche: 15 Review of Systems Const All systems reviewed & are unremarkable except as noted in HPI and below Card Reports as per HPI and Reports no additional complaints Resp Reports as per HPI and Reports no additional complaints GI Reports as per HPI and Reports no additional complaints Reports as per HPI Physical Exam Vital Signs: BMI result Body Mass Index 30.4 Const General: cooperative, healthy appearing and comfortable GI Palpation (GI): Soft to palpation, nontender and Other GI palpation findings present (No CVA tenderness) General: Yes bladder normal to palpation External Female Exam: No lesion Speculum Exam - Vagina: normal appearance of the vagina, normal vaginal discharge and not erythematous Speculum Exam - Cervix: Cervix absent Bimanual exam- vagina & uterus: bladder normal to palpation and uterus absent Bimanual Exam- Adnexa, other: Other (No masses detected) Quality Reporting (2019) Adult ([facility] 138/11/24/68) Smoking risk assessment performed?: Yes Patient Tobacco Use Status: Current everyday Tobacco user Assessment & Plan Assessment & Plan (1) Microscopic hematuria: Code(s): R31.29 - Other microscopic hematuria Category: Medical Plan: Urine dip showed microscopic hematuria, repeat urine culture. Instructions given the patient to call or go to emergency room in case of flank pain, fever above 100.4, nausea or vomiting, since of her pain and to schedule a 2 week follow-up appointment for repeat urine dip. (2) Left ovarian cyst: Code(s): N83.202 - Unspecified ovarian cyst, left side Category: Medical Plan: Referral to [facility] for management of left ovarian cyst was placed, Instructed the patient to call our office back in case a referral appointment is not scheduled, missed or canceled so that we will assist on rescheduling another appointment, the patient verbalized understanding agreed with the plan. Coding Level of Care Code Est Pt Level 3 (26038) Diagnoses Microscopic hematuria R31.29 Left ovarian cyst N83.202
[2024-12-03 13:52] VITALS: BMI 30.4
--- OUTSIDE RECORDS SUMMARY | 2024-12-03 15:30 | XMS_ITS | Continuity of Care Document ---
Author Organization [facility] Address [address] [place] [address] Phone Care Team Providers Care Machine Plug Shaper Name Role Phone Polo Gifford MD Unavailable [...] Copied on Encounter Office/outpat ient visit,est, mod [facility], [address], [place], [place], [id number], [place] tel:[phone] [facility] [place] Doctor note back to work (chief complaint) Knee pain, leftSinusitis 4 Ирина Cuellar. [facility] [place], [address], [place]. tel:[phone] OFFICE/OUTPAT IENT VISIT [facility], [address], [place], [place], [id number], [place] tel:[phone] [facility] [place] [place] left knee pain (chief complaint) Right knee pain 4 Ирина Cuellar. [facility] [place], [address], [place]. tel:[phone] Family History Family Member Type Diagnosis Age At Onset No Information Payers Payer name Insurance type Covered green party ID Authoriza tidaniela(s) [employer] [place] PPO [id number] Social History Type Description Quantity Date Captured [...] Mental Status Date Cognitive Assessment Orientation - [place] ed to time, place, person, situation. Patient Care Teams Name Effective Dates (start - stop) Status Members No Information
--- OUTSIDE RECORDS SUMMARY | 2024-12-03 15:30 | XMS_ITS | Continuity of Care Document ---
Author Organization [facility] ic Address [address] [place] [address] [place] [address] Phone Care Team Providers Care Rn Maternity Name Role Phone Ines Esparza NP Unavailable [...] Diagnoses Date Provider Providers Copied on Encounter [facility], [address] [place] [address], [id number], tel:[phone] [facility] Sam No Information 7 Vilma Chacon. [address] [place] [address], [id number], . tel:[phone] ESTABLISHED OFFICE/OUTPAT IENT VISIT [facility], [address] [place] [address], [id number], tel:[phone] [facility] Earache (chief complaint) Otitis externa of left ear, unspecified chronicity, unspecified type 6 Janneth HATFIELD Alcon. [address] [place] [address], [id number], [place]. tel:[phone] OFFICE/OUTPAT IENT VISIT EST [facility], [address] [place] [address], [id number], tel:[phone] [facility] Earache (chief complaint) Body mass index (BMI) 37.0-37.9, adultEncounter for screening for diabetes mellitusLeft acute otitis mediaFamily history of diabetes mellitus (DM)Encounter for screening, unspecified 6 No Information NEW OFFICE/OUTPAT IENT VISIT [facility], [address] [place] [address], [id number], [place] tel:[phone] [facility] [place] Ear pain (chief complaint) Acute swimmer's ear of left side 5 No Information Family History Family Member Type Diagnosis Age At Onset No Information Payers Payer name Insurance type Covered constitution party ID Authorheathera israel(s) GTCIPA [facility] CI [id number] Social History Type Description Quantity Date Captured Comments Sex Female Smoking Status No Information Chief Complaint And Reason For Visit No Information Reason For Referral Reason For Referral No Information Plan Of Treatment Date Type Action Status Future Order: Lab Order Hemoglob in A1c ([id number]), Appointment on: , Collected on: , Sent on: Sent Future Order: Lab Order Lipid Pa eboni ([id number]), Appointment on: , Collected on: , Sent on: Sent Future Order: Lab Order TSH ([id number]), Appointment on: , Collected on: , Sent on: Sent Future Order: Lab Order Comprehe nsive Metabolic Panel ([id number]), Appointment on: , Collected on: , Sent on: Sent Future Order: Lab Order CBC With Differential/Platelet ([id number]), Appointment on: , Collected on: , Sent [...] Additional information: Has had otitis externa in [facility]. Ear pain Onset: 4 days [...] ear, unspecified chronicity, unspecified type Reviewed medications Follow exercise program Take new medication as prescribe d Avoid [...]
--- OUTSIDE RECORDS SUMMARY | 2024-12-03 15:30 | XMS_ITS | Clinical Summary ---
Author Organization [facility] Address [address] [place] [address] Care Team Providers Care Black Top Roller Name Role Phone Nazia Newton MD Primary Care Provider [phone] Allergies No known active allergies Social History [...] age to complete this topic Care Teams Black Top Roller Relationship Specialty Start Date End Date Nazia Newton MD [address] [place] [address] PCP - General Family Medicine 03/05/22
--- OUTSIDE RECORDS SUMMARY | 2024-12-03 15:30 | XMS_ITS | Clinical Summary ---
Author Organization [employer] Address [address] [facility] 7t [place] [address] Care Team Providers Care Motion Picture Operator Name Role Phone Unavailable Primary Care [...] patient's age to complete this topic Insurance [facility] ACO
== END 2024-12-03 14:23 | disposition home or self-care (01) ==
PROVIDERS: PCP Internal Medicine; Visit Provider Obstetrics & Gynecology
DX: R31.29 Other microscopic hematuria (principal); N83.202 Unspecified ovarian cyst, left side
CPT/HCPCS: 99213

== ENCOUNTER 2024-12-11 15:00 | Emergency (ER) | payer OTHER, SELFPAY ==
--- NOTE | ~2024-12-11 | XR_ITS ---
CLINICAL HISTORY: pain 1 view abdomen Comparison: CT of the abdomen from 10/15/2024 Findings: No small bowel dilatation. Moderate to severe stool burden noted, including the cecum. Minimal left basilar atelectasis. Imaged osseous structures are unremarkable for frontal radiographs. IMPRESSION: 1. No small bowel obstruction. 2. Moderate to severe stool burden This document has been electronically signed by: Robb Pickett MD on 12/11/2024 21:10:24
[2024-12-11 15:08] VITALS: BP 110/72; PULSE 75; RESP 18; TEMP 36.7; O2SAT 97; BMI 30.7
--- NOTE | 2024-12-11 15:12 | ED_ITS ---
HPI - General Adult General Chief complaint: General Medical Stated complaint: body aches/nausea Time Seen by Provider: 12/11/24 19:08 Source: patient Limitations: language barrier History of Present Illness ED Provider: Zandra Stein PA-C HPI narrative: 39-year-old female with a history of morbid obesity, IBS, ovarian cysts, GERD, chronic back pain, who presents with multiple complaints. Patient states she has been having left mid abdominal discomfort with radiation to the back at times. Unable to describe the nature of her discomfort, she does admit to constipation, unclear when she had her last bowel movement. Associated nausea, no vomiting or fever. Patient also complains of a headache, that has resolved after the use of Tylenol. Related Data Previous Rx's ?Medication ?Instructions ?Recorded bisacodyl 5 mg tablet,delayed 10 mg (2 x 5 mg) PO BEDTIME 30 01/24/24 release (Dulcolax (bisacodyl)) days #60 tabs linaclotide 72 mcg capsule 72 mcg PO QAM #30 caps 01/24/24 (Linzess) methocarbamol 500 mg tablet 500 mg PO TID muscle spasms 30 01/24/24 days #90 tabs ibuprofen 800 mg tablet 800 mg PO Q8H PRN pain 30 days #90 06/10/24 tabs sumatriptan succinate 25 mg tablet 25 mg PO Q2-4H PRN migraine 06/24/24 headache 30 days #9 tabs ondansetron 4 mg disintegrating 4 mg PO Q8H PRN nausea and 06/29/24 tablet vomiting #20 tabs cholecalciferol (vitamin D3) 50 50 mcg PO DAILY 90 days #90 caps 09/10/24 mcg (2,000 unit) capsule famotidine 40 mg tablet (Pepcid) 40 mg PO BEDTIME #90 tabs 09/10/24 fluoxetine 10 mg capsule 10 mg PO DAILY depressive disorder 09/10/24 90 days #90 caps hydrochlorothiazide 12.5 mg tablet 12.5 mg PO DAILY 90 days #90 tabs 09/10/24 pantoprazole 40 mg tablet,delayed 40 mg PO DAILY 90 days #90 tabs 10/10/24 release tramadol 50 mg tablet 50 mg PO DAILY PRN pain 30 days 10/10/24 #20 tabs phenazopyridine 200 mg tablet 200 mg PO TID PRN pain #10 tabs 10/15/24 (Pyridium) nitrofurantoin 100 mg PO BID 5 days #10 caps 11/27/24 monohydrate/macrocrystals 100 mg capsule (Macrobid) metoclopramide HCl 10 mg tablet 10 mg PO Q6H PRN nausea and 12/11/24 vomiting #12 tabs Allergies Allergy/AdvReac Type Severity Reaction Status Date / Time No Known Allergies Allergy Verified 12/11/24 15:12 [No Known Allergies*] Review of Systems 2 Review of Systems: Yes all other systems are reviewed and are negative Constitutional: Constitutional: Denies fatigue, Denies fever(s) and Reports headache(s) ENT: Reports headache(s) Cardiovascular: Cardiovascular: Denies chest pain and Denies dyspnea Respiratory: Respiratory: Denies cough and Denies dyspnea Gastrointestinal: Gastrointestinal: Reports abdominal pain, Reports constipation, Reports nausea and Denies vomiting Neurologic: Reports headache(s) Endocrine: Endocrine: Denies fatigue PMFSH Past Medical History Attestation statement: The following information was validated with the patient. Medical History PONV (postoperative nausea and vomiting) Breast pain, right Fibroadenoma Left ovarian cyst Breast mass, right Lumbar pain IBS (irritable bowel syndrome) Atopic dermatitis Bipolar 1 disorder GERD (gastroesophageal reflux disease) Anxiety Depression Asthma Surgical History History of excision of mass History of umbilical hernia repair H/O hysterectomy with oophorectomy H/O section Hx of esophagogastroduodenoscopy Family History Family History Father Kidney disease Hypertension Family history of breast cancer Mother CVD (cardiovascular disease) Paternal Grandmother Stomach cancer Paternal Aunt Breast cancer Social History Social History Housing: Apartment Alcohol intake: former Comment: pt previously medicated with oxycodone Patient Tobacco Use Status: Current everyday Tobacco user Tobacco use type: Cigarette Cigarette Packs Per Day: 1 Cigarettes Per Day: 8 e-Cigarette/Vaping Use: Never Used Second Hand Smoke Exposure: Yes Substance Use Type: Marijuana Advance Directives: No Advance Directives Information Provided: No service: No Current occupational status: employed Gender identity: Female Cognitive needs: No Hearing needs: No Vision needs: No Physical Exam ED Vital Signs: Vital Signs - 24 hr 12/11/24 15:08 12/11/24 17:27 Temperature 98.1 F 97.6 F Pulse Rate 75 72 Respiratory Rate 18 16 Blood Pressure 110/72 148/92 H Pulse Oximetry 97 99 Oxygen Delivery Method Room Air Room Air BMI result Body Mass Index 30.7 Const Other: Alert well-appearing Orientation/consciousness: patient oriented x3 Neck Neck: Yes full ROM and Yes no meningeal signs Resp Effort & Inspection: normal respiratory effort Cardio Other: Normal peripheral perfusion GI Other: Obese abdomen, is soft, nondistended, no tenderness to palpation no guarding Skin Other: Warm dry no rash Neuro General: patient oriented x3, gait normal, no meningeal signs, no focal motor deficits and CN's II-XI intact bilaterally Psych Other: Calm cooperative Course Course Course Narrative: RME, this is a rapid medical exam performed by Edison Morton please refer to primary provider for complete H&P- 39-year-old female presents for evaluation of lower abdominal pain, body aches and nausea. Plan for labs urinalysis, and viral testing. Medications Administered Discontinued Medications Generic Name Dose Route Start Last Admin Trade Name Freq PRN Reason Stop Dose Admin Acetaminophen 975 mg 12/11/24 17:28 12/11/24 17:30 Acetaminophen 325 Mg Tablet PO 12/11/24 17:29 975 mg ONCE ONE Administration Medical Decision Making Medical Decision Making [facility] Narrative: 39-year-old female with a history of morbid obesity, IBS, ovarian cysts, GERD, chronic back pain, who presents with multiple complaints. Patient states she has been having left mid abdominal discomfort with radiation to the back at times. Unable to describe the nature of her discomfort, she does admit to constipation, unclear when she had her last bowel movement. Associated nausea, no vomiting or fever. Patient also complains of a headache, that has resolved after the use of Tylenol. Problem: Chronic pain History: Per patient I have considered the following differential diagnoses: Exacerbation of her chronic pain, headache, meningitis, viral syndrome, constipation, bowel obstruction, kidney stone Plan: Patient here with numerous complaints. In regard to her abdominal pain, she is stating it is referred to the back, she is also constipated, we will add a KUB. To note she has no obstructive symptoms just suggest a bowel obstruction she does not warrant a CT scan. In regard to her headache, it resolved with Tylenol. Thought about meningitis, however there was no meningeal signs, she is afebrile, she is not altered. Thought about kidney stone given both abdominal and back pain, however she has no related symptoms. Screening labs including a urinalysis were obtained from triage, everything is negative, including a viral panel. I have independently reviewed the following tests: Labs: No leukocytosis, not anemic, no electrolyte abnormality, not , urine not infected, viral panel is negative KUB:Findings: No small bowel dilatation. Moderate to severe stool burden noted, including the cecum. Minimal left basilar atelectasis. Imaged osseous structures are unremarkable for frontal radiographs. IMPRESSION: 1. No small bowel obstruction. 2. Moderate to severe stool burden Lab Data 12/11/24 15:51 12/11/24 15:51 Labs: Lab Results 12/11/24 Range/Units 15:51 WBC 9.8 (4.8-10.8) X10*3/uL RBC 5.25 (4.20-5.50) X10*6/uL Hgb 14.7 (12.0-16.0) g/dl Hct 43.9 (37.0-47.0) % MCV 83.6 (80.0-98.0) fL MCH 28.0 (27.0-33.0) pg MCHC 33.5 (31.0-35.0) g/dl RDW 14.6 (11.0-16.0) % Plt Count 318 (160-400) X10*3/uL MPV 10.3 (9.4-12.3) fL Immature Gran % (Auto) 0.4 (0.0-0.4) % Neut % (Auto) 61.0 (45-73) % Lymph % (Auto) 32.0 (20-40) % [place] % (Auto) 5.1 (2-11) % Eos % (Auto) 1.3 (0-4) % Baso % (Auto) 0.2 (0-2) % Lymph # (Auto) 3.1 (1.2-4.9) X10*3/uL [place] # (Auto) 0.5 (0.1-1.2) X10*3/uL Eos # (Auto) 0.1 (0.0-0.4) X10*3/uL Baso # (Auto) 0.0 (0.0-0.2) X10*3/uL Abs Immat Gran (auto) 0.04 H (0.00-0.03) X10*3/uL Absolute Neuts (auto) 6.0 (2.0-8.3) x10*3/uL Absolute Nucleated RBC 0.000 (0.0-0.012) X10*3/uL Nucleated RBC % (auto) 0.0 (0.0-0.2) /100WBC Sodium 141 (135-145) mmol/L Potassium 3.7 (3.3-5.1) mmol/L Chloride 109 H (96-108) mmol/L Carbon Dioxide 24 (22-29) mmol/L Anion Gap 12 (12-20) BUN 15 (9-16) mg/dL Creatinine 0.74 (0.5-1.4) mg/dL Estim Creat Clear Calc 107.2 Estimated GFR > 60 Random Glucose 105 (60-115) mg/dL Calcium 9.6 (8.4-10.2) mg/dL Total Bilirubin 0.6 (0.0-1.0) mg/dL AST 24 (5-31) U/L ALT 27 (0-31) U/L Alkaline Phosphatase 47 (39-117) U/L Total Protein 7.7 (6.5-8.0) g/dL Albumin 4.0 (3.5-5.0) g/dL Lipase 19 (8-78) U/L Beta HCG, Quant < 2 mIU/mL Urine Color Yellow Urine Appearance Clear Urine pH 5.5 (5.0-9.0) Ur Specific [place] 1.025 (1.005-1.025) Urine Protein Negative (Neg-Trace) mg/dL Urine Glucose (UA) Negative (Negative) mg/dL Urine Ketones Negative (Negative) mg/dL Urine Blood Negative (Negative) Urine Nitrite Negative (Negative) Ur Leukocyte Esterase Negative (Negative) Urine RBC 0-2 (0-2) /HPF Urine WBC 0-5 (0-5) /HPF Ur Squamous Epith Cells 0-2 (0-2) /HPF Urine Bacteria 2+ (None Seen) Hyaline Casts 0-2 (0-2) /LPF Influenza Type A (PCR) NEGATIVE (Negative) Influenza Type B (PCR) NEGATIVE (Negative) RSV RNA Qual (PCR) NEGATIVE (Negative) SARS-CoV-2 RNA (RT-PCR) NEGATIVE (Negative) Discharge Plan Discharge Clinical Impression: Constipation Patient Disposition: Home, Self-Care Instructions: Constipation (ED) Additional Instructions: You were found to be severely constipated on the x-ray. All of your screening labs including a urinalysis and viral panel were negative. I feel that your constipation is referring pain to your back, it is also noted that you have chronic back pain. Use [id number] Colace, this is a stool softener, twice a day. Also purchase MiraLax, drink 1 cup every hour until you begin having multiple large volume bowel movements, and you begin to defecate clear fluid. Follow up with your primary care provider as needed. Use the metoclopramide as needed for nausea, this is also a gastrointestinal motility agent. Prescriptions: New metoclopramide HCl 10 mg tablet 10 mg PO Q6H PRN (Reason: nausea and vomiting) Qty: 12 0RF No Action ibuprofen 800 mg tablet 800 mg PO Q8H PRN (Reason: pain) 30 Days Qty: 90 1RF sumatriptan succinate 25 mg tablet 25 mg PO Q2-4H PRN (Reason: migraine headache) 30 Days Qty: 9 0RF Rx Instructions: do not exceed 8 doses per 24 hrs pantoprazole 40 mg tablet,delayed release (DR/EC) 40 mg PO DAILY 90 Days Qty: 90 1RF tramadol 50 mg tablet 50 mg PO DAILY PRN (Reason: pain) 30 Days Qty: 20 0RF ondansetron 4 mg tablet,disintegrating 4 mg PO Q8H PRN (Reason: nausea and vomiting) Qty: 20 0RF phenazopyridine [Pyridium] 200 mg tablet 200 mg PO TID PRN (Reason: pain) Qty: 10 0RF bisacodyl [Dulcolax (bisacodyl)] 5 mg tablet,delayed release (DR/EC) 10 mg PO BEDTIME 30 Days Qty: 60 3RF Linzess 72 mcg capsule 72 mcg PO QAM Qty: 30 3RF methocarbamol 500 mg tablet 500 mg PO TID 30 Days Qty: 90 0RF hydrochlorothiazide 12.5 mg tablet 12.5 mg PO DAILY 90 Days Qty: 90 1RF cholecalciferol (vitamin D3) 50 mcg (2,000 unit) capsule 50 mcg PO DAILY 90 Days Qty: 90 1RF famotidine [Pepcid] 40 mg tablet 40 mg PO BEDTIME Qty: 90 1RF fluoxetine 10 mg capsule 10 mg PO DAILY 90 Days Qty: 90 0RF nitrofurantoin monohyd/m-cryst [Macrobid] 100 mg capsule 100 mg PO BID 5 Days Qty: 10 0RF Stand Alone Forms: Work/School Release Print Language: Andorran
[2024-12-11 15:56] LABS: MANUAL DIFF FLAG NO
[2024-12-11 16:01] LABS: Basophils Percent Auto 0.2 % (0-2); Eosinophils Absolute Auto 0.1 X10*3/uL (0.0-0.4); Eosinophils Percent Auto 1.3 % (0-4); Hematocrit 43.9 % (37.0-47.0); Hemoglobin 14.7 g/dl (12.0-16.0); Imm Gran Abs Auto 0.04 X10*3/uL (0.00-0.03); Imm Gran Pct Auto 0.4 % (0.0-0.4); Lymphocytes Absolute Auto 3.1 X10*3/uL (1.2-4.9); Mean Corpuscular HGB Conc 33.5 g/dl (31.0-35.0); Mean Corpuscular Volume 83.6 fL (80.0-98.0); Mean Platelet Volume 10.3 fL (9.4-12.3); Monocytes Absolute Auto 0.5 X10*3/uL (0.1-1.2); Monocytes Percent Auto 5.1 % (2-11); Platelet Count 318 X10*3/uL (160-400); Red Blood Count 5.25 X10*6/uL (4.20-5.50); Red Cell Distribution Width 14.6 % (11.0-16.0); White Blood Count 9.8 X10*3/uL (4.8-10.8)
[2024-12-11 16:02] LABS: Appearance Urine Clear; Color Urine Yellow; Glucose Urine UA Negative (Negative); Leukocyte Esterase Urine Negative (Negative); Nitrite Urine Negative (Negative); PH 5.5 (5.0-9.0); Specific Gravity - Urine 1.025 (1.005-1.025); Urine Blood Negative (Negative); Urine Ketones Negative (Negative); Urine Protein Negative (Neg-Trace)
[2024-12-11 16:07] LABS: Bacteria Urine 2+ (None Seen); Hyaline Casts Urine 0-2 /LPF (0-2); RBC Urine 0-2 /HPF (0-2); Squamous Epithelial Cell Urine 0-2 /HPF (0-2); WBC Urine 0-5 /HPF (0-5)
[2024-12-11 16:19] LABS: Alanine Aminotransferase 27 U/L (0-31); Anion Gap 12 (12-20); Aspartate Amino Transferase 24 U/L (5-31); Bilirubin Total 0.6 mg/dL (0.0-1.0); Blood Urea Nitrogen 15 mg/dL (9-16); Calcium 9.6 mg/dL (8.4-10.2); Carbon Dioxide 24 mmol/L (22-29); Chloride 109 mmol/L (96-108); Creatinine Clr Calc Pharmacy 107.2; Estimated Glomerular Filt Rate > 60; Glucose Random 105 mg/dL (60-115); Lipase 19 U/L (8-78); Potassium 3.7 mmol/L (3.3-5.1); Sodium 141 mmol/L (135-145); Total Protein 7.7 g/dL (6.5-8.0)
[2024-12-11 16:35] LABS: Influenza A PCR NEGATIVE (Negative); Influenza B PCR NEGATIVE (Negative); Resp Syncy Virus RNA Qual PCR NEGATIVE (Negative); SARS COV2 PCR INHOUSE NEGATIVE (Negative)
[2024-12-11 17:19] LABS: HCG Quantitative < 2 mIU/mL
[2024-12-11 17:27] VITALS: BP 148/92; PULSE 72; RESP 16; TEMP 36.4; O2SAT 99
[2024-12-11] MEDS: Acetaminophen 325 MG TABLET 975 MG PO (17:30)
[2024-12-11 17:47] LABS: Alkaline Phosphatase 47 U/L (39-117)
--- OUTSIDE RECORDS SUMMARY | 2024-12-11 19:38 | XMS_ITS | Clinical Summary ---
Author Organization [employer] Address [address] [facility] [address] [place] [address] Care Team Providers Care Marine Rigger Name Role Phone Unavailable Primary Care Provider [...] patient's age to complete this topic Insurance [facility] A[facility]
--- OUTSIDE RECORDS SUMMARY | 2024-12-11 19:38 | XMS_ITS | Continuity of Care Document ---
Author Organization [facility] ic Address [address] [place] [address] [place] [address] Phone Care Team Providers Care Lightning Rod Erector Name Role Phone Ines Esparza NP Unavailable [...] Copied on Encounter [facility], [address] [place] [address], [id number], tel:[phone] [facility] Sam No Information 7 Vilma Chacon. [address] [place] [address], [address], . tel:[phone] ESTABLISHED OFFICE/OUTPAT IENT VISIT [facility], [address] [place] [address], [id number], tel:[phone] [facility] Earache (chief complaint) Otitis externa of left ear, unspecified chronicity, unspecified type 6 Janneth HATFIELD Alcon. [address] [place] [address], [id number], [place]. tel:[phone] OFFICE/OUTPAT IENT VISIT EST [facility], [address] [place] [address], [id number], tel:[phone] [facility] Earache (chief complaint) Body mass index (BMI) 37.0-37.9, adultEncounter for screening for diabetes mellitusLeft acute otitis mediaFamily history of diabetes mellitus (DM)Encounter for screening, unspecified 6 No Information NEW OFFICE/OUTPAT IENT VISIT [facility], [address] [place] [address], [id number], [place] tel:[phone] [facility] [place] Ear pain (chief complaint) Acute swimmer's ear of left side 5 No Information Family History Family Member Type Diagnosis Age At Onset No Information Payers Payer name Insurance type Covered alliance party ID Authorheathera israel(s) GTCIPA [facility] CI [id number] Social History Type Description Quantity Date Captured Comments Sex Female Smoking Status No Information Chief Complaint And Reason For Visit No Information Reason For Referral Reason For Referral No Information Plan Of Treatment Date Type Action Status Future Order: Lab Order Hemoglob in A1c ([id number]), Appointment on: , Collected on: , Sent on: Sent Future Order: Lab Order Lipid Pa eboni ([id number]), Appointment on: , Collected on: , Sent on: Sent Future Order: Lab Order TSH ([id number]), Appointment on: , Collected on: , Sent on: Sent Future Order: Lab Order Comprehe nsive Metabolic Panel ([id number]), Appointment on: , Collected on: , Sent on: Sent Future Order: Lab Order CBC With Differential/Platelet ([id number]), Appointment on: , Collected on: , Sent [...] Additional information: Has had otitis externa in [facility]. Ear pain Onset: 4 days [...]
--- OUTSIDE RECORDS SUMMARY | 2024-12-11 19:38 | XMS_ITS | Clinical Summary ---
Author Organization [facility] Address [address] [place] [address] Care Team Providers Care Jaw Skinner Name Role Phone Nazia Newton MD Primary Care Provider [phone] Allergies No known active allergies Social History [...] age to complete this topic Care Teams Jaw Skinner Relationship Specialty Start Date End Date Nazia Newton MD [address] [place] [address] PCP - General Family Medicine 03/05/22
--- OUTSIDE RECORDS SUMMARY | 2024-12-11 19:38 | XMS_ITS | Continuity of Care Document ---
Author Organization [facility] Address [address] [place] [address] Phone Care Team Providers Care Parquetry Floor Layer Name Role Phone Polo Gifford MD Unavailable [...] Copied on Encounter Office/outpat ient visit,est, mod [facility], [address], [place], [place], [id number], [place] tel:[phone] [facility] Urgent Care Doctor note back to work (chief complaint) Knee pain, leftSinusitis 4 Ирина Cuellar. [facility] [place], [address], [place]. tel:[phone] OFFICE/OUTPAT IENT VISIT [facility], [address], [place], [place], [id number], [place] tel:[phone] [facility] Urgent Care left knee pain (chief complaint) Right knee pain 4 Ирина Cuellar. [facility] [place], [address], [place]. tel:[phone] Family History Family Member Type Diagnosis Age At Onset No Information Payers Payer name Insurance type Covered libertarian ID Authoriza tidaniela(s) [employer] [place] [id number] Social History Type Description Quantity Date Captured [...] Mental Status Date Cognitive Assessment Orientation - [place] ed to time, place, person, situation. Patient Care Teams Name Effective Dates (start - stop) Status Members No Information
[2024-12-11 21:12] VITALS: BP 140/81; PULSE 65; RESP 18; TEMP 36.2; O2SAT 100
[2024-12-11 21:26] VITALS: BP 140/81; PULSE 65; RESP 18; TEMP 36.2; O2SAT 100
== END 2024-12-11 21:26 | disposition home or self-care (01) ==
PROVIDERS: Physician Assistant; Emergency Provider Emergency Medicine Emergency Medical Services; PCP Internal Medicine
DX: M79.10 Myalgia, unspecified site (principal); R11.0 Nausea; R10.32 Left lower quadrant pain; K59.00 Constipation, unspecified; M54.50 Low back pain, unspecified; F17.210 Nicotine dependence, cigarettes, uncomplicated; Z03.818 Encounter for observation for suspected exposure to other biological agents ruled out
CPT/HCPCS: 0241U; 74018; 80053; 81001; 83690; 84702; 85025; 99283

== ENCOUNTER → 2024-12-11 20:44 | Outpatient (BNV) | payer OTHER, SELFPAY | PROVIDERS: Emergency Provider Emergency Medicine Emergency Medical Services; PCP Internal Medicine; Visit Provider Radiology Neuroradiology | DX: K56.41 Fecal impaction (principal) | CPT/HCPCS: 74018 ==

== ENCOUNTER 2024-12-21 07:43 | Outpatient (AMB) | payer OTHER, SELFPAY ==
[2024-12-21 07:46] VITALS: BMI 30.6
--- NOTE | 2024-12-21 07:46 | A.OFFVIS_ITS ---
Vital Signs 12/21/24 07:46 Height 5 ft 4 in Weight 178 lb BMI 30.6 Intake Visit Reasons: urine dip Flat Knitter Required: Yes Flat Knitter Language: [employer]: Flat Knitter Present (in person) Flat Knitter Name: Gaviota RAMOS Information Interpreted: non-clinical & clinical Accompanied by: Self / Same As Patient Allergies No Known Allergies [No Known Allergies*] Allergy (Verified 12/21/24 07:47) Is last menstrual period known: No (Hysterectomy) HPI Comments Details: Presenting for repeat urine dip. Last visit showed microscopic hematuria, urine culture on 12/03 was negative 10/15/2024 CT of abdomen and pelvis showed the following: Impression: 1. No renal or ureteral calculi. 2. Hazy density in the lungs is likely related to atelectasis. 3. No appreciable tissue plane between the distal rectum/anus in the vagina with air within the vagina as seen previously. 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 Possibility of recurrent fistula is not excluded on these images and correlation with physical examination suggested. 09/25 pelvic ultrasound showed the following: IMPRESSION: The uterus is surgically absent. Right ovary not visualized and per report is surgically absent. 1.1 x 0.9 x 0.8 cm left ovarian cyst appears simple. Pelvic ultrasound of 11/22/2023 demonstrated a 2.6 x 2.2 x 2.3 cm complex left ovarian cyst The patient does not give any history of passage of stools per vagina or any other abnormal vaginal discharge, no history of rectovaginal fistula The patient has an appointment with a [facility] for management of complex ovarian cyst seen on ultrasound and abnormal CT finding possible rectovaginal fistula [facility] Medical History PONV (postoperative nausea and vomiting) Breast pain, right Fibroadenoma Left ovarian cyst Breast mass, right Lumbar pain IBS (irritable bowel syndrome) Atopic dermatitis Bipolar 1 disorder GERD (gastroesophageal reflux disease) Anxiety Depression Asthma Surgical History History of excision of mass History of umbilical hernia repair H/O hysterectomy with oophorectomy H/O section Hx of esophagogastroduodenoscopy Family History Father Kidney disease Hypertension Family history of breast cancer Mother CVD (cardiovascular disease) Paternal Grandmother Stomach cancer Paternal Aunt Breast cancer Social History Housing: Apartment Alcohol intake: former Comment: pt previously medicated with oxycodone Patient Tobacco Use Status: Current everyday Tobacco user Tobacco use type: Cigarette Cigarette Packs Per Day: 1 Cigarettes Per Day: 8 e-Cigarette/Vaping Use: Never Used Second Hand Smoke Exposure: Yes Substance Use Type: Marijuana service: No Current occupational status: employed Gender identity: Female Cognitive needs: No Hearing needs: No Vision needs: No Female Reproductive History Menstrual Age of Menarche: 15 Review of Systems Const All systems reviewed & are unremarkable except as noted in HPI and below Reports as per HPI and Reports no additional complaints GI Reports no additional complaints Reports no additional complaints Physical Exam Vital Signs: BMI result Body Mass Index 30.6 Results AMB Urinalysis Dipstick UR Leukocytes Negative Last Edit by Gaviota Valle CMA on 12/21/24 07:54 UR Nitrite Negative Last Edit by Gaviota Valle CMA on 12/21/24 07:54 UR Urobilinogen Normal Last Edit by Gaviota Valle CMA on 12/21/24 07:54 UR Protein Trace Last Edit by Gaviota Valle CMA on 12/21/24 07:54 UR Ph 6.0 Last Edit by Gaviota Valle CMA on 12/21/24 07:54 UR Blood Moderate Last Edit by Gaviota Valle CMA on 12/21/24 07:54 UR Specific [place] 1.020 Last Edit by Gaviota Valle CMA on 12/21/24 07:54 UR Ketone Negative Last Edit by Gaviota Valle CMA on 12/21/24 07:54 UR Bilirubin Negative Last Edit by Gaviota Valle CMA on 12/21/24 07:54 UR Glucose Negative Last Edit by Gaviota Valle CMA on 12/21/24 07:54 Assessment & Plan Assessment & Plan (1) Left ovarian cyst: Code(s): N83.202 - Unspecified ovarian cyst, left side Category: Medical Plan: The patient has appointment at [facility] on 01/11 for further management (2) Microscopic hematuria: Code(s): R31.29 - Other microscopic hematuria Category: Medical Plan: Repeat urine dip showed microscopic hematuria persistent, will refer to urology for further management (3) Abnormal CT scan: Comment: Of the vagina with possible rectovaginal fistula Code(s): R93.89 - Abnormal findings on diagnostic imaging of other specified body structures Category: Medical Plan: Discussed with the patient the finding on CT scan abnormal finding possible rectovaginal fistula, the CT report was included in the record faxed to [facility] for a consult and the patient has an appointment at [facility] for further management. All questions answered, the patient verbalized understanding Instructed the patient to call our office back in case a referral appointment is not scheduled, missed or canceled so that we will assist on rescheduling another appointment, the patient verbalized understanding agreed with the plan. Orders: Orders AMB Urinalysis Dipstick Today R31.29 - Other microscopic hematuria Referrals Urology Referral R31.29 - Other microscopic hematuria Coding Level of Care Code Est Pt Level 3 (22963) Diagnoses Left ovarian cyst N83.202 Microscopic hematuria R31.[address] scan R93.89
--- OUTSIDE RECORDS SUMMARY | 2024-12-21 07:46 | XMS_ITS | Clinical Summary ---
Author Organization [employer] Address [address] [place] [address] Care Team Providers Care Dairy Farmer Name Role Phone Unavailable Primary Care Provider [...] patient's age to complete this topic Insurance [facility]
--- OUTSIDE RECORDS SUMMARY | 2024-12-21 07:46 | XMS_ITS | Continuity of Care Document ---
Author Organization [facility] Address [address] [place] [address] Phone Care Team Providers Care Bordereau Clerk Name Role Phone Polo Gifford MD Unavailable [...] Copied on Encounter Office/outpat ient visit,est, mod [facility], [address], [place], [place], [id number], [place] tel:[phone] [facility] Urgent Care Doctor note back to work (chief complaint) Knee pain, leftSinusitis 4 Ирина Cuellar. [facility] [place], [address], [place]. tel:[phone] OFFICE/OUTPAT IENT VISIT [facility], [address], [place], [place], [id number], [place] tel:[phone] [facility] Urgent Care left knee pain (chief complaint) Right knee pain 4 Ирина Cuellar. [facility] [place], [address], [place]. tel:[phone] Family History Family Member Type Diagnosis Age At Onset No Information Payers Payer name Insurance type Covered constitution party ID Authoriza tiadniela(s) [facility] [place] P[place] [id number] Social History Type Description Quantity Date Captured [...] Mental Status Date Cognitive Assessment Orientation - [place] ed to time, place, person, situation. Patient Care Teams Name Effective Dates (start - stop) Status Members No Information
--- OUTSIDE RECORDS SUMMARY | 2024-12-21 07:46 | XMS_ITS | Clinical Summary ---
Author Organization [facility] Address [address] [place] [address] Care Team Providers Care Grinding Operator Name Role Phone Nazia Newton MD Primary Care Provider [phone] Allergies No known active allergies Social History [...] age to complete this topic Care Teams Grinding Operator Relationship Specialty Start Date End Date Nazia Newton MD [address] [place] [address] PCP - General Family Medicine 03/05/22
--- OUTSIDE RECORDS SUMMARY | 2024-12-21 07:46 | XMS_ITS | Continuity of Care Document ---
Author Organization [facility] Address [address] [place] [address] [place] [address] Phone Care Team Providers Care Operations Associate Name Role Phone Unavailable Unavailable Unavailable Allergies, [...] Diagnoses Date Provider Providers Copied on Encounter [facility], [address] [place] [address], [id number], tel:[phone] [facility] Sam No Information 7 No Information ESTABLISHED OFFICE/OUTPAT IENT VISIT [facility], [address] [place] [address], [id number], tel:[phone] [facility] [place] Earache (chief complaint) Otitis externa of left ear, unspecified chronicity, unspecified type 6 Janneth HATFIELD Alcon. [address] [place] [address], [id number], [place]. tel:[phone] OFFICE/OUTPAT IENT VISIT EST [facility], [address] [place] [address], [id number], [place] tel:[phone] [facility] [place] Earache (chief complaint) Body mass index (BMI) 37.0-37.9, adultEncounter for screening for diabetes mellitusLeft acute otitis mediaFamily history of diabetes mellitus (DM)Encounter for screening, unspecified 6 No Information NEW OFFICE/OUTPAT IENT VISIT [facility], [address] [place] [address], [id number], [place] tel:[phone] [facility] [place] Ear pain (chief complaint) Acute swimmer's ear of left side 5 No Information Family History Family Member Type Diagnosis Age At Onset No Information Payers Payer name Insurance type Covered alliance party ID Nuria wood(s) [employer] [facility] CI [id number] Social History Type Description Quantity Date Captured Comments Sex Female Smoking Status No Information Chief Complaint And Reason For Visit No Information Reason For Referral Reason For Referral No Information Plan Of Treatment Date Type Action Status Future Order: Lab Order Comprehe nsive Metabolic Panel ([id number]), Appointment on: , Collected on: , Sent on: Sent Future Order: Lab Order CBC With Differential/Platelet ([id number]), Appointment on: , Collected on: , Sent on: Sent Future Order: Lab Order TSH ([id number]), Appointment on: , Collected on: , Sent on: Sent Future Order: Lab Order Hemoglob in A1c ([id number]), Appointment on: , Collected on: , Sent on: Sent Future Order: Lab Order Lipid Pa eboni ([id number]), Appointment on: , Collected on: , Sent [...] information: Has had otitis externa in [facility]. Ear pain Onset: 4 days ag [...]
== END 2024-12-21 08:21 | disposition home or self-care (01) ==
LOC: HO.HWS 07:43
PROVIDERS: PCP Internal Medicine; Visit Provider Obstetrics & Gynecology
DX: N83.202 Unspecified ovarian cyst, left side (principal); R31.29 Other microscopic hematuria; R93.89 Abnormal findings on diagnostic imaging of other specified body structures
CPT/HCPCS: 99213

== ENCOUNTER → 2024-12-21 07:43 | Outpatient (BNVA) | payer OTHER, SELFPAY | PROVIDERS: PCP Internal Medicine; Visit Provider Obstetrics & Gynecology | DX: N83.202 Unspecified ovarian cyst, left side (principal); R31.29 Other microscopic hematuria; R93.89 Abnormal findings on diagnostic imaging of other specified body structures | CPT/HCPCS: 81002; 99212 ==

== ENCOUNTER 2025-02-06 11:21 | Outpatient (AMB) | payer OTHER, SELFPAY ==
[2025-02-06 11:23] VITALS: BP 128/81; PULSE 65; O2SAT 100; BMI 30.7
--- NOTE | 2025-02-06 11:23 | A.OFFVIS_ITS ---
Vital Signs 02/06/25 11:23 Height 5 ft 4 in Weight 179 lb 0.246 oz BMI 30.7 BP 128/81 Blood Pressure Location Lt brachial Position Sitting Pulse 65 Pulse Source Pulse Oximeter Pulse Oximetry (%) 100 Oxygen Delivery Method Room Air Intake Visit Reasons: Abd pain follow up Intake Note: Pt presents to the office today for a follow up for abdominal pain. Allergies No Known Allergies [No Known Allergies*] Allergy (Verified 02/06/25 11:23) HPI HPI Abd pain follow up: Details: Assessment & Plan (1) GERD with apnea: ?Comment: 2018 EGD INDICATION: The patient is a 33-year-old female who is being scoped due to severe abdominal pain. Her expression of pain is way out of proportion to any of the laboratory or clinical findings so far. This raises the question of Hyperesthetic or Visceral Hyperalgesic type process which can be with anxiety disorder--that is poorly controlled). The patient has an elevated BMI of 36. She clinically can be at risk for WINTER. ANESTHESIA: MAC anesthesia, Dr. Thakur. PROCEDURE DONE: EGD with biopsy. PROCEDURE IN DETAIL: Videoendoscope was introduced without difficulty. It was navigated into the posterior pharynx. There was a lot of soft tissue present. Arytenoid cartilages were lipomatous and floppy. Vocal cords were not well visualized. Scope easily passed into the esophagus. Esophageal mucosa was normal. There was no obvious hiatal hernia visualized at the time of this examination. On entering the stomach, stomach was empty. There were patchy areas of erythema. No submucosal hemorrhagic change is noted. Duodenal bulb and duodenum had slight patchy erythema as well and endoscopically normal villi. Duodenal biopsies were obtained. Gastric biopsies were obtained. IMPRESSION Superficial gastritis. COMMENT: On examination, the patient does have SI joint tenderness particularly on the left. She has some left-sided lower abdominal pain. She also describes some periumbilical discomfort. PLAN: When the patient is re-seen, please document a detailed symptom pattern and dietary history. Please review laboratory testing that has been done on this patient to include any appropriate measures of inflammatory process or stool testing. Exploration of the possibility of underlying sleep apnea should be considered. Dietary changes to be considered. Assessment of use of cannabinoids to be documented as well. Sintia Hernandez MD cc: NAZIA CHRISTIANSON MD 09/11/2018 08:44:48 Report #: [id number] Status: Signed Electronically Signed 09/13/18 @0728 Dict: 09/11/18 @0844 /Trans: 09/11/18 @1216 /ATS //ivnm// //add1// //add2// //add3// REPORTED BY: DIAGNOSIS ? A.? Duodenum, biopsies:? Fragments of unremarkable small intestinal mucosa. ? B.? Gastric, random, biopsies:? Fragments of unremarkable fundic-type gastric mucosa. ? The Helicobacter pylori immunohistochemical stain is ? negative. ?Code(s): K21.9 - Gastro-esophageal reflux disease without esophagitis; R06.81 - Apnea, not elsewhere classified ?Plan: [place] # Live Luna ?The nausea is improved but not completely resolved. She is tolerating the reglan w/o s/e or signs of SS so we will increase to 10mg tidac. She is not moving her bowels well on the 72mcg Linzess (and the 145 was too strong) and she still has pain all along the left abdomen in the path of the colon. We will add bisacodyl 1-2 tabs qhs and along with the increased reglan this should help. We review the US and it is completely normal except for some hepatic steatosis. She still will have breakthrough GERD at times and at times when she swallows she has pain in the right upper chest and the feeling of food getting stuck. This happens only with liquids; especially soda. She does not have any troubles with solids. Could be radiating gas pain/GERD or esophageal spasm.? If this does not improve once we restore bowel motility we could consider dicyclomine. ROV 4 weeks. All instructions written in Venezuelan using [employer] translate. (2) Chronic idiopathic constipation: ?Code(s): K59.04 - Chronic idiopathic constipation (3) Nausea and vomiting: ?Code(s): R11.2 - Nausea with vomiting, unspecified ? ? ? Medications: New bisacodyl (Dulcolax (bisacodyl)) 10 mg (2 x 5 mg) PO BEDTIME 30 days 60 tabs 3RF K59.04 - Chronic idiopathic constipation ? metoclopramide HCl (Reglan) 10 mg? PO .tidac 90 tabs 3RF K59.04 - Chronic idiopathic constipation, R11.2 - Nausea with vomiting, unspecified ? Refilled pantoprazole 40 mg? PO DAILY 90 days 90 tabs 1RF ? ? famotidine (Pepcid) 40 mg? PO BEDTIME 90 tabs 1RF ? ? Discontinued metoclopramide HCl (Reglan) ?? Discontinued Reason:? Doctor's Order 5 mg? PO TID 90 tabs 3RF K21.9 - Gastro- esophageal reflux disease without esophagitis, R06.81 - Apnea, not elsewhere classified, R11.2 - Nausea with vomiting, unspecified ?Patient Instructions: Marianela Hayes Contin?e con Linzess todas las ma?anas, estoy agregando un medicamento llamado bisacodyl, tome 1 tableta al principio a la hora de acostarse, y si no est? defecando bryon, tome 2 a la hora de acostarse. Tambi?n estoy aumentando la metoclopramida a 10 mg antes de cada comida. Incluso si se salta jamarcus comida, tome el medicamento, ya que mantendr? silva sistema en movimiento y esto tambi?n ayuda con las n?useas. Contin?e con protonix por la ma?nazia y famotidina por la noche si es necesario. Quiero verte en 3 semanas para haley c?mo te va. Continue taking Linzess every morning. I'm adding a medication called bisacodyl. Take one tablet at bedtime first. If your bowel movements aren't good, take two at bedtime. I'm also increasing your metoclopramide to 10 mg before each meal. Even if you miss a meal, take the medication, as it will keep your system moving, and this also helps with nausea. Continue taking protonix in the morning and famotidine at night if needed. I want to see you in 3 weeks to see how you're doing. CT ABD AND PELVIS 10/2024 Findings: CT abdomen: Mild hazy density seen within the lung bases without dense infiltrate or pleural effusion. No focal bony lesions. No renal or ureteral calculi. No hydronephrosis or perinephric stranding. Unenhanced liver, spleen, pancreas, gallbladder, and adrenal glands are unremarkable. Moderate amount of ingested contents within the stomach. Fluid-filled loops of nondilated small bowel. Small mesenteric lymph nodes all measure less than 5 mm in short axis. These are increased in number but not size. No free fluid or free air. CT pelvis: No findings of appendicitis. There is a 1 mm calcification in the right lower quadrant which is adjacent to the appendix. However, this is within the gonadal vein and not the appendix. No colonic wall thickening or pericolonic inflammatory stranding. Uterus is surgically absent. There is continued air within the upper vagina. Poorly defined tissue plane between the rectum/anus in the vagina. Impression: 1. No renal or ureteral calculi. 2. Hazy density in the lungs is likely related to atelectasis. 3. No appreciable tissue plane between the distal rectum/anus in the vagina with air within the vagina as seen previously. 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 Possibility of recurrent fistula is not excluded on these images and correlation with physical examination suggested. MRI OF THE ABDOMEN 04/2024 RESULT: MRI Pelvis W+W/O Contrast PROCEDURE: MRI Pelvis W+W/O Contrast CLINICAL INDICATION: 39 years old Female with Reason: Mass on Other Study; adnexal mass and air in the vagina NEEDS VAGINAL GEL; Clinical Question(s): Other:; COMPARISON: Pelvic ultrasound 04/06/2024. CT abdomen pelvis 04/06/2024. TECHNIQUE: Multiplanar multisequence evaluation was performed of the pelvis both preceding and following the uneventful IV administration of 16 cc of Clariscan contrast. 40 mL of gel was administered to distend the vagina. FINDINGS: Uterus: The uterus is surgically absent. There is T2 hypointense scarring at the vaginal cuff, though no abnormal enhancement, diffusion restriction or abnormal soft tissue is demonstrated. Ovaries: The right ovary is surgically absent. The left ovary is in size. No suspicious focal lesion. No large left adnexal mass is demonstrated. There is a 7 x 10 mm T2 hyperintense, T1 hyperintense focus in the right ovary which does not demonstrate enhancement (11/4) suggestive of a hemorrhagic cyst. This could account for the finding noted on the recent ultrasound with subsequent partial involution of the hemorrhagic cyst. This correlates with the left adnexal cyst on the CT from 04/06/2024. Probable additional smaller 6 mm hemorrhagic cyst which also does not enhance (135/12). Few additional smaller left ovarian follicles. Bowel: Visualized loops of bowel in the pelvis are normal in caliber. There is T2 hypointense bands between the vaginal cuff, the sigmoid colon and the left ovary (16/5). No acute inflammatory change of the bowel. Bladder: Well distended. No wall thickening, luminal gas or other filling defect. Lymph nodes: No enlarged pelvic or inguinal lymph nodes. Free fluid: No intraperitoneal or extraperitoneal fluid. Bones: No acute fracture or dislocation. No suspicious osseous lesion. IMPRESSION: Left ovarian hemorrhagic cysts, the largest measuring 1.0 cm. This most likely corresponds to the recent finding on ultrasound and CT which has partially involuted since the prior study. No suspicious left adnexal mass. O- RADS 1. Status post hysterectomy and right salpingo-oophorectomy. 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 WSN: [id number] Laboratory Tests 11/30/24 12/11/24 15:12 15:51 WBC 9.8 Hgb 14.7 Hct 43.9 Plt Count 318 Estimated GFR > 60 Total Bilirubin 0.6 Direct Bilirubin 0.2 AST 25 24 ALT 32 H 27 Alkaline Phosphatase 49 47 Lipase 19 Beta HCG, Quant < 2 12/11/24-[address]: Nazia Newton MD ORDERED: [facility] w Micro[facility] QUERIES: Collection Date: 12/11/24 Collection Time: 1545 Source: Urine, Clean Catch Test Result Flag Reference Ur Color Yellow Ur Appear Clear PH 5.5 5.0-9.0 Ur Glu Negative Negative mg/dL Urine Blood Negative Negative Spec Meredith Ur 1.025 1.005-1.025 Urine Protein Negative Neg-Trace mg/dL Urine Ketones Negative Negative mg/dL Ur Nitrite Negative Negative Ur Luis Miguel Esterase Negative Negative Ur RBC 0-2 0-2 /HPF Ur WBC 0-5 0-5 /HPF Ur Squam Epi 0-2 0-2 /HPF Ur Bact 2+ None 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 She says the pain was gone for a while, but returned yesterday. However she says it tends to come and go, and she has vague for how long she tends to have periods of relief. She does not have any of the medications that I had been prescribing. in the past I have been treating her for constipation but at this time she feels that she is moving her bowels well but can not really tell me if she is having any feelings of incomplete evacuation. Again, she describes the pain as being in the left mid abdomen that can occur anywhere along the path of the descending colon. The pain is described as burning and she says that it is frequently 10/10 but is vague as to the timing and to exacerbating or remitting factors. In the past the pain was received by treating her constipation and improving bowel motility. This seemed to point toward a possible bowel spasm etiology. To date, she has had an unremarkable EGD, multiple unremarkable CAT scans, an unremarkable lumbar x-ray obtained due to her complaint of associated back pain, several pelvic ultrasounds and CAT scans showing waxing and waning left ovarian complex cyst, a negative renal ultrasound, an unremarkable upper endoscopy in 2017 ( this is how far back her abdominal pain has been coming and going), and she has been negative for H pylori. 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 Poorly defined tissue plane between the rectum/anus in the vagina. . It appears she also presented to [facility] ER and was seen by a [facility] floor layer tile but it is questionable as to whether the floor layer tile was aware of the abnormal CAT scan finding at our facility. She had pelvic MRI 04/2024 At [facility] showing a hemorrhagic left ovarian cyst. To my knowledge she has never had a colonoscopy. She has nausea that is worse early in the AM. This is consistent with her past presentations. For now I am going to go through all of her records at [facility] and restart the Reglan 10 mg 3 times a day since it seemed to help her in the past along with a trial of dicyclomine 20 mg 4 times a day for possible bowel cramping. If her pain does not improve we may wish to consider colonoscopy and/or restarting Linzess at 72 micro g despite her report of not feeling constipated since this seemed to help the pain in the past. For the nausea and vomiting we may wish to consider a gastric emptying study, or even a HIDA scan. However, the patient is not a good at keeping her follow-up appointments so it has been difficult to get her to diagnostic interventions to progress the differential diagnosis. This is as evidenced by the fact that has been ongoing since 2018 and maybe even prior to that well before I started working with her. ROV next avail. [facility] Medical History (Updated 02/06/25 @ 17:00 by ANN-MARIE Fulton) Breast mass, right Left ovarian cyst Breast pain, right Physical exam Right hand pain Blood in urine Complex ovarian cyst Epigastric abdominal pain Urinary tract infection Left ovarian cyst Blurry vision, bilateral Muscle spasm Dysuria Breast pain Screen for sexually transmitted diseases Pelvic pain Cervical cancer screening Blurry vision Physical exam Left ovarian cyst Chronic idiopathic constipation Abdominal pain PONV (postoperative nausea and vomiting) Fibroadenoma Lumbar pain IBS (irritable bowel syndrome) Atopic dermatitis Bipolar 1 disorder GERD (gastroesophageal reflux disease) Anxiety Depression Asthma Surgical History History of excision of mass History of umbilical hernia repair H/O hysterectomy with oophorectomy H/O section Hx of esophagogastroduodenoscopy Family History Father Kidney disease Hypertension Family history of breast cancer Mother CVD (cardiovascular disease) Paternal Grandmother Stomach cancer Paternal Aunt Breast cancer Social History Housing: Apartment Alcohol intake: former Comment: pt previously medicated with oxycodone Patient Tobacco Use Status: Current everyday Tobacco user Tobacco use type: Cigarette Cigarette Packs Per Day: 1 Cigarettes Per Day: 8 e-Cigarette/Vaping Use: Never Used Second Hand Smoke Exposure: Yes Substance Use Type: Marijuana service: No Current occupational status: employed Gender identity: Female Cognitive needs: No Hearing needs: No Vision needs: No Female Reproductive History Menstrual Age of Menarche: 15 Review of Systems Const Denies fatigue, Denies fever(s), Denies night sweats, Denies poor appetite and Denies weight loss ENT Reports Normal hearing present, Denies dental pain, Denies dysphagia, Denies hearing loss, Denies mouth pain, Denies odynophagia, Denies throat swelling, Denies tongue swelling and Reports other (Dentition adequate) Card Reports no additional complaints Resp Reports no additional complaints GI Details: Reports abdominal pain, Denies melena, Denies bloating, Denies hematochezia, Denies constipation, Denies GI cramping, Denies dysphagia, Denies excessive flatus, Denies early satiety, Reports heartburn, Denies diarrhea, Reports nausea, Denies odynophagia, Reports vomiting and Denies hematemesis Reports flank pain Musc Reports back pain Skin/Breast Denies pruritus, Denies lesions, Denies rash and Denies jaundice Neuro Reports Normal hearing present and Denies Abnormal speech present Endo Denies fatigue Aller/Immun Denies throat swelling and Denies tongue swelling Physical Exam Vital Signs: Last Vital Signs Pulse 65 02/06/25 11:23 BP 128/81 02/06/25 11:23 Pulse Ox 100 02/06/25 11:23 Oxygen Delivery Method Room Air 02/06/25 11:23 BMI result Body Mass Index 30.7 Const General: cooperative, no acute distress, well developed and well groomed Nutritional Appearance: well nourished and obese Orientation/consciousness: oriented to person, oriented to place and oriented to time Limitations: language barrier HEENT Head: Yes normocephalic and Yes atraumatic Eyes General: appearance normal, both eyes and all related structures Pupils: Equal, round and reactive pupils present Neck Neck: Yes normal visual inspection and Yes no lymphadenopathy Thyroid: Thyroid normal Resp Effort & Inspection: normal respiratory effort and able to speak in complete sentences Auscultation: clear to auscultation bilaterally Cardio Rate: regular rate Rhythm: regular rhythm Heart sounds: Normal, physiologic split S2 sound present Peripheral pulses: radial pulses present and posterior tibial pulses present GI Inspection: No distended and No Abdominal panniculus present Palpation (GI): Soft to palpation, Tenderness to palpation present (GI) ( left midquadrant), no guarding, not rigid and No hepatosplenomegaly present Percussion: Yes normal to percussion Auscultation: normal bowel sounds Rectal Exam - Female: deferred Skin General skin exam: no rashes or lesions noted, turgor normal, skin not dry, no jaundice, No spider nevi and no striae Rashes: no rashes Nails: normal Neuro General: oriented to person, oriented to place and oriented to time Cranial nerves: Yes Equal, round and reactive pupils present and Yes Normal hearing present Speech: No Abnormal speech present Extrem General: Yes normal to inspection, No clubbing, No cyanosis and No edema Psych Appearance: grossly normal and well kempt Mental Status: mental status grossly normal Speech and movement: Slowed speech present (Psych) Affect: Other affect and mood findings present ( distracted) Attitude: cooperative Thought process: not confabulating, Impoverished thought process present and Loose association thought process present Thought content: Normal thought content present Insight: Poor insight present (Psych) Judgement: Poor judgement present (Psych) Results Reviewed Results Reviewed: CT ABD AND PELVIS 10/2024 Findings: CT abdomen: Mild hazy density seen within the lung bases without dense infiltrate or pleural effusion. No focal bony lesions. No renal or ureteral calculi. No hydronephrosis or perinephric stranding. Unenhanced liver, spleen, pancreas, gallbladder, and adrenal glands are unremarkable. Moderate amount of ingested contents within the stomach. Fluid-filled loops of nondilated small bowel. Small mesenteric lymph nodes all measure less than 5 mm in short axis. These are increased in number but not size. No free fluid or free air. CT pelvis: No findings of appendicitis. There is a 1 mm calcification in the right lower quadrant which is adjacent to the appendix. However, this is within the gonadal vein and not the appendix. No colonic wall thickening or pericolonic inflammatory stranding. Uterus is surgically absent. There is continued air within the upper vagina. Poorly defined tissue plane between the rectum/anus in the vagina. Impression: 1. No renal or ureteral calculi. 2. Hazy density in the lungs is likely related to atelectasis. 3. No appreciable tissue plane between the distal rectum/anus in the vagina with air within the vagina as seen previously. 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 Possibility of recurrent fistula is not excluded on these images and correlation with physical examination suggested. MRI OF THE ABDOMEN 04/2024 RESULT: MRI Pelvis W+W/O Contrast PROCEDURE: MRI Pelvis W+W/O Contrast CLINICAL INDICATION: 39 years old Female with Reason: Mass on Other Study; adnexal mass and air in the vagina NEEDS VAGINAL GEL; Clinical Question(s): Other:; COMPARISON: Pelvic ultrasound 04/06/2024. CT abdomen pelvis 04/06/2024. TECHNIQUE: Multiplanar multisequence evaluation was performed of the pelvis both preceding and following the uneventful IV administration of 16 cc of Clariscan contrast. 40 mL of gel was administered to distend the vagina. FINDINGS: Uterus: The uterus is surgically absent. There is T2 hypointense scarring at the vaginal cuff, though no abnormal enhancement, diffusion restriction or abnormal soft tissue is demonstrated. Ovaries: The right ovary is surgically absent. The left ovary is in size. No suspicious focal lesion. No large left adnexal mass is demonstrated. There is a 7 x 10 mm T2 hyperintense, T1 hyperintense focus in the right ovary which does not demonstrate enhancement (11/4) suggestive of a hemorrhagic cyst. This could account for the finding noted on the recent ultrasound with subsequent partial involution of the hemorrhagic cyst. This correlates with the left adnexal cyst on the CT from 04/06/2024. Probable add itional smaller 6 mm hemorrhagic cyst which also does not enhance (135/12). Few additional smaller left ovarian follicles. Bowel: Visualized loops of bowel in the pelvis are normal in caliber. There is T2 hypointense bands between the vaginal cuff, the sigmoid colon and the left ovary (16/5). No acute inflammatory change of the bowel. Bladder: Well distended. No wall thickening, luminal gas or other filling defect. Lymph nodes: No enlarged pelvic or inguinal lymph nodes. Free fluid: No intraperitoneal or extraperitoneal fluid. Bones: No acute fracture or dislocation. No suspicious osseous lesion. IMPRESSION: Left ovarian hemorrhagic cysts, the largest measuring 1.0 cm. This most likely corresponds to the recent finding on ultrasound and CT which has partially involuted since the prior study. No suspicious left adnexal mass. O- RADS 1. Status post hysterectomy and right salpingo-oophorectomy. 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 WSN: [id number] Laboratory Tests 11/30/24 12/11/24 15:12 15:51 WBC 9.8 Hgb 14.7 Hct 43.9 Plt Count 318 Estimated GFR > 60 Total Bilirubin 0.6 Direct Bilirubin 0.2 AST 25 24 ALT 32 H 27 Alkaline Phosphatase 49 47 Lipase 19 Beta HCG, Quant < 2 12/11/24-[address]: Nazia Newton MD ORDERED: [facility] w Micros QUERIES: Collection Date: 12/11/24 Collection Time: 154 Source: Urine, Clean Catch Test Result Flag Reference Ur Color Yellow Ur Appear Clear PH 5.5 5.0-9.0 Ur Glu Negative Negative mg/dL Urine Blood Negative Negative Spec Meredith Ur 1.025 1.005-1.025 Urine Protein Negative Neg-Trace mg/dL Urine Ketones Negative Negative mg/dL Ur Nitrite Negative Negative Ur Luis Miguel Esterase Negative Negative Ur RBC 0-2 0-2 /HPF Ur WBC 0-5 0-5 /HPF Ur Squam Epi 0-2 0-2 /HPF Ur Bact 2+ None Seen 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 Her expression of pain is way out of proportion to any of the laboratory or clinical findings so far. This raises the question of Hyperesthetic or Visceral Hyperalgesic type process which can be with anxiety disorder--that is poorly controlled). The patient has an elevated BMI of 36. She clinically can be at risk for WINTER. ANESTHESIA: MAC anesthesia, Dr. Thakur. PROCEDURE DONE: EGD with biopsy. PROCEDURE IN DETAIL: Videoendoscope was introduced without difficulty. It was navigated into the posterior pharynx. There was a lot of soft tissue present. Arytenoid cartilages were lipomatous and floppy. Vocal cords were not well visualized. Scope easily passed into the esophagus. Esophageal mucosa was normal. There was no obvious hiatal hernia visualized at the time of this examination. On entering the stomach, stomach was empty. There were patchy areas of erythema. No submucosal hemorrhagic change is noted. Duodenal bulb and duodenum had slight patchy erythema as well and endoscopically normal villi. Duodenal biopsies were obtained. Gastric biopsies were obtained. IMPRESSION Superficial gastritis. COMMENT: On examination, the patient does have SI joint tenderness particularly on the left. She has some left-sided lower abdominal pain. She also describes some periumbilical discomfort. PLAN: When the patient is re-seen, please document a detailed symptom pattern and dietary history. Please review laboratory testing that has been done on this patient to include any appropriate measures of inflammatory process or stool testing. Exploration of the possibility of underlying sleep apnea should be considered. Dietary changes to be considered. Assessment of use of cannabinoids to be documented as well. Sintia Hernandez MD cc: NAZIA CHRISTIANSON MD 09/11/2018 08:44:48 Report #: [id number] Status: Signed Electronically Signed 09/13/18 @0728 Dict: 09/11/18 @0844 /Trans: 09/11/18 @1216 /ATS //ivnm// //add1// //add2// //add3// REPORTED BY: DIAGNOSIS A. Duodenum, biopsies: Fragments of unremarkable small intestinal mucosa. B. Gastric, random, biopsies: Fragments of unremarkable fundic-type gastric mucosa. The Helicobacter pylori immunohistochemical stain is negative. Code(s): K21.9 - Gastro-esophageal reflux disease without esophagitis; R06.81 - Apnea, not elsewhere classified Category: Medical Plan [place] #[id number] She has been lost to follow up since 12/15/2022. She says the pain was gone for a while, but returned yesterday. However she says it tends to come and go, and she has vague for how long she tends to have periods of relief. She does not have any of the medications that I had been prescribing. in the past I have been treating her for constipation but at this time she feels that she is moving her bowels well but can not really tell me if she is having any feelings of incomplete evacuation. Again, she describes the pain as being in the left mid abdomen that can occur anywhere along the path of the descending colon. The pain is described as burning and she says that it is frequently 10/10 but is vague as to the timing and to exacerbating or remitting factors. In the past the pain was received by treating her constipation and improving bowel motility. This seemed to point toward a possible bowel spasm etiology. To date, she has had an unremarkable EGD, multiple unremarkable CAT scans, an unremarkable lumbar x-ray obtained due to her complaint of associated back pain, several pelvic ultrasounds and CAT scans showing waxing and waning left ovarian complex cyst, a negative renal ultrasound, an unremarkable upper endoscopy in 2018 ( this is how far back her abdominal pain has been coming and going), and she has been negative for H pylori. 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 Poorly defined tissue plane between the rectum/anus in the vagina. . It appears she also presented to [facility] ER and was seen by a [facility] floor layer tile but it is questionable as to whether the floor layer tile was aware of the abnormal CAT scan finding at our facility. She had pelvic MRI 04/2024 At [facility] showing a hemorrhagic left ovarian cyst. To my knowledge she has never had a colonoscopy. She has nausea that is worse early in the AM. This is consistent with her past presentations. For now I am going to go through all of her records at [facility] and restart the Reglan 10 mg 3 times a day since it seemed to help her in the past along with a trial of dicyclomine 20 mg 4 times a day for possible bowel cramping. If her pain does not improve we may wish to consider colonoscopy and/or restarting Linzess at 72 micro g despite her report of not feeling constipated since this seemed to help the pain in the past. For the nausea and vomiting we may wish to consider a gastric emptying study, or even a HIDA scan. However, the patient is not a good at keeping her follow-up appointments so it has been difficult to get her to diagnostic interventions to progress the differential diagnosis. This is as evidenced by the fact that has been ongoing since 2018 and maybe even prior to that well before I started working with her. ANDRE next avail. Medications: New dicyclomine 20 mg PO QID 30 days 120 tabs 1RF metoclopramide HCl (Reglan) 10 mg PO TID 90 tabs 6RF R11.2 - Nausea with vomiting, unspecified Discontinued bisacodyl (Dulcolax (bisacodyl)) Discontinued Reason: Doctor's Order 10 mg (2 x 5 mg) PO BEDTIME 30 days 60 tabs 3RF K59.04 - Chronic idiopathic constipation linaclotide (Linzess) Discontinued Reason: Doctor's Order 72 mcg PO QAM 30 caps 3RF K59.04 - Chronic idiopathic constipation Coding Level of Care Code Est Pt Level 4 (71611) Diagnoses Nausea and vomiting R11.2 Left sided abdominal pain R10.[address] scan R93.89 GERD with apnea K21.9; R06.81 Time Spent (min) 41
--- OUTSIDE RECORDS SUMMARY | 2025-02-06 12:49 | XMS_ITS | Clinical Summary ---
Author Organization [employer] Address [address] [place] [address] Care Team Providers Care Active Directory Systems Administrator Name Role Phone Unavailable Primary Care Provider [...] patient's age to complete this topic Insurance [facility]
--- OUTSIDE RECORDS SUMMARY | 2025-02-06 12:49 | XMS_ITS | Continuity of Care Document ---
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 [facility] [place], [address], [place]. tel:[phone] OFFICE/OUTPAT IENT VISIT [facility], [address], [place], [place], [id number], [place] tel:[phone] [facility] left knee pain (chief complaint) Right knee pain 4 [address] Cuellar. [facility] [place], [address], [place]. tel:[phone] Family History Family Member Type Diagnosis Age At Onset No Information Payers Payer name Insurance type Covered constitution party ID Authoriza tidaniela(s) [place] [id number] Social History Type Description Quantity Date Captured [...] Mental Status Date Cognitive Assessment Orientation - [place] ed to time, place, person, situation. Patient Care Teams Name Effective Dates (start - stop) Status Members No Information
--- OUTSIDE RECORDS SUMMARY | 2025-02-06 12:49 | XMS_ITS | Continuity of Care Document ---
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 [address] [place] [address], [address], [place]. tel:[phone] OFFICE/OUTPAT IENT VISIT EST [facility], [address] [place] [address], [id number], [place] tel:[phone] [facility] David Earache (chief complaint) Body mass index (BMI) 37.0-37.9, adultEncounter for screening for diabetes mellitusLeft acute otitis mediaFamily history of diabetes mellitus (DM)Encounter for screening, unspecified 6 No Information NEW OFFICE/OUTPAT IENT VISIT [facility], [address] [place] [address], [id number], [place] tel:[phone] [facility] [place] Ear pain (chief complaint) Acute swimmer's ear of left side 5 No Information Family History Family Member Type Diagnosis Age At Onset No Information Payers Payer name Insurance type Covered libertarian ID Nuria wood(s) [employer] [facility] CI [id number] Social History Type Description Quantity Date Captured Comments Sex Female Smoking Status No Information Chief Complaint And Reason For Visit No Information Reason For Referral Reason For Referral No Information Plan Of Treatment Date Type Action Status Future Order: Lab Order Hemoglob in A1c ([id number]), Appointment on: , Collected on: , Sent on: Sent Future Order: Lab Order Lipid Pa eboni ([id number]), Appointment on: , Collected on: , Sent on: Sent Future Order: Lab Order Comprehe nsive Metabolic Panel ([id number]), Appointment on: , Collected on: , Sent on: Sent Future Order: Lab Order TSH ([id number]), Appointment on: , Collected on: , Sent on: Sent Future Order: Lab Order CBC With Differential/Platelet ([id number]), Appointment on: , Collected on: , Sent [...] Additional information: [facility] Ear pain Onset: 4 days ag [...]
== END 2025-02-06 12:26 | disposition home or self-care (01) ==
LOC: HO.HGI 11:22
PROVIDERS: PCP Internal Medicine; Visit Provider Nurse Practitioner
DX: R11.2 Nausea with vomiting, unspecified (principal); R10.9 Unspecified abdominal pain; R93.89 Abnormal findings on diagnostic imaging of other specified body structures; K21.9 Gastro-esophageal reflux disease without esophagitis; R06.81 Apnea, not elsewhere classified
CPT/HCPCS: 99214

== ENCOUNTER → 2025-02-06 11:21 | Outpatient (BNVA) | payer OTHER, SELFPAY | PROVIDERS: PCP Internal Medicine; Visit Provider Nurse Practitioner | DX: K21.9 Gastro-esophageal reflux disease without esophagitis (principal); K59.04 Chronic idiopathic constipation; R11.2 Nausea with vomiting, unspecified; R10.9 Unspecified abdominal pain; R93.89 Abnormal findings on diagnostic imaging of other specified body structures; R06.81 Apnea, not elsewhere classified | CPT/HCPCS: 99212 ==

== ENCOUNTER 2025-02-07 10:05 | Outpatient (AMB) | payer OTHER, SELFPAY ==
--- NOTE | 2025-02-07 10:08 | A.OFFPC_ITS ---
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: No Accompanied by: Self / Same As Patient Allergies No Known Allergies [No Known Allergies*] Allergy (Verified 02/07/25 10:38) Medication List - Last Reconciled 02/07/25 by Nazia Antonio MD cholecalciferol (vitamin D3) 50 mcg PO DAILY 90 days dicyclomine 20 mg PO QID 30 days famotidine (Pepcid) 40 mg PO BEDTIME hydrochlorothiazide 12.5 mg PO DAILY 90 days metoclopramide HCl (Reglan) 10 mg PO TID pantoprazole 40 mg PO DAILY 90 days sumatriptan succinate 25 mg PO Q2-4H PRN 30 days tramadol 50 mg PO DAILY PRN 30 days Tobacco use date assessed: 10/19/24 Dental Screening Dental Screen Date: 10/19/24 HPI HPI Comments History of Present Illness Details The patient is a 40-year-old female presenting for her physical exam. She has chronic conditions, including essential hypertension, migraines, gastroesophageal reflux disease (GERD), and depression. She reports increased blood pressure despite her current regimen of 12.5 mg hydrochlorothiazide. To manage her migraines, she utilizes sumatriptan. Pantoprazole is used for her GERD. She expresses concern regarding eczema and allergies, seeking effective management and medication, respectively. Her past surgical history includes a hysterectomy, oophorectomy, and breast mass removal. She smokes a pack of cigarettes daily and drinks alcohol occasionally. She is contemplating starting bupropion for depression treatment and requires a tetanus vaccine update. - Administer Tdap vaccine due today - Initiate discussion regarding the use of sunscreen as a preventive measure against skin cancer - Plan for laboratory assessments this w la posta at breakfast [facility] Medical History Physical exam Blurry vision Breast mass, right Left ovarian cyst Breast pain, right Right hand pain Blood in urine Complex ovarian cyst Epigastric abdominal pain Urinary tract infection Left ovarian cyst Blurry vision, bilateral Muscle spasm Dysuria Breast pain Screen for sexually transmitted diseases Pelvic pain Cervical cancer screening Physical exam Left ovarian cyst Chronic idiopathic constipation Abdominal pain PONV (postoperative nausea and vomiting) Fibroadenoma Lumbar pain IBS (irritable bowel syndrome) Atopic dermatitis Bipolar 1 disorder GERD (gastroesophageal reflux disease) Anxiety Depression Asthma Surgical History History of excision of mass History of umbilical hernia repair H/O hysterectomy with oophorectomy H/O section Hx of esophagogastroduodenoscopy Family History Father Kidney disease Hypertension Family history of breast cancer Mother CVD (cardiovascular disease) Paternal Grandmother Stomach cancer Paternal Aunt Breast cancer Social History (Updated 02/07/25 @ 10:46 by Nazia Antonio MD) Housing: Apartment Alcohol intake: current Alcohol intake frequency: holidays/special occasions only Alcohol type: beer Comment: pt previously medicated with oxycodone Patient Tobacco Use Status: Current everyday Tobacco user Tobacco use type: Cigarette Cigarette Packs Per Day: 1 e-Cigarette/Vaping Use: Never Used Second Hand Smoke Exposure: Yes Substance Use Type: Marijuana service: No Current occupational status: employed Current occupational exposures/hazards: No Gender identity: Female Cognitive needs: No Hearing needs: No Vision needs: No Female Reproductive History Menstrual Age of Menarche: 15 Questionnaire PHQ-9 Over the last 2 weeks, how often have you been bothered by any of the following problems? 1. Little interest or pleasure in doing things: more than half the days 2. Feeling down, depressed, or hopeless: several days 3. Trouble falling or staying asleep, or sleeping too much: nearly every day 4. Feeling tired or having little energy: nearly every day 5. Poor appetite or overeating: nearly every day 6. Feeling bad about yourself - or that you are a failure or have let yourself or your family down: several days 7. Trouble concentrating on things, such as reading the newspaper or watching television: not at all 8. Moving or speaking so slowly that other people could have noticed. Or the opposite - being so fidgety or restless that you have been moving around a lot more than usual: not at all 9. Thoughts that you would be better off or of hurting yourself in some way: not at all Total score: 13 Depression Screening Interpretation: Positive Depression Screening Follow-up: Existing condition, New Medication prescribed and Follow-up Visit Requested Depression Screening Done: Yes 07420 - PHQ-9 Billing: Yes Source: Developed by Drs. Tico Scherer, Lesley Rizzo, Garcia Forman and colleagues, with an educational amena from [employer]. Thrive Questionnaire Date Thrive assessed: 02/07/25 I am a: Patient What is your living situation today?: I have a steady place to live Within the past 12 months, did the food you bought not last and you didn't have the money to get more?: Sometimes True Within the past 12 months, did you worry whether your food would run out before you got money to buy more?: Sometimes True Do you have trouble paying for medicines?: No Do you have trouble getting transportation to medical appointments?: Yes Do you have trouble paying your heating and electricity bill?: Yes Do you have trouble taking care of your child, family member or friend?: No Do you have trouble with day-to-day activities such as bathing, preparing meals, shopping, managing finances, etc.?: Yes Are you currently unemployed and looking for a job?: Yes Are you interested in more education?: No Please select the resources that you would like help with: Transportation Currently or been in a relationship where the following occur: I choose not to answer THRIVE Score: 4 AUDIT C Alcohol Use Questionnaire (AUDIT-C) 1. How often do you have a drink containing alcohol?: Never Total Score: 0 Score Reviewed/Action Taken: No ERIK-7 AMB Questionnaire ERIK-7 Date ERIK - 7 assessed: 02/07/25 Feeling nervous, anxious, or on edge: 3 = Nearly every day Not being able to stop or control worryin = Nearly every day Worrying too much about different things: 1 = Several days Trouble relaxin = More than half the days Being so restless that it is hard to sit still: 1 = Several days Becoming easily annoyed or irritable: 1 = Several days Feeling afraid as if something awful might happen: 0 = Not at all Total ERIK-7 score (0-4 normal; 5-9 mild; 10-14 moderate; 15-21 severe): 11 Source: Developed by Lesley Blank. Matthias, Garcia Forman and colleagues, with an educational amena from [employer]. ERIK-7 Assessment Billing ERIK-7 Assessment Tool: ERIK-7 Assessment 36213 Review of Systems Const All systems reviewed & are unremarkable except as noted in HPI and below Card Denies chest pain at rest, Denies chest pain with activity, Denies edema, Denies irregular heart rhythm, Denies claudication, Denies dyspnea, Denies dyspnea on exertion, Denies orthopnea, Denies paroxysmal nocturnal dyspnea and Denies slow heart rate Resp Denies cough, Denies dyspnea and Denies dyspnea on exertion GI Denies abdominal pain, Denies change in bowel habits, Denies excessive flatus, Denies nausea and Denies vomiting Physical exam (Primary Care) Vital Signs: Last Vital Signs BP 140/100 H 02/07/25 10:12 BMI result Body Mass Index 30.0 BMI Assessment/Plan discussion: High BMI High, discussed plan: lifestyle, weight reduction, dietary and physical activity Tobacco/Smoking Status: Tobacco use Status Tobacco use date assessed 10/19/24 02/07/25 10:11 Patient Tobacco Use Status Current everyday Tobacco 02/07/25 10:46 Tobacco use type Cigarette 02/07/25 10:46 e-Cigarette/Vaping Use Never Used 02/07/25 10:46 Are you ready to quit: No Tobacco cessation counseling provided: Yes Relapse Prevention: discussed the importance of a supportive environment, discussed extending NRT and discussed negative mood or depression after quitting Number of minutes spent counselin CPT code: 18387 - 4-10 Minutes PHQ-9: PHQ-9 Score PHQ-9: Total score 13 02/07/25 10:47 Depression Screening Interpretation: Positive Depression Screening Follow-up: Existing condition, New Medication prescribed and Follow-up Visit Requested Thrive Assessment: Date of Thrive Assessment Date Thrive assessed 02/07/25 02/07/25 10:11 Currently or been in a relationship where the following occur: I choose not to answer HENMT Head: Yes normal to inspection, Yes normocephalic and Yes atraumatic Ears: external ears normal Eyes General: appearance normal, both eyes and all related structures Eyelids: Yes eyelids normal Conjunctivae: conjunctivae normal Neck Neck: Yes normal visual inspection and Yes supple Resp Effort & Inspection: normal respiratory effort Auscultation: clear to auscultation bilaterally Cardio Jugular venous distension: no JVD Rate: regular rate Rhythm: regular rhythm Heart sounds: S1 normal heart sound present and S2 normal heart sound present GI Inspection: Yes normal to inspection Palpation (GI): Soft to palpation and nontender Auscultation: normal bowel sounds Skin General skin exam: no rashes or lesions noted Neuro General: no focal motor deficits Extrem General: Yes full ROM Psych Appearance: grossly normal Immunizations Boostrix Tdap 2.5 Lf unit-8 mcg-5 Lf/0.5 mL intramuscular syringe Performing Provider: Nazia Antonio MD Performing Location: [facility] [place] [facility] Administered by: RACHEL Bullock on 02/07/25 10:57 Dose Route Admin Location Dispensed Lot Number Expiration Date [facility] Demo Event Specialist 0.5 mL IM Left Deltoid 0.5 mL [id number] 05/28/27 [id number] [employer] VIS Given Date VIS Provided VIS Publication Date 02/07/25 Single Vaccine 24 Eligibility Eligibility Date Funding Source Not [facility] Eligible 02/07/25 Private Coding Level of Care Code Est Pt Level 4 (29451) Est Pt Prev Care 18-39y(29459) Diagnoses Physical exam Z00.00 Blurry vision H53.8 Bipolar depression F31.9 Allergic rhinitis J30.9 Essential hypertension I10 Additional Codes PHQ-9 - 11774 - PHQ-9 Billing: Yes ([id number]) ERIK-7 Assessment Billing - ERIK-7 Assessment Tool: ERIK-7 Assessment 73861 ([id number]) Vital Signs *Quality* - CPT code: 66408 - 4-10 Minutes ([id number]) Time Spent (min) 38 Assessment & Plan Assessment & Plan (1) Physical exam: Code(s): Z00.00 - Encounter for general adult medical examination without abnormal findings Category: Medical (2) Blurry vision: Code(s): H53.8 - Other visual disturbances Category: Medical (3) Bipolar depression: Code(s): F31.9 - Bipolar disorder, unspecified Category: Medical (4) Allergic rhinitis: Code(s): J30.9 - Allergic rhinitis, unspecified Category: Medical (5) Essential hypertension: Code(s): I10 - Essential (primary) hypertension Category: Medical Plan The plan involves adjusting the hydrochlorothiazide to 25 mg daily to manage hypertension better and continuing the use of sumatriptan for migraines. The management of GERD with pantoprazole should be continued. Initiation of bupropion for depression was recommended. Suggested allergy medication for allergic rhinitis. Administered the tetanus vaccine and arranged for necessary lab tests. Encourage smoking cessation due to its impact on her health. Plan on monthly evaluations to reassess and adjust therapy as needed. Patient was informed and verbally consented to the use of an ambient scribe for clinic note documentation during this visit. I discussed with the patient the rationale for increasing her hydrochlorothiazide dosage to better control her blood pressure, emphasizing the importance of regular monitoring. We also reviewed her current migraine management and confirmed the continuation of sumatriptan. The importance of compliance with pantoprazole for GERD was highlighted. Regarding depression, we discussed starting bupropion, considering its benefits and her reported symptoms. Additionally, I advised her about allergy management options and the use of appropriate creams for eczema. The patient received her tetanus vaccine, and plans were made to complete lab work within the week. We addressed her smoking habit and its health implications, encouraging cessation. Follow-up plans include regular monitoring and adjusting of treatments based on her health status. Orders: Orders Comprehensive [place]. Panel Fast Today Z00.00 - Encounter for general adult medical examination without abnormal findings Lipid Panel Today Z00.00 - Encounter for general adult medical examination without abnormal findings Vitamin D 25-OH Total Today E55.9 - Vitamin D deficiency, unspecified TDaP Immunization Today Z23 - Encounter for immunization Referrals Ophthalmology Referral H53.8 - Other visual disturbances Medications: New bupropion HCl XL 150 mg PO QAM 30 days 30 tabs 1RF cetirizine (All Day Allergy (cetirizine)) 10 mg PO DAILY 30 days PRN 30 tabs 1RF allergy symptoms hydrochlorothiazide 25 mg PO DAILY 90 days 90 tabs 1RF Refilled sumatriptan succinate do not exceed 8 doses per 24 hrs 25 mg PO Q2-4H 30 days PRN 9 tabs 0RF migraine headache cholecalciferol (vitamin D3) 50 mcg PO DAILY 90 days 90 caps 1RF Discontinued hydrochlorothiazide Discontinued Reason: Patient Completed Course 12.5 mg PO DAILY 90 days 90 tabs 1RF I10 - Essential (primary) hypertension Patient Instructions: - Take hydrochlorothiazide as the new prescribed dosage to regulate blood pressure - Use sumatriptan as needed for migraines - Continue pantoprazole for GERD symptoms relief - Attend labs during breakfast within this week - Quit smoking for overall health benefits - Return for a follow-up for adjustments in your treatment as needed
[2025-02-07 10:12] VITALS: BP 140/100
--- OUTSIDE RECORDS SUMMARY | 2025-02-07 11:14 | XMS_ITS | Clinical Summary ---
Author Organization [facility] Address [address] [place] [address] Care Team Providers Care Forest Ecologist Name Role Phone Nazia Newton MD Primary Care Provider [phone] Allergies No known active allergies Social History Tobacco Use Types Packs/Day Years Used Date Smoking Tobacco: Every Day Cigarettes Smokeless Tobacco: Never Comments Unknown Sex and Gender Information Value Date Recorded Sex Assigned at Not on file Legal Sex Female 6:45 PM EST Gender Identity Not on file Sexual Orientation [...] PCV) 2006 Pap Smear (Ages 21-65) 01/09/2008 COVID-19 Vaccine (2023-2 5 season) 2024 Influenza Vaccine 05/03/2025 HPV Vaccines Aged Out No longer eligi ble based on patient's age to complete this topic Insurance COMMERCIAL Member Subscriber Plan / Payer (Ef fective for All Dates) Name:Nishant HayesMarianela steinberg Relation to Subscriber:Self Name:Nishant HayesMarianela steinberg Payer ID:Not on file Group ID:Not on file Type:Not on file Address: [facility] [phone] MEDICAID OUT OF STATE [facility] Care Teams Forest Ecologist Relationship Specialty Start Date End Date Nazia Newton MD [address] [place] [address] PCP - General Family Medicine 03/05/22
--- OUTSIDE RECORDS SUMMARY | 2025-02-07 11:14 | XMS_ITS | Continuity of Care Document ---
Author Organization [facility] ic Address [address] [place] [address] [place] [address] Phone Care Team Providers Care X Ray Consultant Name Role Phone Unavailable Unavailable Unavailable Allergies, [...] Providers Copied on Encounter [facility], [address] [place] [address], [id number], tel:[phone] [facility] Sam No Information 7 No Information ESTABLISHED OFFICE/OUTPAT IENT VISIT [facility], [address] [place] [address], [id number], tel:[phone] [facility] [place] Earache (chief complaint) Otitis externa of left ear, unspecified chronicity, unspecified type 6 Janneth HATFIELD Alcon. [address] [place] [address], [id number], [place]. tel:[phone] OFFICE/OUTPAT IENT VISIT EST [facility], [address] [place] [address], [id number], [place] tel:[phone] [facility] [place] Earache (chief complaint) Body mass index (BMI) 37.0-37.9, adultEncounter for screening for diabetes mellitusLeft acute otitis mediaFamily history of diabetes mellitus (DM)Encounter for screening, unspecified 6 No Information NEW OFFICE/OUTPAT IENT VISIT [facility], [address] [place] [address], [id number], [place] tel:[phone] [facility] [place] Ear pain (chief complaint) Acute swimmer's ear of left side 5 No Information Family History Family Member Type Diagnosis Age At Onset No Information Payers Payer name Insurance type Covered democrat ID Nuria wood(s) GTCIPA [facility] CI [id number] Social History Type Description Quantity Date Captured Comments Sex Female Smoking Status No Information Chief Complaint And Reason For Visit No Information Reason For Referral Reason For Referral No Information Plan Of Treatment Date Type Action Status Future Order: Lab Order CBC With Differential/Platelet ([id number]), Appointment on: , Collected on: , Sent on: Sent Future Order: Lab Order Comprehe nsive Metabolic Panel ([id number]), Appointment on: , Collected on: , Sent on: Sent Future Order: Lab Order TSH ([id number]), Appointment on: , Collected on: , Sent on: Sent Future Order: Lab Order Hemoglob in A1c ([id number]), Appointment on: , Collected on: , Sent on: Sent Future Order: Lab Order Lipid Pa eboni ([id number]), Appointment on: , Collected on: , Sent [...] had otitis externa in [facility]. Ear pain Onset: 4 days ag [...]
--- OUTSIDE RECORDS SUMMARY | 2025-02-07 11:14 | XMS_ITS | Clinical Summary ---
Author Organization [employer] Address [address] [facility] [address] [place] [address] Care Team Providers Care Catalyst Operator Name Role Phone Unavailable Primary Care [...]
--- OUTSIDE RECORDS SUMMARY | 2025-02-07 11:14 | XMS_ITS | Continuity of Care Document ---
Author Organization [facility] Address [address] [place] [address] Phone Care Team Providers Care Personal Banking Officer Name Role Phone Polo Gifford MD Unavailable [...] Copied on Encounter Office/outpat ient visit,est, mod [facility], [address], [place], [place], [id number], [place] tel:[phone] [facility] Doctor note back to work (chief complaint) Knee pain, leftSinusitis 4 Ирина Cuellar. [facility] [place], [address], [place]. tel:[phone] OFFICE/OUTPAT IENT VISIT [facility], [address], [place], [place], [id number], [place] tel:[phone] [facility] left knee pain (chief complaint) Right knee pain 4 Ирина Cuellar. [facility] [place], [address], [place]. tel:[phone] Family History Family Member Type Diagnosis Age At Onset No Information Payers Payer name Insurance type Covered alliance party ID Authoriza tidaniela(s) [employer] [place] P[place] [id number] Social History Type Description Quantity Date Captured [...] Mental Status Date Cognitive Assessment Orientation - [place] ed to time, place, person, situation. Patient Care Teams Name Effective Dates (start - stop) Status Members No Information
== END 2025-02-07 10:56 | disposition home or self-care (01) ==
LOC: HO.HMCH 10:06
PROVIDERS: PCP Internal Medicine; Visit Provider Internal Medicine
DX: Z00.00 Encounter for general adult medical examination without abnormal findings (principal); H53.8 Other visual disturbances; F31.9 Bipolar disorder, unspecified; J30.9 Allergic rhinitis, unspecified; I10 Essential (primary) hypertension; Z23 Encounter for immunization

== ENCOUNTER → 2025-02-07 10:05 | Outpatient (BNVA) | payer OTHER, SELFPAY | PROVIDERS: PCP Internal Medicine; Visit Provider Internal Medicine | DX: Z00.00 Encounter for general adult medical examination without abnormal findings (principal); I10 Essential (primary) hypertension; K21.9 Gastro-esophageal reflux disease without esophagitis; F17.210 Nicotine dependence, cigarettes, uncomplicated; H53.8 Other visual disturbances; F31.9 Bipolar disorder, unspecified; J30.9 Allergic rhinitis, unspecified; Z23 Encounter for immunization | CPT/HCPCS: 90471; 90715; 96127; 99212; 99395 ==

== ENCOUNTER 2025-02-13 12:46 | Outpatient (AMB) | payer OTHER, SELFPAY ==
--- OUTSIDE RECORDS SUMMARY | 2025-02-13 13:06 | XMS_ITS | Continuity of Care Document ---
Author Organization [facility] ic Address [address] [place] [address] [place] [address] Phone Care Team Providers Care Logistician Name Role Phone Unavailable Unavailable Unavailable Allergies, [...] Copied on Encounter [facility], [address] [place] [address], [id number], tel:[phone] [facility] Sam No Information 7 No Information ESTABLISHED OFFICE/OUTPAT IENT VISIT [facility], [address] [place] [address], [id number], tel:[phone] [facility] [place] Earache (chief complaint) Otitis externa of left ear, unspecified chronicity, unspecified type 6 Janneth HATFIELD Alcon. [address] [place] [address], [id number], [place]. tel:[phone] OFFICE/OUTPAT IENT VISIT EST [facility], [address] [place] [address], [id number], [place] tel:[phone] [facility] [place] Earache (chief complaint) Body mass index (BMI) 37.0-37.9, adultEncounter for screening for diabetes mellitusLeft acute otitis mediaFamily history of diabetes mellitus (DM)Encounter for screening, unspecified 6 No Information NEW OFFICE/OUTPAT IENT VISIT [facility], [address] [place] [address], [id number], [place] tel:[phone] [facility] [place] Ear pain (chief complaint) Acute swimmer's ear of left side 5 No Information Family History Family Member Type Diagnosis Age At Onset No Information Payers Payer name Insurance type Covered libertarian ID Nuria wood(s) GTCIPA [facility] CI [id number] Social History Type Description Quantity Date Captured [...] Future Order: Lab Order Lipid Pa eboni ([id number]), Appointment on: , Collected on: , Sent on: Sent Future Order: Lab Order Comprehe nsive Metabolic Panel ([id number]), Appointment on: , Collected on: , Sent on: Sent Future Order: Lab Order CBC With Differential/Platelet ([id number]), Appointment on: , Collected on: , Sent [...] Additional information: Has had otitis externa in [facility]. Ear pain Onset: 4 days ag [...]
--- OUTSIDE RECORDS SUMMARY | 2025-02-13 13:06 | XMS_ITS | Continuity of Care Document ---
Author Organization [facility] Address [address] [place] [address] Phone Care Team Providers Care Emd Teacher Name Role Phone Polo Gifford MD [...] Copied on Encounter Office/outpat ient visit,est, mod [facility], [address], [place], [place], [id number], [place] tel:[phone] [facility] Doctor note back to work (chief complaint) Knee pain, leftSinusitis 4 Ирина Cuellar. [facility] [place], [address], [place]. tel:[phone] OFFICE/OUTPAT IENT VISIT [facility], [address], [place], [place], [id number], [place] tel:[phone] [facility] left knee pain (chief complaint) Right knee pain 4 Ирина Cuellar. [facility] [place], [address], [place]. tel:[phone] Family History Family Member Type Diagnosis Age At Onset No Information Payers Payer name Insurance type Covered constitution party ID Authoriza tidaniela(s) [employer] [place] P[place] [id number] Social History Type Description Quantity Date Captured [...] Mental Status Date Cognitive Assessment Orientation - [place] ed to time, place, person, situation. Patient Care Teams Name Effective Dates (start - stop) Status Members No Information
--- OUTSIDE RECORDS SUMMARY | 2025-02-13 13:06 | XMS_ITS | Clinical Summary ---
Author Organization [facility] Address [address] [place] [address] Care Team Providers Care Hot Car Charger Name Role Phone Nazia Newton MD Primary Care Provider [phone] Allergies No known active allergies Social History [...] on file Address: [facility] [phone] MEDICAID OUT OF STATE [facility] Care Teams Hot Car Charger Relationship Specialty Start Date End Date Nazia Newton MD [address] [place] [address] PCP - General Family Medicine 03/05/22
--- NOTE | 2025-02-13 13:16 | A.OFFVIS_ITS ---
Intake Visit Reasons: microscopic hematuria Intake Note: Pt presents to the office today for microscopic hematuria. Urology Meds:None Allergies No Known Allergies [No Known Allergies*] Allergy (Verified 02/13/25 14:09) Medication List - Last Reconciled 02/13/25 by VALENTE Goldstein- bupropion HCl XL 150 mg PO QAM 30 days cetirizine (All Day Allergy (cetirizine)) 10 mg PO DAILY PRN 30 days cholecalciferol (vitamin D3) 50 mcg PO DAILY 90 days dicyclomine 20 mg PO QID 30 days famotidine (Pepcid) 40 mg PO BEDTIME hydrochlorothiazide 25 mg PO DAILY 90 days metoclopramide HCl (Reglan) 10 mg PO TID pantoprazole 40 mg PO DAILY 90 days sumatriptan succinate 25 mg PO Q2-4H PRN 30 days tramadol 50 mg PO DAILY PRN 30 days HPI Comments Details: Marianela is a very pleasant 40-year-old Yoruba-speaking female patient of Dr. Gibbs. She has a past medical history of complex ovarian cysts, recurrent urinary tract infections, but pelvic pain, constipation, IBS, bipolar disorders, GERD, anxiety, depression, and asthma. She presents to the office today as a new patient for microscopic hematuria. In discussion with the patient today she reports having followed up with her PCP at which time she was noted to have microscopic hematuria and recommendations were made for urology referral for further assessment evaluation. When asked she does report a longstanding history of nicotine dependence since the age of [age] years old. She reports smoking approximately 1 pack of cigarettes per day. In review of patient's easton t it does appear patient with recurrent urinary tract infections. Urine cultures are as follows: 11/23, 05/25, 04/25, 10/27 and 11/27 Ecoli. She denies any bothersome urinary issues. She denies urinary urgency, urinary frequency, incontinence, nocturia, dysuria, foul smelling urine, changes to urinary stream, flank pain, fever, and or chills. In office urinalysis results were reviewed with the patient today 1+ microscopic hematuria negative leukocytes and negative nitrates. We discussed at length potential causes of microscopic hematuria as well as further workup to include imaging and in office cystoscopy versus surveillance monitoring. Risks and benefits of these interventions were discussed. All questions were answered. We discussed reasons for blood in the urine may include but are not limited to kidney stones, cancer in the urinary tract, kidney stone disease or inflammatory conditions of the urinary tract. She otherwise offers no other issues or concerns at this time. Patient was informed and verbally consented to the use of an ambient scribe for clinic note documentation during this visit. Discussion Notes I explained to the patient that the presence of blood in the urine could stem from a variety of factors. We discussed conducting a CT urogram to check for stones or structural kidney issues, with a cystoscopy to be performed subsequently, providing an internal view of the bladder. I addressed the importance of increased fluid intake, especially water, to decrease urine acidity. While she smokes, I emphasized the necessity of smoking cessation, detailing the adverse effects on her urinary health and overall well-being. I outlined for her the procedural plans with an emphasis on risks, benefits, and necessity for thorough investigation, all of which she consented to proceed with. [facility] Medical History Physical exam Blurry vision Breast mass, right Left ovarian cyst Breast pain, right Right hand pain Blood in urine Complex ovarian cyst Epigastric abdominal pain Urinary tract infection Left ovarian cyst Blurry vision, bilateral Muscle spasm Dysuria Breast pain Screen for sexually transmitted diseases Pelvic pain Cervical cancer screening Physical exam Left ovarian cyst Chronic idiopathic constipation Abdominal pain PONV (postoperative nausea and vomiting) Fibroadenoma Lumbar pain IBS (irritable bowel syndrome) Atopic dermatitis Bipolar 1 disorder GERD (gastroesophageal reflux disease) Anxiety Depression Asthma Surgical History History of excision of mass History of umbilical hernia repair H/O hysterectomy with oophorectomy H/O section Hx of esophagogastroduodenoscopy Family History Father Kidney disease Hypertension Family history of breast cancer Mother CVD (cardiovascular disease) Paternal Grandmother Stomach cancer Paternal Aunt Breast cancer Social History Housing: Apartment Alcohol intake: current Alcohol intake frequency: holidays/special occasions only Alcohol type: beer Comment: pt previously medicated with oxycodone Patient Tobacco Use Status: Current everyday Tobacco user Tobacco use type: Cigarette Cigarette Packs Per Day: 1 e-Cigarette/Vaping Use: Never Used Second Hand Smoke Exposure: Yes Substance Use Type: Marijuana service: No Current occupational status: employed Current occupational exposures/hazards: No Gender identity: Female Cognitive needs: No Hearing needs: No Vision needs: No Female Reproductive History Menstrual Age of Menarche: 15 Review of Systems Const All systems reviewed & are unremarkable except as noted in HPI and below Physical Exam Const General: cooperative, healthy appearing, comfortable, no acute distress, well developed, alert and awake Nutritional Appearance: overweight Orientation/consciousness: patient oriented x3 Limitations: language barrier HEENT Head: Yes normal to inspection, Yes normocephalic and Yes atraumatic Ears: hearing grossly normal bilaterally Eyes General: appearance normal, both eyes and all related structures Neck Neck: Yes normal visual inspection and Yes trachea midline Chest Chest palpation & inspection: normal inspection of the chest Resp Effort & Inspection: normal respiratory effort and able to speak in complete sentences Cardio Rate: regular rate GI Inspection: Yes normal to inspection General: Yes no CVA tenderness Back/Spine/Pelvis Back: no CVA tenderness Skin General skin exam: no rashes or lesions noted Neuro General: patient oriented x3 Extrem General: Yes normal to inspection Psych Appearance: grossly normal and well kempt Mental Status: mental status grossly normal Speech and movement: Normal speech and movement present and Clear speech present Affect: normal affect Attitude: cooperative Thought process: Normal thought process present Thought content: Normal thought content present Insight: Fair insight present (Psych) Judgement: Fair judgement present (Psych) Results AMB Urinalysis, Automated UA Leukoctes 0 Luis Miguel/uL Last Edit by Alexa Alcazar CMA on 02/13/25 13:27 UA Nitrite Negative Last Edit by Alexa Alcazar CMA on 02/13/25 13:27 UA Urobilinogen 0.2 mg/dL Last Edit by Alexa Alcazar CMA on 02/13/25 13:27 UA Protein 0 mg/dL Last Edit by Alexa Alcazar CMA on 02/13/25 13:27 UA pH 5.5 Last Edit by Alexa Alcazar CMA on 02/13/25 13:27 UA Blood 25 Parviz/uL Last Edit by Alexa Alcazar CMA on 02/13/25 13:27 UA Specific [place] 1.025 Last Edit by Alexa Alcazar CMA on 02/13/25 13:27 UA Ketone Negative Last Edit by Alexa Alcazar CMA on 02/13/25 13:27 UA Bilirubin 0 mg/dL Last Edit by Alexa Alcazar CMA on 02/13/25 13:27 UA Glucose 0 mg/dL Last Edit by Alexa Alcazar CMA on 02/13/25 13:27 Results Reviewed Results Reviewed: Laboratory Last Values Urine pH (Auto) 5.5 02/13/25 13:20 Specific [place] (Auto) 1.025 02/13/25 13:20 Urine Protein (Auto) 0 mg/dL 02/13/25 13:20 Glucose (UA)(Auto) 0 mg/dL 02/13/25 13:20 Urine Ketones (Auto) Negative 02/13/25 13:20 Urine Blood (Auto) 25 Parviz/uL 02/13/25 13:20 Urine Nitrite (Auto) Negative 02/13/25 13:20 Urine Bilirubin (Auto) 0 mg/dL 02/13/25 13:20 Urine Urobilinogen (Auto) 0.2 mg/dL 02/13/25 13:20 Leukocyte Esterase (Auto) 0 Luis Miguel/uL 02/13/25 13:20 Assessment & Plan Assessment & Plan (1) Microscopic hematuria: Code(s): R31.29 - Other microscopic hematuria Category: Medical (2) Recurrent urinary tract infection: Code(s): N39.0 - Urinary tract infection, site not specified Category: Medical Plan In office urinalysis results reviewed with the patient today; as noted above; will send for urine cytology. She currently denies any bothersome urinary issues. She reports be happy current voiding parameters. Will obtain CT urogram for further assessment evaluation. BUN and creatinine ordered for imaging. We discussed importance of limiting/quitting nicotine dependence for overall health and well-being. Discussed UTI prevention with D mannose supplement, vitamin-C, increasing fluid intake, behavioral therapy with timed voiding, perineal hygiene and postcoital voiding, and management of constipation with stool softeners and increased fiber intake. We discussed potential causes of microscopic hematuria as well as further interventions and risks and benefits of these interventions. Follow-up next available in office cystoscopy with imaging to be completed prior; or sooner with any issues, concerns, and or questions. Orders: Orders CT urogram Today R31.0 - Gross hematuria Blood Urea Nitrogen Today R31.29 - Other microscopic hematuria AMB Urinalysis Automated Today R31.29 - Other microscopic hematuria Creatinine Today R31.29 - Other microscopic hematuria Urine Cytology Today R31.29 - Other microscopic hematuria Patient Instructions: The patient had an opportunity to ask questions regarding the treatment plan. All questions were answered. Physical exam, labs, and imaging were discussed and reviewed in detail. As well as risks, benefits, and discussion of treatment choices. No major barriers to understanding were identified. The patient expressed understanding and agreement with the above treatment plan. The patient was made aware they should contact our office by phone for worsening of their current condition, the appearance of new symptoms, or with any questions or concerns. Compliance is encouraged with any medications and follow up testing that is ordered. It is a privilege to be allowed the opportunity to participate in? your urological care.? Again, if you have any questions or concerns If you have any questions or concerns please do not hesitate to contact me. The office is [phone]. This note is constructed using voice recognition software. While every effort has been made to ensure accuracy environmental studies program director errors may have been included. Yours sincerely, CHEKO Goldstein Coding Level of Care Code New Pt Level 3 (18205) Diagnoses Microscopic hematuria R31.29 Recurrent urinary tract infection N39.0
== END 2025-02-13 14:02 | disposition home or self-care (01) ==
LOC: HO.HUSH 12:47
PROVIDERS: PCP Internal Medicine; Visit Provider Nurse Practitioner Family
DX: R31.29 Other microscopic hematuria (principal); N39.0 Urinary tract infection, site not specified
CPT/HCPCS: 99203

== ENCOUNTER 2025-02-13 12:46 | Outpatient (REF) | payer OTHER, SELFPAY ==
[2025-02-13 16:31] LABS: Urine Cytology See Pathology rpt
== END 2025-02-13 12:47 | disposition home or self-care (01) ==
LOC: HO.LAB 12:46
PROVIDERS: PCP Internal Medicine; Visit Provider Nurse Practitioner Family
DX: R31.29 Other microscopic hematuria (principal); N39.0 Urinary tract infection, site not specified
CPT/HCPCS: 81003; 88112; 99202

== ENCOUNTER 2025-03-05 07:35 | Outpatient (REF) | payer OTHER, SELFPAY ==
--- OUTSIDE RECORDS SUMMARY | 2025-03-05 07:37 | XMS_ITS | Continuity of Care Document ---
Author Organization [facility] ic Address [address] [place] [address] [place] [address] Phone Care Team Providers Care Cook Helper Juice Name Role Phone Unavailable Unavailable Unavailable Allergies, [...] Diagnoses Date Provider Providers Copied on Encounter [facility], [address] [place] [address], [id number], tel:[phone] [facility] Sam No Information 7 No Information ESTABLISHED OFFICE/OUTPAT IENT VISIT [facility], [address] [place] [address], [id number], tel:[phone] [facility] [place] Earache (chief complaint) Otitis externa of left ear, unspecified chronicity, unspecified type 6 Janneth HATFIELD Alcon. [address] [place] [address], [id number], [place]. tel:[phone] OFFICE/OUTPAT IENT VISIT EST [facility], [address] [place] [address], [id number], [place] tel:[phone] [facility] [place] Earache (chief complaint) Body mass index (BMI) 37.0-37.9, adultEncounter for screening for diabetes mellitusLeft acute otitis mediaFamily history of diabetes mellitus (DM)Encounter for screening, unspecified 6 No Information NEW OFFICE/OUTPAT IENT VISIT [facility], [address] [place] [address], [id number], [place] tel:[phone] [facility] [place] Ear pain (chief complaint) Acute swimmer's ear of left side 5 No Information Family History Family Member Type Diagnosis Age At Onset No Information Payers Payer name Insurance type Covered green party ID Nuria wood(s) GTCIPA [facility] CI [id number] Social History Type Description Quantity Date Captured [...] Future Order: Lab Order Lipid Pa eboni ([id number]), Appointment on: , Collected on: , Sent on: Sent Future Order: Lab Order Comprehe nsive Metabolic Panel ([id number]), Appointment on: , Collected on: , Sent on: Sent Future Order: Lab Order CBC With Differential/Platelet ([id number]), Appointment on: , Collected on: , Sent [...] Additional information: Has had otitis externa in [facility]. Ear pain Onset: 4 days [...]
[2025-03-05 08:58] LABS: Alanine Aminotransferase 20 U/L (0-31); Albumin Level 4.2 g/dL (3.5-5.0); Alkaline Phosphatase 43 U/L (39-117); Anion Gap 10 (12-20); Aspartate Amino Transferase 21 U/L (5-31); Bilirubin Total 0.7 mg/dL (0.0-1.0); Blood Urea Nitrogen 14 mg/dL (9-16); Calcium 9.5 mg/dL (8.4-10.2); Carbon Dioxide 29 mmol/L (22-29); Chloride 105 mmol/L (96-108); Cholesterol 201 mg/dL (<200); Estimated Glomerular Filt Rate > 60; Glucose Fasting 114 mg/dL (60-99); HDL Cholesterol 32 mg/dL (>40); LDL Cholesterol Calculated 109 mg/dL (<100); Potassium 3.8 mmol/L (3.3-5.1); Sodium 140 mmol/L (135-145); Total Protein 7.2 g/dL (6.5-8.0); Triglycerides 300 mg/dL (<150)
[2025-03-05 09:08] LABS: Vitamin D 25-OH Total 25.8 ng/mL (>30)
== END 2025-03-05 07:36 | disposition home or self-care (01) ==
LOC: HO.LAB 07:35
PROVIDERS: Absent Provider Nurse Practitioner Family; PCP Internal Medicine; Visit Provider Internal Medicine
DX: Z00.00 Encounter for general adult medical examination without abnormal findings (principal)
CPT/HCPCS: 36415; 80053; 80061; 82306

== ENCOUNTER 2025-03-20 14:14 | Outpatient (REF) | payer OTHER, SELFPAY ==
--- NOTE | ~2025-03-20 | CT_ITS ---
EXAMINATION: CT ABDOMEN AND PELVIS WITHOUT AND WITH CONTRAST CLINICAL INFORMATION: Gross hematuria DLP: 856 mGY*cm COMPARISON: October 15, 2024 TECHNIQUE: Noncontrast CT of the abdomen and pelvis is performed followed by split bolus contrast-enhanced images using 85 mL Omnipaque 350 contrast. Postcontrast imaging is performed during the combined nephrogram and excretion phase. Sagittal and coronal reformatted images were obtained on the technologist's workstation for both the precontrast and postcontrast phases. This CT examination was performed using dose optimization techniques as appropriate, variously including the following: *Automated exposure control *Adjustment of mA and/or kV according to patient size (this includes techniques or standardized protocols for targeted exams where dose is matched to indication/reason for exam; i.e. extremities or head) *Use of iterative reconstruction technique FINDINGS: LUNG BASES: Dependent basilar atelectasis present. LIVER, GALLBLADDER, AND BILIARY TREE: The liver is unremarkable. The gallbladder is minimally filled with bile. Bile ducts do not appear dilated. PANCREAS: Unremarkable. SPLEEN: Unremarkable. ADRENAL GLANDS: Unremarkable. KIDNEYS AND URETERS: No stones are visible in the kidneys and ureters. There is symmetric concentration and excretion of contrast from both kidneys into the ureters. BLADDER: Contrast passes from the kidneys into the bladder. The bladder wall is unremarkable. GASTROINTESTINAL TRACT: The small and large bowel are unremarkable. The appendix is unremarkable. ABDOMINAL WALL: No significant hernia is appreciated. LYMPH NODES: Normal. VASCULAR: Unremarkable. PELVIC VISCERA: Left ovarian cyst measured 3.0 cm. Right ovary and uterus are not identified. 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 OSSEUS STRUCTURES: Degenerative irregularity is noted of the pubic symphysis joint. CT/CT urogram IMPRESSION: Unremarkable kidneys, ureters, and bladder. Left ovarian cyst or dominant follicle. Suspected right oophorectomy and hysterectomy. 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 Electronically signed by: Alvarado Hardwick MD 03/20/2025 03:20 PM EDT
[2025-03-20] MEDS: iohexoL 350 MG/ML 100 ML INFUS..BTL 85 ML IV (14:54)
--- OUTSIDE RECORDS SUMMARY | 2025-03-20 16:23 | XMS_ITS | Clinical Summary ---
Author Organization [employer] Address [address] [facility] [address] [place] [address] Care Team Providers Care Direct Care Supervisor Name Role Phone Unavailable Primary Care Provider Unavailabl e Immunizations Immunization Administration Dates Next Due Moderna Covid-19 Vaccine [...] 1987 HIV Screening 1987 SDOH Screening 1987 Disability Screening 1987 Alcohol/Substance Use Screening 1999 Tobacco Screening 1999 Family Planning (PISQ) 2002 Hepatitis C Screening 2005 DTaP/Tdap/Td Vaccines (1 - Tdap) 2006 Hepatitis B Vaccines (1 of 3 - 19+ 3-dose series) 2006 Pap Smear 01/09/2008 Cervical Cancer Screening 2017 HPV/Cotest 2017 COVID-19 Vaccine (2023-2 5 season) 2024 12/28/2022, 04/07/2021, 03/13/2021 Influenza Vaccine (Season Ended) 2025 Zoster Vaccines (1 of 2) 2037 RSV [...] patient's age to complete this topic Meningococcal B Vaccine Aged Out No l onger eligible based on patient's age to complete this topic Meningococcal Vaccine Aged Out No saul sandee eligible based on patient's age to complete this topic Pneumococcal Vaccine: Pediatrics (0 to 5 Years) and At-Risk Patients (6 to 49) Years Aged Out No longer eligible b ased on patient's age to complete this topic RSV under 20 months Aged Out No longe r eligible based on patient's age to complete this topic Rotavirus Vaccines Aged Out No longer eligible based on patient's age to complete this topic Insurance [facility] ACO
== END 2025-03-20 14:15 | disposition home or self-care (01) ==
LOC: HO.CT 14:14
PROVIDERS: PCP Internal Medicine; Visit Provider Nurse Practitioner Family
DX: R31.0 Gross hematuria (principal)
CPT/HCPCS: 74178; Q9967

== ENCOUNTER → 2025-03-20 14:16 | Outpatient (BNV) | payer OTHER, SELFPAY | PROVIDERS: PCP Internal Medicine; Visit Provider Radiology Diagnostic Radiology | DX: N83.202 Unspecified ovarian cyst, left side (principal) | CPT/HCPCS: 74178 ==

== ENCOUNTER 2025-05-09 10:01 | Emergency (ER) | payer OTHER, SELFPAY ==
--- OUTSIDE RECORDS SUMMARY | 2014-05-30 09:10 | XMS_ITS | Continuity of Care Document ---
Author Organization [facility] Address [address] [place] [address] Phone Care Team Providers Care Fruit Or Nut Farm Worker Name Role Phone Polo Gifford MD Unavailable [...] Copied on Encounter Office/outpat ient visit,est, mod [facility], [address], [place], [place], [id number], [place] tel:[phone] [facility] [place] [place] Doctor note back to work (chief complaint) Knee pain, leftSinusitis 4 Ирина Cuellar. [facility] [place], [address], [place]. tel:[phone] OFFICE/OUTPAT IENT VISIT [facility], [address], [place], [place], [id number], [place] tel:[phone] [facility] [facility] left knee pain (chief complaint) Right knee pain 4 Ирина Cuellar. [facility] [place], [address], [place]. tel:[phone] Family History Family Member Type Diagnosis Age At Onset No Information Payers Payer name Insurance type Covered democrat ID Authoriza tidaniela(s) [employer] [place] PPO [id number] Social History Type Description Quantity Date Captured [...] Mental Status Date Cognitive Assessment Orientation - [place] ed to time, place, person, situation. Patient Care Teams Name Effective Dates (start - stop) Status Members No Information
[2025-05-09 10:12] VITALS: BP 146/79; PULSE 84; RESP 16; O2SAT 100; BMI 24.9
--- OUTSIDE RECORDS SUMMARY | 2025-05-09 13:12 | XMS_ITS | Clinical Summary ---
Author Organization [employer] Address [address] [facility] [address] [place] [address] Care Team Providers Care Ham Stringer Name Role Phone Unavailable Primary Care Provider [...] Tobacco Screening 1999 Family Planning (PISQ) 2002 HPV Vaccines (1 - 3-dose series) 2002 Hepatitis C Screening 2005 DTaP/Tdap/Td Vaccines (1 - Tdap) 2006 Hepatitis B Vaccines (1 of 3 - 19+ 3-dose series) 2006 Pap Smear 01/09/2008 Cervical Cancer Screening 2017 HPV/Cotest 2017 COVID-19 Vaccine (4 - 2023-2 5 season) 2024 12/28/2022, 04/07/2021, 03/13/2021 Influenza Vaccine (#1) 2025 Zoster Vaccines (1 of 2) 2037 [...] patient's age to complete this topic Insurance [facility] ACO
--- OUTSIDE RECORDS SUMMARY | 2025-05-09 13:12 | XMS_ITS | Clinical Summary ---
Author Organization [facility] Address [address] [place] [address] Care Team Providers Care Candle Molder Machine Name Role Phone Nazia Newton MD Primary Care Provider [phone] Allergies No known active allergies Social History [...] 80 03/05/2022 1:10 PM EDT Temperature 36.4 C (97.5 F) 03/05/2022 10:23 AM EDT Respiratory Rate 18 03/05/2022 1:10 PM EDT [...] - 19+ 3-dose series) 2006 Pap Smear (Ages 21-65) 01/09/2008 COVID-19 Vaccine ( - 2023-2 5 season) 2024 Influenza Vaccine 05/03/2025 HPV Vaccines Aged Out No longer eligi ble based on patient's age to complete this topic Pneumococcal Vaccine: Pediat xiomara (0-5 Years) and At-Risk Patients (6 to 49 Years) Aged Out No longer eligible b ased on patient's age to complete this topic Insurance COMMERCIAL Member Subscriber Plan / Payer (Ef fective for All Dates) Name:Marianela Zhong Relation to Subscriber:Self Name:Marianela Zhong Payer ID:Not on file Group ID:Not on file Type:Not on file Address: [employer] [phone] [place] [facility] [place] Teams Candle Molder Machine Relationship Specialty Start Date End Date Nazia Newton MD [address] [place] [address] PCP - General Family Medicine 03/05/22
== END 2025-05-09 13:16 | disposition left against medical advice (07) ==
PROVIDERS: Emergency Provider Emergency Medicine; PCP Internal Medicine
DX: M54.50 Low back pain, unspecified (principal); Z53.21 Procedure and treatment not carried out due to patient leaving prior to being seen by health care provider
CPT/HCPCS: 99281

== ENCOUNTER 2025-05-31 13:23 | Outpatient (REF) | payer OTHER, SELFPAY | END 2025-05-31 13:24 | disposition home or self-care (01) | LOC: HO.LAB 13:23 | PROVIDERS: PCP Internal Medicine; Visit Provider Urology | DX: R31.29 Other microscopic hematuria (principal); N39.0 Urinary tract infection, site not specified; A49.9 Bacterial infection, unspecified; F17.210 Nicotine dependence, cigarettes, uncomplicated; Z13.89 Encounter for screening for other disorder | CPT/HCPCS: 81003; 87086; 87088; 87186; 99212 ==

== ENCOUNTER 2025-05-31 13:23 | Outpatient (AMB) | payer OTHER, SELFPAY ==
--- OUTSIDE RECORDS SUMMARY | 2014-05-30 09:10 | XMS_ITS | Continuity of Care Document ---
Author Organization [facility] Address [address] [place] [address] Phone Care Team Providers Care Preschool Disability Teacher Name Role Phone Polo Gifford MD Unavailable Unavailable Allergies, Adverse Reactions, Alerts Substance Reaction Status Criticality HYDROCODONE BITARTRATE vomiting Active No In formation acetaminophen vomiting Active No Information Medications Medication Instructions Dosage Effective Dates (start - stop) Status Comments amoxicillin 500 mg tablet take 1 tablet by oral route every 8 hours 500 MG - No Longer Active Flonase 50 mcg/actuation nasal spray,suspension spray 1 spray by intranasal route every day in each nostril - No Longer Active ibuprofen 800 mg [...] Copied on Encounter Office/outpat ient visit,est, mod [facility], [address], [place], [place], [id number], [place] tel:[phone] [facility] [place] note back to work (chief complaint) Knee pain, leftSinusitis 4 Ирина Cuellar. [facility] [place], [address], [place]. tel:[phone] OFFICE/OUTPAT IENT VISIT [facility], [address], [place], [place], [id number], [place] tel:[phone] [facility] [place] left knee pain (chief complaint) Right knee pain 4 Ирина Cuellar. [facility] [place], [address], [place]. tel:[phone] Family History Family Member Type Diagnosis Age At Onset No Information Payers Payer name Insurance type Covered alliance party ID Authoriza tidaniela(s) [employer] [place] PPO [id number] Social History Type Description Quantity Date Captured [...] Mental Status Date Cognitive Assessment Orientation - [place] ed to time, place, person, situation. Patient Care Teams Name Effective Dates (start - stop) Status Members No Information
--- OUTSIDE RECORDS SUMMARY | 2017-08-24 10:06 | XMS_ITS | Continuity of Care Document ---
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 [address] [place] [address], [id number], [place]. tel:[phone] OFFICE/OUTPAT IENT VISIT EST [facility], [address] [place] [address], [id number], [place] tel:[phone] [facility] [place] Earache (chief complaint) Body mass index (BMI) 37.0-37.9, adultEncounter for screening for diabetes mellitusLeft acute otitis mediaFamily history of diabetes mellitus (DM)Encounter for screening, unspecified 6 No Information NEW OFFICE/OUTPAT IENT VISIT [facility], [address] [place] [address], [id number], [place] tel:[phone] [facility] [place] Ear pain (chief complaint) Acute swimmer's ear of left side 5 No Information Family History Family Member Type Diagnosis Age At Onset No Information Payers Payer name Insurance type Covered alliance party ID Nuria wood(s) [employer] [facility] CI [id number] Social History Type Description Quantity Date Captured Comments Sex Female Smoking Status No Information Chief Complaint And Reason For Visit No Information Reason For Referral Reason For Referral No Information Plan Of Treatment Date Type Action Status Future Order: Lab Order TSH ([id number]), Appointment on: , Collected on: , Sent on: Sent Future Order: Lab Order CBC With Differential/Platelet ([id number]), Appointment on: , Collected on: , Sent on: Sent Future Order: Lab Order Comprehe nsive Metabolic Panel ([id number]), Appointment on: , Collected on: , Sent on: Sent Future Order: Lab Order Hemoglob in A1c ([id number]), Appointment on: , Collected on: , Sent on: Sent Future Order: Lab Order Lipid Pa eboni ([id number]), Appointment on: , Collected on: , Sent [...] Has had otitis externa in [facility]. Ear pain Onset: 4 days ag o. [...] to Acute swimmer's ear of left side Take new medication as prescribe d Warm compresses Patient understood a nd made informed decision Assessments Type Assessment Date No Information Patient Care Teams Name Effective Dates (start - stop) Status Members No Information
--- NOTE | 2025-05-31 13:36 | MHC.OFFVIS ---
Intake Visit Reasons: cysto Intake Note: Pt presents to the office today for: cystoscopy Urology Meds:None blood thinners: none labs done: 03/05/25 bun 14, 03/20/[address] Refrigerator Glazier Required: Yes Accompanied by: Self / Same As Patient Allergies No Known Allergies (No Known Allergies*) Allergy (Verified 05/31/25 13:38) Medication List - Last Reconciled 05/31/25 by Bernadine Stover MD budesonide-formoterol 80-4.5 mcg/actuation 2 puffs inhalation BID 30 days bupropion HCl XL 150 mg PO QAM 30 days cholecalciferol (vitamin D3) 50 mcg PO DAILY 90 days diazepam (Valium) 5 mg PO ONCE dicyclomine 20 mg PO QID 30 days famotidine (Pepcid) 40 mg PO BEDTIME hydrochlorothiazide 25 mg PO DAILY 90 days metoclopramide HCl (Reglan) 10 mg PO TID nitrofurantoin monohyd/m-cryst 100 mg (Macrobid) 100 mg PO BID 10 days pantoprazole 40 mg PO DAILY 90 days sumatriptan succinate 25 mg PO Q2-4H PRN 30 days tramadol 50 mg PO DAILY PRN 30 days HPI Comments Details: 05/31/2025--cystoscopy not done today. Marianela is here for office cystoscopy. She was initially evaluated by the nurse practitioner Jessica Woodson on 02/13/2025, I have reviewed chart. The patient is hesitant to have the cystoscopy today she is very nervous. Urinalysis is reviewed nitrite positive. We will reschedule cystoscopy empirically treat with Macrobid. We will prescribe Valium 5 mg to take in the office prior to cystoscopy. I have reviewed CT urogram with the patient. 02/13/25--Marianela is a very pleasant 40-year-old Ethiopian-speaking female patient of Dr. Gibbs. She has a past medical history of complex ovarian cysts, recurrent urinary tract infections, but pelvic pain, constipation, IBS, bipolar disorders, GERD, anxiety, depression, and asthma. She presents to the office today as a new patient for microscopic hematuria. In discussion with the patient today she reports having followed up with her PCP at which time she was noted to have microscopic hematuria and recommendations were made for urology referral for further assessment evaluation. When asked she does report a longstanding history of nicotine dependence since the age of [age] years old. She reports smoking approximately 1 pack of cigarettes per day. FOR[facility]LY [facility], [facility] Medical History Physical exam Blurry vision Breast mass, right Left ovarian cyst Breast pain, right Right hand pain Blood in urine Complex ovarian cyst Epigastric abdominal pain Urinary tract infection Left ovarian cyst Blurry vision, bilateral Muscle spasm Dysuria Breast pain Screen for sexually transmitted diseases Pelvic pain Cervical cancer screening Physical exam Left ovarian cyst Chronic idiopathic constipation Abdominal pain PONV (postoperative nausea and vomiting) Fibroadenoma Lumbar pain IBS (irritable bowel syndrome) Atopic dermatitis Bipolar 1 disorder GERD (gastroesophageal reflux disease) Anxiety Depression Asthma Surgical History History of excision of mass History of umbilical hernia repair H/O hysterectomy with oophorectomy H/O section Hx of esophagogastroduodenoscopy Family History Father Kidney disease Hypertension Family history of breast cancer Mother CVD (cardiovascular disease) Paternal Grandmother Stomach cancer Paternal Aunt Breast cancer Social History Housing: Apartment Alcohol intake: current Alcohol intake frequency: holidays/special occasions only Alcohol type: beer Comment: pt previously medicated with oxycodone Patient Tobacco Use Status: Current everyday Tobacco user Tobacco use type: Cigarette Cigarette Packs Per Day: 1 e-Cigarette/Vaping Use: Never Used Second Hand Smoke Exposure: Yes Substance Use Type: Marijuana service: No Current occupational status: employed Current occupational exposures/hazards: No Gender identity: Female Cognitive needs: No Hearing needs: No Vision needs: No Female Reproductive History Menstrual Age of Menarche: 15 Review of Systems Const All systems reviewed & are unremarkable except as noted in HPI and below Reports no additional complaints Eyes Reports no additional complaints ENT Reports no additional complaints Card Reports no additional complaints Resp Reports no additional complaints GI Reports no additional complaints Reports as per HPI Musc Reports no additional complaints Skin/Breast Reports system reviewed and no additional complaints, except as documented Neuro Reports no additional complaints Psych Reports no additional complaints Endo Reports no additional complaints Julius/Lymph Reports no additional complaints Aller/Immun Reports no additional complaints Results AMB Urinalysis, Automated UA Leukoctes 0 Luis Miguel/uL Last Edit by HARPAL Brooke on 05/31/25 13:49 UA Nitrite Positive Last Edit by Leigh Ann Valdes CCM on 05/31/25 13:49 UA Urobilinogen 3.5 mg/dL Last Edit by HARPAL Brooke on 05/31/25 13:49 UA Protein 0 mg/dL Last Edit by Leigh Ann Valdes CCM on 05/31/25 13:49 UA pH 6.0 Last Edit by Leigh Ann Valdes [facility] on 05/31/25 13:49 UA Blood 10 Parviz/uL Last Edit by HARPAL Brooke on 05/31/25 13:49 UA Specific [place] 1.020 Last Edit by Leigh Ann Valdes CCM on 05/31/25 13:49 UA Ketone Negative Last Edit by HARPAL Brooke on 05/31/25 13:49 UA Bilirubin 0 mg/dL Last Edit by Leigh Ann Valdes CCM on 05/31/25 13:49 UA Glucose 0 mg/dL Last Edit by Leigh Ann Valdes CCM on 05/31/25 13:49 Results Reviewed Results Reviewed: Laboratory Last Values Urine pH (Auto) 6.0 05/31/25 13:47 Specific [place] (Auto) 1.020 05/31/25 13:47 Urine Protein (Auto) 0 mg/dL 05/31/25 13:47 Glucose (UA)(Auto) 0 mg/dL 05/31/25 13:47 Urine Ketones (Auto) Negative 05/31/25 13:47 Urine Blood (Auto) 10 Parviz/uL 05/31/25 13:47 Urine Nitrite (Auto) Positive 05/31/25 13:47 Urine Bilirubin (Auto) 0 mg/dL 05/31/25 13:47 Urine Urobilinogen (Auto) 3.5 mg/dL 05/31/25 13:47 Leukocyte Esterase (Auto) 0 Luis Miguel/uL 05/31/25 13:47 Date of Service: 03/20/25 EXAMINATION: CT ABDOMEN AND PELVIS WITHOUT AND WITH CONTRAST CLINICAL INFORMATION: Gross hematuria DLP: 856 mGY*cm COMPARISON: October 15, 2024 TECHNIQUE: Noncontrast CT of the abdomen and pelvis is performed followed by split bolus contrast-enhanced images using 85 mL Omnipaque 350 contrast. Postcontrast imaging is performed during the combined nephrogram and excretion phase. Sagittal and coronal reformatted images were obtained on the technologist's workstation for both the precontrast and postcontrast phases. This CT examination was performed using dose optimization techniques as appropriate, variously including the following: *Automated exposure control *Adjustment of mA and/or kV according to patient size (this includes techniques or standardized protocols for targeted exams where dose is matched to indication/reason for exam; i.e. extremities or head) *Use of iterative reconstruction technique FINDINGS: LUNG BASES: Dependent basilar atelectasis present. LIVER, GALLBLADDER, AND BILIARY TREE: The liver is unremarkable. The gallbladder is minimally filled with bile. Bile ducts do not appear dilated. PANCREAS: Unremarkable. SPLEEN: Unremarkable. ADRENAL GLANDS: Unremarkable. KIDNEYS AND URETERS: No stones are visible in the kidneys and ureters. There is symmetric concentration and excretion of contrast from both kidneys into the ureters. BLADDER: Contrast passes from the kidneys into the bladder. The bladder wall is unremarkable. GASTROINTESTINAL TRACT: The small and large bowel are unremarkable. The appendix is unremarkable. ABDOMINAL WALL: No significant hernia is appreciated. LYMPH NODES: Normal. VASCULAR: Unremarkable. PELVIC VISCERA: Left ovarian cyst measured 3.0 cm. Right ovary and uterus are not identified. 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 OSSEUS STRUCTURES: Degenerative irregularity is noted of the pubic symphysis joint. CT/CT urogram IMPRESSION: Unremarkable kidneys, ureters, and bladder. Left ovarian cyst or dominant follicle. Suspected right oophorectomy and hysterectomy. 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 Assessment & Plan Assessment & Plan (1) Microscopic hematuria: Code(s): R31.29 - Other microscopic hematuria Category: Medical (2) Recurrent urinary tract infection: Code(s): N39.0 - Urinary tract infection, site not specified Category: Medical (3) Nicotine dependence: Code(s): F17.200 - Nicotine dependence, unspecified, uncomplicated Category: Medical Plan Reschedule cystoscopy. Macrobid b.i.d. Valium prior to cystoscopy Orders: Orders Urine Culture Today A49.9 - Bacterial infection, unspecified, N39.0 - Urinary tract infection, site not specified AMB Urinalysis Automated Today Z13.9 - Encounter for screening, unspecified Medications: New nitrofurantoin monohyd/m-cryst 100 mg (Macrobid) must administer with a meal/food 100 mg PO BID 20 caps 0RF 10 days diazepam (Valium) 5 mg PO ONCE 1 tab 0RF Take dose prior to office cystoscopy Patient Instructions: The patient had an opportunity to ask questions regarding treatment plan. The patient expressed understanding and agreement with the above treatment plan. The patient is aware they should contact our office by phone for worsening of their current condition or the appearance of new symptoms. Compliance is encouraged with any medications and followup testing that is ordered. It is a privilege to be allowed the opportunity to participate in the urologic care of your patient. If you have any questions or concerns regarding treatment for the above conditions please do not hesitate to contact me. The office telephone contact is [phone]. This note is constructed in part using voice recognition software. While every effort has been made to ensure accuracy distillation operator helper errors may have been included. Yours sincerely, Bernadine Stover MD Coding Level of Care Code Est Pt Level 4 (31068) Diagnoses Microscopic hematuria R31.29 Recurrent urinary tract infection N39.0 Nicotine dependence F17.200
--- OUTSIDE RECORDS SUMMARY | 2025-05-31 13:36 | XMS_ITS | Clinical Summary ---
Author Organization [employer] Address [address] [facility] [address] [place] [address] Care Team Providers Care Dentist/Owner Name Role Phone Unavailable Primary Care Provider [...] patient's age to complete this topic Insurance [facility] ACO
--- OUTSIDE RECORDS SUMMARY | 2025-05-31 13:36 | XMS_ITS | Clinical Summary ---
Author Organization [facility] Address [address] [place] [address] Care Team Providers Care Parish Worker Name Role Phone Nazia Newton MD Primary Care Provider [phone] Allergies No known active allergies Social History [...] series) 2006 Pap Smear (Ages 21-65) 01/09/2008 HPV Vaccines (1 - 3-dose SCD M series) 2014 COVID-19 Vaccine ( - 2023-2 5 season) 2024 Influenza Vaccine 05/03/2025 Pneumococcal Vaccine: Pediat xiomara (0-5 Years) and At-Risk Patients (6 to 49 Years) Aged Out No longer eligible b ased on patient's age to complete this topic Insurance COMMERCIAL Member Subscriber Plan / Payer (Ef fective for All Dates) Name:Marianela Zhong Relation to Subscriber:Self Name:Marianela Zhong Payer ID:Not on file Group ID:Not on file Type:Not on file Address: [employer] [phone] [place] [facility] [place] Parish Worker Relationship Specialty Start Date End Date Nazia Newton MD [address] [place] [address] PCP - General Family Medicine 03/05/22
== END 2025-05-31 14:12 | disposition home or self-care (01) ==
LOC: HO.HUSH 13:23
PROVIDERS: PCP Internal Medicine; Visit Provider Urology
DX: R31.29 Other microscopic hematuria (principal); N39.0 Urinary tract infection, site not specified; F17.200 Nicotine dependence, unspecified, uncomplicated; Z13.9 Encounter for screening, unspecified
CPT/HCPCS: 99214

== ENCOUNTER 2025-06-05 11:57 | Outpatient (REF) | payer OTHER, SELFPAY ==
--- NOTE | ~2025-06-05 | XR_ITS ---
EXAMINATION: XR ABDOMEN COMPLETE CLINICAL INDICATION: R10.9 - Unspecified abdominal pain COMPARISON: December 11, 2024. Correlated to CT dated March 20, 2025. TECHNIQUE: 2 views of the abdomen. FINDINGS: No free air beneath the diaphragm. Gas throughout intestine. No air-fluid levels. Liver shadow projects below the rib cage. Degenerative changes in the symphysis pubis. No acute airspace disease in the lung bases. XR/XR abdomen min 2V IMPRESSION: No intestinal obstruction pattern. Hepatomegaly. Electronically signed by: Stef Lagos MD 06/05/2025 01:08 PM EDT
== END 2025-06-05 11:58 | disposition home or self-care (01) ==
LOC: HO.XRAY 11:57
PROVIDERS: PCP Internal Medicine; Visit Provider Nurse Practitioner
DX: K21.9 Gastro-esophageal reflux disease without esophagitis (principal); R10.12 Left upper quadrant pain; R11.2 Nausea with vomiting, unspecified; R93.89 Abnormal findings on diagnostic imaging of other specified body structures
CPT/HCPCS: 74019; 99212

== ENCOUNTER 2025-06-05 11:57 | Outpatient (AMB) | payer OTHER, SELFPAY ==
--- OUTSIDE RECORDS SUMMARY | 2014-05-30 09:10 | XMS_ITS | Continuity of Care Document ---
Author Organization [facility] Address [address] [place] [address] Phone Care Team Providers Care Paleobotanist Name Role Phone Polo Gifford MD Unavailable [...] Copied on Encounter Office/outpat ient visit,est, mod [facility], [address], [place], [place], [id number], [place] tel:[phone] [facility] note back to work (chief complaint) Knee pain, leftSinusitis 4 Ирина Cuellar. [facility] [place], [address], [place]. tel:[phone] OFFICE/OUTPAT IENT VISIT [facility], [address], [place], [place], [id number], [place] tel:[phone] [facility] left knee pain (chief complaint) Right knee pain 4 Ирина Cuellar. [facility] [place], [address], [place]. tel:[phone] Family History Family Member Type Diagnosis Age At Onset No Information Payers Payer name Insurance type Covered green party ID Authoriza tidaniela(s) [employer] [place] PPO [id number] Social History Type Description Quantity Date Captured [...] Mental Status Date Cognitive Assessment Orientation - [place] ed to time, place, person, situation. Patient Care Teams Name Effective Dates (start - stop) Status Members No Information
--- OUTSIDE RECORDS SUMMARY | 2017-08-24 10:06 | XMS_ITS | Continuity of Care Document ---
Author Organization [facility] ic Address [address] [place] [address] [place] [address] Phone Care Team Providers Care Litigation Specialist Name Role Phone Unavailable Unavailable Unavailable Allergies, [...] Diagnoses Date Provider Providers Copied on Encounter [facility], [address] [place] [address], [id number], tel:[phone] [facility] Sam No Information 7 No Information ESTABLISHED OFFICE/OUTPAT IENT VISIT [facility], [address] [place] [address], [id number], tel:[phone] [facility] [place] Earache (chief complaint) Otitis externa of left ear, unspecified chronicity, unspecified type 6 Janneth HATFIELD Alcon. [address] [place] [address], [address], [place]. tel:[phone] OFFICE/OUTPAT IENT VISIT EST [facility], [address] [place] [address], [id number], [place] tel:[phone] [facility] [place] Earache (chief complaint) Body mass index (BMI) 37.0-37.9, adultEncounter for screening for diabetes mellitusLeft acute otitis mediaFamily history of diabetes mellitus (DM)Encounter for screening, unspecified 6 No Information NEW OFFICE/OUTPAT IENT VISIT [facility], [address] [place] [address], [id number], [place] tel:[phone] [facility] [place] Ear pain (chief complaint) Acute swimmer's ear of left side 5 No Information Family History Family Member Type Diagnosis Age At Onset No Information Payers Payer name Insurance type Covered constitution party ID Nuria wood(s) GTCIPA [facility] CI [id number] Social History Type Description Quantity Date Captured Comments Sex Female Smoking Status No Information Chief Complaint And Reason For Visit No Information Reason For Referral Reason For Referral No Information Plan Of Treatment Date Type Action Status Future Order: Lab Order Comprehe nsive Metabolic Panel ([id number]), Appointment on: , Collected on: , Sent on: Sent Future Order: Lab Order CBC With Differential/Platelet ([id number]), Appointment on: , Collected on: , Sent on: Sent Future Order: Lab Order TSH ([id number]), Appointment on: , Collected on: , Sent on: Sent Future Order: Lab Order Hemoglob in A1c ([id number]), Appointment on: , Collected on: , Sent on: Sent Future Order: Lab Order Lipid Pa eboni ([id number]), Appointment on: , Collected on: , Sent [...] Additional information: Has had otitis externa in [facility]. Ear pain Onset: 4 days [...] of left ear, unspecified chronicity, unspecified type Take new medication as prescribe d Reviewed medications Follow exercise program Avoid Qtips. Nothing into ear. Keep ears dry. Heat pack for comfort. May use 50/50 rubbing alcohol with white vinigar drops into each ear after water activity for future prevention of ear infecton. Related to Acute swimmer's ear of left side Warm compresses Patient understood a nd made informed decision Take new medication as prescribe d Assessments Type Assessment Date No Information Patient Care Teams Name Effective Dates (start - stop) Status Members No Information
--- NOTE | 2025-06-05 11:59 | MHC.OFFVIS ---
Vital Signs 06/05/25 12:00 Height 5 ft 4 in Weight 216 lb 0.848 oz BMI 37.1 BP 116/74 Blood Pressure Location Lt brachial Position Sitting Pulse 80 Intake Visit Reasons: N/V, Abd pain f/u Intake Note: Marianela presents in the office for N/V, pains in the abdominal. CC: Pains in the LUQ. She states that she gets nausea but does not throw up - gets the feeling in the epigastric region. 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 Her expression of pain is way out of proportion to any of the laboratory or clinical findings so far. This raises the question of Hyperesthetic or Visceral Hyperalgesic type process which can be with anxiety disorder--that is poorly controlled). The patient has an elevated BMI of 36. She clinically can be at risk for WINTER. ANESTHESIA: MAC anesthesia, Dr. Thakur. PROCEDURE DONE: EGD with biopsy. PROCEDURE IN DETAIL: Videoendoscope was introduced without difficulty. It was navigated into the posterior pharynx. There was a lot of soft tissue present. Arytenoid cartilages were lipomatous and floppy. Vocal cords were not well visualized. Scope easily passed into the esophagus. Esophageal mucosa was normal. There was no obvious hiatal hernia visualized at the time of this examination. On entering the stomach, stomach was empty. There were patchy areas of erythema. No submucosal hemorrhagic change is noted. Duodenal bulb and duodenum had slight patchy erythema as well and endoscopically normal villi. Duodenal biopsies were obtained. Gastric biopsies were obtained. IMPRESSION Superficial gastritis. COMMENT: On examination, the patient does have SI joint tenderness particularly on the left. She has some left-sided lower abdominal pain. She also describes some periumbilical discomfort. PLAN: When the patient is re-seen, please document a detailed symptom pattern and dietary history. Please review laboratory testing that has been done on this patient to include any appropriate measures of inflammatory process or stool testing. Exploration of the possibility of underlying sleep apnea should be considered. Dietary changes to be considered. Assessment of use of cannabinoids to be documented as well. Sintia Hernandez MD cc: CEZAR CHRISTIANSON MD 09/11/2018 08:44:48 Report #: [id number] Status: Signed Electronically Signed 09/13/18 @0728 Dict: 09/11/18 @0844 /Trans: 09/11/18 @1216 /ATS //ivnm// //add1// //add2// //add3// REPORTED BY: DIAGNOSIS A. Duodenum, biopsies: Fragments of unremarkable small intestinal mucosa. B. Gastric, random, biopsies: Fragments of unremarkable fundic-type gastric mucosa. The Helicobacter pylori immunohistochemical stain is negative. Code(s): K21.9 - Gastro-esophageal reflux disease without esophagitis; R06.81 - Apnea, not elsewhere classified Category: Medical Plan Armenian #[id number] She has been lost to follow up since 12/15/2022. She says the pain was gone for a while, but returned yesterday. However she says it tends to come and go, and she has vague for how long she tends to have periods of relief. She does not have any of the medications that I had been prescribing. in the past I have been treating her for constipation but at this time she feels that she is moving her bowels well but can not really tell me if she is having any feelings of incomplete evacuation. Again, she describes the pain as being in the left mid abdomen that can occur anywhere along the path of the descending colon. The pain is described as burning and she says that it is frequently 10/10 but is vague as to the timing and to exacerbating or remitting factors. In the past the pain was relieved by treating her constipation and improving bowel motility. This seemed to point toward a possible bowel spasm etiology. To date, she has had an unremarkable EGD, multiple unremarkable CAT scans, an unremarkable lumbar x-ray obtained due to her complaint of associated back pain, several pelvic ultrasounds and CAT scans showing waxing and waning left ovarian complex cyst, a negative renal ultrasound, an unremarkable upper endoscopy in 2018 ( this is how far back her abdominal pain has been coming and going), and she has been negative for H pylori. 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 Poorly defined tissue plane between the rectum/anus in the vagina. . It appears she also presented to [facility] ER and was seen by a [facility] painter decorator but it is questionable as to whether the painter decorator was aware of the abnormal CAT scan finding at our facility. She had pelvic MRI 04/2024 At [facility] showing a hemorrhagic left ovarian cyst. To my knowledge she has never had a colonoscopy. She has nausea that is worse early in the AM. This is consistent with her past presentations. For now I am going to go through all of her records at [facility] and restart the Reglan 10 mg 3 times a day since it seemed to help her in the past along with a trial of dicyclomine 20 mg 4 times a day for possible bowel cramping. If her pain does not improve we may wish to consider colonoscopy and/or restarting Linzess at 72 micro g despite her report of not feeling constipated since this seemed to help the pain in the past. For the nausea and vomiting we may wish to consider a gastric emptying study, or even a HIDA scan. However, the patient is not a good at keeping her follow-up appointments so it has been difficult to get her to diagnostic interventions to progress through the differential diagnoses. This is as evidenced by the fact that has been ongoing since 2018 and maybe even prior to that well before I started working with her. ROQuin next avail. Medications: New dicyclomine 20 mg PO QID 30 days 120 tabs 1RF metoclopramide HCl (Reglan) 10 mg PO TID 90 tabs 6RF R11.2 - Nausea with vomiting, unspecified Discontinued bisacodyl (Dulcolax (bisacodyl)) Discontinued Reason: Doctor's Order 10 mg (2 x 5 mg) PO BEDTIME 30 days 60 tabs 3RF K59.04 - Chronic idiopathic constipation linaclotide (Linzess) Discontinued Reason: Doctor's Order 72 mcg PO QAM 30 caps 3RF K59.04 - Chronic idiopathic constipation TODAY'S VISIT Armenian #[id number] She indicates that she has pain today in the LUQ/left flank. [facility] Medical History Physical exam Blurry vision Breast mass, right Left ovarian cyst Breast pain, right Right hand pain Blood in urine Complex ovarian cyst Epigastric abdominal pain Urinary tract infection Left ovarian cyst Blurry vision, bilateral Muscle spasm Dysuria Breast pain Screen for sexually transmitted diseases Pelvic pain Cervical cancer screening Physical exam Left ovarian cyst Chronic idiopathic constipation Abdominal pain PONV (postoperative nausea and vomiting) Fibroadenoma Lumbar pain IBS (irritable bowel syndrome) Atopic dermatitis Bipolar 1 disorder GERD (gastroesophageal reflux disease) Anxiety Depression Asthma Surgical History History of excision of mass History of umbilical hernia repair H/O hysterectomy with oophorectomy H/O section Hx of esophagogastroduodenoscopy Family History Father Kidney disease Hypertension Family history of breast cancer Mother CVD (cardiovascular disease) Paternal Grandmother Stomach cancer Paternal Aunt Breast cancer Social History Housing: Apartment Alcohol intake: current Alcohol intake frequency: holidays/special occasions only Alcohol type: beer Comment: pt previously medicated with oxycodone Patient Tobacco Use Status: Current everyday Tobacco user Tobacco use type: Cigarette Cigarette Packs Per Day: 1 e-Cigarette/Vaping Use: Never Used Second Hand Smoke Exposure: Yes Substance Use Type: Marijuana service: No Current occupational status: employed Current occupational exposures/hazards: No Gender identity: Female Cognitive needs: No Hearing needs: No Vision needs: No Female Reproductive History Menstrual Age of Menarche: 15 Review of Systems Const Denies fatigue, Denies fever(s), Denies night sweats, Denies poor appetite and Denies weight loss ENT Reports Normal hearing present, Denies dental pain, Denies dysphagia, Denies hearing loss, Denies mouth pain, Denies odynophagia, Denies throat swelling, Denies tongue swelling and Reports other (Dentition adequate) Card Reports no additional complaints Resp Reports no additional complaints GI Details: Reports abdominal pain, Denies melena, Reports bloating, Denies hematochezia, Denies constipation, Denies GI cramping, Denies dysphagia, Denies excessive flatus, Denies early satiety, Reports heartburn, Denies diarrhea, Reports nausea, Denies odynophagia, Denies vomiting and Denies hematemesis Skin/Breast Denies pruritus, Denies lesions, Denies rash and Denies jaundice Neuro Reports Normal hearing present and Denies Abnormal speech present Endo Denies fatigue Aller/Immun Denies throat swelling and Denies tongue swelling Physical Exam Vital Signs: Last Vital Signs Pulse 80 06/05/25 12:00 BP 116/74 06/05/25 12:00 BMI result Body Mass Index 37.1 Const General: cooperative, no acute distress, well developed and well groomed Nutritional Appearance: well nourished and obese Orientation/consciousness: oriented to person, oriented to place and oriented to time Limitations: language barrier HEENT Head: Yes normocephalic and Yes atraumatic Eyes General: appearance normal, both eyes and all related structures Pupils: Equal, round and reactive pupils present Neck Neck: Yes normal visual inspection and Yes no lymphadenopathy Thyroid: Thyroid normal Resp Effort & Inspection: normal respiratory effort and able to speak in complete sentences Auscultation: clear to auscultation bilaterally Cardio Rate: regular rate Rhythm: regular rhythm Heart sounds: Normal, physiologic split S2 sound present Peripheral pulses: radial pulses present and posterior tibial pulses present GI Inspection: No distended, Yes Abdominal panniculus present and Yes obesity Palpation (GI): Soft to palpation, Tenderness to palpation present (GI) in the LUQ, no guarding, not rigid and No hepatosplenomegaly present Percussion: Yes normal to percussion Auscultation: normal bowel sounds Rectal Exam - Female: deferred Skin General skin exam: no rashes or lesions noted, turgor normal, skin not dry, no jaundice, No spider nevi and no striae Rashes: no rashes Nails: normal Neuro General: oriented to person, oriented to place and oriented to time Cranial nerves: Yes Equal, round and reactive pupils present and Yes Normal hearing present Speech: No Abnormal speech present Extrem General: Yes normal to inspection, No clubbing, No cyanosis and No edema Psych Appearance: grossly normal and well kempt Mental Status: mental status grossly normal Speech and movement: Normal speech and movement present Affect: normal affect Attitude: cooperative Thought process: Circumstantial thought process present and not confabulating Thought content: Normal thought content present Insight: Limited insight present (Psych) Judgement: Limited judgement present (Psych) Assessment & Plan Assessment & Plan (1) Left sided abdominal pain: Code(s): R10.9 - Unspecified abdominal pain Category: Medical (2) Nausea and vomiting: Code(s): R11.2 - Nausea with vomiting, unspecified Category: Medical (3) GERD with apnea: Comment: 2018 EGD INDICATION: The patient is a 33-year-old female who is being scoped due to severe abdominal pain. Her expression of pain is way out of proportion to any of the laboratory or clinical findings so far. This raises the question of Hyperesthetic or Visceral Hyperalgesic type process which can be with anxiety disorder--that is poorly controlled). The patient has an elevated BMI of 36. She clinically can be at risk for WINTER. ANESTHESIA: MAC anesthesia, Dr. Thakur. PROCEDURE DONE: EGD with biopsy. PROCEDURE IN DETAIL: Videoendoscope was introduced without difficulty. It was navigated into the posterior pharynx. There was a lot of soft tissue present. Arytenoid cartilages were lipomatous and floppy. Vocal cords were not well visualized. Scope easily passed into the esophagus. Esophageal mucosa was normal. There was no obvious hiatal hernia visualized at the time of this examination. On entering the stomach, stomach was empty. There were patchy areas of erythema. No submucosal hemorrhagic change is noted. Duodenal bulb and duodenum had slight patchy erythema as well and endoscopically normal villi. Duodenal biopsies were obtained. Gastric biopsies were obtained. IMPRESSION Superficial gastritis. COMMENT: On examination, the patient does have SI joint tenderness particularly on the left. She has some left-sided lower abdominal pain. She also describes some periumbilical discomfort. PLAN: When the patient is re-seen, please document a detailed symptom pattern and dietary history. Please review laboratory testing that has been done on this patient to include any appropriate measures of inflammatory process or stool testing. Exploration of the possibility of underlying sleep apnea should be considered. Dietary changes to be considered. Assessment of use of cannabinoids to be documented as well. Sintia Hernandez MD cc: CEZAR CHRISTIANSON MD 09/11/2018 08:44:48 Report #: [id number] Status: Signed Electronically Signed 09/13/18 @0728 Dict: 09/11/18 @0844 /Trans: 09/11/18 @1216 /ATS //ivnm// //add1// //add2// //add3// REPORTED BY: DIAGNOSIS A. Duodenum, biopsies: Fragments of unremarkable small intestinal mucosa. B. Gastric, random, biopsies: Fragments of unremarkable fundic-type gastric mucosa. The Helicobacter pylori immunohistochemical stain is negative. Code(s): K21.9 - Gastro-esophageal reflux disease without esophagitis; R06.81 - Apnea, not elsewhere classified Category: Medical Plan Armenian #[id number] She indicates that she has pain today in the LUQ/left flank. However this just started this morning. She is really not well acquainted with her medications and she is able to describe the dicyclomine as the ?blue pill? and apparently is taking that, but she is uncertain if she has the Reglan. However, she has stopped vomiting and now having only nausea and there has been some improvement of her abdominal pain so I suspect she at 1 point at least had both medications. She has also had some improvement in her generalized abdominal pain and admits that this latest pain just started this morning and she thinks it maybe could she did not eat breakfast. At this point, since I also suspect gas trapping because bloating still bothers her I will give her a trial of simethicone and ask her to come back with all of her medications in hand so that we can appropriately discern what she is taking. I think this is an important step before we consider any other testing. (Again, she describes the pain as being in the left mid abdomen that can occur anywhere along the path of the descending colon. The pain is described as burning and she says that it is frequently 10/10 but is vague as to the timing and to exacerbating or remitting factors. In the past the pain was relieved by treating her constipation and improving bowel motility. This seemed to point toward a possible bowel spasm etiology. To date, she has had an unremarkable EGD, multiple unremarkable CAT scans, an unremarkable lumbar x-ray obtained due to her complaint of associated back pain, several pelvic ultrasounds and CAT scans showing waxing and waning left ovarian complex cyst, a negative renal ultrasound, an unremarkable upper endoscopy in 2018 ( this is how far back her abdominal pain has been coming and going), and she has been negative for H pylori. More recently she had a CAT scan in our ER that seems a suggest a rectovaginal fistula, and then an abdominal MRI at [facility] that showed a hemorrhagic ovarian cyst. She sees a painter decorator at [facility] but it is uncertain if they were aware of the abnormal CAT scan finding. She has never had a colonoscopy. Because she is not good at keeping follow-up appointments or even imaging study appointments, we have had difficulty pinning down her problem even though the working together since 2018. Her lack of follow-up and compliance has prevented us from being able to move through the various differential diagnoses) Return office visit in 4 weeks Medications: New simethicone after meals 180 mg PO QID 120 caps 3RF 30 days Refilled pantoprazole 40 mg PO DAILY 90 tabs 1RF 90 days Coding Level of Care Code Est Pt Level 3 (60465) Diagnoses Left sided abdominal pain R10.9 Nausea and vomiting R11.2 GERD with apnea K21.9; R06.81
[2025-06-05 12:00] VITALS: BP 116/74; PULSE 80; BMI 37.1
--- OUTSIDE RECORDS SUMMARY | 2025-06-05 14:35 | XMS_ITS | Clinical Summary ---
Author Organization [employer] Address [address] [place] [address] Care Team Providers Care Service Parts Driver Name Role Phone Unavailable Primary Care Provider [...] patient's age to complete this topic Insurance [facility]
--- OUTSIDE RECORDS SUMMARY | 2025-06-05 14:35 | XMS_ITS | Clinical Summary ---
Author Organization [facility] Address [address] [place] [address] Care Team Providers Care Training Systems Officer Name Role Phone Nazia Newton MD Primary Care Provider [phone] Allergies No known active allergies Social History [...] on file Address: [facility] [phone] MEDICAID [place] [facility] [place] Teams Training Systems Officer Relationship Specialty Start Date End Date Nazia Newton MD [address] [place] [address] PCP - General Family Medicine 03/05/22
== END 2025-06-05 12:27 | disposition home or self-care (01) ==
LOC: HO.HGI 11:57
PROVIDERS: PCP Internal Medicine; Visit Provider Nurse Practitioner
DX: R10.9 Unspecified abdominal pain (principal); R11.2 Nausea with vomiting, unspecified; K21.9 Gastro-esophageal reflux disease without esophagitis; R06.81 Apnea, not elsewhere classified
CPT/HCPCS: 99213

== ENCOUNTER → 2025-06-05 12:38 | Outpatient (BNV) | payer OTHER, SELFPAY | PROVIDERS: PCP Internal Medicine; Visit Provider Radiology Diagnostic Radiology | DX: R16.0 Hepatomegaly, not elsewhere classified (principal) | CPT/HCPCS: 74019 ==

== ENCOUNTER 2025-06-18 12:03 | Emergency (ER) | payer OTHER, SELFPAY ==
--- OUTSIDE RECORDS SUMMARY | 2014-05-30 09:10 | XMS_ITS | Continuity of Care Document ---
Author Organization [facility] Address [address] [place] [address] Phone Care Team Providers Care Clinical Account Manager Name Role Phone Polo Giffrod MD Unavailable Unavailable Allergies, Adverse Reactions, Alerts [...] Copied on Encounter Office/outpat ient visit,est, mod [facility], [address], [place], [place], [id number], [place] tel:[phone] [facility] [place] Ur[place] Doctor note back to work (chief complaint) Knee pain, leftSinusitis 4 Ирина Cuellar. [facility] [place], [address], [place]. tel:[phone] OFFICE/OUTPAT IENT VISIT [facility], [address], [place], [place], [id number], [place] tel:[phone] [facility] [place] Ur[facility] Care left knee pain (chief complaint) Right knee pain 4 Ирина Cuellar. [facility] [place], [address], [place]. tel:[phone] Family History Family Member Type Diagnosis Age At Onset No Information Payers Payer name Insurance type Covered constitution party ID Authoriza tidaniela(s) [employer] [place] PPO [id number] Social History Type Description Quantity Date Captured [...] Mental Status Date Cognitive Assessment Orientation - [place] ed to time, place, person, situation. Patient Care Teams Name Effective Dates (start - stop) Status Members No Information
--- OUTSIDE RECORDS SUMMARY | 2017-08-24 10:06 | XMS_ITS | Continuity of Care Document ---
Author Organization [facility] ic Address [address] [place] [address] [place] [address] Phone Care Team Providers Care Manager Data Warehouse Name Role Phone Unavailable Unavailable Unavailable Allergies, [...] Diagnoses Date Provider Providers Copied on Encounter [facility], [address] [place] [address], [id number], tel:[phone] [facility] Sam No Information 7 No Information ESTABLISHED OFFICE/OUTPAT IENT VISIT [facility], [address] [place] [address], [id number], tel:[phone] [facility] [place] Earache (chief complaint) Otitis externa of left ear, unspecified chronicity, unspecified type 6 Janneth HATFIELD Alcon. [address] [place] [address], [id number], [place]. tel:[phone] OFFICE/OUTPAT IENT VISIT EST [facility], [address] [place] [address], [id number], [place] tel:[phone] [facility] [place] Earache (chief complaint) Body mass index (BMI) 37.0-37.9, adultEncounter for screening for diabetes mellitusLeft acute otitis mediaFamily history of diabetes mellitus (DM)Encounter for screening, unspecified 6 No Information NEW OFFICE/OUTPAT IENT VISIT [facility], [address] [place] [address], [id number], [place] tel:[phone] [facility] [place] Ear pain (chief complaint) Acute swimmer's ear of left side 5 No Information Family History Family Member Type Diagnosis Age At Onset No Information Payers Payer name Insurance type Covered constitution party ID Nuria wood(s) [employer] [facility] CI [id number] Social History Type Description Quantity Date Captured Comments Sex Female Smoking Status No Information Chief Complaint And Reason For Visit No Information Reason For Referral Reason For Referral No Information Plan Of Treatment Date Type Action Status Future Order: Lab Order Hemoglob in A1c ([id number]), Appointment on: , Collected on: , Sent on: Sent Future Order: Lab Order Lipid Pa eboni ([id number]), Appointment on: , Collected on: , Sent on: Sent Future Order: Lab Order TSH ([id number]), Appointment on: , Collected on: , Sent on: Sent Future Order: Lab Order Comprehe nsive Metabolic Panel ([id number]), Appointment on: , Collected on: , Sent on: Sent Future Order: Lab Order CBC With Differential/Platelet ([id number]), Appointment on: , Collected on: , Sent [...] Additional information: Has had otitis externa in [facility]. Ear pain Onset: 4 days ag o. [...] of left ear, unspecified chronicity, unspecified type Follow exercise program Reviewed medications Take new medication as prescribe d Avoid Qtips. Nothing into ear. Keep ears dry. Heat pack for comfort. May use 50/50 rubbing alcohol with white vinigar drops into each ear after water activity for future prevention of ear infecton. Related to Acute swimmer's ear of left side Warm compresses Take new medication as prescribe d Patient understood a nd made informed decision Assessments Type Assessment Date No Information Patient Care Teams Name Effective Dates (start - stop) Status Members No Information
[2025-06-18 12:11] VITALS: BP 125/95; PULSE 89; RESP 16; TEMP 36.1; O2SAT 100; BMI 29.7
--- NOTE | 2025-06-18 12:13 | ED_ITS ---
HPI - Nausea/Vomiting/Diarrhea General Chief complaint: Abdominal Pain Stated complaint: L side pain Time Seen by Provider: 06/18/25 17:10 History of Present Illness ED Provider: Raymond Johnson MD HPI Narrative: 40-year-old female with left upper quadrant flank pain, dysuria usually in the left lower quadrant. No fever or chills Related Data Previous Rx's ?Medication ?Instructions ?Recorded dicyclomine 20 mg tablet 20 mg PO QID 30 days #120 ta bs 02/06/25 metoclopramide HCl 10 mg tablet 10 mg PO TID #90 tabs 02/06/25 (Reglan) cholecalciferol (vitamin D3) 50 50 mcg PO DAILY 90 day s #90 caps 02/07/25 mcg (2,000 unit) capsule sumatriptan succinate 25 mg tablet 25 mg PO Q2-4H PRN migraine 02/07/25 headache 30 days #9 tabs famotidine 40 mg tablet (Pepcid) 40 mg PO BEDTIME #90 tabs 03/09/25 budesonide-formoterol HFA 80 2 puff inhalation BID 30 days 04/22/25 mcg-4.5 mcg/actuation aerosol #10.2 grams inhaler hydrochlorothiazide 25 mg tablet 25 mg PO DAILY 90 day s #90 tabs 05/13/25 tramadol 50 mg tablet 50 mg PO DAILY PRN pain 30 d ays 05/13/25 #20 tabs diazepam 5 mg tablet (Valium) 5 mg PO ONCE Take dose p rior to 05/31/25 office cystoscopy #1 tab nitrofurantoin 100 mg PO BID 10 days #20 ca ps 05/31/25 monohydrate/macrocrystals 100 mg capsule (Macrobid) pantoprazole 40 mg tablet,delayed 40 mg PO DAILY 90 da ys #90 tabs 06/05/25 release simethicone 180 mg capsule 180 mg PO QID 30 days #120 caps 06/05/25 bupropion HCl 150 mg 24 hr tablet, 150 mg PO QAM 30 da ys #30 tabs 06/10/25 extended release sulfamethoxazole 800 1 tab PO Q12H 10 days #20 ta bs 06/18/25 mg-trimethoprim 160 mg tablet (Bactrim DS) Allergies Allergy/AdvReac Type Severity Reaction Status Date / Time No Known Allergies (No Known Allergy Verified 06/18/25 12:13 Allergies*) FORMERLY [facility] Past Medical History Medical History Physical exam Blurry vision Breast mass, right Left ovarian cyst Breast pain, right Right hand pain Blood in urine Complex ovarian cyst Epigastric abdominal pain Urinary tract infection Left ovarian cyst Blurry vision, bilateral Muscle spasm Dysuria Breast pain Screen for sexually transmitted diseases Pelvic pain Cervical cancer screening Physical exam Left ovarian cyst Chronic idiopathic constipation Abdominal pain PONV (postoperative nausea and vomiting) Fibroadenoma Lumbar pain IBS (irritable bowel syndrome) Atopic dermatitis Bipolar 1 disorder GERD (gastroesophageal reflux disease) Anxiety Depression Asthma Surgical History History of excision of mass History of umbilical hernia repair H/O hysterectomy with oophorectomy H/O section Hx of esophagogastroduodenoscopy Family History Family History Father Kidney disease Hypertension Family history of breast cancer Mother CVD (cardiovascular disease) Paternal Grandmother Stomach cancer Paternal Aunt Breast cancer Social History Social History Housing: Apartment Alcohol intake: current Alcohol intake frequency: holidays/special occasions only Alcohol type: beer Comment: pt previously medicated with oxycodone Patient Tobacco Use Status: Current everyday Tobacco user Tobacco use type: Cigarette Cigarette Packs Per Day: 1 e-Cigarette/Vaping Use: Never Used Second Hand Smoke Exposure: Yes Substance Use Type: Marijuana Advance Directives: No Advance Directives Information Provided: No service: No Current occupational status: employed Current occupational exposures/hazards: No Gender identity: Female Cognitive needs: No Hearing needs: No Vision needs: No Physical Exam 2 Exam: Exam: EXAM: Gen: Alert, awake, well appearing, well hydrated. Head: Atraumatic Eyes: Anicteric, Normal conjunctiva. ENT: Moist mucosa, no pallor. ? Neck: Supple. Skin: ?No observable rash or bruising on exposed or examined skin Respiratory: Breathing comfortably, No distress.Clear to auscultation bilaterally, symmetric chest expansion, No wheeze, rales, ronchi. Cardiovascular: Regular rate and rhythm. No murmurs or rub. Well perfused periphery, warm extremities. No edema. ? Abdominal: Mild left upper quadrant tenderness and mild left CVAT Soft, no objective distension. No palpable masses or obvious organomegaly. ?No guarding, no rebound tenderness or other peritoneal findings. Neuro: Alert. Gross movement of all extremities intact. ? Psych: Calm. Cooperative. MSK: No grossly visible deformity. Vital signs: See flowsheet Vital Signs: Vital Signs: Last Vital Signs Temp 98.4 F 06/18/25 17:33 Pulse 72 06/18/25 17:33 Resp 14 06/18/25 17:33 BP 123/80 06/18/25 17:33 Pulse Ox 99 06/18/25 17:33 O2 Del Method Room Air 06/18/25 17:33 BMI result Body Mass Index 29.7 Course Course Course Narrative: This is an RME: Additional HPI, ROS, PE not included below will be deferred to primary provider. RME assessment and note performed by: Agatha Alvarenga PA-C This is a 89-ze[place]-kok- Thai speaking female, with a hx of GERD, Bipolar disorder, asthma, depression, who presents to the ER with complaints of nausea, vomiting, diarrhea, diarrhea and left upper abdominal pain since yesterday. Being followed by urology to work up for bladder CA in August. Plan: Labs, UA, further ER eval needed Procedures Procedure Narrative Procedure Narrative: EMERGENCY ULTRASOUND INTERPRETATION-Limited Retroperitoneal (Renal) [This study was ordered, performed, and interpreted by myself. The study reveals: Impression: NO EVIDENCE OF UROLOGIC OBSTRUCTION] [Indication: FLANK PAIN Bladder: ANECHOIC URINE Left Kidney: NO HYDRONEPHROSIS Performed by: Raymond Johnson MD Images were stored CPT: 00105] Medical Decision Making Medical Decision Making MDM Narrative: Medical Decision Makin-year-old female with left-sided flank pain and pain during urination. History of rectovaginal fistula. No gross hematuria. Her urine however looks cloudy with visible sediment to the naked eye. Clinically presentation most consistent with pyelonephritis. She is not ill or toxic she is afebrile. Empiric treatment. The patient is 40 and has had multiple CT scans due to a complicated history she does not have an acute abdomen or peritoneal signs shared decision-making decided to avoid radiation at this time she gets worse she will return. Preliminary Favored Differential Diagnosis: UTI, kidney stone among additional considered etiologies Testing Interpreted Independently: ?Point of care ultrasound report see above Radiology or Lab testing Results Reviewed: ?See below for details Consults: ?See below for details Independent Historians/External Chart Reviews: ?See below for details Social Determinants of Health Impacting MDM/Planning: ?See below for details Lab Data 06/18/25 12:41 06/18/25 12:41 Labs: Lab Results 06/18/25 06/18/25 Range/Units 12:41 17:46 WBC 11.6 H (4.8-10.8) X10*3/uL RBC 5.13 (4.20-5.50) X10*6/uL Hgb 14.1 (12.0-16.0) g/dl Hct 42.5 (37.0-47.0) % MCV 82.8 (80.0-98.0) fL MCH 27.5 (27.0-33.0) pg MCHC 33.2 (31.0-35.0) g/dl RDW 14.9 (11.0-16.0) % Plt Count 286 (160-400) X10*3/uL MPV 10.3 (9.4-12.3) fL Immature Gran % (Auto) 0.5 H (0.0-0.4) % Neut % (Auto) 71.0 (45-73) % Lymph % (Auto) 22.9 (20-40) % Baldwin % (Auto) 4.7 (2-11) % Eos % (Auto) 0.8 (0-4) % Baso % (Auto) 0.1 (0-2) % Lymph # (Auto) 2.7 (1.2-4.9) X10*3/uL Baldwin # (Auto) 0.6 (0.1-1.2) X10*3/uL Eos # (Auto) 0.1 (0.0-0.4) X10*3/uL Baso # (Auto) 0.0 (0.0-0.2) X10*3/uL Abs Immat Gran (auto) 0.06 H (0.00-0.03) X10*3/uL Absolute Neuts (auto) 8.2 (2.0-8.3) x10*3/uL Absolute Nucleated RBC 0.000 (0.0-0.012) X10*3/uL Nucleated RBC % (auto) 0.0 (0.0-0.2) /100WBC Sodium 138 (135-145) mmol/L Potassium 3.7 (3.3-5.1) mmol/L Chloride 103 (96-108) mmol/L Carbon Dioxide 28 (22-29) mmol/L Anion Gap 11 L (12-20) BUN 17 H (9-16) mg/dL Creatinine 0.76 (0.5-1.4) mg/dL Estim Creat Clear Calc 101.7 Estimated GFR > 60 Random Glucose 91 (60-115) mg/dL Calcium 9.8 (8.4-10.2) mg/dL Magnesium 2.0 (1.6-2.6) mg/dL Total Bilirubin 1.0 (0.0-1.0) mg/dL Direct Bilirubin 0.3 (0.0-0.5) mg/dL AST 26 (5-31) U/L ALT 31 (0-31) U/L Alkaline Phosphatase 57 (39-117) U/L Total Protein 7.5 (6.5-8.0) g/dL Albumin 4.4 (3.5-5.0) g/dL Lipase 15 (8-78) U/L Beta HCG, Quant < 2 mIU/mL Urine Color Yellow Urine Appearance Clear Urine pH 5.5 (5.0-9.0) Ur Specific [employer] 1.025 (1.005-1.025) Urine Protein Negative (Neg-Trace) mg/dL Urine Glucose (UA) Negative (Negative) mg/dL Urine Ketones Negative (Negative) mg/dL Urine Blood Negative (Negative) Urine Nitrite Negative (Negative) Ur Leukocyte Esterase Negative (Negative) COVID-19 (CHAYA) Negative (Negative) COVID-19 Clin Com See Note Influenza Type A (JUNIE) Negative (Negative) Influenza Type B (JUNIE) Negative (Negative) Influenza A & B Note See Note Discharge Plan Discharge Clinical Impression: Pyelonephritis Patient Disposition: Home, Self-Care Instructions: Kidney Infection (ED) Additional Instructions: _ DISCHARGE DIAGNOSES: Abdominal pain likely infection of the urinary tract or kidney HISTORY OF PRESENTATION: ?Left upper abdominal pain pain with urination EMERGENCY DEPARTMENT COURSE,TESTS, TREATMENTS: While in the ED today you had an ultrasound that showed no obstruction in your urinary tract on the left side although your urinalysis did not show infection cells it was cloudy and we feel is likely infectious DISCHARGE MEDICATIONS: Antibiotics were prescribed. Take ibuprofen as needed. No changes made your regimen FOLLOW-UP: ?Call your primary or general physician soon as possible to discuss your symptoms, your ED visit and to discuss follow up plans INSTRUCTIONS ?& RETURN PRECAUTIONS: If any symptoms change first call your primary physician, if it is after-hours your primary doctors office should have a provider commercial front load operator you can speak with. If the symptoms are severe or very concerning to you then call 911 or return to the ED. Raymond Johnson MD Emergency Physician [facility] Prescriptions: New sulfamethoxazole-trimethoprim [Bactrim DS] 800-160 mg tablet 1 tab PO Q12H 10 Days Qty: 20 0RF No Action famotidine [Pepcid] 40 mg tablet 40 mg PO BEDTIME Qty: 90 1RF budesonide-formoterol 80-4.5 mcg/actuation HFA aerosol inhaler 2 puff inhalation BID 30 Days Qty: 10.2 2RF hydrochlorothiazide 25 mg tablet 25 mg PO DAILY 90 Days Qty: 90 1RF tramadol 50 mg tablet 50 mg PO DAILY PRN (Reason: pain) 30 Days Qty: 20 0RF bupropion HCl 150 mg tablet extended release 24 hr 150 mg PO QAM 30 Days Qty: 30 1RF dicyclomine 20 mg tablet 20 mg PO QID 30 Days Qty: 120 1RF metoclopramide HCl [Reglan] 10 mg tablet 10 mg PO TID Qty: 90 6RF cholecalciferol (vitamin D3) 50 mcg (2,000 unit) capsule 50 mcg PO DAILY 90 Days Qty: 90 1RF sumatriptan succinate 25 mg tablet 25 mg PO Q2-4H PRN (Reason: migraine headache) 30 Days Qty: 9 0RF Rx Instructions: do not exceed 8 doses per 24 hrs diazepam [Valium] 5 mg tablet 5 mg PO ONCE Qty: 1 0RF nitrofurantoin monohyd/m-cryst [Macrobid] 100 mg capsule 100 mg PO BID 10 Days Qty: 20 0RF Rx Instructions: must administer with a meal/food pantoprazole 40 mg tablet,delayed release (DR/EC) 40 mg PO DAILY 90 Days Qty: 90 1RF simethicone 180 mg capsule 180 mg PO QID 30 Days Qty: 120 3RF Rx Instructions: after meals Print Language: Thai
[2025-06-18 12:46] LABS: MANUAL DIFF FLAG NO
[2025-06-18 12:48] LABS: Hematocrit 42.5 % (37.0-47.0); Hemoglobin 14.1 g/dl (12.0-16.0); Imm Gran Abs Auto 0.06 X10*3/uL (0.00-0.03); Imm Gran Pct Auto 0.5 % (0.0-0.4); Lymphocytes Absolute Auto 2.7 X10*3/uL (1.2-4.9); Mean Corpuscular HGB Conc 33.2 g/dl (31.0-35.0); Mean Corpuscular Hemoglobin 27.5 pg (27.0-33.0); Mean Corpuscular Volume 82.8 fL (80.0-98.0); NRBC Abs Auto 0.000 X10*3/uL (0.0-0.012); NRBC Pct Auto 0.0 /100WBC (0.0-0.2); Platelet Count 286 X10*3/uL (160-400); Red Blood Count 5.13 X10*6/uL (4.20-5.50); White Blood Count 11.6 X10*3/uL (4.8-10.8)
[2025-06-18 13:06] LABS: Alanine Aminotransferase 31 U/L (0-31); Albumin Level 4.4 g/dL (3.5-5.0); Alkaline Phosphatase 57 U/L (39-117); Anion Gap 11 (12-20); Aspartate Amino Transferase 26 U/L (5-31); Blood Urea Nitrogen 17 mg/dL (9-16); COVID-19 Test Negative (Negative); Calcium 9.8 mg/dL (8.4-10.2); Carbon Dioxide 28 mmol/L (22-29); Chloride 103 mmol/L (96-108); Creatinine Clr Calc Pharmacy 101.7; Estimated Glomerular Filt Rate > 60; IDNOW Serial# 55D5AD1C; IDNOW Serial# 58CA691E; Influenza B2 Negative (Negative); Magnesium 2.0 mg/dL (1.6-2.6); Potassium 3.7 mmol/L (3.3-5.1); Sodium 138 mmol/L (135-145); Total Protein 7.5 g/dL (6.5-8.0)
[2025-06-18 13:10] LABS: Lipase 15 U/L (8-78)
[2025-06-18 17:33] VITALS: BP 123/80; PULSE 72; RESP 14; TEMP 36.9; O2SAT 99
[2025-06-18 17:58] LABS: Appearance Urine Clear; Glucose Urine UA Negative (Negative); PH 5.5 (5.0-9.0); Specific Gravity - Urine 1.025 (1.005-1.025)
[2025-06-18 18:18] VITALS: BP 121/74; PULSE 71; RESP 14; TEMP 36.9; O2SAT 100
[2025-06-18 18:25] VITALS: BP 121/74; PULSE 71; RESP 14; TEMP 36.9; O2SAT 100
--- OUTSIDE RECORDS SUMMARY | 2025-06-18 19:14 | XMS_ITS | Clinical Summary ---
Author Organization [facility] Address [address] [place] [address] Care Team Providers Care Pediatric Medical Assistant Name Role Phone Nazia Newton MD Primary Care Provider [phone] Allergies No known active allergies Social History [...] (1 - 3-dose SCD M series) 2014 Influenza Vaccine 05/03/2025 COVID-19 Vaccine ( - 2023-2 5 season) 2025 Pneumococcal Vaccine: Pediat xiomara (0-5 Years) and At-Risk Patients (6 to 49 Years) Aged Out No longer eligible b ased on patient's age to complete this topic Insurance COMMERCIAL Member Subscriber Plan / Payer (Ef fective for All Dates) Name:Marianela Zhong Relation to Subscriber:Self Name:Marianela Zhong Payer ID:Not on file Group ID:Not on file Type:Not on file Address: [facility] [phone] MEDICAID OUT OF STATE [facility] Care Teams Pediatric Medical Assistant Relationship Specialty Start Date End Date Nazia Newton MD [address] [place] [address] PCP - General Family Medicine 03/05/22
--- OUTSIDE RECORDS SUMMARY | 2025-06-18 19:14 | XMS_ITS | Clinical Summary ---
Author Organization [employer] Address [address] [place] [address] Care Team Providers Care Photogeologist Name Role Phone Unavailable Primary Care Provider [...] 2017 HPV/Cotest 2017 COVID-19 Vaccine (4 - 2024-2 6 season) 2025 12/28/2022, 04/07/2021, 03/13/2021 Influenza Vaccine (#1) 2025 [...] patient's age to complete this topic Insurance [facility]
== END 2025-06-18 18:25 | disposition home or self-care (01) ==
PROVIDERS: Physician Assistant Medical; Emergency Provider Emergency Medicine; PCP Internal Medicine
DX: N12 Tubulo-interstitial nephritis, not specified as acute or chronic (principal); R10.12 Left upper quadrant pain; R30.0 Dysuria; Z03.818 Encounter for observation for suspected exposure to other biological agents ruled out
CPT/HCPCS: 36415; 76775; 80048; 80076; 81003; 83690; 83735; 84702; 85025; 87502; 87635; 99284

== ENCOUNTER 2025-07-04 10:28 | Outpatient (REF) | payer OTHER, SELFPAY ==
[2025-07-05 07:27] LABS: Chlamydia pneumoniae PCR Not Detected (Not Detect.); Coronavirus 229E PCR Not Detected (Not Detect.); Coronavirus HKU1 PCR Not Detected (Not Detect.); Coronavirus NL63 PCR Not Detected (Not Detect.); Coronavirus OC43 PCR Not Detected (Not Detect.); Influenza A H1 PCR Not Detected (Not Detect.); Influenza A H1-2009 PCR Not Detected (Not Detect.); Influenza A H3 PCR Not Detected (Not Detect.); RSV PCR Not Detected (Not Detect.); Rhino/Enterovirus PCR Not Detected (Not Detect.); SARS-CoV-2 PCR Not Detected (Not Detect.)
== END 2025-07-04 10:29 | disposition home or self-care (01) ==
LOC: HO.LNP 10:28
PROVIDERS: PCP Internal Medicine; Visit Provider Physician Assistant Medical
DX: J06.9 Acute upper respiratory infection, unspecified (principal)
CPT/HCPCS: 87633; 99212

== ENCOUNTER 2025-07-04 10:28 | Outpatient (AMB) | payer OTHER, SELFPAY ==
--- OUTSIDE RECORDS SUMMARY | 2014-05-30 09:10 | XMS_ITS | Continuity of Care Document ---
Author Organization [facility] Address [address] [place] [address] Phone Care Team Providers Care Bridge Worker Apprentice Name Role Phone Polo Gifford MD Unavailable [...] Copied on Encounter Office/outpat ient visit,est, mod [facility], [address], [place], [place], [id number], [place] tel:[phone] [facility] [place] note back to work (chief complaint) Knee pain, leftSinusitis 4 Ирина Cuellar. [facility] [place], [address], [place]. tel:[phone] OFFICE/OUTPAT IENT VISIT [facility], [address], [place], [place], [id number], [place] tel:[phone] [facility] [place] left knee pain (chief complaint) Right knee pain 4 Ирина Cuellar. [facility] [place], [address], [place]. tel:[phone] Family History Family Member Type Diagnosis Age At Onset No Information Payers Payer name Insurance type Covered constitution party ID Authoriza tidaniela(s) [employer] [place] PPO [id number] Social History Type Description Quantity Date Captured [...] Mental Status Date Cognitive Assessment Orientation - [place] ed to time, place, person, situation. Patient Care Teams Name Effective Dates (start - stop) Status Members No Information
--- OUTSIDE RECORDS SUMMARY | 2017-08-24 10:06 | XMS_ITS | Continuity of Care Document ---
Author Organization [facility] ic Address [address] [place] [address] [place] [address] Phone Care Team Providers Care Offshore Wind Operations Manager Name Role Phone Unavailable Unavailable Unavailable Allergies, [...] Diagnoses Date Provider Providers Copied on Encounter [facility], [address] [place] [address], [id number], tel:[phone] [facility] Sam No Information 7 No Information ESTABLISHED OFFICE/OUTPAT IENT VISIT [facility], [address] [place] [address], [id number], tel:[phone] [facility] [place] Earache (chief complaint) Otitis externa of left ear, unspecified chronicity, unspecified type 6 Janneth HATFIELD Alcon. [address] [place] [address], [id number], [place]. tel:[phone] OFFICE/OUTPAT IENT VISIT EST [facility], [address] [place] [address], [id number], [place] tel:[phone] [facility] [place] Earache (chief complaint) Body mass index (BMI) 37.0-37.9, adultEncounter for screening for diabetes mellitusLeft acute otitis mediaFamily history of diabetes mellitus (DM)Encounter for screening, unspecified 6 No Information NEW OFFICE/OUTPAT IENT VISIT [facility], [address] [place] [address], [id number], [place] tel:[phone] [facility] [place] Ear pain (chief complaint) Acute swimmer's ear of left side 5 No Information Family History Family Member Type Diagnosis Age At Onset No Information Payers Payer name Insurance type Covered green party ID Nuria wood(s) [employer] [facility] CI [id number] Social History Type Description Quantity Date Captured Comments Sex Female Smoking Status No Information Chief Complaint And Reason For Visit No Information Reason For Referral Reason For Referral No Information Plan Of Treatment Date Type Action Status Future Order: Lab Order CBC With Differential/Platelet ([id number]), Appointment on: , Collected on: , Sent on: Sent Future Order: Lab Order TSH ([id number]), Appointment on: , Collected on: , Sent on: Sent Future Order: Lab Order Comprehe nsive Metabolic Panel ([id number]), Appointment on: , Collected on: , Sent on: Sent Future Order: Lab Order Hemoglob in A1c ([id number]), Appointment on: , Collected on: , Sent on: Sent Future Order: Lab Order Lipid Pa eboni ([id number]), Appointment on: , Collected on: , Sent [...] Additional information: Has had otitis externa in [facility]. Ear pain Onset: 4 days ag o. [...]
[2025-07-04 10:39] VITALS: BP 172/60; PULSE 72; TEMP 36.8; O2SAT 99; BMI 30.6
--- NOTE | 2025-07-04 10:39 | MHC.OFFWIV ---
Intake Vital Signs 07/04/25 10:39 Height 5 ft 4 in Weight 178 lb BMI 30.6 BP 172/60 H Blood Pressure Location Lt brachial Position Sitting Pulse 72 Pulse Source Pulse Oximeter Temp 98.2 F Temp Source Oral Pulse Oximetry (%) 99 Oxygen Delivery Method Room Air Intake Visit Reasons: EP Sore throat, Head ache, Runny nose, tight chest Patient Tobacco Use Status: Current everyday Tobacco user Lotus Notes Administrator Required: Yes Lotus Notes Administrator Language: Kyrgyz Allergies No Known Allergies (No Known Allergies*) Allergy (Verified 07/04/25 10:41) Do you need a note to return to daycare/school/sports/work: Yes HPI HPI Comments History of Present Illness Details History - The patient is a 40-year-old female presenting with headache, sore throat, and body aches. - The patient reports experiencing headaches for the past two days. - The patient has a sore throat that started two days ago, with mild discomfort in the throat and ear. - The patient describes body aches in her legs and back. - The patient mentions mild discomfort in the ear, but not severe. - The patient has a history of asthma but is not currently using an inhaler or allergy medication. - She has no sick contacts as she lives alone. - She denies smoking, fever, chills, chest pain, abd pain, n/v/d. Physical Exam General: Cooperative, healthy appearing, comfortable and no acute distress Orientation/consciousness: Patient oriented x3 Limitations: No limitations Head: Normal to inspection Ears: Hearing grossly normal bilaterally, external ears normal and TM's normal bilaterally, but left ear bothers patient slightly Nose: Normal external nose present, normal nares present, and no nasal discharge present. Face and sinus: Sinuses nontender to palpation. Mouth: Normal oral and palatal mucosa present and moist mucous membranes noted. Throat: Tonsils normal. Uvula is midline. Posterior oropharynx with erythema and no exudates. Patient reports sore throat. Eyes: Appearance normal, both eyes and all related structures Neck: Normal visual inspection, full ROM. No lymphadenopathy noted. Respiratory: Clear to auscultation bilaterally. Normal respiratory effort, able to speak in complete sentences. No respiratory distress, not tachypneic, no tripod positioning and no use of accessory muscles. Patient reports dry cough. Cardiovascular: Regular rate and rhythm. Normal S1 and S2 Skin: No rashes or lesions noted Patient was informed and verbally consented to the use of an ambient scribe for clinic note documentation during this visit [facility] Medical History Physical exam Blurry vision Breast mass, right Left ovarian cyst Breast pain, right Right hand pain Blood in urine Complex ovarian cyst Epigastric abdominal pain Urinary tract infection Left ovarian cyst Blurry vision, bilateral Muscle spasm Dysuria Breast pain Screen for sexually transmitted diseases Pelvic pain Cervical cancer screening Physical exam Left ovarian cyst Chronic idiopathic constipation Abdominal pain PONV (postoperative nausea and vomiting) Fibroadenoma Lumbar pain IBS (irritable bowel syndrome) Atopic dermatitis Bipolar 1 disorder GERD (gastroesophageal reflux disease) Anxiety Depression Asthma Surgical History History of excision of mass History of umbilical hernia repair H/O hysterectomy with oophorectomy H/O section Hx of esophagogastroduodenoscopy Family History Father Kidney disease Hypertension Family history of breast cancer Mother CVD (cardiovascular disease) Paternal Grandmother Stomach cancer Paternal Aunt Breast cancer Social History Housing: Apartment Alcohol intake: current Alcohol intake frequency: holidays/special occasions only Alcohol type: beer Comment: pt previously medicated with oxycodone Patient Tobacco Use Status: Current everyday Tobacco user Tobacco use type: Cigarette Cigarette Packs Per Day: 1 e-Cigarette/Vaping Use: Never Used Second Hand Smoke Exposure: Yes Substance Use Type: Marijuana service: No Current occupational status: employed Current occupational exposures/hazards: No Gender identity: Female Cognitive needs: No Hearing needs: No Vision needs: No Female Reproductive History Menstrual Age of Menarche: 15 Review of Systems Const All systems reviewed & are unremarkable except as noted in HPI and below Physical Exam Vital Signs: Last Vital Signs Temp 98.2 F 07/04/25 10:39 Pulse 72 07/04/25 10:39 BP 172/60 H 07/04/25 10:39 Pulse Ox 99 07/04/25 10:39 Oxygen Delivery Method Room Air 07/04/25 10:39 BMI result Body Mass Index 30.6 Assessment & Plan Assessment & Plan (1) URI with cough and congestion: Code(s): J06.9 - Acute upper respiratory infection, unspecified Plan Most likely URI vs covid vs RSV vs flu vs viral illness plan - tylenol or motrin as needed for pain or fever - will order a resp panel and call with the results - tessalon perles as needed for cough - flonase and zytec daily - will call her with the results - wants a work note to be out of work Sat - follow up with PCP Orders: Orders Resp Pathogen Panel - [facility] Today J06.9 - Acute upper respiratory infection, unspecified Medications: New benzonatate 100 mg PO bid-tid PRN 21 caps 0RF Cough 7 days cetirizine-pseudoephedrine 5-120 mg ER 1 tab PO BID 14 tabs 0RF 7 days fluticasone propionate 50 mcg/actuation administer into each nostril 1 spray intranasal Q12H 16 grams 0RF Coding Level of Care Code Est Pt Level 3 (56025) Diagnoses URI with cough and congestion J06.9
--- OUTSIDE RECORDS SUMMARY | 2025-07-04 12:03 | XMS_ITS | Clinical Summary ---
Author Organization [employer] Address [address] [place] [address] Care Team Providers Care Student Career Development Specialist Name Role Phone Unavailable Primary Care Provider [...] patient's age to complete this topic Insurance [facility]
--- OUTSIDE RECORDS SUMMARY | 2025-07-04 12:03 | XMS_ITS | Clinical Summary ---
Author Organization [facility] Address [address] [place] [address] Care Team Providers Care Washing Machine Loader And Puller Name Role Phone Nazia Newton MD Primary Care Provider [phone] Allergies No known active allergies Social History [...] on file Address: [employer] [facility] [phone] MEDICAID OUT OF STATE [facility] [place] Care Teams Washing Machine Loader And Puller Relationship Specialty Start Date End Date Nazia Newton MD [address] [place] [address] PCP - General Family Medicine 03/05/22
== END 2025-07-04 12:00 | disposition home or self-care (01) ==
PROVIDERS: PCP Internal Medicine; Visit Provider Physician Assistant Medical
DX: J06.9 Acute upper respiratory infection, unspecified (principal)

== ENCOUNTER 2025-08-12 14:05 | Outpatient (AMB) | payer OTHER, SELFPAY ==
--- OUTSIDE RECORDS SUMMARY | 2014-05-30 08:10 | XMS_ITS | Continuity of Care Document ---
Author Organization [facility] Address [address] [place] [address] Phone Care Team Providers Care Events Assistant Name Role Phone Polo Gifford MD Unavailable Unavailable Allergies, Adverse Reactions, Alerts Substance Reaction Status Criticality HYDROCODONE BITARTRATE vomiting Active No In formation acetaminophen vomiting Active No Information Medications Medication Instructions Dosage Effective Dates (start - stop) Status Comments Flonase 50 mcg/actuation nasal spray,suspension spray 1 spray by intranasal route every day in each nostril - No Longer Active amoxicillin 500 mg tablet take 1 tablet by oral route every 8 hours 500 MG - No Longer Active ibuprofen 800 mg tablet take 1 tablet (800 mg) by mouth 3 times a day as needed - No Longer Active Procedures Procedure Date BODY MASS INDEX DOCD Systolic Blood Pressure 131-139mm Hg May Diastolic Blood Pressure 80-89mm Hg Office/outpatient visit,est, mod 2013 Systolic Blood Pressure Less Than 130mm Hg Diastolic Blood Pressure 80-89mm Hg X-ray exam of knee, 3 views OFFICE/OUTPATIENT VISIT NEW Advance Directives Directive Yes / No Effective Date File Name No Information Encounters Encounter Description Practice Location Reason(s) For Visit Diagnoses Date Provider Providers Copied on Encounter Office/outpat ient visit,est, mod [facility], [address], [place], [place], [id number], [place] tel:[phone] [facility] [place] note back to work (chief complaint) Knee pain, leftSinusitis 4 Ирниа Cuellar. [facility] [place], [address], [place]. tel:[phone] OFFICE/OUTPAT IENT VISIT [facility], [address], [place], [place], [id number], [place] tel:[phone] [facility] [place] left knee pain (chief complaint) Right knee pain 4 Ирина Cuellar. [facility] [place], [address], [place]. tel:[phone] Family History Family Member Type Diagnosis Age At Onset No Information Payers Payer name Insurance type Covered libertarian ID Authoriza tidanilea(s) [employer] [place] PPO [id number] Social History Type Description Quantity Date Captured Comments Alcohol Use Details Unknown Caffeine Use Details Unknown Tobacco Use Status No Information Smoking Status No Information Sex Female Vital Signs Date / Time: Height Weight BMI Pulse Rate Blood Pressure Temperature Respiratory Rate Body Surface Area Head Circumference Head Circ. Percentile Wt./Tera. Percentile BMI percentile Pulse Ox Inhaled Ox 1:23 PM 67.00 in 104.780 kg (231.00 lbs) 36.1 8 kg/m eter (2) 88 /min 130/85 mm[Hg] 98.10 F 16 /min 97 % Chief Complaint And Reason For Visit From encounter dated '05/30/2014 13:10'. Doctor note back to work (chief complaint). Description: hx of left knee pain x years, in to ghe a doctor note to go back to work, patient states that she feels better now, no knee pain, no fever, nochills, no injury, patient complaining of left ear fullness, with nasal congestion, no cough , no fever, no chills,. paitent states : It is a sinus infection, I was given allergy medication that does not do anything Reason For Referral Reason For Referral No Information Plan Of Treatment Date Type Action Status Referral Ordered: Orthopedic Surgery (related to Right knee pain) ordered Referral Ordered: Referrals: Orthopedic Surgery. Evaluate and treat Appointment date/timeframe: EXPEDITE ordered History Of Present Illness Encounter Date Complaint History Of Prese nt Illness Doctor note back to work hx of l eft knee pain x years, in to e a doctor note to go back to work, patient states that she feels better now, no knee pain, no fever, no chills, no injury, patient complaining of left ear fullness, with nasal congestion, no cough , no fever, no chills,. paitent states : It is a sinus infection, I was given allergy medication that does not do anything left knee pain Onset: 8 years a go. It occurs intermittently and is worsening. Location: left knee. There is no radiation. Context: there is no injury. Pertinent negatives include bruising, crepitus, decreased mobility, joint instability, joint tenderness, limping, numbness, popping, spasms, swelling and weakness. Additional information: patient in requesting x ray and to be referred to ortho doctor, hx of right knee surgery for the same symptoms. Functional Status Date Functional Assessmen t Pain Score 0/10 Instructions Date Instruction Additional Infor mation No Information Assessments Type Assessment Date assessment Knee pain, left assessment Sinusitis Mental Status Date Cognitive Assessment Orientation - [place] ed to time, place, person, situation. Patient Care Teams Name Effective Dates (start - stop) Status Members No Information
--- OUTSIDE RECORDS SUMMARY | 2017-08-24 09:06 | XMS_ITS | Continuity of Care Document ---
Author Organization [facility] ic Address [address] [place] [address] [place] [address] Phone Care Team Providers Care Housekeeping/Laundry Supervisor Name Role Phone Unavailable Unavailable Unavailable Allergies, Adverse Reactions, Alerts Substance Reaction Status Criticality No Known Allergies Resolved No Inform ation Medications Medication Instructions Dosage Effective Dates (start - stop) Status Comments loratadine 10 mg tablet take 1 tablet by oral route every day 10 MG - Active pseudoephedrine 60 mg tablet take 1 tablet by oral route every 6 hours as needed 60 MG - Active Procedures Procedure Date ESTABLISHED OFFICE/OUTPATIENT VISIT TOBACCO NON-USER TOBACCO NONSMOKER NOR 2NDHND SMOKING & 2ND HAND ASSESSED ASSAY GLUCOSE BLOOD QUANT OFFICE/OUTPATIENT VISIT EST HEALTH RISK ASSESSMENT TEST NEW OFFICE/OUTPATIENT VISIT Advance Directives Directive Yes / No Effective Date File Name No Information Encounters Encounter Description Practice Location Reason(s) For Visit Diagnoses Date Provider Providers Copied on Encounter [facility], [address] [place] [address], [id number], tel:[phone] [facility] Sam No Information 7 No Information ESTABLISHED OFFICE/OUTPAT IENT VISIT [facility], [address] [place] [address], [id number], tel:[phone] [facility] [place] Earache (chief complaint) Otitis externa of left ear, unspecified chronicity, unspecified type 6 Janneth HATFIELD Alcon. [address] [place] [address], [address], [place]. tel:[phone] OFFICE/OUTPAT IENT VISIT EST [facility], [address] [place] [address], [id number], [place] tel:[phone] [facility] [place] Earache (chief complaint) Body mass index (BMI) 37.0-37.9, adultEncounter for screening for diabetes mellitusLeft acute otitis mediaFamily history of diabetes mellitus (DM)Encounter for screening, unspecified 6 No Information NEW OFFICE/OUTPAT IENT VISIT [facility], [address] [place] [address], [id number], [place] tel:[phone] [facility] [place] Ear pain (chief complaint) Acute swimmer's ear of left side 5 No Information Family History Family Member Type Diagnosis Age At Onset No Information Payers Payer name Insurance type Covered democrat ID Nuria wood(s) [employer] [facility] CI [id number] Social History Type Description Quantity Date Captured Comments Sex Female Smoking Status No Information Chief Complaint And Reason For Visit No Information Reason For Referral Reason For Referral No Information Plan Of Treatment Date Type Action Status Future Order: Lab Order Comprehe nsive Metabolic Panel ([id number]), Appointment on: , Collected on: , Sent on: Sent Future Order: Lab Order Hemoglob in A1c ([id number]), Appointment on: , Collected on: , Sent on: Sent Future Order: Lab Order Lipid Pa eboni ([id number]), Appointment on: , Collected on: , Sent on: Sent Future Order: Lab Order TSH ([id number]), Appointment on: , Collected on: , Sent on: Sent Future Order: Lab Order CBC With Differential/Platelet ([id number]), Appointment on: , Collected on: , Sent on: Sent History Of Present Illness Encounter Date Complaint History Of [place] nt Illness Earache Onset: 1 month a go. Severity level is mild-moderate. The states the earache is in the left ear. It occurs constantly. The problem is with no change. Context: bubble bath. Symptom is aggravated by coughing, sneezing and wiggling pinna. Relieving factors include topical eardrops. Associated symptoms include ear popping, ear pressure and fullness in ears. Pertinent negatives include bleeding from ear(s), congestion (nasal), cough, dizziness, drainage (clear), drainage (purulent), fever, loss of balance, mastoid bone tenderness, nausea and redness/swelling outer ear. Additional information: Has been on ear drops and oral meds and keeps coming back. No fevers. Worsened in last few days but slightly better today. Feels like fluid in ear. Earache Onset: 2 weeks a go. Severity level is 6. Duration: week. The states the earache is in the left ear. The problem is worse. Relieving factors include corticosporin ear drops helps a little. Associated symptoms include ear pressure. Pertinent negatives include bleeding from ear(s), congestion (nasal), cough, decreased appetite, dizziness, drainage (clear), drainage (purulent), ear popping, hearing deficit, irritability, loss of balance, malaise, ringing in ears, tooth pain and vomiting. Additional information: Has had otitis externa in [facility]. Ear pain Onset: 4 days ag o. The patient states the earache is in the left ear. The problem is improving. Context: repeated Q-Tip use. Symptom is aggravated by bathing. Denies relieving factors. Associated symptoms include ear pressure. Pertinent negatives include bleeding from ear(s), congestion (nasal), cough, decreased appetite, dizziness, drainage (clear), drainage (purulent), ear popping, fever, fullness in ears, hearing deficit, irritability, loss of balance, malaise, mastoid bone tenderness, nausea, redness/swelling outer ear, ringing in ears, tooth pain and vomiting. Functional Status Date Functional Assessmen t No Information Instructions Date Instruction Additional Infor felipe Ibuprofen/Acetominop hen 500 mg. orally every 4 hours PRN pain/Fever > 100.4f. Topical antibiotic: Will change from neomycin/polymyxin to ciprodex. Loratadine 10mg daily and pseudoephedrine given. Use wax ear plugs when bathing or showering. Apply heat to ear with warm compresses or heating pad.Avoid getting water in the ear canal.Patient to go to ER if severe symptoms arise.Patient verbalizes understanding of plan.RTC if symptoms do not resolve after treatment completed. Related to Otitis externa of left ear, unspecified chronicity, unspecified type Reviewed medications Take new medication as prescribe d Follow exercise program Avoid Qtips. Nothing into ear. Keep ears dry. Heat pack for comfort. May use 50/50 rubbing alcohol with white vinigar drops into each ear after water activity for future prevention of ear infecton. Related to Acute swimmer's ear of left side Patient understood a nd made informed decision Take new medication as prescribe d Warm compresses Assessments Type Assessment Date No Information Patient Care Teams Name Effective Dates (start - stop) Status Members No Information
[2025-08-12 14:08] VITALS: BP 122/80; PULSE 80; O2SAT 99; BMI 30.1
--- NOTE | 2025-08-12 14:08 | A.OFFPC_ITS ---
Vital Signs 08/12/25 14:08 Height 5 ft 4 in Weight 175 lb 8 oz BMI 30.1 BP 122/80 Blood Pressure Location Lt brachial Position Sitting Pulse 80 Pulse Source Pulse Oximeter Pulse Oximetry (%) 99 Oxygen Delivery Method Room Air Intake Visit Reasons: bp,depression Equine Pharmacology Technician Required: No Accompanied by: Self / Same As Patient Allergies No Known Allergies (No Known Allergies*) Allergy (Verified 08/12/25 15:15) Medication List - Last Reconciled 08/12/25 by Nazia Antonio MD benzonatate 100 mg PO bid-tid PRN 7 days budesonide-formoterol 80-4.5 mcg/actuation 2 puffs inhalation BID 30 days bupropion HCl XL 150 mg PO QAM 30 days cetirizine-pseudoephedrine 5-120 mg ER 1 tab PO BID 7 days cholecalciferol (vitamin D3) 50 mcg PO DAILY 90 days diazepam (Valium) 5 mg PO ONCE dicyclomine 20 mg PO QID 30 days famotidine (Pepcid) 40 mg PO BEDTIME fluticasone propionate 50 mcg/actuation 1 spray intranasal Q12H hydrochlorothiazide 25 mg PO DAILY 90 days metoclopramide HCl (Reglan) 10 mg PO TID nitrofurantoin monohyd/m-cryst 100 mg (Macrobid) 100 mg PO BID 10 days pantoprazole 40 mg PO DAILY 90 days simethicone 180 mg PO QID 30 days sulfamethoxazole-trimethoprim 800-160 mg (Bactrim DS) 1 tab PO Q12H 10 days sumatriptan succinate 25 mg PO Q2-4H PRN 30 days tramadol 50 mg PO DAILY PRN 30 days Tobacco use date assessed: 08/12/25 Dental Screening Dental Screen Date: 08/12/25 HPI HPI Comments History of Present Illness Details The patient is a 40-year-old female presenting for evaluation of daily headaches. She has a history of bipolar depression and is currently taking bupropion 150 mg. The patient also complains of significant anxiety. Her medical history includes asthma, for which she has a pump. She reports running out of her hydrochlorothiazide. She takes vitamin D and Pepcid. Previous medications included metoprolol, pantoprazole, and simethicone. The patient has already received her influenza vaccine. [facility] Medical History (Updated 08/12/25 @ 15:17 by Nazia Antonio MD) Physical exam Blurry vision Breast mass, right Left ovarian cyst Breast pain, right Right hand pain Blood in urine Complex ovarian cyst Epigastric abdominal pain Urinary tract infection Left ovarian cyst Blurry vision, bilateral Muscle spasm Dysuria Breast pain Screen for sexually transmitted diseases Pelvic pain Cervical cancer screening Physical exam Left ovarian cyst Chronic idiopathic constipation Abdominal pain PONV (postoperative nausea and vomiting) Fibroadenoma Lumbar pain IBS (irritable bowel syndrome) Atopic dermatitis Bipolar 1 disorder GERD (gastroesophageal reflux disease) Anxiety Depression Asthma Surgical History History of excision of mass History of umbilical hernia repair H/O hysterectomy with oophorectomy H/O section Hx of esophagogastroduodenoscopy Family History Father Kidney disease Hypertension Family history of breast cancer Mother CVD (cardiovascular disease) Paternal Grandmother Stomach cancer Paternal Aunt Breast cancer Social History Housing: Apartment Alcohol intake: current Alcohol intake frequency: holidays/special occasions only Alcohol type: beer Comment: pt previously medicated with oxycodone Patient Tobacco Use Status: Current everyday Tobacco user Tobacco use type: Cigarette Cigarette Packs Per Day: 1 e-Cigarette/Vaping Use: Never Used Second Hand Smoke Exposure: Yes Substance Use Type: Marijuana service: No Current occupational status: employed Current occupational exposures/hazards: No Gender identity: Female Cognitive needs: No Hearing needs: No Vision needs: No Female Reproductive History Menstrual Age of Menarche: 15 Questionnaire PHQ-9 Over the last 2 weeks, how often have you been bothered by any of the following problems? 1. Little interest or pleasure in doing things: more than half the days 2. Feeling down, depressed, or hopeless: several days 3. Trouble falling or staying asleep, or sleeping too much: nearly every day 4. Feeling tired or having little energy: nearly every day 5. Poor appetite or overeating: nearly every day 6. Feeling bad about yourself - or that you are a failure or have let yourself or your family down: several days 7. Trouble concentrating on things, such as reading the newspaper or watching television: not at all 8. Moving or speaking so slowly that other people could have noticed. Or the opposite - being so fidgety or restless that you have been moving around a lot more than usual: not at all 9. Thoughts that you would be better off or of hurting yourself in some way: not at all Total score: 13 Depression Screening Interpretation: Positive Depression Screening Follow-up: Existing condition and Follow-up Visit Requested Depression Screening Done: Yes 14329 - PHQ-9 Billing: Yes Source: Developed by Drs. Tico Scherer, Lesley Rizzo, Garcia Forman and colleagues, with an educational amena from [employer]. Thrive Questionnaire Date Thrive assessed: 08/12/25 I am a: Patient What is your living situation today?: I have a steady place to live Within the past 12 months, did the food you bought not last and you didn't have the money to get more?: Sometimes True Within the past 12 months, did you worry whether your food would run out before you got money to buy more?: Sometimes True Do you have trouble paying for medicines?: No Do you have trouble getting transportation to medical appointments?: Yes Do you have trouble paying your heating and electricity bill?: Yes Do you have trouble taking care of your child, family member or friend?: No Do you have trouble with day-to-day activities such as bathing, preparing meals, shopping, managing finances, etc.?: Yes Are you currently unemployed and looking for a job?: Yes Are you interested in more education?: No Please select the resources that you would like help with: Transportation Currently or been in a relationship where the following occur: I choose not to answer THRIVE Score: 4 AUDIT C Alcohol Use Questionnaire (AUDIT-C) 1. How often do you have a drink containing alcohol?: Never 3. How often do you have six or more drinks on one occasion?: Never Total Score: 0 Score Reviewed/Action Taken: No ERIK-7 AMB Questionnaire ERIK-7 Date ERIK - 7 assessed: 08/12/25 Feeling nervous, anxious, or on edge: 3 = Nearly every day Not being able to stop or control worryin = Nearly every day Worrying too much about different things: 1 = Several days Trouble relaxin = More than half the days Being so restless that it is hard to sit still: 1 = Several days Becoming easily annoyed or irritable: 1 = Several days Feeling afraid as if something awful might happen: 0 = Not at all Total ERIK-7 score (0-4 normal; 5-9 mild; 10-14 moderate; 15-21 severe): 11 Source: Developed by Drs. Tico Scherer, Lesley Rizzo, Garcia Forman and colleagues, with an educational amena from [employer]. ERIK-7 Assessment Billing ERIK-7 Assessment Tool: ERIK-7 Assessment 89124 Review of Systems Const All systems reviewed & are unremarkable except as noted in HPI and below Card Denies chest pain at rest, Denies chest pain with activity, Denies edema, Denies irregular heart rhythm, Denies claudication, Denies dyspnea, Denies dyspnea on exertion, Denies orthopnea, Denies paroxysmal nocturnal dyspnea and Denies slow heart rate Resp Denies cough, Denies dyspnea and Denies dyspnea on exertion GI Denies abdominal pain, Denies change in bowel habits, Denies excessive flatus, Denies nausea and Denies vomiting Physical exam (Primary Care) Vital Signs: Last Vital Signs Pulse 80 08/12/25 14:08 BP 122/80 08/12/25 14:08 Pulse Ox 99 08/12/25 14:08 Oxygen Delivery Method Room Air 08/12/25 14:08 BMI result Body Mass Index 30.1 Tobacco/Smoking Status: Tobacco use Status Tobacco use date assessed 08/12/25 08/12/25 14:14 Patient Tobacco Use Status Current everyday Tobacco 08/12/25 14:14 Tobacco use type Cigarette 08/12/25 14:14 e-Cigarette/Vaping Use Never Used 08/12/25 14:14 PHQ-9: PHQ-9 Score PHQ-9: Total score 13 08/12/25 14:27 Depression Screening Interpretation: Positive Depression Screening Follow-up: Existing condition and Follow-up Visit Requested Thrive Assessment: Date of Thrive Assessment Date Thrive assessed 08/12/25 08/12/25 14:14 Currently or been in a relationship where the following occur: I choose not to answer Resp Effort & Inspection: normal respiratory effort Auscultation: clear to auscultation bilaterally Cardio Jugular venous distension: no JVD Rate: regular rate Rhythm: regular rhythm Heart sounds: S1 normal heart sound present and S2 normal heart sound present Extrem General: Yes full ROM Coding Level of Care Code Est Pt Level 4 (33738) Complex EM visit Add On G2211 Diagnoses Essential hypertension I10 Bipolar depression F31.9 New persistent daily headache G44.52 Blurry vision H53.8 Anxiety F41.9 Additional Codes ERIK-7 Assessment Billing - ERIK-7 Assessment Tool: ERIK-7 Assessment 66159 ([id number]) PHQ-9 - 68686 - PHQ-9 Billing: Yes ([id number]) Time Spent (min) 21 Assessment & Plan Assessment & Plan (1) Essential hypertension: Code(s): I10 - Essential (primary) hypertension Category: Medical (2) Bipolar depression: Code(s): F31.9 - Bipolar disorder, unspecified Category: Medical (3) New persistent daily headache: Code(s): G44.52 - New daily persistent headache (NDPH) Category: Medical (4) Blurry vision: Code(s): H53.8 - Other visual disturbances Category: Medical (5) Anxiety: Code(s): F41.9 - Anxiety disorder, unspecified Category: Medical Plan Plan 1. Headache The patient complains of daily headaches. A referral will be made to a neurologist for further evaluation. A referral to an eye doctor will also be placed, as vision issues can contribute to headaches. A new medication will be prescribed for the headaches. 2. Bipolar Depression And Anxiety The patient has a history of bipolar depression and also complains of anxiety. The plan is to discontinue bupropion and prescribe escitalopram, which can be taken at night. 3. Hypertension Continue hydrochlorothiazide. Blood pressure goal is equal or less than 130/80. 4. Blurry vision Referred to Ophthalmology. 5. Anxiety Start escitalopram. Orders: Referrals Neurology Referral G44.52 - New daily persistent headache (NDPH) Ophthalmology Referral H53.8 - Other visual disturbances Medications: New escitalopram oxalate 10 mg PO DAILY 90 tabs 1RF 90 days Refilled sumatriptan succinate do not exceed 8 doses per 24 hrs 25 mg PO Q2-4H PRN 9 tabs 5RF migraine headache 30 days Discontinued bupropion HCl XL Discontinued Reason: Order 150 mg PO QAM 30 tabs 1RF 30 days
--- OUTSIDE RECORDS SUMMARY | 2025-08-12 16:26 | XMS_ITS | Clinical Summary ---
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 Name Role Phone Nazia Newton MD Primary Care Provider [phone] Allergies No known active allergies Social History [...] series) 2006 Pap Smear (Ages 21-65) 01/09/2008 Influenza Vaccine 05/03/2025 COVID-19 Vaccine ( - 2023-2 5 season) 2025 HPV Vaccines (No Doses Required) Completed Pneumococcal Vaccine: Pediat xiomara (0-5 Years) and At-Risk Patients (6 to 49 Years) Aged Out No longer eligible b ased on patient's age to complete this topic Insurance [facility] [employer] Member Subscriber Plan / Payer (Ef fective for All Dates) Name:Nishant Hayes, Marianela Relation to Subscriber:Self Name:Nishant Hayes, Marianela Payer ID:Not on file Group ID:Not on file Type:Not on file Address: [facility] [phone] MEDICAID OUT OF STATE [facility] Care Teams Hand Bindery Assembly Worker Relationship Specialty Start Date End Date Nazia Newton MD [address] [place] [address] PCP - General Family Medicine 03/05/22
--- OUTSIDE RECORDS SUMMARY | 2025-08-12 16:26 | XMS_ITS | Clinical Summary ---
Author Organization [employer] Address [address] [place] [address] Care Team Providers Care Pond Tender Name Role Phone Unavailable Primary Care Provider [...] patient's age to complete this topic Insurance [facility]
== END 2025-08-12 14:35 | disposition home or self-care (01) ==
LOC: HO.HMCH 14:06
PROVIDERS: PCP Internal Medicine; Visit Provider Internal Medicine
DX: I10 Essential (primary) hypertension (principal); F31.9 Bipolar disorder, unspecified; G44.52 New daily persistent headache (NDPH); H53.8 Other visual disturbances; F41.9 Anxiety disorder, unspecified

== ENCOUNTER → 2025-08-12 14:05 | Outpatient (BNVA) | payer OTHER, SELFPAY | PROVIDERS: PCP Internal Medicine; Visit Provider Internal Medicine | DX: G44.52 New daily persistent headache (NDPH) (principal); I10 Essential (primary) hypertension; F31.9 Bipolar disorder, unspecified; H53.8 Other visual disturbances; F41.9 Anxiety disorder, unspecified | CPT/HCPCS: 96127; 99212 ==

== ENCOUNTER 2025-08-16 10:39 | Emergency (ER) | payer OTHER, SELFPAY ==
--- NOTE | 2025-08-16 | ECG_ITS ---
Test Reason : cp Blood Pressure : */* mmHG Vent. Rate : 78 BPM Atrial Rate : 78 BPM P-R Int : 150 ms QRS Dur : 84 ms QT Int : 416 ms P-R-T Axes : 59 25 15 degrees QTcB Int : 474 ms Normal sinus rhythm Normal ECG When compared with ECG of 21-Aug-2022 11:05, Vent. rate has decreased by 51 bpm Nonspecific T wave abnormality now evident in Inferior leads Referred By: Generic ED Physician Electronically Signed By: SERGE VELOZ MD
--- NOTE | ~2025-08-16 | XR_ITS ---
EXAMINATION: XR CHEST CLINICAL INFORMATION: chest pain COMPARISON: X-ray 08/21/2022 TECHNIQUE: Frontal view of the chest was obtained. FINDINGS: Cardiac mediastinal structures within normal limits, stable. Stable mild bronchial wall thickening in the lower lungs. No new focal consolidation. No effusion. No pneumothorax is seen. No acute osseous findings XR/XR chest 1V IMPRESSION: Mild bronchial wall thickening can be seen with small airway disease. No new focal consolidation. Electronically signed by: Barney Ferguson MD 08/16/2025 01:08 PM EST
[2025-08-16 11:07] VITALS: BP 128/76; PULSE 79; RESP 16; TEMP 36.4; O2SAT 95
--- NOTE | 2025-08-16 11:07 | ED_ITS ---
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 She denies any trauma or falls. Pain is present ?all the time,? perceived as worse both at night and during the day. Chest pain increases slightly with deep inspiration. She notes pain in the posterior neck when eating and with turning her head to the right or flexing her neck downward. She reports a ?bump? and ?pinched needles/current-like? sensation in the left upper arm at the site of a prior blood draw; moving the arm or direct palpation worsens the pain. No medications have been taken for these symptoms yet. She reports intermittent heat/hot sensation in the area of pain. No similar episodes in the past. Past history of gastritis, but she denies current gastrointestinal symptoms related to this episode. Patient is left- handed. She reports that she is not currently working but does clean her house, sometimes using her hand frequently. ? General: Reports not feeling well. ? HEENT: Positive for daily headache. ? Cardiovascular/Chest: Positive for constant chest pain; worsens with deep inspiration. ? Respiratory: Denies cough or nasal congestion. ? Gastrointestinal: Denies vomiting or diarrhea; pain noted in neck region when eating; denies current heartburn. ? Musculoskeletal: Positive for left arm pain, neck pain, and muscle spasm sensation; pain with arm movement. Related Data Previous Rx's ?Medication ?Instructions ?Recorded dicyclomine 20 mg tablet 20 mg PO QID 30 days #120 ta bs 02/06/25 metoclopramide HCl 10 mg tablet 10 mg PO TID #90 tabs 02/06/25 (Reglan) cholecalciferol (vitamin D3) 50 50 mcg PO DAILY 90 day s #90 caps 02/07/25 mcg (2,000 unit) capsule famotidine 40 mg tablet (Pepcid) 40 mg PO BEDTIME #90 tabs 03/09/25 diazepam 5 mg tablet (Valium) 5 mg PO ONCE Take dose p rior to 05/31/25 office cystoscopy #1 tab nitrofurantoin 100 mg PO BID 10 days #20 ca ps 05/31/25 monohydrate/macrocrystals 100 mg capsule (Macrobid) pantoprazole 40 mg tablet,delayed 40 mg PO DAILY 90 da ys #90 tabs 06/05/25 release simethicone 180 mg capsule 180 mg PO QID 30 days #120 caps 06/05/25 sulfamethoxazole 800 1 tab PO Q12H 10 days #20 ta bs 06/18/25 mg-trimethoprim 160 mg tablet (Bactrim DS) benzonatate 100 mg capsule 100 mg PO bid-tid PRN Cough 7 days 07/04/25 #21 caps cetirizine 5 mg-pseudoephedrine ER 1 tab PO BID 7 days #14 tabs 07/04/25 120 mg tablet,extended release,12hr fluticasone propionate 50 1 spray intranasal Q12H #16 grams 07/04/25 mcg/actuation nasal spray,suspension budesonide-formoterol HFA 80 2 puff inhalation BID 30 days 07/15/25 mcg-4.5 mcg/actuation aerosol #10.2 grams inhaler escitalopram oxalate 10 mg tablet 10 mg PO DAILY 90 da ys #90 tabs 08/12/25 sumatriptan succinate 25 mg tablet 25 mg PO Q2-4H PRN migraine 08/12/25 headache 30 days #9 tabs acetaminophen 650 mg 650 mg PO Q12H PRN pain #30 tabs 08/16/25 tablet,extended release (Tylenol Arthritis Pain) cyclobenzaprine 5 mg tablet 5 mg PO TID PRN muscle spa sm #15 08/16/25 tabs ibuprofen 600 mg tablet 600 mg PO Q8H PRN pain #30 t abs 08/16/25 lidocaine 5 % topical patch 1 patch topical DAILY #30 ea 08/16/25 (Lidoderm) hydrochlorothiazide 25 mg tablet 25 mg PO DAILY 90 day s #90 tabs 08/19/25 tramadol 50 mg tablet 50 mg PO DAILY PRN pain 30 d ays 08/19/25 #20 tabs Allergies Allergy/AdvReac Type Severity Reaction Status Date / Time No Known Allergies (No Known Allergy Verified 08/16/25 11:11 Allergies*) Review of Systems 2 Review of Systems: Yes all other systems are reviewed and are negative PMFSH Past Medical History Attestation statement: The following information was validated with the patient. Source: old records reviewed, nursing notes reviewed and other Medical History Physical exam Blurry vision Breast mass, right Left ovarian cyst Breast pain, right Right hand pain Blood in urine Complex ovarian cyst Epigastric abdominal pain Urinary tract infection Left ovarian cyst Blurry vision, bilateral Muscle spasm Dysuria Breast pain Screen for sexually transmitted diseases Pelvic pain Cervical cancer screening Physical exam Left ovarian cyst Chronic idiopathic constipation Abdominal pain PONV (postoperative nausea and vomiting) Fibroadenoma Lumbar pain IBS (irritable bowel syndrome) Atopic dermatitis Bipolar 1 disorder GERD (gastroesophageal reflux disease) Anxiety Depression Asthma Surgical History History of excision of mass History of umbilical hernia repair H/O hysterectomy with oophorectomy H/O section Hx of esophagogastroduodenoscopy Family History Family History Father Kidney disease Hypertension Family history of breast cancer Mother CVD (cardiovascular disease) Paternal Grandmother Stomach cancer Paternal Aunt Breast cancer Social History Social History Housing: Apartment Alcohol intake: current Alcohol intake frequency: holidays/special occasions only Alcohol type: beer Comment: pt previously medicated with oxycodone Patient Tobacco Use Status: Current everyday Tobacco user Tobacco use type: Cigarette Cigarette Packs Per Day: 1 e-Cigarette/Vaping Use: Never Used Second Hand Smoke Exposure: Yes Substance Use Type: Marijuana service: No Current occupational status: employed Current occupational exposures/hazards: No Gender identity: Female Cognitive needs: No Hearing needs: No Vision needs: No Physical Exam ED Exam Exam: General: Appears in no acute distress, appears well nourished body habitus is obese, appears stated age. No septic or ill-appearing. Vitals reviewed normal, PMH/Social and Surgical hx reviewed including allergies and current medications. - reviewed for prior visits here Head: Normocephalic, no obvious trauma or skin lesions noted. Eyes: EOMI ENMT: moist oral mucosa Neck: trachea midline Cardiovascular: peripheral perfusion normal, Regular heart rate Respiratory: no respiratory distress Abdomen: nondistended Extremities: warm and moving without difficulty unless otherwise detailed in physical exam below Psych: Cooperative Neuro: Alert and oriented. ? Head/Neck: Palpation of posterior head/upper neck reproduces pain. Pain elicited with cervical rotation to the right and with flexion. No rashes noted on skin inspection. ? Musculoskeletal: Tenderness and palpable spasm of left upper trapezius. Strength testing of left upper extremity: pain with resisted shoulder abduction; no pain with resisted shoulder flexion. Direct palpation of left upper arm reproduces pain at prior venipuncture site. No visible skin lesions or rash. Vital Signs: Vital Signs - 24 hr 08/16/25 11:07 08/16/25 12:57 Temperature 97.6 F 97.8 F Pulse Rate 79 67 Respiratory Rate 16 12 Blood Pressure 128/76 152/93 H Pulse Oximetry 95 100 Oxygen Delivery Method Room Air Room Air BMI result Body Mass Index 30.0 Course Course Course Narrative: This is a rapid medical exam performed by Temi Parish NP: Additional HPI, ROS, PE not included below will be deferred to primary provider. Patient is a 40y/o [place]ian speaking female presenting to the ED with complaint of headache x 1 week. Feels as though pain is worsening, affecting entire head and states is now radiating to chest and left arm. Went to PCP, was prescribed meds for migraine which are not helping. Denies hx of headaches. Denies nausea, vomiting, photosensitivity, phonosensitivity. Plan: viral swabs, EKG, labs Medications Administered Discontinued Medications Generic Name Dose Route Start Last Admin Trade Name Stanq PRN Reason Stop Dose Admin Acetaminophen 975 mg 08/16/25 12:01 08/16/25 12:24 Acetaminophen 325 Mg Tablet PO 08/16/25 12:02 975 mg ONCE ONE Administration Diazepam 2 mg 08/16/25 12:01 08/16/25 12:24 Diazepam 2 Mg Tablet PO 08/16/25 12:02 2 mg ONCE ONE Administration Ketorolac Tromethamine 15 mg 08/16/25 12:01 08/16/25 12:23 Ketorolac Tromethamine 15 Mg/Ml Vial IM 08/16/25 12:02 15 mg ONCE ONE Administration Lidocaine 1 patch 08/16/25 13:32 08/16/25 13:58 Lidocaine 4 % Patch Adh..Patch TRANSDERMA 08/16/25 13:33 1 patch ONCE ONE Administration Protocol Medical Decision Making Medical Decision Making MDM Narrative: The patient presents with constant headache, chest pain, and left arm/neck pain. Exam reveals left upper trapezius muscle spasm likely contributing to headache and arm discomfort. Chest discomfort appears musculoskeletal; awaiting chest X- ray for further evaluation. Problem #1: Left upper trapezius muscle strain with associated arm and neck pain Assessment: Muscle spasm and tenderness on exam; pain reproduced with arm movement and cervical rotation. Plan: - Administer muscle relaxant in ED (ensure patient has ride home before dosing, as she cannot drive after medication). 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 - Apply topical pain patch to left neck region. - Recommend follow-up with Orthopedics/Physical Therapy for ongoing management; advise that recovery may require PT and is not a quick fix. - Discharge home once pain controlled and safe transportation confirmed. Problem #2: Headache secondary to muscle tension Assessment: Daily headache likely related to unresolved neck/shoulder muscle strain. Plan: - Administer acetaminophen (Tylenol) and ibuprofen (Motrin) for analgesia. - Monitor response while in ED; continue oral analgesics as needed after discharge. Problem #3: Chest pain, musculoskeletal vs. other etiology Assessment: Chest pain worsens with deep inspiration; exam suggests musculoskeletal origin, but chest X-ray pending to rule out alternative causes. Plan: - Obtain and review chest X-ray. - If imaging and exam remain unremarkable and pain controlled with meds, discharge home today. Follow-up: As above. Patient instructions and discharge paperwork to be provided in [place]itanian. Xray of chest shows no widened mediastinum or pneumothorax. PERC score is 0, PE can be ruled out clinically. SHe reported relief of symptoms after receiving valium, tylenol, and motrin. Plan to discharge home with muscle relaxant, ibuprofen and tylenol script and to follow up with orthopedics. Differential Diagnosis Differential Diagnoses: The differential diagnosis associated with the presentation includes Admission/Observation Consideration of admission/observation: Escalation of care including admission/observation considered Lab Data [facility] Lab Attestation statement: I reviewed the patient's lab results. 08/16/25 11:24 08/16/25 11:24 Labs: Lab Results 11/14/25 Range/Units 11:24 WBC 6.9 (4.8-10.8) X10*3/uL RBC 5.35 (4.20-5.50) X10*6/uL Hgb 14.6 (12.0-16.0) g/dl Hct 45.0 (37.0-47.0) % MCV 84.1 (80.0-98.0) fL MCH 27.3 (27.0-33.0) pg MCHC 32.4 (31.0-35.0) g/dl RDW 14.6 (11.0-16.0) % Plt Count 305 (160-400) X10*3/uL MPV 10.5 (9.4-12.3) fL Immature Gran % (Auto) 0.1 (0.0-0.4) % Neut % (Auto) 60.5 (45-73) % Lymph % (Auto) 32.7 (20-40) % [place] % (Auto) 5.4 (2-11) % Eos % (Auto) 1.2 (0-4) % Baso % (Auto) 0.1 (0-2) % Lymph # (Auto) 2.3 (1.2-4.9) X10*3/uL [place] # (Auto) 0.4 (0.1-1.2) X10*3/uL Eos # (Auto) 0.1 (0.0-0.4) X10*3/uL Baso # (Auto) 0.0 (0.0-0.2) X10*3/uL Abs Immat Gran (auto) 0.01 (0.00-0.03) X10*3/uL Absolute Neuts (auto) 4.2 (2.0-8.3) x10*3/uL Absolute Nucleated RBC 0.000 (0.0-0.012) X10*3/uL Nucleated RBC % (auto) 0.0 (0.0-0.2) /100WBC Sodium 140 (135-145) mmol/L Potassium 3.8 (3.3-5.1) mmol/L Chloride 105 (96-108) mmol/L Carbon Dioxide 27 (22-29) mmol/L Anion Gap 12 (12-20) BUN 15 (9-16) mg/dL Creatinine 0.70 (0.5-1.4) mg/dL Estim Creat Clear Calc 111.0 Estimated GFR > 60 Random Glucose 89 (60-115) mg/dL Calcium 9.4 (8.4-10.2) mg/dL Magnesium 2.1 (1.6-2.6) mg/dL Total Bilirubin 0.5 (0.0-1.0) mg/dL AST 23 (5-31) U/L ALT 23 (0-31) U/L Alkaline Phosphatase 46 (39-117) U/L Total Protein 7.3 (6.5-8.0) g/dL Albumin 4.4 (3.5-5.0) g/dL Influenza Type A (PCR) NEGATIVE (Negative) Influenza Type B (PCR) NEGATIVE (Negative) RSV RNA Qual (PCR) NEGATIVE (Negative) SARS-CoV-2 RNA (RT-PCR) NEGATIVE (Negative) Independent Interpretation I performed an independent interpretation of an: EKG and Plain X-Ray Interpretation: no PTX, EKG 78 bpm, nondiagnostic Radiology Impression Discussion of test interpretation with radiology: I have reviewed the radiologist's reading. Tests considered The following testing was considered but not selected: If PERC score was > 1, would have considered CTA Prescription Management I considered prescription management with: Pain Medication Chronic Conditions Patient?s care impacted by: Other Social Determinants Patient?s care significantly limited by Social Determinants of Health including: Other Social Determinant of Health Discharge Plan Discharge Clinical Impression: Cervicothoracic somatic dysfunction, Muscle spasm, Headache, Chest pain Patient Disposition: Home, Self-Care Additional Instructions: Hoy se le da de joseph a casa despu?s de recibir tratamiento por?dolor de brad, dolor en el pecho y dolor en el brazo/micky moe. El dolor en el pecho es de origen muscular y mcfarlane radiograf?a de t?rax fue normal. Recibi? un?relajante muscular, Tylenol (acetaminof?n), Motrin (ibuprofeno) y un parche para el dolor.?No debe conducir despu?s de recibir el relajante muscular; por favor aseg?rese de tener un transporte seguro a casa. Contin?e tomando?Tylenol y Motrin seg?n lo necesite para el dolor, siguiendo las instrucciones del envase. Use el parche para el dolor sridevi se le indic?.?No tome m?s de la dosis recomendada?y no combine estos medicamentos con otros que contengan acetaminof?n o ibuprofeno. Si tiene dudas sobre la dosis, consulte a mcfarlane m?dico o farmac?utico. Mcfarlane?distensi?n muscular y dolor de brad pueden requerir fisioterapia?y no se resuelven r?pidamente. Es importante que?acuda a consulta con ortopedia o fisioterapia?para continuar el manejo y mejorar mcfarlane recuperaci?n. Busque atenci?n m?dica de inmediato si presenta?dolor que empeora, dificultad para respirar, dolor en el pecho que no mejora, debilidad, adormecimiento o cualquier s?ntoma nuevo. Si tiene?preguntas sobre josephine medicamentos o mcfarlane recuperaci?n, comun?quese con mcfarlane proveedor de vale. Recuerde:?No conduzca ni maneje maquinaria pesada despu?s de lori relajantes musculares. Siga las indicaciones de josephine medicamentos y acuda a josephine citas de seguimiento para jamarcus mejor recuperaci?n. You presented with constant headache, chest pain, and left arm/neck pain of one- week duration, without trauma. Symptoms were attributed to left upper trapezius cervical muscle strain with associated tension headache and musculoskeletal chest pain. This pain was reproducible.This was not consistent with cardiac etiology. ED Course: * Pain localized to left upper trapezius, posterior neck, and left upper arm (site of prior venipuncture). * Headache and chest pain were constant; chest pain worsened with deep inspiration. * Physical exam revealed muscle spasm and tenderness; pain reproduced with movement and palpation. * No skin lesions or rashes. * Chest X-ray obtained; PERC score 0, PE ruled out clinically. Treatments Provided: * Analgesia:?Acetaminophen and ibuprofen administered for pain control, consistent with guidelines recommending NSAIDs and acetaminophen as first-line therapy for musculoskeletal pain and headache.? * Muscle Relaxant:?Diazepam given in ED for muscle spasm; patient monitored for sedation and safe discharge. Short-term use of muscle relaxants may provide modest benefit when combined with non-opioid analgesics.? * Topical Therapy:?Pain patch applied to left neck region. * Orthopedic Referral:?Advised for ongoing management, in line with evidence supporting ED-to consider initiating physical therapy for musculoskeletal pain.? * Patient Education:?Discharge instructions provided in Mauritanian. Diagnostic Testing: * Chest X-ray:?No widened mediastinum or pneumothorax. * Clinical Assessment:?PERC score 0; pulmonary embolism ruled out. * Response to Treatment:?Symptom relief achieved after ED medications. Discharge Plan: * Medications:?Prescriptions for muscle relaxant (short-term), ibuprofen, and acetaminophen. * Follow-up:?Referral to Orthopedics/Physical Therapy for continued care. * Instructions: * Use medications as directed for pain control. * Avoid driving or operating machinery while taking muscle relaxants. * Monitor for worsening symptoms; return to ED if chest pain increases, new neurological symptoms develop, or pain becomes unmanageable. * Continue home activity as tolerated; gradual return to normal function encouraged. * Discharge paperwork and instructions provided in [place]itanian. Prescriptions: New cyclobenzaprine 5 mg tablet 5 mg PO TID PRN (Reason: muscle spasm) Qty: 15 0RF acetaminophen [Tylenol Arthritis Pain] 650 mg tablet extended release 650 mg PO Q12H PRN (Reason: pain) Qty: 30 0RF lidocaine [Lidoderm] 5 % adhesive patch,medicated 1 patch topical DAILY Qty: 30 0RF Rx Instructions: leave on most painful area for up to 12 hrs ibuprofen 600 mg tablet 600 mg PO Q8H PRN (Reason: pain) Qty: 30 0RF No Action famotidine [Pepcid] 40 mg tablet 40 mg PO BEDTIME Qty: 90 1RF budesonide-formoterol 80-4.5 mcg/actuation HFA aerosol inhaler 2 puff inhalation BID 30 Days Qty: 10.2 2RF tramadol 50 mg tablet 50 mg PO DAILY PRN (Reason: pain) 30 Days Qty: 20 0RF hydrochlorothiazide 25 mg tablet 25 mg PO DAILY 90 Days Qty: 90 1RF sulfamethoxazole-trimethoprim [Bactrim DS] 800-160 mg tablet 1 tab PO Q12H 10 Days Qty: 20 0RF dicyclomine 20 mg tablet 20 mg PO QID 30 Days Qty: 120 1RF metoclopramide HCl [Reglan] 10 mg tablet 10 mg PO TID Qty: 90 6RF cholecalciferol (vitamin D3) 50 mcg (2,000 unit) capsule 50 mcg PO DAILY 90 Days Qty: 90 1RF benzonatate 100 mg capsule 100 mg PO bid-tid PRN (Reason: Cough) 7 Days Qty: 21 0RF cetirizine-pseudoephedrine 5-120 mg tablet extended release 12 hr 1 tab PO BID 7 Days Qty: 14 0RF fluticasone propionate 50 mcg/actuation spray,suspension 1 spray intranasal Q12H Qty: 16 0RF Rx Instructions: administer into each nostril escitalopram oxalate 10 mg tablet 10 mg PO DAILY 90 Days Qty: 90 1RF sumatriptan succinate 25 mg tablet 25 mg PO Q2-4H PRN (Reason: migraine headache) 30 Days Qty: 9 5RF Rx Instructions: do not exceed 8 doses per 24 hrs diazepam [Valium] 5 mg tablet 5 mg PO ONCE Qty: 1 0RF nitrofurantoin monohyd/m-cryst [Macrobid] 100 mg capsule 100 mg PO BID 10 Days Qty: 20 0RF Rx Instructions: must administer with a meal/food pantoprazole 40 mg tablet,delayed release (DR/EC) 40 mg PO DAILY 90 Days Qty: 90 1RF simethicone 180 mg capsule 180 mg PO QID 30 Days Qty: 120 3RF Rx Instructions: after meals Referrals: [facility] [Provider Group] Referral Note: consider PT referral Clinical Impression: Cervicothoracic somatic dysfunction; Muscle spasm Nazia Newton MD [Primary Care Provider, Internal Medicine] Referral Note: ER follow up Clinical Impression: Cervicothoracic somatic dysfunction; Muscle spasm; Headache; Chest pain Stand Alone Forms: Work/School Release Interventions: ED Discharge Assessment Last Done: 08/16/25 14:14 Discharge Date/Time: 08/16/25 14:15 Print Language: Mauritanian
[2025-08-16 11:33] LABS: MANUAL DIFF FLAG NO
[2025-08-16 11:36] LABS: Hematocrit 45.0 % (37.0-47.0); Hemoglobin 14.6 g/dl (12.0-16.0); Imm Gran Abs Auto 0.01 X10*3/uL (0.00-0.03); Imm Gran Pct Auto 0.1 % (0.0-0.4); Lymphocytes Absolute Auto 2.3 X10*3/uL (1.2-4.9); Mean Corpuscular HGB Conc 32.4 g/dl (31.0-35.0); Mean Corpuscular Hemoglobin 27.3 pg (27.0-33.0); Mean Corpuscular Volume 84.1 fL (80.0-98.0); NRBC Abs Auto 0.000 X10*3/uL (0.0-0.012); NRBC Pct Auto 0.0 /100WBC (0.0-0.2); Platelet Count 305 X10*3/uL (160-400); Red Blood Count 5.35 X10*6/uL (4.20-5.50); White Blood Count 6.9 X10*3/uL (4.8-10.8)
[2025-08-16 11:49] LABS: Alanine Aminotransferase 23 U/L (0-31); Albumin Level 4.4 g/dL (3.5-5.0); Alkaline Phosphatase 46 U/L (39-117); Anion Gap 12 (12-20); Aspartate Amino Transferase 23 U/L (5-31); Blood Urea Nitrogen 15 mg/dL (9-16); Calcium 9.4 mg/dL (8.4-10.2); Carbon Dioxide 27 mmol/L (22-29); Chloride 105 mmol/L (96-108); Creatinine Clr Calc Pharmacy 111.0; Estimated Glomerular Filt Rate > 60; Magnesium 2.1 mg/dL (1.6-2.6); Potassium 3.8 mmol/L (3.3-5.1); Sodium 140 mmol/L (135-145); Total Protein 7.3 g/dL (6.5-8.0)
[2025-08-16 12:11] LABS: Resp Syncy Virus RNA Qual PCR NEGATIVE (Negative); SARS COV2 PCR INHOUSE NEGATIVE (Negative)
--- NOTE | 2025-08-16 12:32 | PC.NURSE ---
pt is alert and oriented, skin appropriate for ethnicity, respirations even and unlabored, pt reports for the last week having a bad headache that radiates to the left arm and chest, also is reporting nausea
[2025-08-16 12:57] VITALS: BP 152/93; PULSE 67; RESP 12; TEMP 36.6; O2SAT 100
[2025-08-16] MEDS: Lidocaine 4 % Patch ADH..PATCH 1 PATCH TRANSDERMA (13:58)
[2025-08-16 14:14] VITALS: BP 152/93; PULSE 67; RESP 12; TEMP 36.6; O2SAT 100
--- OUTSIDE RECORDS SUMMARY | 2025-08-16 17:31 | XMS_ITS | Clinical Summary ---
Author Organization [employer] Address [address] [place] [address] Care Team Providers Care Visual Designer Name Role Phone Unavailable Primary Care Provider [...] patient's age to complete this topic Insurance [facility]
--- OUTSIDE RECORDS SUMMARY | 2025-08-16 17:31 | XMS_ITS | Clinical Summary ---
Author Organization [facility] Address [address] [place] [address] Care Team Providers Care Spot Cleaner Name Role Phone Nazia Newton MD Primary Care Provider [phone] Allergies No known active allergies Social History [...] patient's age to complete this topic Insurance [facility] [employer] Member Subscriber Plan / Payer (Ef fective for All Dates) Name:Nishant Hayes, Marianela Relation to Subscriber:Self Name:Nishant Hayes, Marianela Payer ID:Not on file Group ID:Not on file Type:Not on file Address: [facility] [phone] MEDICAID OUT OF STATE [facility] Care Teams Spot Cleaner Relationship Specialty Start Date End Date Nazia Newton MD [address] [place] [address] PCP - General Family Medicine 03/05/22
== END 2025-08-16 14:15 | disposition home or self-care (01) ==
PROVIDERS: Registered Nurse Emergency; Emergency Provider Emergency Medicine; PCP Internal Medicine
DX: M99.01 Segmental and somatic dysfunction of cervical region (principal); R07.9 Chest pain, unspecified; R42 Dizziness and giddiness; R51.9 Headache, unspecified; M54.2 Cervicalgia; M62.838 Other muscle spasm; Z03.818 Encounter for observation for suspected exposure to other biological agents ruled out
CPT/HCPCS: 71045; 80053; 83735; 85025; 87637; 93005; 96372; 99284; 99285; J1885

== ENCOUNTER → 2025-08-16 10:46 | Outpatient (BNV) | payer OTHER, SELFPAY | PROVIDERS: Emergency Provider Emergency Medicine; PCP Internal Medicine; Visit Provider Internal Medicine Cardiovascular Disease | DX: R07.9 Chest pain, unspecified (principal) | CPT/HCPCS: 93010 ==

== ENCOUNTER 2025-09-27 10:13 | Outpatient (AMB) | payer OTHER, SELFPAY ==
--- NOTE | 2025-09-27 10:16 | A.OFFVIS_ITS ---
Intake Visit Reasons: Discussion of Cysto in OR/UA(Set) Intake Note: Reason for Visit: Discussion Cystoscopy in OR/Panic Attacks Urology Meds: None Blood Thinners: None Labs: BUN:15 Creatinine: 0.70 (08/16/2025) Imaging: None Last PVR: None Roll Over Press Operator Required: Yes Roll Over Press Operator Language: Graphics Intern Services: Roll Over Press Operator Present Roll Over Press Operator Name: [id number] Information Interpreted: non-clinical & clinical Accompanied by: Family/Other Allergies No Known Allergies (No Known Allergies*) Allergy (Verified 09/27/25 10:30) HPI Comments Details: 09/27/2025--Marianela is here for follow-up. She was initially evaluated by the nurse practitioner 02/13/2025 for microscopic hematuria she has a long has longstanding history of nicotine dependence since age 19 and is smoking approximately a pack of cigarettes per day. CT urogram performed on 03/20/2025 urinary tract was within normal limits. The patient has anxiety and is afraid of having cystoscopy in the office. History of Present Illness The patient is a 40 year old female presenting for follow-up evaluation of microscopic hematuria. She was initially evaluated by a nurse practitioner on 02/13/2025 for this issue. A CT urogram performed on 03/20/2025 showed the urinary tract was within normal limits, and urine cytology from 02/13/2025 was negative for malignant cells. The patient has a long-standing history of nicotine dependence with a smoking history of approximately one pack of cigarettes per day since age 19. She also has a history of anxiety and expressed fear about undergoing an awake cystoscopy in the office. Results - CT urogram (03/20/2025): Urinary tract within normal limits. - Urine cytology (02/13/2025): Negative for malignant cells. Plan 1. Microscopic Hematuria - The patient is undergoing continued evaluation for microscopic hematuria after a normal CT urogram and negative urine cytology. - A cystoscopy will be scheduled to visualize the inside of the bladder. - If any abnormal tissue is identified during the procedure, a biopsy will be performed at that time. 2. Anxiety - Due to the patient's anxiety and fear of undergoing an awake procedure, the cystoscopy will be performed in the hospital under sedation. - The office staff will obtain insurance authorization and then contact the patient to schedule the procedure. - The patient was advised she cannot eat or drink after midnight before the procedure, and the hospital will inform her of the specific arrival time. 05/31/2025--cystoscopy not done today. Marianela is here for office cystoscopy. She was initially evaluated by the nurse practitioner Jessica Woodson on 02/13/2025, I have reviewed chart. The patient is hesitant to have the cystoscopy today she is very nervous. Urinalysis is reviewed nitrite positive. We will reschedule cystoscopy empirically treat with Macrobid. We will prescribe Valium 5 mg to take in the office prior to cystoscopy. I have reviewed CT urogram with the patient. 02/13/25--Marianela is a very pleasant 40-year-old Belarusian-speaking female patient of Dr. Gibbs. She has a past medical history of complex ovarian cysts, recurrent urinary tract infections, but pelvic pain, constipation, IBS, bipolar disorders, GERD, anxiety, depression, and asthma. She presents to the office today as a new patient for microscopic hematuria. In discussion with the patient today she reports having followed up with her PCP at which time she was noted to have microscopic hematuria and recommendations were made for urology referral for further assessment evaluation. When asked she does report a longstanding history of nicotine dependence since the age of [age] years old. She reports smoking approximately 1 pack of cigarettes per day. [facility] Medical History Physical exam Blurry vision Breast mass, right Left ovarian cyst Breast pain, right Right hand pain Blood in urine Complex ovarian cyst Epigastric abdominal pain Urinary tract infection Left ovarian cyst Blurry vision, bilateral Muscle spasm Dysuria Breast pain Screen for sexually transmitted diseases Pelvic pain Cervical cancer screening Physical exam Left ovarian cyst Chronic idiopathic constipation Abdominal pain PONV (postoperative nausea and vomiting) Fibroadenoma Lumbar pain IBS (irritable bowel syndrome) Atopic dermatitis Bipolar 1 disorder GERD (gastroesophageal reflux disease) Anxiety Depression Asthma Surgical History History of excision of mass History of umbilical hernia repair H/O hysterectomy with oophorectomy H/O section Hx of esophagogastroduodenoscopy Family History Father Kidney disease Hypertension Family history of breast cancer Mother CVD (cardiovascular disease) Paternal Grandmother Stomach cancer Paternal Aunt Breast cancer Social History Housing: Apartment Alcohol intake: current Alcohol intake frequency: holidays/special occasions only Alcohol type: beer Comment: pt previously medicated with oxycodone Patient Tobacco Use Status: Current everyday Tobacco user Tobacco use type: Cigarette Cigarette Packs Per Day: 1 e-Cigarette/Vaping Use: Never Used Second Hand Smoke Exposure: Yes Substance Use Type: Marijuana service: No Current occupational status: employed Current occupational exposures/hazards: No Gender identity: Female Cognitive needs: No Hearing needs: No Vision needs: No Female Reproductive History Menstrual Age of Menarche: 15 Results AMB Urinalysis, Automated UA Leukoctes 0 Luis Miguel/uL Last Edit by Lindsay Hagen [facility] on 09/27/25 10:33 UA Nitrite Negative Last Edit by Lindsay Hagen [facility] on 09/27/25 10:33 UA Urobilinogen 0.2 mg/dL Last Edit by Lindsay Hagen [facility] on 09/27/25 10:3 3 UA Protein 0 mg/dL Last Edit by Lindsay Hagen [facility] on 09/27/25 10:33 UA pH 6.0 Last Edit by Lindsay Hagen [facility] on 09/27/25 10:33 UA Blood 0 Parviz/uL Last Edit by Lindsay Hagen [facility] on 09/27/25 10:33 UA Specific Hastings 1.025 Last Edit by Lindsay Hagen [facility] on 09/27/25 10: 33 UA Ketone Negative Last Edit by Lindsay Hagen [facility] on 09/27/25 10:33 UA Bilirubin 0 mg/dL Last Edit by Lindsay Hagen [facility] on 09/27/25 10:33 UA Glucose 0 mg/dL Last Edit by Lindsay Hagen [facility] on 09/27/25 10:33 Results Reviewed Results Reviewed: Laboratory Last Values Urine pH (Auto) 6.0 09/27/25 10:33 Specific Hastings (Auto) 1.025 09/27/25 10:33 Urine Protein (Auto) 0 mg/dL 09/27/25 10:33 Glucose (UA)(Auto) 0 mg/dL 09/27/25 10:33 Urine Ketones (Auto) Negative 09/27/25 10:33 Urine Blood (Auto) 0 Parviz/uL 09/27/25 10:33 Urine Nitrite (Auto) Negative 09/27/25 10:33 Urine Bilirubin (Auto) 0 mg/dL 09/27/25 10:33 Urine Urobilinogen (Auto) 0.2 mg/dL 09/27/25 10:33 Leukocyte Esterase (Auto) 0 Luis Miguel/uL 09/27/25 10:33 Date of Service: 03/20/25 EXAMINATION: CT ABDOMEN AND PELVIS WITHOUT AND WITH CONTRAST CLINICAL INFORMATION: Gross hematuria DLP: 856 mGY*cm COMPARISON: October 15, 2024 TECHNIQUE: Noncontrast CT of the abdomen and pelvis is performed followed by split bolus contrast-enhanced images using 85 mL Omnipaque 350 contrast. Postcontrast imaging is performed during the combined nephrogram and excretion phase. Sagittal and coronal reformatted images were obtained on the technologist's workstation for both the precontrast and postcontrast phases. This CT examination was performed using dose optimization techniques as appropriate, variously including the following: *Automated exposure control *Adjustment of mA and/or kV according to patient size (this includes techniques or standardized protocols for targeted exams where dose is matched to indication/reason for exam; i.e. extremities or head) *Use of iterative reconstruction technique FINDINGS: LUNG BASES: Dependent basilar atelectasis present. LIVER, GALLBLADDER, AND BILIARY TREE: The liver is unremarkable. The gallbladder is minimally filled with bile. Bile ducts do not appear dilated. PANCREAS: Unremarkable. SPLEEN: Unremarkable. ADRENAL GLANDS: Unremarkable. KIDNEYS AND URETERS: No stones are visible in the kidneys and ureters. There is symmetric concentration and excretion of contrast from both kidneys into the ureters. BLADDER: Contrast passes from the kidneys into the bladder. The bladder wall is unremarkable. GASTROINTESTINAL TRACT: The small and large bowel are unremarkable. The appendix is unremarkable. ABDOMINAL WALL: No significant hernia is appreciated. LYMPH NODES: Normal. VASCULAR: Unremarkable. PELVIC VISCERA: Left ovarian cyst measured 3.0 cm. Right ovary and uterus are not identified. 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 OSSEUS STRUCTURES: Degenerative irregularity is noted of the pubic symphysis joint. IMPRESSION: Unremarkable kidneys, ureters, and bladder. Left ovarian cyst or dominant follicle. Suspected right oophorectomy and hysterectomy. 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 Assessment & Plan Assessment & Plan Orders: Orders AMB Urinalysis Automated Today Z13.9 - Encounter for screening, unspecified Coding
--- OUTSIDE RECORDS SUMMARY | 2025-09-27 10:17 | XMS_ITS | Clinical Summary ---
Author Organization [facility] Address [address] [place] [address] Care Team Providers Care Junior Technical Writer Name Role Phone Nazia Newton MD Primary Care Provider [phone] Allergies No known active allergies Social History [...] Influenza Vaccine 05/03/2025 COVID-19 Vaccine ( - 2024-2 6 season) 2025 HPV Vaccines (No Doses Required) Completed Pneumococcal Vaccine: Pediat xiomara (0-5 Years) and At-Risk Patients (6 to 49 Years) Aged Out No longer eligible b ased on patient's age to complete this topic Insurance [facility] [employer] Member Subscriber Plan / Payer (Ef fective for All Dates) Name:Nishant Hayes, Marianela Relation to Subscriber:Self Name:Nishant Hayes, Marianela Payer ID:Not on file Group ID:Not on file Type:Not on file Address: [employer] [phone] MEDICAID OUT OF STATE [facility] Care Teams Junior Technical Writer Relationship Specialty Start Date End Date Nazia Newton MD [address] [place] [address] PCP - General Family Medicine 03/05/22
== END 2025-09-27 11:09 | disposition home or self-care (01) ==
LOC: HO.HUSH 10:14
PROVIDERS: PCP Internal Medicine; Visit Provider Urology
DX: Z13.9 Encounter for screening, unspecified (principal)

== ENCOUNTER → 2025-09-27 10:13 | Outpatient (BNVA) | payer OTHER, SELFPAY | PROVIDERS: PCP Internal Medicine; Visit Provider Urology | DX: R31.29 Other microscopic hematuria (principal); N39.0 Urinary tract infection, site not specified; F41.9 Anxiety disorder, unspecified; F17.210 Nicotine dependence, cigarettes, uncomplicated | CPT/HCPCS: 81003; 99212 ==